=== PATIENT | male | born 1955 ===

== ENCOUNTER → 2020-03-25 08:16 | Outpatient (BNVA) | payer OTHER, MEDICAID, SELFPAY | PROVIDERS: PCP Nurse Practitioner Family; Referring Provider Nurse Practitioner Family; Visit Provider Nurse Practitioner Family | DX: Z86.73 Personal history of transient ischemic attack (TIA), and cerebral infarction without residual deficits (principal); Z51.81 Encounter for therapeutic drug level monitoring; Z79.01 Long term (current) use of anticoagulants | CPT/HCPCS: 85610; 99211 ==

== ENCOUNTER 2020-03-28 10:53 | Outpatient (REF) | payer OTHER, MEDICAID, SELFPAY | END 2020-03-28 10:54 | disposition home or self-care (01) | LOC: HO.HMGCLDS 10:53 | PROVIDERS: PCP Nurse Practitioner Family; Visit Provider Internal Medicine | DX: Z20.828 Contact with and (suspected) exposure to other viral communicable diseases (principal) | CPT/HCPCS: 87635 ==

== ENCOUNTER → 2020-04-22 08:08 | Outpatient (BNVA) | payer OTHER, MEDICAID, SELFPAY | PROVIDERS: PCP Nurse Practitioner Family; Visit Provider Internal Medicine | DX: Z86.73 Personal history of transient ischemic attack (TIA), and cerebral infarction without residual deficits (principal); Z51.81 Encounter for therapeutic drug level monitoring; Z79.01 Long term (current) use of anticoagulants | CPT/HCPCS: 85610; 99211 ==

== ENCOUNTER → 2020-05-18 08:26 | Outpatient (BNVA) | payer OTHER, MEDICAID, SELFPAY | PROVIDERS: PCP Nurse Practitioner Family; Visit Provider Internal Medicine | DX: Z86.73 Personal history of transient ischemic attack (TIA), and cerebral infarction without residual deficits (principal); Z51.81 Encounter for therapeutic drug level monitoring; Z79.01 Long term (current) use of anticoagulants | CPT/HCPCS: 85610; 99211 ==

== ENCOUNTER → 2020-06-15 08:08 | Outpatient (BNVA) | payer OTHER, MEDICAID, SELFPAY | PROVIDERS: PCP Nurse Practitioner Family; Visit Provider Internal Medicine | DX: Z86.73 Personal history of transient ischemic attack (TIA), and cerebral infarction without residual deficits (principal); Z79.01 Long term (current) use of anticoagulants; Z51.81 Encounter for therapeutic drug level monitoring | CPT/HCPCS: 85610; 99211 ==

== ENCOUNTER → 2020-07-15 08:02 | Outpatient (BNVA) | payer OTHER, MEDICAID, SELFPAY | PROVIDERS: PCP Nurse Practitioner Family; Visit Provider Internal Medicine | DX: Z86.73 Personal history of transient ischemic attack (TIA), and cerebral infarction without residual deficits (principal); Z51.81 Encounter for therapeutic drug level monitoring; Z79.01 Long term (current) use of anticoagulants | CPT/HCPCS: 85610; 99211 ==

== ENCOUNTER 2020-08-08 12:34 | Emergency (ER) | payer OTHER, MEDICAID, SELFPAY ==
[2020-08-08 12:51] VITALS: BP 99/52; PULSE 75; RESP 18; TEMP 36.8; O2SAT 94; BMI 40.1
[2020-08-08 15:58] LABS: MANUAL DIFF FLAG NO
[2020-08-08 16:01] LABS: Basophils Percent Auto 0.4 % (0-2); Eosinophils Absolute Auto 0.2 X10*3/uL (0.0-0.4); Eosinophils Percent Auto 2.5 % (0-4); Hematocrit 43.9 % (42-52); Hemoglobin 13.9 g/dl (14.0-18.0); Imm Gran Abs Auto 0.02 X10*3/uL (0.00-0.03); Imm Gran Pct Auto 0.3 % (0.0-0.4); Lymphocytes Absolute Auto 1.9 X10*3/uL (1.2-4.9); Lymphocytes Percent Auto 26.9 % (20-40); Mean Corpuscular HGB Conc 31.7 g/dl (31.0-36.0); Mean Corpuscular Hemoglobin 28.2 pg (27.0-33.0); Mean Platelet Volume 10.6 fL (9.4-12.4); Monocytes Absolute Auto 0.6 X10*3/uL (0.1-1.2); Monocytes Percent Auto 7.7 % (2-11); Neutrophils Absolute Auto 4.4 X10*3/uL (2.0-8.3); Neutrophils Percent Auto 62.2 % (45-73); Platelet Count 174 X10*3/uL (160-400); Red Blood Count 4.93 X10*6/uL (4.60-5.80); Red Cell Distribution Width 13.3 % (11.0-16.0); White Blood Count 7.1 X10*3/uL (4.8-10.8)
[2020-08-08 16:05] LABS: INTERNATIONAL NORM RATIO 2.1 (0.9-1.1); Prothrombin Time 24.9 SEC (10.8-13.0)
[2020-08-08 16:23] LABS: Anion Gap 12 (12-20); Blood Urea Nitrogen 14 mg/dL (9-16); Calcium 8.5 mg/dL (8.4-10.2); Carbon Dioxide 29 mmol/L (22-29); Chloride 104 mmol/L (96-108); Creatinine Clr Calc Pharmacy 86.8; Estimated Glomerular Filt Rate > 60; Glucose Random 101 mg/dL (60-115); Potassium 4.6 mmol/L (3.3-5.1); Sodium 140 mmol/L (135-145)
== END 2020-08-08 17:42 | disposition left against medical advice (07) ==
PROVIDERS: Emergency Provider Emergency Medicine; PCP Nurse Practitioner Family
DX: K92.2 Gastrointestinal hemorrhage, unspecified (principal); I10 Essential (primary) hypertension; I48.92 Unspecified atrial flutter; Z79.01 Long term (current) use of anticoagulants; Z86.73 Personal history of transient ischemic attack (TIA), and cerebral infarction without residual deficits
CPT/HCPCS: 36415; 80048; 85025; 85610; 99282; 99283

== ENCOUNTER 2020-08-09 15:19 | Outpatient (REF) | payer OTHER, SELFPAY ==
--- NOTE | ~2020-08-09 | CT_ITS ---
EXAMINATION: CT ABDOMEN AND PELVIS WITH AND WITHOUT CONTRAST CLINICAL INFORMATION: Gastrointestinal hemorrhage, unspecified COMPARISON: None. TECHNIQUE: Multidetector volumetric imaging was performed from the lung bases through the pubic symphysis for and after the uneventful administration of: Oral contrast: No Intravenous contrast: 80 cc Omnipaque 350 Sagittal and coronal reformatted images were obtained on the technologist workstation. Portal venous and delayed phase images were obtained. This CT examination was performed using dose optimization techniques as appropriate, variously including the following: *Automated exposure control *Adjustment of mA and/or kV according to patient size (this includes techniques or standardized protocols for targeted exams where dose is matched to indication/reason for exam; i.e. extremities or head) *Use of iterative reconstruction technique Total exam dose-length product 1514 mGy-cm FINDINGS: LUNG BASES: Normal heart size. Coronary artery calcification. No pleural effusion or pneumothorax. LIVER, GALLBLADDER, AND BILIARY TREE: The liver is normal in size, shape, and attenuation. No focal hepatic lesion or biliary ductal dilatation is present. There is a gallstone in the gallbladder. PANCREAS: Normal; no mass or surrounding fluid. SPLEEN: Normal size. No focal lesion. ADRENAL GLANDS: Normal; no mass. KIDNEYS AND URETERS: 1.9 cm left lower pole cyst. Symmetric bilateral renal enhancement. No calculi or hydronephrosis. GASTROINTESTINAL TRACT: The stomach is thick-walled, likely due to underdistention as the proximal stomach is fully collapsed.. Small bowel is nondilated. No evidence of colitis or diverticulitis. A few scattered colonic diverticula are present. Although the appendix is not definitely seen, there are no right lower quadrant inflammatory changes to suggest acute appendicitis. There is no abnormal contrast accumulation within the small bowel or colon to suggest active bleeding at the time of the scan. ABDOMINAL WALL: There is fat within the inguinal canals bilaterally. LYMPHOVASCULAR STRUCTURES: No lymphadenopathy. Mild calcified atherosclerotic changes of the normal caliber aorta. BLADDER: No focal mass or wall thickening seen. No bladder calculi. PELVIC VISCERA: Unremarkable. OSSEOUS STRUCTURES: Multilevel level degenerative changes but no acute or suspicious osseous abnormality. CT/CT gi bleed abd pel wo/w con IMPRESSION: No abnormal contrast accumulation within the lumen of the GI tract to suggest active bleeding at the time of the scan. Note that if the patient has intermittent GI hemorrhage, the study would not be expected to be positive unless the patient is actively bleeding at the time of the scan.
[2020-08-09] MEDS: iohexoL 350 MG/ML 100 ML INFUS..BTL IV (16:00)
== END 2020-08-09 15:20 | disposition home or self-care (01) ==
LOC: HO.CT 15:19
PROVIDERS: PCP Nurse Practitioner Family; Visit Provider Nurse Practitioner Family
DX: K92.2 Gastrointestinal hemorrhage, unspecified (principal)
CPT/HCPCS: 74178; Q9967

== ENCOUNTER → 2020-08-10 15:35 | Outpatient (BNVA) | payer OTHER, SELFPAY | PROVIDERS: PCP Nurse Practitioner Family; Visit Provider Internal Medicine | DX: Z86.73 Personal history of transient ischemic attack (TIA), and cerebral infarction without residual deficits (principal); Z51.81 Encounter for therapeutic drug level monitoring; Z79.01 Long term (current) use of anticoagulants | CPT/HCPCS: Q3014 ==

== ENCOUNTER → 2020-08-30 12:16 | Outpatient (BNVA) | payer MEDICARE, OTHER, MEDICAID, SELFPAY | PROVIDERS: PCP Nurse Practitioner Family; Visit Provider Physician Assistant | DX: K62.5 Hemorrhage of anus and rectum (principal); Z79.01 Long term (current) use of anticoagulants | CPT/HCPCS: 99212 ==

== ENCOUNTER → 2020-09-07 08:13 | Outpatient (BNVA) | payer MEDICARE, OTHER, MEDICAID, SELFPAY | PROVIDERS: PCP Nurse Practitioner Family; Visit Provider Internal Medicine | DX: Z86.73 Personal history of transient ischemic attack (TIA), and cerebral infarction without residual deficits (principal); Z51.81 Encounter for therapeutic drug level monitoring; Z79.01 Long term (current) use of anticoagulants | CPT/HCPCS: 85610; 99211 ==

== ENCOUNTER → 2020-09-08 09:13 | Outpatient (REF) | payer MEDICARE, OTHER, SELFPAY ==
--- NOTE | 2020-09-08 09:30 | CA_ITS ---
Transthoracic Echocardiogram Patient (Last, First, Middle): Sourav Lizama, Gender: Male Date of : 1955 Age: 64 Procedure Date: 09/08/2020 Procedure Type: Transthoracic Echocardiogram Location: OP Height: 177.8 cm Weight: 129.73 kg BSA: 2.43 m2 Heart Rate: bpm BP: 133 / 82 mmHg Cobol Engineer: ELLEN Referring MD: Bandar Reid MD Pipe Foreman: Bandar Reid MD Symptoms: I48.0 PAF Study Quality: Technically Difficult ECG Rhythm: Sinus Conclusions: - 1. Normal LV systolic function with impaired relaxation filling pattern next 2. Mildly dilated left atrium 3. Calcific aortic valve changes noted with maybe mild aortic stenosis 4. No pericardial effusion Findings Left Ventricle Normal left ventricular size and systolic function. There is mildly increased left ventricular wall thickness. The visually estimated ejection fraction is between 60-65%. Spectral Doppler is indicative of an impaired relaxation filling pattern. E/E prime ratio is between 8 and 15 consistent with indeterminate filling pressures. Right Ventricle The right ventricle was not well visualized. Atria The left atrium is mildly dilated. Interatrial shunt cannot be excluded. The right atrium was not well visualized. Aortic Valve The aortic valve was not well visualized. There is mild calcification of the aortic valve. There is no aortic valve regurgitation. Increased gradient across aortic valve which could suggest aortic stenosis. Aortic valve area was not calculated on this study Mitral Valve The mitral valve was not well visualized. There is mild mitral annular calcification. There is trace mitral valve regurgitation. There is no mitral valve stenosis. Pulmonic Valve The pulmonic valve was not well visualized. Tricuspid Valve The tricuspid valve was not well visualized. Tricuspid regurgitation envelope is inadequate for calculation of right ventricular systolic pressure. Great Vessels All visible segments of the aorta are normal in size. The pulmonary artery was not well visualized. Venous The inferior vena cava is normal in size and collapses greater than 50% with inspiration. Pericardium/Pleural There is no evidence of pericardial effusion. Prior Study Comparison No significant change compared to prior study dated: 09/11/2018. Measurements M-Mode Liner Measurements Normals - Women/Men AOV Cusps: 1.80 1.5-2.6 cm/m2 2D Linear Measurements IVSd: 1.32 0.6-0.9/0.6-1.0 cm LVIDd: 5.25 3.9-5.3/4.2-5.9 cm LVIDd Index: 2.16 2.4-3.2/2.2-3.1 cm/m2 LVIDs: 3.43 2.0-3.6 cm LVPWd: 1.18 0.7-1.1 cm Ao Root: 3.50 2.1-3.5 cm LA Diam: 4.80 2.7-3.8/3.0-4.0 cm LAIDs Index: 1.98 1.5-2.3 cm/m2 LV Mass: 408.37 67-162/88-224 g LV Mass Index: 168.05 43-95/49-115 g/m2 LVOT Diam: 1.80 3.0+(-)1.3 cm 2D Systolic Function EF 4C: 57.40 >55% EF 2C: 77.60 >55% EF BiP: 67.10 >55% Mitral Valve MV Pk E: 1.16 MV PK A: 1.22 MV Decel Time: 243.00 E/A: 1.00 E'Lateral: 6.20 E'Medial: 4.79 E/E' Med: 24.20 E/E' Lat: 18.70 PHT: 71.00 MVA PHT: 3.10 Decel Morrison: 4.77 Aortic Valve AoV Pk Dinesh: 2.13 AoV Pk Grad: 18.00 LVOT LVOT Pk Dinesh: 1.23 LVOT Mn Dinesh: 0.85 LVOT VTI: 0.30 LVOT Pk Grad: 6.00 LVOT Mn Grad: 3.00 LVOT Diam: 1.80 LVOT Area: 2.54 Diastolic Function MV Pk E: 1.16 MV Pk A: 1.22 E/A: 1.00 E'Medial: 4.79 E/E' Med: 24.20 E' Laterial: 6.20 E/E' Lat: 18.70 Tricuspid Valve RA Press: 3.00 Great Vessels Aorta Ao Root-2D: 3.50 2.0-3.7 cm Ao Asc: 3.70 2.1-3.4 cm Ao Arch: 3.30 Pulmonary Valve PV Pk Dinesh: 1.07 Peak PV Grad: 5.00 Updated in Other Vendor System with Status of Final Bandar Reid MD electronically signed on 09/09/2020 2:35:52 PM with status of Final
== END ==
LOC: HO.CARD 09:13
PROVIDERS: Visit Provider Internal Medicine Cardiovascular Disease
DX: I48.0 Paroxysmal atrial fibrillation (principal)
CPT/HCPCS: 93306; 99212; Q9957

== ENCOUNTER → 2020-09-19 09:02 | Outpatient (BNVA) | payer MEDICARE, MEDICAID, SELFPAY | PROVIDERS: PCP Nurse Practitioner Family; Visit Provider Internal Medicine Cardiovascular Disease | DX: I48.0 Paroxysmal atrial fibrillation (principal); I25.10 Atherosclerotic heart disease of native coronary artery without angina pectoris | CPT/HCPCS: 93005; 99212 ==

== ENCOUNTER 2020-09-28 08:02 | Outpatient (REF) | payer MEDICARE, OTHER, MEDICAID, SELFPAY ==
[2020-09-28 11:19] LABS: MANUAL DIFF FLAG NO
[2020-09-28 11:33] LABS: Basophils Percent Auto 0.5 % (0-2); Eosinophils Absolute Auto 0.2 X10*3/uL (0.0-0.4); Eosinophils Percent Auto 3.5 % (0-4); Hematocrit 44.7 % (42-52); Hemoglobin 13.8 g/dl (14.0-18.0); Imm Gran Abs Auto 0.02 X10*3/uL (0.00-0.03); Imm Gran Pct Auto 0.3 % (0.0-0.4); Lymphocytes Absolute Auto 1.9 X10*3/uL (1.2-4.9); Lymphocytes Percent Auto 31.9 % (20-40); Mean Corpuscular HGB Conc 30.9 g/dl (31.0-36.0); Mean Corpuscular Volume 90.9 fL (80-98); Mean Platelet Volume 11.1 fL (9.4-12.4); Monocytes Absolute Auto 0.5 X10*3/uL (0.1-1.2); Monocytes Percent Auto 7.6 % (2-11); Neutrophils Absolute Auto 3.3 X10*3/uL (2.0-8.3); Neutrophils Percent Auto 56.2 % (45-73); Platelet Count 166 X10*3/uL (160-400); Red Blood Count 4.92 X10*6/uL (4.60-5.80); Red Cell Distribution Width 13.5 % (11.0-16.0)
[2020-09-28 11:39] LABS: D Dimer < 200 NG/ML
[2020-09-28 17:55] LABS: Alanine Aminotransferase 37 U/L (0-40); Albumin Level 4.1 g/dL (3.5-5.0); Alkaline Phosphatase 69 U/L (39-117); Anion Gap 12 (12-20); Aspartate Amino Transferase 20 U/L (5-37); Bilirubin Total 0.4 mg/dL (0.0-1.0); Blood Urea Nitrogen 14 mg/dL (9-16); Calcium 8.3 mg/dL (8.4-10.2); Carbon Dioxide 31 mmol/L (22-29); Chloride 103 mmol/L (96-108); Estimated Glomerular Filt Rate > 60; Glucose Random 129 mg/dL (60-115); Potassium 4.5 mmol/L (3.3-5.1); Sodium 141 mmol/L (135-145)
== END 2020-09-28 08:03 | disposition home or self-care (01) ==
LOC: HO.HMGCLDS 08:02
PROVIDERS: PCP Nurse Practitioner Family; Visit Provider Internal Medicine Medical Oncology
DX: I26.99 Other pulmonary embolism without acute cor pulmonale (principal)
CPT/HCPCS: 36415; 80053; 85025; 85379

== ENCOUNTER 2020-10-06 09:10 | Day surgery (SDC) | payer MEDICARE, MEDICAID, SELFPAY ==
[2020-10-03 09:07] VITALS: BMI 42.6
--- NOTE | 2020-10-04 15:11 | HO.ANESPROP2 ---
Documented by User: Dana Cota 10/04/20 15:15 HPI - Anesthesia Eval Consult details Narrative: 65yo M for Upper Endoscopy and Colonoscopy Coumadin for afib/flutter Stable at routine Cardiol OV 08/2020 - lovenox bridge per Dr Jeanette WOOTEN Active Problems Active Problems: All Active Problems (Updated 10/03/20 @ 09:06 by Tangela Stevenson) Current use of anticoagulant therapy (Acute) Blepharitis (Acute) GIB (gastrointestinal bleeding) (Acute) Hip osteoarthritis (Acute) Pre-op evaluation (Acute) Paroxysmal atrial fibrillation (Acute) CAD (coronary artery disease) (Acute) Paget's disease (Acute) Rectal bleeding (Acute) Past Medical History Medical History (Updated 10/06/20 @ 10:51 by Hayde Null) Angina pectoris Atrial flutter CAD (coronary artery disease) Cerebrovascular disease, acute CVA (cerebral vascular accident) Factor 5 Leiden mutation, heterozygous GERD (gastroesophageal reflux disease) HTN (hypertension) Lupus anticoagulant syndrome Osteoarthritis Paget's disease Paroxysmal atrial fibrillation Rectal bleeding Sleep apnea Vitamin deficiency Family History Family History Father HTN (hypertension) S/P triple vessel bypass Mother Brain tumor Cancer Brother Cancer Brain tumor Surgical History Surgical History Hx of appendectomy Hx of hand surgery Hx of hernia repair Social History Social History Household Members: Spouse Alcohol intake: current Alcohol intake frequency: does not drink Smoking Status: Former smoker Packs Per Day: 0.5 Cigarettes Per Day: 10.0 Years Smoked: 2 Smoked in Last 30 Days: No Smoking Quit Date: 1973 Use of substances other than those prescribed or required for medical reasons: No Advance Directives: No Advance Directives Information Provided: Yes Meds Allergies Allergy/AdvReac Type Severity Reaction Status Date / Time No Known Allergies Allergy Verified 09/21/20 16:23 [No Known Allergies*] Home Medications Medication Instructions Recorded Confirmed Last Taken Type erythromycin 5 mg/gram (0.5 %) eye OPHTHALMIC (EYE) 08/10/20 09/19/20 Unknown History ointment metoprolol succinate 25 mg 25 mg PO DAILY 08/10/20 10/03/20 Unknown History tablet,extended release 24 hr omeprazole 20 mg capsule,delayed 20 mg PO DAILY 08/10/20 10/03/20 Unknown History release olopatadine 0.2 % eye drops 1 drp OPHTHALMIC (EYE) BEDTIME ml 09/08/20 09/19/20 Unknown History Exam Exam Date and Time: October 04, 2020 1511 Height,Weight and Vital Signs: Height 5 ft 10 in Weight 134.717 kg Pertinent Lab Results Pertinent Lab Results: Laboratory Tests 09/28/20 09/28/20 08:08 08:08 WBC 6.0 Hgb 13.8 L Hct 44.7 Plt Count 166 Sodium 141 Potassium 4.5 Chloride 103 Carbon Dioxide 31 H BUN 14 Creatinine 0.90 Narrative Narrative: EKG 08/2020 normal sinus rhythm with normal EKG at 72 beats per minute with normal axis and normal intervals ECHO 08/2020 Conclusions: - 1. Normal LV systolic function with impaired relaxation filling pattern next 2. Mildly dilated left atrium 3. Calcific aortic valve changes noted with maybe mild aortic stenosis 4. No pericardial effusion Assessment and Plan Assessment Anesthesia Assessment: Chart Reviewed Documented by User: Hayde Null 10/06/20 11:14 [facility] Past Medical History Medical History (Updated 10/06/20 @ 10:51 by Hayde Null) Angina pectoris Atrial flutter CAD (coronary artery disease) Cerebrovascular disease, acute CVA (cerebral vascular accident) Factor 5 Leiden mutation, heterozygous GERD (gastroesophageal reflux disease) HTN (hypertension) Lupus anticoagulant syndrome Osteoarthritis Paget's disease Paroxysmal atrial fibrillation Rectal bleeding Sleep apnea Vitamin deficiency Family History Family History Father HTN (hypertension) S/P triple vessel bypass Mother Brain tumor Cancer Brother Cancer Brain tumor Family history of problems with anesthesia: No Surgical History Surgical History Hx of appendectomy Hx of hand surgery Hx of hernia repair History of Problems with Anesthesia: No Social History Social History Household Members: Spouse Alcohol intake: current Alcohol intake frequency: does not drink Smoking Status: Former smoker Packs Per Day: 0.5 Cigarettes Per Day: 10.0 Years Smoked: 2 Smoked in Last 30 Days: No Smoking Quit Date: 1973 Use of substances other than those prescribed or required for medical reasons: No Advance Directives: No Advance Directives Information Provided: Yes Meds Allergies Allergy/AdvReac Type Severity Reaction Status Date / Time No Known Allergies Allergy Verified 09/21/20 16:23 [No Known Allergies*] Home Medications Medication Instructions Recorded Confirmed Last Taken Type erythromycin 5 mg/gram (0.5 %) eye OPHTHALMIC (EYE) 08/10/20 09/19/20 Unknown History ointment metoprolol succinate 25 mg 25 mg PO DAILY 08/10/20 10/03/20 Unknown History tablet,extended release 24 hr omeprazole 20 mg capsule,delayed 20 mg PO DAILY 08/10/20 10/03/20 Unknown History release olopatadine 0.2 % eye drops 1 drp OPHTHALMIC (EYE) BEDTIME ml 09/08/20 09/19/20 Unknown History Exam Height,Weight and Vital Signs: Vital Signs Temp Pulse Resp BP Pulse Ox 10/06/20 10:00 98.5 F 66 16 135/76 96 Lab Results 10/06/20 Range/Units 09:42 PT 12.6 D (10.8-13.0) SEC INR 1.1 (0.9-1.1) Airway Mallampati Class: II TM Dist: >3cm Neck ROM: Full Partial: Upper Heart: RRR Lungs: CTAB Assessment and Plan Assessment Anesthesia Assessment: Anesthesia Plan Discussed and Chart Reviewed Final Anesthetic Review NPO: Yes ASA Class: III Final Preanesthetic Review: No Changes in Pt Med Stat, Meds/Allgs Chart Reviewed, Consent Obtained/Reviewed and Anes Risks/Benef Reviewed Patient Risk: Intermediate Procedure Risk: Low Assessment/Block/Sedation in SS: Assess/Block/Sedation-SS Anesthetic Plan Anesthetic Plan: MAC: Disposition: Standard PACU
--- NOTE | 2020-10-06 09:26 | MHC.SHP ---
Pre-Procedural Eval Section B Chief Complaint: Rectal Bleeding Relevant Family History (Specify if Yes): No Relevant Social History: Other (specify) (ex smoker) Present Medications: see Short Stay Collaborative assessment Medical History: Significant History (Angina pectoris Atrial flutter CAD (coronary artery disease) Cerebrovascular disease, acute CVA (cerebral vascular accident) Factor 5 Leiden mutation, heterozygous GERD (gastroesophageal reflux disease) HTN (hypertension) Lupus anticoagulant syndrome Osteoarthritis Paget's disease Paroxysmal atrial ) History of Previous Operations: Relevant previous surgery/procedure and date(s) (Hx of appendectomy Hx of hand surgery Hx of hernia repair) Allergies: Allergies Allergy/AdvReac Type Severity Reaction Status Date / Time No Known Allergies Allergy Verified 09/21/20 16:23 [No Known Allergies*] Review of Systems Sugical H&P ROS: Negative: Constitution, Cardiovascular, Respiratory, Neurological, Psychiatric, Hem-Onc, Allergic/Immunologic, Gastrointestinal, Genitourinary, Musculoskeletal, Integumentary, Endocrine and Eyes/Ears/Nose/Throat Exam Surgical H&P Exam: Normal: HEENT, Normal: Heart, Normal: Lungs, Normal: Extremities, Normal: Abdomen, Normal: Skin and Normal: Neurological Plan Diagnosis/Plan: Unchanged I have reviewed the history and physical and performed a pertinent physical examination on my patient. No changes have occurred unless specified.
[2020-10-06 09:56] LABS: INTERNATIONAL NORM RATIO 1.1 (0.9-1.1); Prothrombin Time 12.6 SEC (10.8-13.0)
[2020-10-06 10:00] VITALS: BP 135/76; PULSE 66; RESP 16; TEMP 36.9; O2SAT 96; BMI 40.1
[2020-10-06] MEDS: Lactated Ringers 1,000 ML 50 ML IV (10:20)
--- NOTE | 2020-10-06 10:21 | P.OP_ITS ---
Operative Note Operative Note Date of Service: 10/06/20 Narrative: Operative Information Procedure Description: EGD, Colonoscopy FLEXIBLE TRANSORAL UPPER GASTROINTESTINAL ENDOSCOPY AND COLONOSCOPY PROCEDURE NOTE UPPER ENDOSCOPY Consent: Indications for the procedure and potential complications of bleeding, perforation, reaction to medications and missed diagnosis were discussed with the patient and informed consent was obtained. Instrument: Olympus GIF H 190 J mid size upper endoscope Monitoring: Vital signs and clinical assessment, continuous EKG monitoring, Pulse oximetry, Carbon Dioxide monitoring and blood pressure monitoring were done throughout the procedure. Procedure: The patient was placed in the left lateral decubitis position and pre-procedure medications were administered and a bite block was placed. The endoscope was inserted into the mouth and advanced under direct vision to the third part of duodenum. A careful inspection was made as the upper endoscope was withdrawn including a retroflexed examination of the proximal stomach; Findings and interventions are described below. Findings: Larynx:normal Esophagus: GE junction at 45 cm, diaphragm hiatus at 45 cm, irregular z line, bx taken as well as random esophagus Stomach: nodularity and patchy erythema. Biopsies were obtained. Grade 2 flap valve on retroflexed examination of the cardia. Many fundic gland polyps seen. Duodenum: Normal bulb and descending duodenum, bx taken Intervention: Biopsies as noted above COLONOSCOPY Instrument: Olympus variable stiffness adult scope 190L Colonoscopy Monitoring: Vital signs and clinical assessment, continuous EKG monitoring, Pulse oximetry, Carbon Dioxide monitoring and blood pressure monitoring were done throughout the procedure. Colon withdrawal time was 16 minutes. Procedure: The patient was placed in the left lateral decubitis position and pre-procedure medications were administered. After a digital rectal examination of the ano-rectum, the video colonoscope was inserted into the rectum and advanced through the colon to the cecum/TI. The colonoscope was slowly withdrawn in a retrograde panoramic fashion and the colon mucosa was carefully examined including a retroflexed view of the rectum. Findings and interventions are described below. Procedure Difficulty:easy Findings: Terminal Ileum-normal Cecum:normal Ascending Colon: normal, one diverticulum seen-small Transverse Colon - 6-9 mm sessile polyp removed with forceps Descending Colon:6-9 mm sessile polyp removed with forceps Sigmoid Colon: normal Rectum: Retroflexion with moderate sized slighty red internal hemorrhoids, grade I, 6-7 mm sessile polyp removed with forceps from proximal rectum, on retroflexion 8-10 mm sessile polyp removed with cold snare and one clip placed for hemostasis. Anorectum - normal Colon preparation: [place] Bowel Preparation Scale Right colon; 2 Transverse colon: 2 Left colon; 2 (0 = Unprepared colon segment with mucosa not seen due to solid stool that cannot be cleared. 1 = Portion of mucosa of the colon segment seen, but other areas of the colon segment not well seen due to staining, residual stool and/or opaque liquid. 2 = Minor amount of residual staining, small fragments of stool and/or opaque liquid, but mucosa of colon segment seen well. 3 = Entire mucosa of colon segment seen well with no residual staining, small f ragments of stool or opaque liquid) Impression and Post Procedure Diagnosis: Endoscopy Findings: gastritis fundic gland polyps Colonoscopy Findings: polyps internal hemorrhoids diverticular disease Plan: Await Pathology results Repeat Colonoscopy in 5 years or earlier if clinically indicated High fiber diet leaflet avoid straining at stool, epsom salts and sitz bath, anusol supps or cream prn can resume lovenox tonight 6 pm and coumadin as well Above findings were reviewed with the patient and relevant handouts were provided if indicated.
--- NOTE | 2020-10-06 10:21 | PM.OP ---
Brief Operative Note Date of Service: 10/06/20 Pre-op diagnosis: rectal bleeding, GERD Post-op diagnosis: same Procedure: see op note Surgeon: Joana Helm MD Anesthesia: MAC Estimated blood loss (mL): 0 Condition: stable Disposition: PACU
[2020-10-06 11:23] VITALS: BP 113/59; PULSE 89; RESP 14; TEMP 36.1; O2SAT 92
[2020-10-06 11:38] VITALS: BP 116/77; PULSE 80; RESP 17; TEMP 36.1; O2SAT 94
== END 2020-10-06 12:27 | disposition home or self-care (01) ==
PROVIDERS: Nurse Practitioner; PCP Nurse Practitioner Family; Visit Provider Internal Medicine Gastroenterology
PROC: (CPT 45385; principal; 2020-10-06 10:20)
DX: K62.5 Hemorrhage of anus and rectum (principal); D12.4 Benign neoplasm of descending colon; K63.5 Polyp of colon; K62.1 Rectal polyp; K57.30 Diverticulosis of large intestine without perforation or abscess without bleeding; K64.8 Other hemorrhoids; K29.50 Unspecified chronic gastritis without bleeding; K31.7 Polyp of stomach and duodenum; K21.9 Gastro-esophageal reflux disease without esophagitis; K44.9 Diaphragmatic hernia without obstruction or gangrene; D68.62 Lupus anticoagulant syndrome; I69.998 Other sequelae following unspecified cerebrovascular disease; R44.8 Other symptoms and signs involving general sensations and perceptions; G47.33 Obstructive sleep apnea (adult) (pediatric); Z79.01 Long term (current) use of anticoagulants; Z79.899 Other long term (current) drug therapy
CPT/HCPCS: 45385; 45380; 43239; 36415; 85610; 88305; 88342

== ENCOUNTER → 2020-10-11 13:05 | Outpatient (BNVA) | payer MEDICARE, OTHER, MEDICAID, SELFPAY | PROVIDERS: PCP Nurse Practitioner Family; Visit Provider Internal Medicine | DX: Z86.73 Personal history of transient ischemic attack (TIA), and cerebral infarction without residual deficits (principal); Z79.01 Long term (current) use of anticoagulants; Z51.81 Encounter for therapeutic drug level monitoring | CPT/HCPCS: 85610; 99211 ==

== ENCOUNTER → 2020-10-13 08:04 | Outpatient (BNVA) | payer MEDICARE, OTHER, MEDICAID, SELFPAY | PROVIDERS: PCP Nurse Practitioner Family; Visit Provider Internal Medicine | DX: Z86.73 Personal history of transient ischemic attack (TIA), and cerebral infarction without residual deficits (principal); Z51.81 Encounter for therapeutic drug level monitoring; Z79.01 Long term (current) use of anticoagulants | CPT/HCPCS: 85610; 99211 ==

== ENCOUNTER → 2020-10-14 09:00 | Outpatient (BNVA) | payer MEDICARE, OTHER, MEDICAID, SELFPAY | PROVIDERS: PCP Nurse Practitioner Family; Visit Provider Internal Medicine | DX: Z86.73 Personal history of transient ischemic attack (TIA), and cerebral infarction without residual deficits (principal); Z79.01 Long term (current) use of anticoagulants; Z51.81 Encounter for therapeutic drug level monitoring | CPT/HCPCS: 85610; 99211 ==

== ENCOUNTER → 2020-10-17 09:29 | Outpatient (BNVA) | payer MEDICARE, OTHER, MEDICAID, SELFPAY | PROVIDERS: PCP Nurse Practitioner Family; Visit Provider Internal Medicine | DX: Z86.73 Personal history of transient ischemic attack (TIA), and cerebral infarction without residual deficits (principal); Z51.81 Encounter for therapeutic drug level monitoring; Z79.01 Long term (current) use of anticoagulants | CPT/HCPCS: 85610; 99211 ==

== ENCOUNTER → 2020-10-20 11:30 | Outpatient (BNVA) | payer MEDICARE, OTHER, MEDICAID, SELFPAY | PROVIDERS: PCP Nurse Practitioner Family; Visit Provider Physician Assistant | DX: D36.9 Benign neoplasm, unspecified site (principal); K57.30 Diverticulosis of large intestine without perforation or abscess without bleeding; K64.9 Unspecified hemorrhoids; K21.9 Gastro-esophageal reflux disease without esophagitis | CPT/HCPCS: 99212 ==

== ENCOUNTER → 2020-10-24 08:35 | Outpatient (BNVA) | payer MEDICARE, OTHER, MEDICAID, SELFPAY | PROVIDERS: PCP Nurse Practitioner Family; Visit Provider Internal Medicine | DX: Z86.73 Personal history of transient ischemic attack (TIA), and cerebral infarction without residual deficits (principal); Z51.81 Encounter for therapeutic drug level monitoring; Z79.01 Long term (current) use of anticoagulants | CPT/HCPCS: 85610; 99211 ==

== ENCOUNTER → 2020-10-31 08:17 | Outpatient (BNVA) | payer MEDICARE, OTHER, MEDICAID, SELFPAY | PROVIDERS: PCP Nurse Practitioner Family; Visit Provider Internal Medicine | DX: Z86.73 Personal history of transient ischemic attack (TIA), and cerebral infarction without residual deficits (principal); Z51.81 Encounter for therapeutic drug level monitoring; Z79.01 Long term (current) use of anticoagulants | CPT/HCPCS: 85610; 99211 ==

== ENCOUNTER → 2020-11-14 08:19 | Outpatient (BNVA) | payer MEDICARE, OTHER, MEDICAID, SELFPAY | PROVIDERS: PCP Nurse Practitioner Family; Visit Provider Internal Medicine | DX: Z86.73 Personal history of transient ischemic attack (TIA), and cerebral infarction without residual deficits (principal); Z51.81 Encounter for therapeutic drug level monitoring; Z79.01 Long term (current) use of anticoagulants | CPT/HCPCS: 85610; 99211 ==

== ENCOUNTER → 2020-11-28 08:30 | Outpatient (BNVA) | payer MEDICARE, OTHER, MEDICAID, SELFPAY | PROVIDERS: PCP Nurse Practitioner Family; Visit Provider Internal Medicine | DX: Z86.73 Personal history of transient ischemic attack (TIA), and cerebral infarction without residual deficits (principal); Z51.81 Encounter for therapeutic drug level monitoring; Z79.01 Long term (current) use of anticoagulants | CPT/HCPCS: 85610; 99211 ==

== ENCOUNTER → 2021-01-02 08:23 | Outpatient (BNVA) | payer MEDICARE, OTHER, MEDICAID, SELFPAY | PROVIDERS: PCP Nurse Practitioner Family; Visit Provider Internal Medicine | DX: Z86.73 Personal history of transient ischemic attack (TIA), and cerebral infarction without residual deficits (principal); Z51.81 Encounter for therapeutic drug level monitoring; Z79.01 Long term (current) use of anticoagulants | CPT/HCPCS: 85610; 99211 ==

== ENCOUNTER → 2021-02-06 08:03 | Outpatient (BNVA) | payer MEDICARE, OTHER, MEDICAID, SELFPAY | PROVIDERS: PCP Nurse Practitioner Family; Visit Provider Internal Medicine | DX: I48.0 Paroxysmal atrial fibrillation (principal); Z51.81 Encounter for therapeutic drug level monitoring; Z79.01 Long term (current) use of anticoagulants | CPT/HCPCS: 85610; 99211 ==

== ENCOUNTER 2021-02-19 12:11 | Emergency (ER) | payer OTHER, SELFPAY ==
[2021-02-19 12:16] VITALS: BP 110/62; PULSE 78; RESP 18; TEMP 37; O2SAT 93; BMI 41.4
--- NOTE | 2021-02-19 14:04 | ED_ITS ---
HPI - General Adult General Chief complaint: General Medical Stated complaint: swollen eyes Time Seen by Provider: 02/19/21 13:39 Source: patient Mode of arrival: ambulatory History of Present Illness HPI narrative: 65-year-old male with a past medical history of acid reflux, CVA, factor 5 Leiden, GERD, HTN, lupus, Paget's, AFib, sleep apnea, presenting to the ED complaining of bilateral swollen/puffy eyelids since yesterday s/p eating soy milk. Reports drink Soy milk which he has never had before, then took a nap and woke up with nearly swollen shut eyes. Reports symptoms have been improving since onset. Denies visual change/loss, pruritus, drainage from eyes, headache, lightheadedness/dizziness, CP/SOB, numbness, tingling, weakness. Denies known allergens Related Data Previous Rx's Medication Instructions Recorded warfarin 5 mg tablet 5 mg PO DAILY #90 tab 03/25/20 lisinopril 10 mg tablet 10 mg PO DAILY #90 tab 08/31/20 atorvastatin 80 mg tablet 80 mg PO BEDTIME 90 Days #90 tab 11/28/20 isosorbide mononitrate 60 mg 60 mg PO DAILY #30 tab 11/28/20 tablet,extended release 24 hr metoprolol succinate 25 mg 25 mg PO DAILY 90 Days #90 tab 11/28/20 tablet,extended release 24 hr ezetimibe 10 mg tablet (Zetia) 10 mg PO DAILY 90 Days #90 tab 11/29/20 omeprazole 20 mg capsule,delayed 20 mg PO DAILY 90 Days #90 cap 11/30/20 release cetirizine 10 mg tablet (Zyrtec) 10 mg PO DAILY #14 tab 02/19/21 diphenhydramine HCl 25 mg capsule 25 mg PO Q6H PRN #14 cap 02/19/21 (Benadryl) Allergies Allergy/AdvReac Type Severity Reaction Status Date / Time No Known Allergies Allergy Verified 02/19/21 12:16 [No Known Allergies*] Review of Systems Review of Systems: Constitutional: No Fever, No Chills, No Night Sweats, No Fatigue, No Malaise ENT/Mouth: No Ear Pain, No sore throat, No Rhinorrhea, No Swallowing Difficulty Eyes: No Eye Pain, +eyelid Swelling, No Redness, No Vision Changes Cardiovascular: No Chest Pain, No SOB, No Palpitations Respiratory: No Cough, No Dyspnea Gastrointestinal: No Nausea, No Vomiting, No Diarrhea, No Abdominal pain Genitourinary: No irregular bleeding, No Dysuria, No Urinary Frequency, No Hematuria Musculoskeletal: No joint pain, No Myalgias, No Joint Swelling Skin: No Skin Lesions, No rash Neuro: No Weakness, No Numbness, + chronic Paresthesias, No Loss of Consciousness, No Dizziness, No Headache Yes all other systems are reviewed and are negative Neurologic: Denies Abnormal speech present [facility] Past Medical History Attestation statement: The following information was validated with the patient. Medical History (Updated 02/19/21 @ 14:04 by JEANCARLOS Correa) Acid reflux Angina pectoris Atrial flutter CAD (coronary artery disease) Cerebrovascular disease, acute CVA (cerebral vascular accident) Factor 5 Leiden mutation, heterozygous GERD (gastroesophageal reflux disease) Hemorrhoids HTN (hypertension) Lupus anticoagulant syndrome Osteoarthritis Paget's disease Paroxysmal atrial fibrillation Rectal bleeding Sleep apnea Vitamin deficiency Surgical History Hx of appendectomy Hx of colonoscopy Hx of hand surgery Hx of hernia repair Family History Family History Father HTN (hypertension) S/P triple vessel bypass Mother Brain tumor Cancer Brother Cancer Brain tumor Social History Social History (Updated 10/20/20 @ 11:39 by Zandra Stokes CMA) Household Members: Spouse Alcohol intake: never Cigarette Packs Per Day: 0.5 Cigarettes Per Day: 10.0 Years Smoked: 2 Advance Directives: No Advance Directives Information Provided: No Current occupational status: retired Physical Exam Vital Signs: Vital Signs: Last Vital Signs Temp 98.6 F 02/19/21 12:16 Pulse 69 02/19/21 14:14 Resp 18 02/19/21 14:14 BP 125/84 02/19/21 14:14 Pulse Ox 93 02/19/21 14:14 Body Mass Index 41.4 Const: General: cooperative and healthy appearing Orientation/consciousness: patient oriented x3 Limitations: no limitations HENMT: Head: Yes normal to inspection Ears: hearing grossly normal bilaterally General nose exam: Normal external nose present Face and sinus: Yes normal facial exam Mouth: Normal oral and palatal mucosa present Throat: Yes posterior oropharynx normal Eyes: Other: Mild swelling noted to bilateral upper medial eyelids. No nigel dence for erythema, no fluctuance/induration. EOMs intact without pain General: appearance normal, both eyes and all related structures Conjunctiva e: conjunctivae normal Sclerae: sclerae normal Pupils: Equal, round and reactive pupils present EOM: EOMs intact bilaterally Direct Ophthalmoscopy: normal light reflex Neck: Neck: Yes normal visual inspection and Yes no meningeal signs Resp: Effort & Inspection: normal respiratory effort and no respiratory distress Cardio: Rate: regular rate GI: Inspection: Yes normal to inspection Palpation (GI): Soft to palpation, nontender, no guarding and not rigid Skin: Rashes: no rashes Wounds: no wounds Neuro: General: patient oriented x3, gait normal, tone normal, moves all extremities, no meningeal signs, no focal motor deficits and CN's II-XI intact bilaterally Cranial nerves: Yes CN's II-XII intact bilaterally, Yes Equal, round and reactive pupils present, Yes Bilaterally intact EOM present, Yes Nystagmus not present and Yes Midline tongue present Cognition (Neuro): normal cognition Speech: No Abnormal speech present Gait exam (Neuro): Normal gait present Motor exam (neuro): 5/5 motor strength present throughout, Pronator motor function not present and no tremor noted Coordination: blwtop-wo-mkig test normal Romberg Test: Negative Extrem: General: Yes normal to inspection Medical Decision Making MDM Narrative Medical decision making narrative: 65-year-old male with a past medical history of acid reflux, CVA, factor 5 Leiden, GERD, HTN, lupus, Paget's, AFib, sleep apnea, presenting to the ED complaining of bilateral swollen/puffy eyelids since yesterday s/p eating soy milk. Reports drink Soy milk which he has never had before, then took a nap and woke up with nearly swollen shut eyes. On exam VSS, NAD/well-appearing, mild swelling noted to bilateral upper medial eyelids, no focal neuro deficits. Likely localized allergic reaction. No evidence of orbital or periorbital cellulitis. Unlikely CVA/TIA. Discussed with patient at length worrisome signs and symptoms and strict return precautions, him and verbalized understanding and feels safe for discharge home Given dose of Benadryl and Claritin in the ED Discharge Plan Discharge Clinical Impression: Swelling of upper eyelid Patient Disposition: Home, Self-Care Instructions: Allergies (ED), Allergy Testing (ED) Additional Instructions: Take Zyrtec during the day as will help with allergic reaction symptoms and not make you drowsy You may take Benadryl up to every 6 hours, be aware this will make you drowsy Please follow-up with her primary care doctor Please a voice away, as were likely allergic If you develop any visual change/loss, worsening or persistent swelling, headaches, numbness, tingling, weakness your arms or legs, nausea/vomiting return to the ED immediately Prescriptions: New cetirizine [Zyrtec] 10 mg tablet 10 mg PO DAILY Qty: 14 RF: 0 diphenhydramine HCl [Benadryl] 25 mg capsule 25 mg PO Q6H PRN (Reason: allergic reaction) Qty: 14 RF: 0 No Action lisinopril 10 mg tablet 10 mg PO DAILY Qty: 90 RF: 1 metoprolol succinate 25 mg tablet extended release 24 hr 25 mg PO DAILY 90 Days Qty: 90 RF: 2 atorvastatin 80 mg tablet 80 mg PO BEDTIME 90 Days Qty: 90 RF: 2 isosorbide mononitrate 60 mg tablet extended release 24 hr 60 mg PO DAILY Qty: 30 RF: 5 ezetimibe [Zetia] 10 mg tablet 10 mg PO DAILY 90 Days Qty: 90 RF: 2 omeprazole 20 mg capsule,delayed release(DR/EC) 20 mg PO DAILY 90 Days Qty: 90 RF: 0 warfarin 5 mg tablet 5 mg PO DAILY Qty: 90 RF: 0 Referrals: Brian Ward, [facility] ATTEND[facility] [Primary Care Provider] - 2 days Interventions: ED Discharge Assessment Last Done: 02/19/21 14:20 Discharge Date/Time: 02/19/21 14:20
[2021-02-19 14:14] VITALS: BP 125/84; PULSE 69; RESP 18; O2SAT 93
[2021-02-19] MEDS: diphenhydrAMINE HCL 25 MG TABLET PO (14:15)
[2021-02-19] MEDS: Loratadine 10 MG TABLET PO (14:15)
== END 2021-02-19 14:20 | disposition home or self-care (01) ==
PROVIDERS: Emergency Provider Emergency Medicine; PCP Nurse Practitioner Family
DX: H01.001 Unspecified blepharitis right upper eyelid (principal); H01.004 Unspecified blepharitis left upper eyelid; F17.210 Nicotine dependence, cigarettes, uncomplicated; Z71.6 Tobacco abuse counseling; Z79.899 Other long term (current) drug therapy; Z79.01 Long term (current) use of anticoagulants
CPT/HCPCS: 99283; Q0163

== ENCOUNTER → 2021-02-22 08:24 | Outpatient (BNVA) | payer OTHER, MEDICARE, MEDICAID, SELFPAY | PROVIDERS: PCP Nurse Practitioner Family; Visit Provider Student in an Organized Health Care Education/Training Program ==

== ENCOUNTER → 2021-03-06 08:13 | Outpatient (BNVA) | payer OTHER, SELFPAY | PROVIDERS: Visit Provider Internal Medicine | DX: I48.0 Paroxysmal atrial fibrillation (principal); Z51.81 Encounter for therapeutic drug level monitoring; Z79.01 Long term (current) use of anticoagulants | CPT/HCPCS: 85610; 99211 ==

== ENCOUNTER → 2021-04-04 07:59 | Outpatient (BNVA) | payer OTHER, MEDICARE, MEDICAID, SELFPAY | PROVIDERS: PCP Nurse Practitioner Family; Visit Provider Internal Medicine | DX: I48.0 Paroxysmal atrial fibrillation (principal); Z51.81 Encounter for therapeutic drug level monitoring; Z79.01 Long term (current) use of anticoagulants | CPT/HCPCS: 85610; 99211 ==

== ENCOUNTER → 2021-04-17 08:07 | Outpatient (BNVA) | payer MEDICARE, MEDICAID, SELFPAY | PROVIDERS: PCP Nurse Practitioner Family; Visit Provider Internal Medicine | DX: I48.0 Paroxysmal atrial fibrillation (principal); Z51.81 Encounter for therapeutic drug level monitoring; Z79.01 Long term (current) use of anticoagulants | CPT/HCPCS: 85610; 99211 ==

== ENCOUNTER 2021-05-05 07:45 | Outpatient (REF) | payer MEDICARE, MEDICAID, SELFPAY ==
[2021-05-05 11:48] LABS: Appearance Urine CLEAR; Color Urine YELLOW; Glucose Urine UA NEG (NEG); Leukocyte Esterase Urine NEG (NEG); Nitrite Urine NEG (NEG); Urine Blood NEG (NEG); Urine Ketones NEG (NEG); Urine Protein NEG (NEG-TRACE)
[2021-05-05 12:03] LABS: Alanine Aminotransferase 30 U/L (0-40); Albumin Level 4.1 g/dL (3.5-5.0); Alkaline Phosphatase 66 U/L (39-117); Anion Gap 15 (12-20); Aspartate Amino Transferase 18 U/L (5-37); Bilirubin Total 0.6 mg/dL (0.0-1.0); Blood Urea Nitrogen 12 mg/dL (9-16); Calcium 8.6 mg/dL (8.4-10.2); Carbon Dioxide 28 mmol/L (22-29); Chloride 102 mmol/L (96-108); Cholesterol 141 mg/dL; Estimated Glomerular Filt Rate > 60; Glucose Fasting 111 mg/dL (60-99); HDL Cholesterol 35 mg/dL; LDL Cholesterol Calculated 66 mg/dl; Potassium 4.7 mmol/L (3.3-5.1); Sodium 140 mmol/L (135-145); Total Protein 7.1 g/dL (6.5-8.0); Triglycerides 200 mg/dL
[2021-05-05 12:12] LABS: Prostate Specific Antigen Scr 0.81 ng/mL (<0.05-4.0); TSH reflex Free T4 3.48 uIU/mL (0.32-4.0)
[2021-05-10 15:17] LABS: Vitamin D 25-OH, D2 <4 ng/mL; Vitamin D 25-OH, D3 23 ng/mL; Vitamin D 25-OH, Total 23 ng/mL (30-100)
== END 2021-05-05 07:46 | disposition home or self-care (01) ==
LOC: HO.HMGCLDS 07:45
PROVIDERS: PCP Nurse Practitioner Family; Visit Provider Student in an Organized Health Care Education/Training Program
DX: Z12.5 Encounter for screening for malignant neoplasm of prostate (principal); M16.9 Osteoarthritis of hip, unspecified; I10 Essential (primary) hypertension
CPT/HCPCS: 36415; 80053; 80061; 81003; 82306; 84153; 84443

== ENCOUNTER → 2021-05-15 08:09 | Outpatient (BNVA) | payer MEDICARE, OTHER, SELFPAY | PROVIDERS: PCP Nurse Practitioner Family; Visit Provider Internal Medicine | DX: I48.0 Paroxysmal atrial fibrillation (principal); Z51.81 Encounter for therapeutic drug level monitoring; Z79.01 Long term (current) use of anticoagulants | CPT/HCPCS: 85610; 99211 ==

== ENCOUNTER → 2021-05-24 08:12 | Outpatient (BNVA) | payer MEDICARE, MEDICAID, OTHER, SELFPAY | PROVIDERS: PCP Nurse Practitioner Family; Visit Provider Internal Medicine | DX: I48.0 Paroxysmal atrial fibrillation (principal); Z51.81 Encounter for therapeutic drug level monitoring; Z79.01 Long term (current) use of anticoagulants | CPT/HCPCS: 85610; 99211 ==

== ENCOUNTER → 2021-06-01 08:10 | Outpatient (BNVA) | payer MEDICARE, MEDICAID, OTHER, SELFPAY | PROVIDERS: PCP Nurse Practitioner Family; Visit Provider Internal Medicine | DX: I48.0 Paroxysmal atrial fibrillation (principal); Z51.81 Encounter for therapeutic drug level monitoring; Z79.01 Long term (current) use of anticoagulants | CPT/HCPCS: 85610; 99211 ==

== ENCOUNTER → 2021-06-29 08:03 | Outpatient (BNVA) | payer MEDICARE, OTHER, SELFPAY | PROVIDERS: PCP Nurse Practitioner Family; Visit Provider Internal Medicine | DX: I48.0 Paroxysmal atrial fibrillation (principal); Z51.81 Encounter for therapeutic drug level monitoring; Z79.01 Long term (current) use of anticoagulants | CPT/HCPCS: 85610; 99211 ==

== ENCOUNTER → 2021-08-03 08:37 | Outpatient (BNVA) | payer OTHER, MEDICARE, SELFPAY | PROVIDERS: PCP Nurse Practitioner Family; Visit Provider Internal Medicine | DX: I48.0 Paroxysmal atrial fibrillation (principal); Z51.81 Encounter for therapeutic drug level monitoring; Z79.01 Long term (current) use of anticoagulants | CPT/HCPCS: 85610; 99211 ==

== ENCOUNTER → 2021-08-31 08:05 | Outpatient (BNVA) | payer MEDICARE, OTHER, SELFPAY | PROVIDERS: PCP Nurse Practitioner Family; Visit Provider Internal Medicine | DX: I48.0 Paroxysmal atrial fibrillation (principal); Z51.81 Encounter for therapeutic drug level monitoring; Z79.01 Long term (current) use of anticoagulants | CPT/HCPCS: 85610; 99211 ==

== ENCOUNTER → 2021-09-12 12:31 | Outpatient (BNVA) | payer MEDICARE, OTHER, SELFPAY | PROVIDERS: PCP Nurse Practitioner Family; Referring Provider Nurse Practitioner Family; Visit Provider Internal Medicine Cardiovascular Disease | DX: I25.10 Atherosclerotic heart disease of native coronary artery without angina pectoris (principal); I48.0 Paroxysmal atrial fibrillation | CPT/HCPCS: 93005; 99212 ==

== ENCOUNTER 2021-09-20 07:18 | Outpatient (REF) | payer MEDICARE, OTHER, MEDICAID, SELFPAY ==
[2021-09-20 11:33] LABS: Appearance Urine CLEAR; Color Urine YELLOW; Glucose Urine UA NEG (NEG); Leukocyte Esterase Urine NEG (NEG); Nitrite Urine NEG (NEG); Specific Gravity - Urine 1.025 (1.005-1.025); Urine Blood NEG (NEG); Urine Ketones NEG (NEG); Urine Protein NEG (NEG-TRACE)
[2021-09-20 11:42] LABS: MANUAL DIFF FLAG NO
[2021-09-20 12:04] LABS: Basophils Percent Auto 0.5 % (0-2); Eosinophils Absolute Auto 0.2 X10*3/uL (0.0-0.4); Eosinophils Percent Auto 3.1 % (0-4); Hematocrit 43.8 % (42.0-52.0); Hemoglobin 13.6 g/dl (14.0-18.0); Imm Gran Abs Auto 0.01 X10*3/uL (0.00-0.03); Imm Gran Pct Auto 0.2 % (0.0-0.4); Lymphocytes Absolute Auto 1.9 X10*3/uL (1.2-4.9); Lymphocytes Percent Auto 32.3 % (20-40); Mean Corpuscular HGB Conc 31.1 g/dl (31.0-36.0); Mean Corpuscular Hemoglobin 28.6 pg (27.0-33.0); Mean Platelet Volume 11.5 fL (9.4-12.4); Monocytes Absolute Auto 0.6 X10*3/uL (0.1-1.2); Monocytes Percent Auto 9.5 % (2-11); Neutrophils Absolute Auto 3.2 x10*3/uL (2.0-8.3); Neutrophils Percent Auto 54.4 % (45-73); Platelet Count 166 X10*3/uL (160-400); Red Blood Count 4.76 X10*6/uL (4.60-5.80); Red Cell Distribution Width 13.6 % (11.0-16.0); White Blood Count 5.8 X10*3/uL (4.8-10.8)
[2021-09-20 12:18] LABS: Alanine Aminotransferase 32 U/L (0-40); Alkaline Phosphatase 71 U/L (39-117); Anion Gap 10 (12-20); Aspartate Amino Transferase 21 U/L (5-37); Bilirubin Total 0.4 mg/dL (0.0-1.0); Blood Urea Nitrogen 12 mg/dL (9-16); Calcium 9.1 mg/dL (8.4-10.2); Carbon Dioxide 31 mmol/L (22-29); Chloride 105 mmol/L (96-108); Cholesterol 129 mg/dL; Estimated Glomerular Filt Rate > 60; Glucose Fasting 112 mg/dL (60-99); HDL Cholesterol 36 mg/dL; LDL Cholesterol Calculated 63 mg/dl; Potassium 5.2 mmol/L (3.3-5.1); Sodium 141 mmol/L (135-145); Triglycerides 154 mg/dL
[2021-09-20 12:38] LABS: TSH reflex Free T4 3.26 uIU/mL (0.32-4.0)
[2021-09-21 05:38] LABS: SARS COV2 IgG Negative (Negative)
[2021-09-21 14:26] LABS: Antibody to SS-A Antigen <1.0 NEG AI (<1.0 NEG); Antibody to SS-B Antigen <1.0 NEG AI (<1.0 NEG)
== END 2021-09-20 07:19 | disposition home or self-care (01) ==
LOC: HO.HMGCLDS 07:18
PROVIDERS: PCP Nurse Practitioner Family; Visit Provider Nurse Practitioner Family
DX: Z20.822 Contact with and (suspected) exposure to COVID-19 (principal); I10 Essential (primary) hypertension; H04.129 Dry eye syndrome of unspecified lacrimal gland
CPT/HCPCS: 36415; 80053; 80061; 81003; 84443; 85025; 86235; 86769

== ENCOUNTER → 2021-10-06 08:18 | Outpatient (BNVA) | payer MEDICARE, OTHER, MEDICAID, SELFPAY | PROVIDERS: PCP Nurse Practitioner Family; Visit Provider Internal Medicine | DX: I48.0 Paroxysmal atrial fibrillation (principal); Z79.01 Long term (current) use of anticoagulants; Z51.81 Encounter for therapeutic drug level monitoring | CPT/HCPCS: 85610; 99211 ==

== ENCOUNTER → 2021-11-06 08:04 | Outpatient (BNVA) | payer MEDICARE, OTHER, MEDICAID, SELFPAY | PROVIDERS: PCP Nurse Practitioner Family; Visit Provider Internal Medicine | DX: I48.0 Paroxysmal atrial fibrillation (principal); Z79.01 Long term (current) use of anticoagulants; Z51.81 Encounter for therapeutic drug level monitoring | CPT/HCPCS: 85610; 99211 ==

== ENCOUNTER → 2021-12-04 08:02 | Outpatient (BNVA) | payer MEDICARE, OTHER, MEDICAID, SELFPAY | PROVIDERS: PCP Nurse Practitioner Family; Visit Provider Internal Medicine | DX: I48.0 Paroxysmal atrial fibrillation (principal); Z79.01 Long term (current) use of anticoagulants; Z51.81 Encounter for therapeutic drug level monitoring | CPT/HCPCS: 85610; 99211 ==

== ENCOUNTER → 2022-01-01 08:01 | Outpatient (BNVA) | payer MEDICARE, OTHER, MEDICAID, SELFPAY | PROVIDERS: PCP Nurse Practitioner Family; Visit Provider Internal Medicine | DX: I48.0 Paroxysmal atrial fibrillation (principal); Z79.01 Long term (current) use of anticoagulants; Z51.81 Encounter for therapeutic drug level monitoring | CPT/HCPCS: 85610; 99211 ==

== ENCOUNTER 2022-01-19 07:36 | Outpatient (REF) | payer MEDICARE, OTHER, SELFPAY ==
--- NOTE | ~2022-01-19 | MR_ITS ---
EXAMINATION: MRI BRAIN WITHOUT AND WITH CONTRAST MR ANGIOGRAM HEAD WITHOUT CONTRAST CLINICAL INFORMATION: Cerebral infarct. Vertebral artery stenosis. COMPARISON: CT scan of the head 05/08/2018. Brain MRI 02/13/2016. TECHNIQUE: Multiplanar MR imaging of the brain was performed without and with contrast. A 3-dimensional [id number] MR angiogram of the head was also performed without contrast. MIP reconstructions were generated in multiple orientations at the acquisition workstation. Multiple three-dimensional surface rendered images and maximum intensity projection images were generated on a dedicated 3-D lab workstation. Arterial stenoses are measured in accordance with NASCET criteria or similar method if applicable. A total of 10 mL Gadavist was utilized for this examination. FINDINGS: Brain: There are scattered nonspecific foci of T2 FLAIR signal hyperintensity involving the periventricular white matter. 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 No acute territorial infarct. No pathological magnetic susceptibility artifact. The left vertebral artery flow-void is absent indicating slow flow or occlusion of blood within the vessel. The remainder of the major vascular flow voids are maintained. Postcontrast images reveal no abnormal intracranial mass or enhancement. There is no intracranial mass effect or midline shift. No abnormal extra-axial collection. Lateral and third ventricles are normal. No hydrocephalus. Midline structures including the cervicomedullary junction are normal. No acute bone marrow signal changes. There is no mastoid middle ear effusion. Gdpy-iq-ofwgrwdd paranasal sinus disease primarily affecting the ethmoid air cells and the alveolar recesses of the maxillary sinuses. Globes and orbits are symmetric. MR angiogram head: Intracranial internal carotid arteries are patent. The dominant left vertebral artery is occluded. The right intradural vertebral artery is narrow but patent. Basilar artery is normal. There are persistent origins of both posterior cerebral arteries. Visualized portions of the anterior, middle, and posterior cerebral artery complexes are normal. 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 No evidence of acute territorial infarct or hemorrhage. No intracranial mass effect or hydrocephalus. 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 The right intradural vertebral artery is narrow but patent. The remainder of the visualized intracranial vascular anatomy is unremarkable.
--- NOTE | ~2022-01-19 | MR_ITS ---
EXAMINATION: MRI BRAIN WITHOUT AND WITH CONTRAST MR ANGIOGRAM HEAD WITHOUT CONTRAST CLINICAL INFORMATION: Cerebral infarct. Vertebral artery stenosis. COMPARISON: CT scan of the head 05/08/2018. Brain MRI 02/13/2016. TECHNIQUE: Multiplanar MR imaging of the brain was performed without and with contrast. A 3-dimensional eqxv-jz-[id number] MR angiogram of the head was also performed without contrast. MIP reconstructions were generated in multiple orientations at the acquisition workstation. Multiple three-dimensional surface rendered images and maximum intensity projection images were generated on a dedicated 3-D lab workstation. Arterial stenoses are measured in accordance with NASCET criteria or similar method if applicable. A total of 10 mL Gadavist was utilized for this examination. FINDINGS: Brain: There are scattered nonspecific foci of T2 FLAIR signal hyperintensity involving the periventricular white matter. 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 No acute territorial infarct. No pathological magnetic susceptibility artifact. The left vertebral artery flow-void is absent indicating slow flow or occlusion of blood within the vessel. The remainder of the major vascular flow voids are maintained. Postcontrast images reveal no abnormal intracranial mass or enhancement. There is no intracranial mass effect or midline shift. No abnormal extra-axial collection. Lateral and third ventricles are normal. No hydrocephalus. Midline structures including the cervicomedullary junction are normal. No acute bone marrow signal changes. There is no mastoid middle ear effusion. Cdyz-vs-rguojams paranasal sinus disease primarily affecting the ethmoid air cells and the alveolar recesses of the maxillary sinuses. Globes and orbits are symmetric. MR angiogram head: Intracranial internal carotid arteries are patent. The dominant left vertebral artery is occluded. The right intradural vertebral artery is narrow but patent. Basilar artery is normal. There are persistent origins of both posterior cerebral arteries. Visualized portions of the anterior, middle, and posterior cerebral artery complexes are normal. 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 No evidence of acute territorial infarct or hemorrhage. No intracranial mass effect or hydrocephalus. 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 The right intradural vertebral artery is narrow but patent. The remainder of the visualized intracranial vascular anatomy is unremarkable.
[2022-01-19 08:56] LABS: Alanine Aminotransferase 21 U/L (0-40); Alkaline Phosphatase 71 U/L (39-117); Anion Gap 13 (12-20); Aspartate Amino Transferase 15 U/L (5-37); Bilirubin Total 0.5 mg/dL (0.0-1.0); Blood Urea Nitrogen 17 mg/dL (9-16); Calcium 8.6 mg/dL (8.4-10.2); Carbon Dioxide 23 mmol/L (22-29); Chloride 107 mmol/L (96-108); Estimated Glomerular Filt Rate > 60; Glucose Random 128 mg/dL (60-115); Potassium 4.3 mmol/L (3.3-5.1); Sodium 139 mmol/L (135-145); Total Protein 6.7 g/dL (6.5-8.0)
[2022-01-25 05:57] LABS: DRVVT 1:1 Mix Interpretation Not Indicated; DRVVT Confirmation Negative (Negative); Hexagonal Phase Neutralization Negative (Negative); PTT (LAC) Screen 59 sec (<=40)
== END 2022-01-19 07:37 | disposition home or self-care (01) ==
LOC: HO.MRI 07:36
PROVIDERS: PCP Nurse Practitioner Family; Visit Provider Psychiatry & Neurology Neurology
DX: I65.09 Occlusion and stenosis of unspecified vertebral artery (principal); I63.9 Cerebral infarction, unspecified; E87.5 Hyperkalemia
CPT/HCPCS: 36415; 70544; 70553; 80053; 85597; 85613; 85730; A9585

== ENCOUNTER → 2022-01-29 08:00 | Outpatient (BNVA) | payer MEDICARE, OTHER, SELFPAY | PROVIDERS: PCP Nurse Practitioner Family; Visit Provider Internal Medicine | DX: I48.0 Paroxysmal atrial fibrillation (principal); Z79.01 Long term (current) use of anticoagulants; Z51.81 Encounter for therapeutic drug level monitoring | CPT/HCPCS: 85610; 99211 ==

== ENCOUNTER → 2022-03-01 07:59 | Outpatient (BNVA) | payer MEDICARE, OTHER, SELFPAY | PROVIDERS: PCP Nurse Practitioner Family; Visit Provider Internal Medicine | DX: I48.0 Paroxysmal atrial fibrillation (principal); Z79.01 Long term (current) use of anticoagulants; Z51.81 Encounter for therapeutic drug level monitoring | CPT/HCPCS: 85610; 99211 ==

== ENCOUNTER → 2022-03-29 07:59 | Outpatient (BNVA) | payer MEDICARE, OTHER, SELFPAY | PROVIDERS: PCP Nurse Practitioner Family; Visit Provider Internal Medicine | DX: I48.0 Paroxysmal atrial fibrillation (principal); Z79.01 Long term (current) use of anticoagulants; Z51.81 Encounter for therapeutic drug level monitoring | CPT/HCPCS: 85610; 99211 ==

== ENCOUNTER → 2022-04-12 08:06 | Outpatient (BNVA) | payer MEDICARE, OTHER, SELFPAY | PROVIDERS: PCP Nurse Practitioner Family; Visit Provider Internal Medicine | DX: I48.0 Paroxysmal atrial fibrillation (principal); Z79.01 Long term (current) use of anticoagulants; Z51.81 Encounter for therapeutic drug level monitoring | CPT/HCPCS: 85610; 99211 ==

== ENCOUNTER → 2022-05-10 08:05 | Outpatient (BNVA) | payer MEDICARE, OTHER, SELFPAY | PROVIDERS: PCP Nurse Practitioner Family; Visit Provider Internal Medicine | DX: I48.0 Paroxysmal atrial fibrillation (principal); Z79.01 Long term (current) use of anticoagulants; Z51.81 Encounter for therapeutic drug level monitoring | CPT/HCPCS: 85610; 99211 ==

== ENCOUNTER → 2022-06-14 08:05 | Outpatient (BNVA) | payer MEDICARE, OTHER, SELFPAY | PROVIDERS: PCP Nurse Practitioner Family; Visit Provider Internal Medicine | DX: I48.0 Paroxysmal atrial fibrillation (principal); Z79.01 Long term (current) use of anticoagulants; Z51.81 Encounter for therapeutic drug level monitoring | CPT/HCPCS: 85610; 99211 ==

== ENCOUNTER → 2022-07-19 08:03 | Outpatient (BNVA) | payer MEDICARE, OTHER, SELFPAY | PROVIDERS: PCP Nurse Practitioner Family; Visit Provider Internal Medicine | DX: I48.0 Paroxysmal atrial fibrillation (principal); Z79.01 Long term (current) use of anticoagulants; Z51.81 Encounter for therapeutic drug level monitoring | CPT/HCPCS: 85610; 99211 ==

== ENCOUNTER 2022-07-22 08:27 | Inpatient (IN) | payer OTHER, SELFPAY ==
[2022-07-22] VITALS (9 sets, daily range): BP systolic 94–132; BP diastolic 54–75; PULSE 63–81; RESP 12–20; TEMP 36.2–37.3; O2SAT 90–97; BMI 39.0
--- NOTE | ~2022-07-22 | XR_ITS ---
EXAMINATION: XR CHEST CLINICAL INFORMATION: Shortness of breath. COMPARISON: Chest radiograph dated 05/08/2018. TECHNIQUE: Frontal view of the chest was obtained. FINDINGS: The lungs are clear. The cardiomediastinal silhouette is normal in size. There is no pleural effusion or pneumothorax. No acute osseous abnormality. XR/XR chest 1V IMPRESSION: No acute cardiopulmonary findings.
--- NOTE | 2022-07-22 09:19 | MHC.EDTECH ---
Pt O2 level at 90-92%, RN aware, placed on 2 L NC. Labs/covid swab collected and sent
[2022-07-22 09:20] LABS: Basophils Percent Auto 0.2 % (0-2); Lymphocytes Absolute Auto 1.3 X10*3/uL (1.2-4.9); Mean Corpuscular Hemoglobin 27.7 pg (27.0-33.0); Mean Platelet Volume 10.5 fL (9.4-12.4); PLT CLUMP 1; SCAN SMEAR FLAG 1
[2022-07-22 09:22] LABS: Hematocrit 41.4 % (42.0-52.0); Hemoglobin 13.2 g/dl (14.0-18.0); Imm Gran Abs Auto 0.01 X10*3/uL (0.00-0.03); Imm Gran Pct Auto 0.2 % (0.0-0.4); Lymphocytes Percent Auto 27.5 % (20-40); Mean Corpuscular HGB Conc 31.9 g/dl (31.0-36.0); Mean Corpuscular Volume 86.8 fL (80.0-98.0); Monocytes Absolute Auto 0.8 X10*3/uL (0.1-1.2); Monocytes Percent Auto 15.5 % (2-11); Neutrophils Absolute Auto 2.7 x10*3/uL (2.0-8.3); Neutrophils Percent Auto 56.6 % (45-73); Red Blood Count 4.77 X10*6/uL (4.60-5.80); Red Cell Distribution Width 13.6 % (11.0-16.0)
[2022-07-22 09:25] LABS: INTERNATIONAL NORM RATIO 1.4 (0.9-1.1); Prothrombin Time 16.5 SEC (10.0-13.1)
[2022-07-22 09:31] LABS: MANUAL DIFF FLAG NO; Platelet Count 127 X10*3/uL (160-400); White Blood Count 4.8 X10*3/uL (4.8-10.8)
[2022-07-22 09:37] LABS: Alanine Aminotransferase 37 U/L (0-40); Albumin Level 3.7 g/dL (3.5-5.0); Alkaline Phosphatase 74 U/L (39-117); Anion Gap 13 (12-20); Aspartate Amino Transferase 26 U/L (5-37); Bilirubin Total 0.5 mg/dL (0.0-1.0); Blood Urea Nitrogen 16 mg/dL (9-16); Calcium 7.9 mg/dL (8.4-10.2); Carbon Dioxide 23 mmol/L (22-29); Chloride 103 mmol/L (96-108); Creatinine Clr Calc Pharmacy 94.8; Estimated Glomerular Filt Rate > 60; Glucose Random 116 mg/dL (60-115); Potassium 4.2 mmol/L (3.3-5.1); Sodium 135 mmol/L (135-145); Total Protein 6.3 g/dL (6.5-8.0)
[2022-07-22 09:43] LABS: B Type Natriuretic Peptide 52 pg/mL (<100)
[2022-07-22 09:44] LABS: Troponin-I High Sensitivity 16.5 ng/L (<3.5-35.0)
--- NOTE | 2022-07-22 09:50 | ED.SOB ---
HPI - SOB/Dyspnea General Chief Complaint: Upper Respiratory Symptoms Stated Complaint: COVID+/SOB Time Seen by Provider: 07/22/22 08:52 Source: patient and family () Mode of arrival: ambulatory History of Present Illness HPI Narrative: 66-year-old male with history of stroke in currently on Coumadin for factor 5/anti phospholipid antibody presents with having a a COVID positive test yesterday at home and today comes in with increasing cough, headache, shortness of breath, chills and sore throat. Related Data Previous Rx's Medication Instructions Recorded atorvastatin 80 mg tablet 80 mg PO BEDTIME 90 days #90 tabs 05/31/21 lisinopril 10 mg tablet 10 mg PO DAILY 90 days #90 tabs 08/17/21 ezetimibe 10 mg tablet (Zetia) 10 mg PO DAILY 90 days #90 tabs 09/22/21 omeprazole 20 mg capsule,delayed 20 mg PO DAILY 90 days #90 caps 04/01/22 release warfarin 5 mg tablet 5 mg PO DAILY #90 tabs 04/26/22 isosorbide mononitrate 60 mg 60 mg PO DAILY #90 tabs 06/08/22 tablet,extended release 24 hr metoprolol succinate 25 mg 25 mg PO DAILY #90 tabs 06/26/22 tablet,extended release 24 hr Allergies Allergy/AdvReac Type Severity Reaction Status Date / Time No Known Allergies Allergy Verified 07/19/22 08:12 [No Known Allergies*] Review of Systems Review of Systems: Pertinent positives and negatives as stated in HPI PMFSH Past Medical History Source: nursing notes reviewed Medical History Acid reflux Angina pectoris Atrial flutter CAD (coronary artery disease) Cerebrovascular disease, acute CVA (cerebral vascular accident) DDD (degenerative disc disease), lumbar Factor 5 Leiden mutation, heterozygous GERD (gastroesophageal reflux disease) Hemorrhoids HTN (hypertension) Lupus anticoagulant syndrome Osteoarthritis Paget's disease Paroxysmal atrial fibrillation Rectal bleeding Sleep apnea Vitamin deficiency Surgical History Hx of appendectomy Hx of colonoscopy Hx of hand surgery Hx of hernia repair Family History Family History Father HTN (hypertension) S/P triple vessel bypass Mother Brain tumor Cancer Brother Cancer Brain tumor Social History Social History Household Members: Spouse Housing: House Alcohol intake: never Patient Tobacco Use Status: Former Tobacco user Cigarette Packs Per Day: 0.5 Cigarettes Per Day: 10.0 Years Smoked: 2 Smoked in Last 30 Days: No Use of substances other than those prescribed or required for medical reasons: No Advance Directives: No Advance Directives Information Provided: No Current occupational status: retired Physical Exam Vital Signs: Vital Signs: Last Vital Signs Temp 97.2 F 07/22/22 08:42 Pulse 69 07/22/22 09:52 Resp 19 07/22/22 09:52 BP 132/75 07/22/22 08:42 Pulse Ox 96 07/22/22 09:52 O2 Del Method 07/22/22 09:52 O2 Flow Rate 2 07/22/22 09:52 BMI result Body Mass Index 39.0 VITAL SIGNS: Reviewed. GENERAL: Elevated BMI, Well developed, well nourished, in no acute distress. HEAD: Normocephalic/atraumatic EYES: PERRLA, EOMI EARS: Ext canals without abnormality OROPHARYNX: no oral lesions noted, posterior pharynx clear LUNGS: Tachypnea present, no wheeze/rales, good inspiratory effort. SpO2<90> placed on 1 L nasal cannula with good response and is now oxygenating at 95% CARDIOVASCULAR: Regular rate and rhythm without noted murmurs, no JVD or lower extremity edema. ABDOMEN: Soft, non-tender, non-distended with bowel sounds. MUSCULOSKELETAL: No tenderness, deformities, or effusions noted on gross inspection. EXTREMITIES: No cyanosis, clubbing or edema. SKIN: Inspection of the skin reveals no rashes NEUROLOGIC: Alert and oriented x 4. Strength and sensation to light touch were grossly intact x 4. Medications Administered Discontinued Medications Generic Name Dose Route Start Last Admin Trade Name Freq PRN Reason Stop Dose Admin Acetaminophen 975 mg 07/22/22 09:53 07/22/22 10:13 Acetaminophen 325 Mg Tablet PO 07/22/22 09:54 975 mg ONCE ONE Administration Medical Decision Making Medical Decision Making MDM Narrative: 66-year-old male without documented pulmonary or significant cardiac history other than hypertension presents with increasing shortness of breath since home diagnosis of COVID-19. Will confirm the latter diagnosis at present, he is noted to be hypoxic down to 89-90% and was placed on supplemental oxygen with good response. Lung exam is otherwise benign in nature I do not suspect any CHF/bacteria pneumonia. Additional information provided by the spouse, , who states that she contacted the state regarding any intervention treatment for her and she was told that because he is on anticoagulation they are unable to make any recommendations at this time. My interpretation of the entire workup is the patient has hypoxia secondary to COVID-19 infection, I did discuss the case with the inpatient hospitalist who accepts admission and will explore other treatment options for the patient and his COVID-19. Differential Diagnosis Differential Diagnoses: The differential diagnosis associated with the presentation includes Please see the discussion above Consult Healthcare Provider Management of the patient was discussed with: Hospitalist [id number]: I discussed case with the inpatient hospitalist who accepts admission. Lab Data MDM Lab Attestation statement: I reviewed the patient's lab results. Please see the discussion above 07/22/22 09:11 07/22/22 09:11 Labs: Lab Results 07/22/22 07/22/22 07/22/22 Range/Units 09:11 09:11 09:11 WBC 4.8 (4.8-10.8) X10*3/uL RBC 4.77 (4.60-5.80) X10*6/uL Hgb 13.2 L (14.0-18.0) g/dl Hct 41.4 L (42.0-52.0) % MCV 86.8 (80.0-98.0) fL MCH 27.7 (27.0-33.0) pg MCHC 31.9 (31.0-36.0) g/dl RDW 13.6 (11.0-16.0) % Plt Count 127 L (160-400) X10*3/uL MPV 10.5 (9.4-12.4) fL Immature Gran % (Auto) 0.2 (0.0-0.4) % Neut % (Auto) 56.6 (45-73) % Lymph % (Auto) 27.5 (20-40) % Fajardo % (Auto) 15.5 H (2-11) % Eos % (Auto) 0.0 (0-4) % Baso % (Auto) 0.2 (0-2) % Lymph # (Auto) 1.3 (1.2-4.9) X10*3/uL Fajardo # (Auto) 0.8 (0.1-1.2) X10*3/uL Eos # (Auto) 0.0 (0.0-0.4) X10*3/uL Baso # (Auto) 0.0 (0.0-0.2) X10*3/uL Abs Immat Gran (auto) 0.01 (0.00-0.03) X10*3/uL Absolute Neuts (auto) 2.7 (2.0-8.3) x10*3/uL Absolute Nucleated RBC 0.000 (0.0-0.012) X10*3/uL Nucleated RBC % (auto) 0.0 (0.0-0.2) /100WBC PT (10.0-13.1) SEC INR (0.9-1.1) Sodium 135 (135-145) mmol/L Potassium 4.2 (3.3-5.1) mmol/L Chloride 103 (96-108) mmol/L Carbon Dioxide 23 (22-29) mmol/L Anion Gap 13 (12-20) BUN 16 (9-16) mg/dL Creatinine 1.04 (0.5-1.4) mg/dL Estim Creat Clear Calc 94.8 Estimated GFR > 60 Random Glucose 116 H (60-115) mg/dL Calcium 7.9 L D (8.4-10.2) mg/dL Total Bilirubin 0.5 (0.0-1.0) mg/dL AST 26 (5-37) U/L ALT 37 (0-40) U/L Alkaline Phosphatase 74 (39-117) U/L Troponin I High Sens (<3.5-35.0) ng/L B-Natriuretic Peptide (<100) pg/mL Total Protein 6.3 L (6.5-8.0) g/dL Albumin 3.7 (3.5-5.0) g/dL Influenza Type A (PCR) NEGATIVE (Negative) Influenza Type B (PCR) NEGATIVE (Negative) RSV RNA Qual (PCR) NEGATIVE (Negative) SARS-CoV-2 RNA (RT-PCR) POSITIVE A (Negative) 0107/22/22 07/22/22 Range/Units 09:11 09:11 09:11 WBC (4.8-10.8) X10*3/uL RBC (4.60-5.80) X10*6/uL Hgb (14.0-18.0) g/dl Hct (42.0-52.0) % MCV (80.0-98.0) fL MCH (27.0-33.0) pg MCHC (31.0-36.0) g/dl RDW (11.0-16.0) % Plt Count (160-400) X10*3/uL MPV (9.4-12.4) fL Immature Gran % (Auto) (0.0-0.4) % Neut % (Auto) (45-73) % Lymph % (Auto) (20-40) % Fajardo % (Auto) (2-11) % Eos % (Auto) (0-4) % Baso % (Auto) (0-2) % Lymph # (Auto) (1.2-4.9) X10*3/uL Fajardo # (Auto) (0.1-1.2) X10*3/uL Eos # (Auto) (0.0-0.4) X10*3/uL Baso # (Auto) (0.0-0.2) X10*3/uL Abs Immat Gran (auto) (0.00-0.03) X10*3/uL Absolute Neuts (auto) (2.0-8.3) x10*3/uL Absolute Nucleated RBC (0.0-0.012) X10*3/uL Nucleated RBC % (auto) (0.0-0.2) /100WBC PT 16.5 H (10.0-13.1) SEC INR 1.4 H (0.9-1.1) Sodium (135-145) mmol/L Potassium (3.3-5.1) mmol/L Chloride (96-108) mmol/L Carbon Dioxide (22-29) mmol/L Anion Gap (12-20) BUN (9-16) mg/dL Creatinine (0.5-1.4) mg/dL Estim Creat Clear Calc Estimated GFR Random Glucose (60-115) mg/dL Calcium (8.4-10.2) mg/dL Total Bilirubin (0.0-1.0) mg/dL AST (5-37) U/L ALT (0-40) U/L Alkaline Phosphatase (39-117) U/L Troponin I High Sens 16.5 (<3.5-35.0) ng/L B-Natriuretic Peptide 52 (<100) pg/mL Total Protein (6.5-8.0) g/dL Albumin (3.5-5.0) g/dL Influenza Type A (PCR) (Negative) Influenza Type B (PCR) (Negative) RSV RNA Qual (PCR) (Negative) SARS-CoV-2 RNA (RT-PCR) (Negative) Independent Interpretation I performed an independent interpretation of an: EKG Interpretation: Normal sinus rhythm, HR-73, no STEMI, ID/QRS/QTC is within normal limits. Radiology Impression Discussion of test interpretation with radiology: I discussed test interpretation with the radiologist Radiologist Impression: My interpretation is in agreement with radiology's impression of the imaging study. External Record Review External record reviewed: Outpatient record and Prior outpatient labs Chronic Conditions Patient?s care impacted by: Hypertension Critical Care Time Critical Care Time Critical Care Time: Yes Total Critical Care Time: 30 Attestation: I personally attest to this time spent taking care of the patient. Discharge Plan Discharge Clinical Impression: Viral syndrome, Subtherapeutic international normalized ratio (INR), Hypoxic, Lab test positive for detection of COVID-19 virus Patient Disposition: Admitted As Inpatient
--- NOTE | 2022-07-22 09:56 | ECG_ITS ---
Test Reason : sob Blood Pressure : / mmHG Vent. Rate : 073 BPM Atrial Rate : 073 BPM P-R Int : 156 ms QRS Dur : 092 ms QT Int : 414 ms P-R-T Axes : 032 019 042 degrees QTc Int : 456 ms Normal sinus rhythm Normal ECG When compared with ECG of 08-MAY-2018 08:27, No significant change was found Referred By: Vicky Eubanks Electronically Signed By:Faraz Muhammad
[2022-07-22 09:57] LABS: Influenza A PCR NEGATIVE (Negative); Influenza B PCR NEGATIVE (Negative); Resp Syncy Virus RNA Qual PCR NEGATIVE (Negative); SARS COV2 PCR INHOUSE POSITIVE (Negative)
--- NOTE | 2022-07-22 10:09 | MHC.EDTECH ---
EKG completed and signed by
[2022-07-22] MEDS: Acetaminophen 325 MG TABLET 975 MG PO (10:13)
--- NOTE | 2022-07-22 11:18 | P.HPHOSP_ITS ---
History of Present Illness Date of Service: 07/22/22 <JEANCARLOS Arnold - Last Filed: 07/22/22 12:30> Attending physician on admission: Adriana Poole <JEANCARLOS Arnold - Last Filed: 07/22/22 12:30> Chief Complaint: SOB, positive COVID test at home <JEANCARLOS Arnold - Last Filed: 07/22/22 12:30> Pt is a 66-year-old male with a PMH significant for?CAD, HTN, HLD, hx of stroke in 2004 on Coumadin for factor 5/anti phospholipid antibody, Paget's disease of the bone, and GERD who presents to the ED after positive COVID test at home. Pt began feeling ill two days ago when he developed a headache, fever, chills, shortness of breath with increased cough, sore throat. Patient apparently called the state for recommendations on treating his COVID infection, and was told that outpatient Paxlovid treatment while on Coumadin would require additional monitoring, or he could instead come into the hospital for treatment with IV remdesivir. He is were worried about monitoring his Coumadin while treating COVID selected come into the ED. In the ED was found to be hypoxic at 89% on room air. Patient denies chest pain/pressure, palpitations. None abdominal pain. In the ED patient was hypoxic at 89-90% on room air, placed on supplemental oxygen good response, other vital signs stable. Labs were significant for platelets of 127 (near baseline), calcium 7.9, patient tested positive pelvic CXR showed no acute cardiopulmonary findings. EKG demonstrated normal sinus rhythm with no evidence of ST elevations or depressions. Pt will be admitted to the hospital for acute hypoxic respiratory failure in setting of COVID infection. <JEANCARLOS Arnold - Last Filed: 07/22/22 12:30> Review of Systems Review of Systems: Headache Shortness of breath with coughing Fever, chills Sore throat Denies chest pain/pressure, palpitations No abdominal pain <JEANCARLOS Arnold - Last Filed: 07/22/22 12:30> Yes all other systems are reviewed and are negative <JEANCARLOS Arnold Last Filed: 07/22/22 12:30> [facility] Medical History: Medical History Acid reflux Angina pectoris Atrial flutter CAD (coronary artery disease) Cerebrovascular disease, acute CVA (cerebral vascular accident) DDD (degenerative disc disease), lumbar Factor 5 Leiden mutation, heterozygous GERD (gastroesophageal reflux disease) Hemorrhoids HTN (hypertension) Lupus anticoagulant syndrome Osteoarthritis Paget's disease Paroxysmal atrial fibrillation Rectal bleeding Sleep apnea Vitamin deficiency <JEANCARLOS Arnold - Last Filed: 07/22/22 12:30> Family History: Family History Father HTN (hypertension) S/P triple vessel bypass Mother Brain tumor Cancer Brother Cancer Brain tumor <JEANCARLOS Arnold - Last Filed: 07/22/22 12:30> Surgical History: Surgical History Hx of appendectomy Hx of colonoscopy Hx of hand surgery Hx of hernia repair <JEANCARLOS Arnold - Last Filed: 07/22/22 12:30> Social History: Social History Household Members: Spouse Housing: House Alcohol intake: never Patient Tobacco Use Status: Former Tobacco user Cigarette Packs Per Day: 0.5 Cigarettes Per Day: 10.0 Years Smoked: 2 Smoked in Last 30 Days: No Use of substances other than those prescribed or required for medical reasons: No Advance Directives: No Advance Directives Information Provided: No Nutrition Risks: No Nutritional Risk Current occupational status: retired <JEANCARLOS Arnold - Last Filed: 07/22/22 12:30> Meds Allergies/Adverse reactions: Allergies Allergy/AdvReac Type Severity Reaction Status Date / Time No Known Allergies Allergy Verified 07/19/22 08:12 [No Known Allergies*] <JEANCARLOS Arnold - Last Filed: 07/22/22 12:30> Active Medications: Current Medications Pharmacy Consult (Consult Rx Perform Med Rec) 1 each MISCELLANE ONCE PRN PRN Reason: Consult order <JEANCARLOS Arnold - Last Filed: 07/22/22 12:30> Home medications: Home Medications Medication Instructions Recorded Confirmed Last Taken Type atorvastatin 80 mg tablet 80 mg PO DAILY 07/22/22 07/22/22 07/22/22 History omeprazole 20 mg capsule,delayed 20 mg PO DAILY@0630 07/22/22 07/22/22 07/22/22 History release warfarin 2.5 mg tablet 2.5 mg PO TUFR@1800 07/22/22 07/22/22 07/22/22 History warfarin 5 mg tablet 5 mg PO SUMOWETHSA@1800 07/22/22 07/22/22 07/22/22 History <JEANCARLOS Arnold - Last Filed: 07/22/22 12:30> Physical Exam Vital Signs and Narrative: Vital Signs: Last Vital Signs Temp 97.2 F 07/22/22 08:42 Pulse 69 07/22/22 09:52 Resp 19 07/22/22 09:52 BP 132/75 07/22/22 08:42 Pulse Ox 96 07/22/22 09:52 O2 Del Method 07/22/22 09:52 O2 Flow Rate 2 07/22/22 09:52 BMI result Body Mass Index 39.0 <JEANCARLOS Arnold - Last Filed: 07/22/22 12:30> Constitutional: Alert, in no acute distress. Mental Status: Oriented to person, place and time. Eyes: Pupils are equal, round, and reactive to light. Ear, Nose, and Throat: Oropharynx clear, mucous membranes moist. Ears and nose without deformities. Trachea midline. Respiratory: Diffuse expiratory rhonchi bilaterally. Cardiovascular: S1, S2 regular. No murmurs, rubs, or gallops. Gastrointestinal: Abdomen soft, non-tender, non-distended. Normal bowel sounds. Neurologic: Cranial nerves II-XII are grossly intact. No focal neurological deficits. Moves all extremities spontaneously. Skin: No rashes or lesions noted. Musculoskeletal: No cyanosis or clubbing. Extremities: No edema. Psychiatric: Normal mood and affect. <JEANCARLOS Arnold - Last Filed: 07/22/22 12:30> Results Labs CBC and Chem 7: 07/22/22 09:11 07/22/22 09:11 <JEANCARLOS Arnold - Last Filed: 07/22/22 12:30> Labs: Laboratory Results - last 24 hr 07/22/22 07/22/22 07/22/22 09:11 09:11 09:11 MCV 86.8 MCH 27.7 MCHC 31.9 RDW 13.6 Plt Count 127 L MPV 10.5 Immature Gran % (Auto) 0.2 Neut % (Auto) 56.6 Lymph % (Auto) 27.5 [place] % (Auto) 15.5 H Eos % (Auto) 0.0 Baso % (Auto) 0.2 Lymph # (Auto) 1.3 [place] # (Auto) 0.8 Eos # (Auto) 0.0 Baso # (Auto) 0.0 Abs Immat Gran (auto) 0.01 Absolute Neuts (auto) 2.7 Absolute Nucleated RBC 0.000 Nucleated RBC % (auto) 0.0 PT INR Anion Gap 13 Estim Creat Clear Calc 94.8 Estimated GFR > 60 Random Glucose 116 H Calcium 7.9 L D Total Bilirubin 0.5 AST 26 ALT 37 Alkaline Phosphatase 74 Troponin I High Sens B-Natriuretic Peptide Total Protein 6.3 L Albumin 3.7 Influenza Type A (PCR) NEGATIVE Influenza Type B (PCR) NEGATIVE RSV RNA Qual (PCR) NEGATIVE SARS-CoV-2 RNA (RT-PCR) POSITIVE A 07/22/22 07/22/22 07/22/22 09:11 09:11 09:11 MCV MCH MCHC RDW Plt Count MPV Immature Gran % (Auto) Neut % (Auto) Lymph % (Auto) [place] % (Auto) Eos % (Auto) Baso % (Auto) Lymph # (Auto) [place] # (Auto) Eos # (Auto) Baso # (Auto) Abs Immat Gran (auto) Absolute Neuts (auto) Absolute Nucleated RBC Nucleated RBC % (auto) PT 16.5 H INR 1.4 H Anion Gap Estim Creat Clear Calc Estimated GFR Random Glucose Calcium Total Bilirubin AST ALT Alkaline Phosphatase Troponin I High Sens 16.5 B-Natriuretic Peptide 52 Total Protein Albumin Influenza Type A (PCR) Influenza Type B (PCR) RSV RNA Qual (PCR) SARS-CoV-2 RNA (RT-PCR) <JEANCARLOS Arnold - Last Filed: 07/22/22 12:30> Imaging Radiologist's Impressions: Impressions Chest X-Ray 07/22/22 09:35 IMPRESSION: No acute cardiopulmonary findings. <JEANCARLOS Arnold - Last Filed: 07/22/22 12:30> Assessment and Plan (1) Subtherapeutic international normalized ratio (INR): Status: Acute <JEANCARLOS Arnold - Last Filed: 07/22/22 12:30> (2) Hypoxic: Status: Acute <JEANCARLOS Arnold - Last Filed: 07/22/22 12:30> (3) COVID: Status: Acute <JEANCARLOS Arnold - Last Filed: 07/22/22 12:30> Pt is a 66-year-old male with a PMH significant for?CAD, HTN, HLD, hx of stroke in 2004 on Coumadin for factor 5/anti phospholipid antibody, Paget's disease of the bone, and GERD who presents to the ED after positive COVID test at home. Patient was found to be hypoxic in the ED at 89% O2 on room air. Patient will be admitted to the hospital for acute hypoxic respiratory failure in the setting of COVID infection. Acute hypoxic respiratory failure in the setting COVID infection Patient hypoxic at 89-90% on room air upon arrival to the ED, improved with s upplemental oxygen Solu-Medrol 40 mg q8 Remdesivir 200 mg x 1 day, 100 mg x 2 days Titrate O2>90%, wean as tolerated Admit with contact and airborne precautions Monitor respiratory status Patient does not meet sepsis criteria Hypocalcemia Patient's calcium 7.9, slightly below baseline Supplemental calcium Subtherapeutic INR Patient on warfarin, INR 1.4 Will bridge with Lovenox Recheck INR tomorrow Hypocalcemia Patient was corrected albumin score of 8.1 Recheck labs Thrombocytopenia Platelets 127, near baseline Monitor labs CAD Continue home meds HLD Continue home meds GERD Continue home meds Full Code Attending:? DVT Prophylaxis: Lovenox Pt will require a hospitalization of at least two nights for treatment of?acute hypoxic respiratory failure in the setting of COVID infection with IV steroids and remdesivir. <JEANCARLOS Arnold - Last Filed: 07/22/22 12:30> Pt is a 66-year-old male with a PMH significant for?CAD, HTN, HLD, hx of stroke in 2004 on Coumadin for factor 5/anti phospholipid antibody, Paget's disease of the bone, and GERD who presents to the ED after positive COVID test at home. Patient was found to be hypoxic in the ED at 89% O2 on room air. Patient will be admitted to the hospital for acute hypoxic respiratory failure in the setting of COVID infection. Acute hypoxic respiratory failure in the setting COVID infection Patient hypoxic at 89-90% on room air upon arrival to the ED, improved with supplemental oxygen Solu-Medrol 40 mg q8 Remdesivir 200 mg x 1 day, 100 mg x 2 days Titrate O2>90%, wean as tolerated Admit with contact and airborne precautions Monitor respiratory status Patient does not meet sepsis criteria Hypocalcemia Patient's calcium 7.9, slightly below baseline Supplemental calcium Subtherapeutic INR Patient on warfarin, INR 1.4 Will bridge with Lovenox Recheck INR tomorrow Hypocalcemia Patient was corrected albumin score of 8.1 Recheck labs Thrombocytopenia Platelets 127, near baseline Monitor labs CAD Continue home meds HLD Continue home meds GERD Continue home meds Full Code Attending:?Dr. Poole DVT Prophylaxis: Lovenox Pt will require a hospitalization of at least two nights for treatment of?acute hypoxic respiratory failure in the setting of COVID infection with IV steroids and remdesivir. <Adriana Poole MD - Last Filed: 07/22/22 15:12> Time Spent With Patient Time: Total time managing care of this patient today ____ minutes. <JEANCARLOS Arnold - Last Filed: 07/22/22 12:30> Quality Stroke Does the patient have a stroke diagnosis?: No <JEANCARLOS Arnold - Last Filed: 07/22/22 12:30> VTE Prior VTE?: No <JEANCARLOS Arnold - Last Filed: 07/22/22 12:30> VTE Risk Level:: Medical - moderate - high <JEANCARLOS Arnold - Last Filed: 07/22/22 12:30> VTE Device Contraindication: Treatment Not Indicated <JEANCARLOS Arnold - Last Filed: 07/22/22 12:30> VTE Drug Contraindication: N/A - Med Ordered <JEANCARLOS Arnold - Last Filed: 07/22/22 12:30>
--- NOTE | 2022-07-22 12:07 | PC.NURSE ---
pt a&ox4, vss, pt resting quietly with lights dimmed, reports increased comfort in hospital bed. pt pending admission orders/bed assignment. no new orders at this time.
--- NOTE | 2022-07-22 12:15 | PHA.MEDREC ---
Pharmacy Consult ? Medication Reconciliation Pharmacy has completed the medication reconciliation. Patient great historian of medications.
--- NOTE | 2022-07-22 12:24 | PC.NURSE ---
pharmacy contacted for remdesivir.
[2022-07-22] MEDS: Enoxaparin Sodium 40 MG/0.4 ML SYRINGE SUBCUT (13:29)
[2022-07-22] MEDS: methylPREDNISolone Sod Succ 40 MG/ML VIAL IVPUSH (13:29)
[2022-07-22] MEDS: Remdesivir 200 MG in 0.9 % Sodium Chloride 210 ML 105 MG IV (13:29)
--- NOTE | 2022-07-22 13:40 | PC.NURSE ---
medication received from pharmacy, medicated pt per provider order, pt resting quietly w lights dimmed, RR even and unlaboured, denies any pain/sob at this time. pt pending bed assignment.
--- NOTE | 2022-07-22 17:06 | PC.NURSE ---
RN-RN report given to [facility].
[2022-07-22] MEDS: 0.9 % Sodium Chloride Flush 3 ML SYRINGE IVFLUSH (20:35)
[2022-07-23 04:00] VITALS: BP 134/72; PULSE 65; RESP 20; TEMP 36.8; O2SAT 94
[2022-07-23] MEDS: Omeprazole 20 MG CAPSULE.DR PO (05:12)
[2022-07-23 07:44] LABS: INTERNATIONAL NORM RATIO 1.4 (0.9-1.1); Prothrombin Time 16.8 SEC (10.0-13.1)
[2022-07-23 07:46] LABS: Hematocrit 42.7 % (42.0-52.0); Hemoglobin 13.7 g/dl (14.0-18.0); Mean Corpuscular HGB Conc 32.1 g/dl (31.0-36.0); Mean Corpuscular Volume 87.1 fL (80.0-98.0); Mean Platelet Volume 11.1 fL (9.4-12.4); Platelet Count 128 X10*3/uL (160-400); Red Cell Distribution Width 13.4 % (11.0-16.0); White Blood Count 5.6 X10*3/uL (4.8-10.8)
[2022-07-23 08:00] VITALS: BP 107/58; PULSE 68; RESP 20; TEMP 36.3; O2SAT 93
[2022-07-23 08:16] LABS: Anion Gap 13 (12-20); Blood Urea Nitrogen 17 mg/dL (9-16); Calcium 8.3 mg/dL (8.4-10.2); Carbon Dioxide 27 mmol/L (22-29); Chloride 104 mmol/L (96-108); Estimated Glomerular Filt Rate > 60; Glucose Random 109 mg/dL (60-115); Potassium 4.6 mmol/L (3.3-5.1); Sodium 139 mmol/L (135-145)
[2022-07-23] MEDS: dexAMETHasone sod phosphate 4 MG/ML VIAL 6 MG IVPUSH (08:44)
[2022-07-23] MEDS: Atorvastatin Calcium 80 MG TABLET PO (08:45)
[2022-07-23] MEDS: Metoprolol Succinate ER 25 MG TAB.ER.24H PO (08:45)
[2022-07-23] MEDS: 0.9 % Sodium Chloride Flush 3 ML SYRINGE IVFLUSH (08:55)
[2022-07-23] MEDS: Ezetimibe 10 MG TABLET PO (09:02)
[2022-07-23 11:50] VITALS: BP 126/74; PULSE 65; RESP 20; TEMP 36.8; O2SAT 93
[2022-07-23] MEDS: Enoxaparin Sodium 40 MG/0.4 ML SYRINGE SUBCUT (13:40)
[2022-07-23] MEDS: Remdesivir 100 MG in 0.9 % Sodium Chloride 230 ML 115 MG IV (13:40)
--- NOTE | 2022-07-23 14:29 | P.PNIM_ITS ---
Subjective Subjective Date of Service: 07/23/22 Interval History: the patient was seen and evaluated this morning Laying in bed, feels significant improvement since admission Still requiring oxygen supplement INR 1.4 No reported other overnight events. Systemic review: No fever, chills or weakness No chest pain, palpitation Dyspnea dyspnea on exertion, coughing No abdominal pain, nausea or vomiting No urinary symptoms No reported rash Physical Exam Vital Signs: Vital Signs: Last Vital Signs Temp 98.3 F 07/23/22 11:50 Pulse 65 07/23/22 11:50 Resp 20 07/23/22 11:50 BP 126/74 07/23/22 11:50 Pulse Ox 93 07/23/22 11:50 O2 Del Method 07/23/22 11:50 O2 Flow Rate 2 07/23/22 11:50 Oxygen Flow Rate 2 07/22/22 12:12 BMI result Body Mass Index 39.0 Const: Other: Constitutional : Awake, interactive, not in distress Neck : Normal inspection, Supple Cardiovascular : RRR, no JVP, no lower extremity edema Respiratory : good bilateral air entry, no crackles, expiratory rhonchi, on oxygen supplement Gastrointestinal: soft, lax, Normal bowel sounds, Non tender Skin : Warm, Dry Neurological : Alert & oriented x3, No focal deficit Objective Data Active Medications Acetaminophen (Acetaminophen 325 Mg Tablet) 650 mg PO Q6H PRN PRN Reason: Pain, Mild (Pain Scale 1-3) Atorvastatin Calcium (Atorvastatin Calcium 80 Mg Tablet) 80 mg PO DAILY [facility] Last Admin: 07/23/22 08:45 Dose: 80 mg Documented By: BRIAN Dexamethasone Sodium Phosphate (Dexamethasone Sod Phosphate 4 Mg/Ml Vial) 6 mg IVPUSH DAILY [facility] Last Admin: 07/23/22 08:44 Dose: 6 mg Documented By: BRIAN Docusate Sodium (Docusate Sodium 100 Mg Capsule) 100 mg PO DAILY PRN PRN Reason: Constipation Ezetimibe (Ezetimibe 10 Mg Tablet) 10 mg PO DAILY [facility] Last Admin: 07/23/22 09:02 Dose: 10 mg Documented By: BRIAN Enoxaparin Sodium (Enoxaparin Sodium 40 Mg/0.4 Ml Syringe) 40 mg SUBCUT Q24H [facility] Last Admin: 07/23/22 13:40 Dose: 40 mg Documented By: BRIAN Remdesivir 100 mg/ Sodium (Chloride) 230 mls @ 115 mls/hr IV Q24H [facility] Stop: 07/24/22 14:59 Last Admin: 07/23/22 13:40 Dose: 115 mls/hr Documented By: BRIAN Isosorbide Mononitrate (Isosorbide Mononitrate 60 Mg Tab.Er.24h) 60 mg PO DAILY [facility]; Protocol Last Admin: 07/23/22 08:54 Dose: Not Given Documented By: BRIAN Non-Admin Reason: Decreased Heart Rate Lisinopril (Lisinopril 10 Mg Tablet) 10 mg PO DAILY [facility]; Protocol Last Admin: 07/23/22 08:54 Dose: Not Given Documented By: BRIAN Non-Rosa Reason: Decreased Blood Pressure Metoprolol Succinate (Metoprolol Succinate Er 25 Mg Tab.Er.24h) 25 mg PO DAILY [facility]; Protocol Last Admin: 07/23/22 08:45 Dose: 25 mg Documented By: BRIAN Omeprazole (Omeprazole 20 Mg Capsule.Dr) 20 mg PO DAILY@0630 [facility] Last Admin: 07/23/22 05:12 Dose: 20 mg Documented By: GEORGINA Ondansetron HCl (Ondansetron Hcl 4 Mg/2 Ml Vial) 4 mg IVPUSH Q8H PRN PRN Reason: Nausea and Vomiting Pharmacy Consult (Consult Rx Perform Med Rec) 1 each MISCELLANE ONCE PRN PRN Reason: Consult order Sodium Chloride (0.9 % Sodium Chloride Flush 3 Ml Syringe) 3 ml IVFLUSH QSHIFT [facility] Last Admin: 07/23/22 08:55 Dose: 3 ml Documented By: BRIAN Warfarin Sodium (Warfarin Sodium 5 Mg Tablet) 5 mg PO SUMOWETHSA@1800 [facility] Last Admin: 07/22/22 17:55 Dose: Not Given Documented By: RENAN Non-Admin Reason: PT ALREAEDY TOOK MED THIS MORNING, PHARMACY N Warfarin Sodium (Warfarin Sodium 5 Mg Tablet) 5 mg PO TUFR@1800 [facility] Labs 07/23/22 07:11 07/23/22 07:11 Labs: Laboratory Results - last 24 hr 07/23/22 07/23/22 07/23/22 07:11 07:11 07:11 MCV 87.1 MCH 28.0 MCHC 32.1 RDW 13.4 Plt Count 128 L MPV 11.1 Absolute Nucleated RBC 0.000 Nucleated RBC % (auto) 0.0 PT 16.8 H INR 1.4 H Anion Gap 13 Estim Creat Clear Calc 106.0 Estimated GFR > 60 Random Glucose 109 Calcium 8.3 L Assessment and Plan (1) COVID: Status: Acute (2) Viral syndrome: Status: Acute (3) Subtherapeutic international normalized ratio (INR): Status: Acute (4) Hypoxic: Status: Acute Plan Pt is a 66-year-old male with a PMH significant for?CAD, HTN, HLD, hx of stroke in 2004 on Coumadin for factor 5/anti phospholipid antibody, Paget's disease of the bone, and GERD who presents to the ED after positive COVID test at home. Patient was found to be hypoxic in the ED at 89% O2 on room air. Patient will be admitted to the hospital for acute hypoxic respiratory failure in the setting of COVID infection. Acute hypoxic respiratory failure in the setting COVID infection decrease O2 supplement Dexamethasone 6mg day 10 Remdesivir 100 mg day / Titrate O2>90%, wean as tolerated Admit with contact and airborne precautions Monitor respiratory status wean O2 down as tolerated Pseudohypocalcemia corrected calcium 8.4, Subtherapeutic INR Patient on warfarin, INR 1.4 bridge with Lovenox Recheck INR tomorrow Thrombocytopenia Platelets 127, near baseline Monitor labs CAD Continue home meds HLD Continue home meds GERD Continue home meds Full Code Attending:?Dr. Poole DVT Prophylaxis: Lovenox Pt will require overnight hospital stay for treatment of?acute hypoxic respiratory failure in the setting of COVID infection with IV steroids and remdesivir. Time Spent With Patient Time: Total time managing care of this patient today ____ minutes. Quality Stroke Does the patient have a stroke diagnosis?: No VTE Prior VTE?: No VTE Risk Level:: Medical - moderate - high VTE Device Contraindication: Treatment Not Indicated VTE Drug Contraindication: N/A - Med Ordered
[2022-07-23 14:41] VITALS: BP 122/63; PULSE 60; RESP 18; TEMP 36.4; O2SAT 95
--- NOTE | 2022-07-23 14:53 | MHC.CM.PN ---
IMportant Message from Jenae 07/23/22 Male 66 DX Covid+ He is independent and lives with his . She is at home and she is also covid+. DP home self care. Family will provide transport home.
[2022-07-23] MEDS: Warfarin Sodium 5 MG TABLET PO (18:23)
[2022-07-23 20:00] VITALS: BP 130/62; PULSE 59; RESP 18; TEMP 36.6; O2SAT 95
[2022-07-23 23:17] VITALS: BP 142/63; PULSE 53; RESP 18; TEMP 37; O2SAT 94
[2022-07-24 03:34] VITALS: BP 149/85; PULSE 58; RESP 18; TEMP 36.4; O2SAT 93
[2022-07-24] MEDS: Omeprazole 20 MG CAPSULE.DR PO (06:03)
[2022-07-24 07:55] VITALS: BP 149/85; PULSE 58; O2SAT 93
[2022-07-24 07:58] VITALS: BP 131/75; PULSE 58; RESP 14; TEMP 36.4; O2SAT 98
[2022-07-24] MEDS: dexAMETHasone sod phosphate 4 MG/ML VIAL 6 MG IVPUSH (08:54)
[2022-07-24] MEDS: 0.9 % Sodium Chloride Flush 3 ML SYRINGE IVFLUSH (08:54)
[2022-07-24] MEDS: Atorvastatin Calcium 80 MG TABLET PO (08:55)
[2022-07-24] MEDS: Ezetimibe 10 MG TABLET PO (08:55)
[2022-07-24] MEDS: Isosorbide Mononitrate 60 MG TAB.ER.24H PO (08:55)
[2022-07-24] MEDS: lisinopriL 10 MG TABLET PO (08:56)
[2022-07-24 09:00] LABS: INTERNATIONAL NORM RATIO 1.8 (0.9-1.1); Prothrombin Time 21.2 SEC (10.0-13.1)
[2022-07-24 11:27] VITALS: BP 130/63; PULSE 51; RESP 14; TEMP 37.1; O2SAT 93
[2022-07-24] MEDS: Enoxaparin Sodium 40 MG/0.4 ML SYRINGE SUBCUT (12:28)
[2022-07-24] MEDS: Remdesivir 100 MG in 0.9 % Sodium Chloride 230 ML 115 MG IV (12:29)
--- NOTE | 2022-07-24 13:26 | PM.DS ---
DS: Providers Provider Date of Service: 07/24/22 Date of admission: 07/22/22 12:00 Primary care physician: Brian Ward [facility] DS: Diagnosis Discharge Diagnosis (1) COVID: Status: Acute (2) Viral syndrome: Status: Acute (3) Subtherapeutic international normalized ratio (INR): Status: Acute (4) Hypoxic: Status: Acute DS: Summary Hospital Course Hospital Course: Admission note HPI? ? ?a 66-year-old male with a PMH significant for?CAD, HTN, HLD, hx of stroke in 2004?on Coumadin for factor 5/anti phospholipid antibody, Paget's disease of the bone, and GERD?who presents to the ED after positive COVID test at home. Pt began feeling ill two days ago when he developed a headache, fever, chills, shortness of breath with increased cough, sore throat.? Patient apparently called the state for recommendations on treating his COVID infection, and was told that outpatient Paxlovid treatment while on Coumadin would require additional monitoring, or he could instead come into the hospital for treatment with IV remdesivir.? He is were worried about monitoring his Coumadin while treating COVID selected come into the ED. In the ED was found to be hypoxic at 89% on room air.? Patient denies chest pain/pressure, palpitations.? None abdominal pain. In the ED patient was hypoxic at 89-90% on room air, placed on supplemental oxygen good response, other vital signs stable. Labs were significant for platelets of 127 (near baseline), calcium 7.9,? patient tested positive pelvic CXR showed no acute cardiopulmonary findings. EKG demonstrated normal sinus rhythm with no evidence of ST elevations or depressions. Pt will be admitted to the hospital for acute hypoxic respiratory failure in setting of COVID infection. Hospital course The patient was admitted to the hospital for acute hypoxic respiratory failure in setting of COVID-19 infection. Started on treatment with IV dexamethasone, IV remdesivir and oxygen supplement with good response over the course of hospital stay as he was weaned off oxygen and became able to ambulate on room air with no reported dyspnea or desaturation. Was able sit more diet. His INR noted to be at 1.4. Started on full-dose Lovenox with improvement of INR to 1.8 at the day of discharge. Wean care you to increased oral intake Continue dexamethasone as prescribed To follow-up with PCP next week Time Spent with Patient Time attestation: Total time managing care of this patient today ____ minutes. Discharge coordination time: Greater than 30 minutes Quality: Safe Use of Opioids Does Pt have an Active Cancer Diagnosis on the Problem List?: No Quality: Stroke Does the patient have a stroke diagnosis?: No Physical Exam Vital Signs: Vital Signs: Last Vital Signs Temp 98.8 F 07/24/22 11:27 Pulse 51 07/24/22 11:27 Resp 14 07/24/22 11:27 BP 130/63 07/24/22 11:27 Pulse Ox 93 07/24/22 11:27 O2 Del Method 07/24/22 11:27 O2 Flow Rate 2 07/24/22 07:58 Oxygen Flow Rate 2 07/22/22 12:12 BMI result Body Mass Index 39.0 Const: Other: Constitutional : Awake, interactive, not in distress Neck : Normal inspection, Supple Cardiovascular : RRR, no JVP, no lower extremity edema Respiratory : good bilateral air entry, no crackles, no rhonchi or wheezes Gastrointestinal: soft, lax, Normal bowel sounds, Non tender Skin : Warm, Dry Neurological : Alert & oriented x3, No focal deficit DS: Data Data Completed and Pending Labs on day of discharge: Laboratory Results - last 24 hr 07/24/22 08:43 PT 21.2 H INR 1.8 H Imaging Chest x-ray: Radiologist's impression: ITS Impressions Chest X-Ray 07/22/22 09:35 IMPRESSION: No acute cardiopulmonary findings. Discharge Plan Discharge Anticipated Discharge Date/Time: 07/24/22 13:21 Patient Disposition: Home, Self-Care Discharge Diagnosis: Covid 19 with hypoxia Referrals: Brian Ward, [employer] [Primary Care Provider] - 1 Week Discharge Medications: New dexamethasone 6 mg tablet 6 mg PO DAILY Qty: 7 0RF Continued lisinopril 10 mg tablet 10 mg PO DAILY 90 Days Qty: 90 3RF ezetimibe [Zetia] 10 mg tablet 10 mg PO DAILY 90 Days Qty: 90 3RF isosorbide mononitrate 60 mg tablet extended release 24 hr 60 mg PO DAILY Qty: 90 3RF metoprolol succinate 25 mg tablet extended release 24 hr 25 mg PO DAILY Qty: 90 3RF warfarin 5 mg tablet 5 mg PO SUMOWETHSA@1800 Qty: 90 1RF Protocol: Dose Management Condition: Saturday (Week One) Dose/Route: 5 mg Instruction: 1 x 5 mg tablet Condition: Saturday Dose/Route: 5 mg Instruction: 1 x 5 mg tablet Condition: Saturday Dose/Route: 2.5 mg Instruction: 0.5 x 5 mg tablets Condition: Saturday Dose/Route: 5 mg Instruction: 1 x 5 mg tablet Condition: Dose/Route: 5 mg Instruction: 1 x 5 mg tablet Condition: Saturday Dose/Route: 2.5 mg Instruction: 0.5 x 5 mg tablets Condition: Saturday Dose/Route: 5 mg Instruction: 1 x 5 mg tablet Condition: Saturday (Week Two) Dose/Route: 5 mg Instruction: 1 x 5 mg tablet Condition: Saturday Dose/Route: 5 mg Instruction: 1 x 5 mg tablet Condition: Saturday Dose/Route: 2.5 mg Instruction: 0.5 x 5 mg tablets Condition: Saturday Dose/Route: 5 mg Instruction: 1 x 5 mg tablet Condition: Dose/Route: 5 mg Instruction: 1 x 5 mg tablet Condition: Saturday Dose/Route: 2.5 mg Instruction: 0.5 x 5 mg tablets Condition: Saturday Dose/Route: 5 mg Instruction: 1 x 5 mg tablet Protocol Text: Adjustment Start Date: 07/19/22 INR Value: Pending INR Date: 07/19/22 Recheck Date: 08/23/22 warfarin 2.5 mg Tablet 2.5 mg PO TUFR@1800 atorvastatin 80 mg tablet 80 mg PO DAILY omeprazole 20 mg capsule,delayed release(DR/EC) 20 mg PO DAILY@0630 Discharge Orders: Discharge Order (Routine); Ordered 07/24/22 Ordered By: Adriana Poole Diet: Advance to usual diet Activity on Discharge: As tolerated Stand Alone Forms: Patient Portal Discharge page Care Plan Goals: Read below Health Concerns: Read below Plan of Treatment: Read below Assessment: You were admitted to the hospital for evaluation of difficulty breathing secondary to COVID-19 infection. Treated with IV steroids, antibiotic medication with good response as you were weaned off the oxygen and was able to ambulate on room air. Wean care you to increased oral intake Continue dexamethasone as prescribed To follow-up with PCP next week
--- NOTE | 2022-07-24 13:38 | MHC.CM.PN ---
[employer]/07/23/22 Patient is discharged to home self care. Patient will arrange for transportation home.
== END 2022-07-24 16:33 | disposition home or self-care (01) | DRG 177 ==
LOC: HO.ED 10:15 → HO.EDOVER 12:09 → HO.IMC 16:47
PROVIDERS: Admitting Provider Student in an Organized Health Care Education/Training Program; Emergency Provider Student in an Organized Health Care Education/Training Program; PCP Nurse Practitioner Family; Visit Provider Student in an Organized Health Care Education/Training Program
DX: U07.1 COVID-19 (principal); J96.01 Acute respiratory failure with hypoxia; D68.51 Activated protein C resistance; I25.119 Atherosclerotic heart disease of native coronary artery with unspecified angina pectoris; Z86.73 Personal history of transient ischemic attack (TIA), and cerebral infarction without residual deficits; I10 Essential (primary) hypertension; E83.51 Hypocalcemia; K21.9 Gastro-esophageal reflux disease without esophagitis; E78.5 Hyperlipidemia, unspecified; D69.6 Thrombocytopenia, unspecified; Z87.891 Personal history of nicotine dependence; Z79.01 Long term (current) use of anticoagulants; Z79.899 Other long term (current) drug therapy
CPT/HCPCS: 0241U; 36415; 71045; 80048; 80053; 83880; 84484; 85025; 85027; 85610; 93005; 97162; 99285; J0248; J1100; J1650; J2920

== ENCOUNTER → 2022-07-26 09:13 | Outpatient (BNVA) | payer MEDICARE, OTHER, SELFPAY | PROVIDERS: PCP Nurse Practitioner Family; Visit Provider Internal Medicine | DX: I48.0 Paroxysmal atrial fibrillation (principal); Z79.01 Long term (current) use of anticoagulants; Z51.81 Encounter for therapeutic drug level monitoring | CPT/HCPCS: 85610; 99211 ==

== ENCOUNTER → 2022-07-31 08:51 | Outpatient (BNVA) | payer MEDICARE, OTHER, SELFPAY | PROVIDERS: PCP Nurse Practitioner Family; Visit Provider Internal Medicine | DX: I48.0 Paroxysmal atrial fibrillation (principal); Z79.01 Long term (current) use of anticoagulants; Z51.81 Encounter for therapeutic drug level monitoring | CPT/HCPCS: 85610; 99211 ==

== ENCOUNTER 2022-08-02 17:28 | Observation (INO) | payer OTHER, MEDICARE, SELFPAY ==
--- NOTE | ~2022-08-02 | CT_ITS ---
EXAMINATION: CT ANGIOGRAM HEAD CT ANGIOGRAM NECK CLINICAL INFORMATION: Visual changes, severe headache COMPARISON: MRA head and neck 01/19/2022 and MRI brain 01/19/2022 TECHNIQUE: Initial noncontrast bander and cellophaner machine helper imaging of the head and neck was performed. Comparison is made with noncontrast head CT from earlier today. Test bolus sequences followed by intravenous administration 70 mL of Omnipaque 350. Helical imaging was performed in the axial plane from the aortic arch to the skull vertex. Delayed postcontrast imaging of the head was also performed. The data was processed at the radiographic technologist's workstation for generation of MIP sequences. Angled MIPs and volume rendered reformatted images were also generated at an offline 3D workstation. Stenoses are assessed in accordance with NASCET criteria unless otherwise indicated. This CT examination was performed using dose optimization techniques as appropriate, variously including the following: *Automated exposure control *Adjustment of mA and/or kV according to patient size (this includes techniques or standardized protocols for targeted exams where dose is matched to indication/reason for exam; i.e. extremities or head) *Use of iterative reconstruction technique DLP: 856 mGy-cm FINDINGS: CT HEAD: Noncontrast head CT findings are discussed separately. No pathologic intra-axial enhancement within limitations of CT or regional oligemia. CTA HEAD: Multifocal calcific plaque along the bilateral carotid siphons but without significant luminal stenosis. The bilateral ophthalmic arteries opacify normally. The MCA vascular complexes are normal bilaterally. Aplastic right A1 segment with a dominant left A1 and supplying the anterior circulation. 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 Redemonstrated moderate stenosis of the mid right intradural vertebral artery. The basilar artery is normal. The posterior cerebral arteries are widely patent. No aneurysms and no high flow vascular malformations. No evidence of dural arteriovenous fistula. Timing of the contrast bolus allows assessment of the major dural venous sinuses, which all opacify normally CTA NECK: Technically limited examination due to suboptimal arterial contrast opacification, which particularly limits assessment of the proximal vessels. Within this limitation, the cervical arterial vasculature appears grossly patent, with the exception of the right vertebral artery origin and right V1 segment do not opacify, which may be at least partially technical in etiology however stenosis or occlusion are not excluded. CT NECK: Bilateral palatine tonsilloliths. Lobulated soft tissue partially effaces the vallecula probably the basis of lingual tonsillar hypertrophy. There is medialization of the left aryepiglottic fold with prominence of the left piriform sinus, which can be correlated for signs of left vocal cord paresis. The salivary glands are unremarkable. The thyroid gland is unremarkable. No pathologically enlarged cervical chain lymph nodes. Severe C5-C6 discogenic disease with fusion across the disc space and multilevel cervical spondylosis. Left upper lobe consolidation, probably infectious/inflammatory. CT/CT angio head neck stroke IMPRESSION: 1. 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 Redemonstrated moderate stenosis of the mid right intradural vertebral artery 2. Technically limited CTA of the neck with the cervical arterial vasculature appears grossly patent, with the exception of the right vertebral artery origin and right V1 segment do not opacify, which may be at least partially technical in etiology however stenosis or occlusion are not excluded. 3. Left upper lobe consolidation, probably infectious/inflammatory. Findings were communicated to Dr. Snyder on 08/02/2022 at 6:22 PM.
--- NOTE | ~2022-08-02 | MR_ITS ---
MRI OF THE BRAIN WITHOUT IV CONTRAST INDICATION: TIA. COMPARISON: Brain MRI 01/19/2022. TECHNIQUE: Multiplanar multisequence MR imaging of the brain was obtained without IV contrast. FINDINGS: There is no hydrocephalus, extra-axial surface collection, or herniation. There is mild chronic microangiopathy. Chronic lacunar infarcts within the left cerebellum and the brainstem. Absent intracranial left vertebral artery flow void in keeping with the intradural left vertebral artery occlusion seen on the prior CTA of the head and neck. There is no acute infarct on diffusion-weighted imaging. There is no intracranial hemorrhage on the gradient recalled echo acquisition. The midline structures are normal. The cerebellar tonsils are normally positioned. The craniocervical junction is normal. Osseous marrow signal intensity is homogenous. The visualized soft tissues are unremarkable. MR/MR head/brain wo con IMPRESSION: - No acute intracranial findings. No acute infarcts. - There is mild chronic microangiopathy. Chronic lacunar infarcts within the left cerebellum and the brainstem. - Absent intracranial left vertebral artery flow void in keeping with the intradural left vertebral artery occlusion seen on the prior CTA of the head and neck.
--- NOTE | ~2022-08-02 | XR_ITS ---
EXAMINATION: XR CHEST CLINICAL INFORMATION: Consolidation seen on CT head COMPARISON: CTA neck dated 08/02/2022. Chest x-ray dated 07/22/2022 TECHNIQUE: Frontal view of the chest was obtained. FINDINGS: Groundglass opacity at the medial left lung apex seen on the prior CT is not evident radiographically. There are, however, patchy opacities in the left mid and lower lung suspicious for multifocal infiltrate. Right lung and pleural space are clear. Normal heart size and pulmonary vascularity. No acute osseous abnormalities. XR/XR chest 1V IMPRESSION: * Patchy opacities in the left mid and lower lung suspicious for multifocal infiltrate. * Groundglass opacity at the medial left lung apex seen on the prior CT is not evident radiographically.
--- NOTE | ~2022-08-02 | CT_ITS ---
EXAMINATION: CT HEAD WITHOUT CONTRAST (STROKE PROTOCOL) CLINICAL INFORMATION: Stroke protocol. Visualized changes, severe headache COMPARISON: MRI brain 01/19/2022 TECHNIQUE: Contiguous axial imaging was performed from the skull base to vertex without intravenous contrast. Sagittal and coronal reformatted images were obtained. This CT examination was performed using dose optimization techniques as appropriate, variously including the following: * Automated exposure control * Adjustment of mA and/or kV according to patient size (this includes techniques or standardized protocols for targeted exams where dose is matched to indication/reason for exam; i.e. extremities or head) Use of iterative reconstruction technique DLP: 856 mGy-cm FINDINGS: No acute osseous or soft tissue abnormality. Patchy paranasal sinus mucosal thickening. Mastoid air cells are well aerated. There is no evidence of acute intracranial hemorrhage or territorial infarction. No abnormal mass effect or midline shift is seen. [place] to white matter differentiation is well preserved. No extra-axial fluid collections are identified. No hydrocephalus. CT/CT head for stroke IMPRESSION: 1. No acute intracranial abnormality. The findings and recommendations were discussed with Dr. Snyder by telephone at 08/02/2022 6:03 PM and it was ascertained that the content and urgency of the report was understood at the time of direct communication.
[2022-08-02 17:31] VITALS: BP 92/62; PULSE 76; RESP 18; TEMP 36; O2SAT 95; BMI 40.1
--- NOTE | 2022-08-02 17:32 | ECG_ITS ---
Test Reason : ?STROKE Blood Pressure : / mmHG Vent. Rate : 068 BPM Atrial Rate : 068 BPM P-R Int : 128 ms QRS Dur : 090 ms QT Int : 428 ms P-R-T Axes : 000 031 035 degrees QTc Int : 455 ms Normal sinus rhythm with sinus arrhythmia Normal ECG When compared with ECG of 22-JUL-2022 10:04, No significant change was found Referred By: Jose Oh Electronically Signed By:ANDRE MENDOSA MD
--- NOTE | 2022-08-02 17:37 | ED_ITS ---
HPI - General Adult General Chief complaint: Neuro Symptoms/Deficit <JEANCARLOS Simpson - Last Filed: 08/02/22 17:40> Stated complaint: visual changes <JEANCARLOS Simpson - Last Filed: 08/02/22 17:40> Time Seen by Provider: 08/02/22 17:54 <JEANCARLOS Simpson - Last Filed: 08/02/22 17:40> Source: patient <Ale Snyder MD - Last Filed: 08/02/22 21:07> Mode of arrival: ambulatory <Ale Snyder MD - Last Filed: 08/02/22 21:07> Limitations: no limitations <Ale Snyder MD - Last Filed: 08/02/22 21:07> History of Present Illness HPI narrative: Patient comes in the emergency room complaining of intermittent double vision. Patient states that earlier today he had double vision that lasted 10 minutes. Patient states that he is very concerned about this double vision because in 2004 he had a massive CVA . Patient states that prior to the CVA in 2004, patient was having TIAs consisting of intermittent double vision. Patient states that he was evaluated by television installer helper, nothing wrong could be found with his eyes. Patient states that now he is having double vision intermittently again. Patient is compliant with his medications. <Ale Snyder MD - Last Filed: 08/02/22 21:07> Related Data Home medications: Home Medications Medication Instructions Recorded Confirmed warfarin 2.5 mg tablet 2.5 mg PO TUFR@1800 07/22/22 08/02/22 Previous Rx's Medication Instructions Recorded lisinopril 10 mg tablet 10 mg PO DAILY 90 days #90 tabs 08/17/21 ezetimibe 10 mg tablet (Zetia) 10 mg PO DAILY 90 days #90 tabs 09/22/21 isosorbide mononitrate 60 mg 60 mg PO DAILY #90 tabs 06/08/22 tablet,extended release 24 hr metoprolol succinate 25 mg 25 mg PO DAILY #90 tabs 06/26/22 tablet,extended release 24 hr warfarin 5 mg tablet 5 mg PO SUMOWETHSA@1800 #90 tabs 07/24/22 atorvastatin 80 mg tablet 80 mg PO BEDTIME #90 tabs 07/25/22 omeprazole 20 mg capsule,delayed 20 mg PO DAILY@0630 #90 caps 07/25/22 release <JEANCARLOS Simpson - Last Filed: 08/02/22 17:40> Allergies/adverse reactions: Allergies Allergy/AdvReac Type Severity Reaction Status Date / Time No Known Allergies Allergy Verified 07/31/22 08:52 [No Known Allergies*] <JEANCARLOS Simpson - Last Filed: 08/02/22 17:40> Review of Systems Review of Systems: Constitutional : No Weight loss, No Fever, No Chills, No Night Sweats, No Fatigue, No Malaise ENT/Mouth : No Hearing loss, No Ear Pain, No Nasal Congestion, No Sinus Pain, No Hoarseness, No sore throat, No Rhinorrhea, No Swallowing Difficulty Eyes: Complaining of double vision intermittently, No Eye Pain, No Swelling, No Redness, No Foreign Body, No Discharge, No Vision Changes Cardiovascular : No Chest Pain, No SOB, No Dyspnea on Exertion, No Orthopnea, No Edema, No Palpitations Respiratory : No Cough, No Sputum, No Wheezing, No Smoke Exposure, No Dyspnea Gastrointestinal : No Nausea, No Vomiting, No Diarrhea, No Constipation, No abdominal Pain, No Hematochezia, No Melena Genitourinary : no irregular bleeding, No Dysuria, No Urinary Frequency, No Hematuria, No Urinary Incontinence, No Urgency, No Flank Pain, No Urinary Flow Changes, No Hesitancy Musculoskeletal : No joint pain, No Myalgias, No Joint Swelling Skin : No Skin Lesions, No rash Neuro : No Weakness, No Numbness, No Paresthesias, No Loss of Consciousness, No Dizziness, No Headache Psych : No Anxiety/Panic, No Depression, No SI/HI/AH/VH, No Social Issues, Heme/Lymph: No Bruising, No Bleeding,No Lymphadenopathy Endocrine : No Polyuria, No Polydipsia, No Temperature Intolerance <Ale Snyder MD - Last Filed: 08/02/22 21:07> [facility] Past Medical History Medical History: Medical History Acid reflux Angina pectoris Atrial flutter CAD (coronary artery disease) Cerebrovascular disease, acute CVA (cerebral vascular accident) DDD (degenerative disc disease), lumbar Factor 5 Leiden mutation, heterozygous GERD (gastroesophageal reflux disease) Hemorrhoids HTN (hypertension) Lupus anticoagulant syndrome Osteoarthritis Paget's disease Paroxysmal atrial fibrillation Rectal bleeding Sleep apnea Vitamin deficiency <JEANCARLOS Simpson - Last Filed: 08/02/22 17:40> Surgical History: Surgical History Hx of appendectomy Hx of colonoscopy Hx of hand surgery Hx of hernia repair <JEANCARLOS Simpson - Last Filed: 08/02/22 17:40> Family History Family History: Family History Father HTN (hypertension) S/P triple vessel bypass Mother Brain tumor Cancer Brother Cancer Brain tumor <JEANCARLOS Simpson - Last Filed: 08/02/22 17:40> Social History Social History: Social History Household Members: Spouse and Family Housing: House Do you presently have visiting nurse or other home services: No Alcohol intake: never Patient Tobacco Use Status: Former Tobacco user Cigarette Packs Per Day: 0.5 Cigarettes Per Day: 10.0 Years Smoked: 2 Smoked in Last 30 Days: No e-Cigarette/Vaping Use: Never Used Second Hand Smoke Exposure: No Use of substances other than those prescribed or required for medical reasons: No Advance Directives: No Advance Directives Information Provided: Yes service: Yes Current occupational status: retired <JEANCARLOS Simpson - Last Filed: 08/02/22 17:40> Physical Exam ED Vital Signs: Vital Signs - 24 hr 08/02/22 17:31 08/02/22 18:11 08/02/22 19:03 Temperature 96.8 F Pulse Rate 76 73 70 Respiratory Rate 18 14 17 Blood Pressure 92/62 129/61 100/49 L Pulse Oximetry 95 94 96 Oxygen Delivery Method Room Air Room Air Room Air BMI result Body Mass Index 40.8 <JEANCARLOS Simpson - Last Filed: 08/02/22 17:40> Vital Signs - 24 hr 08/02/22 17:31 08/02/22 18:11 08/02/22 19:03 Temperature 96.8 F Pulse Rate 76 73 70 Respiratory Rate 18 14 17 Blood Pressure 92/62 129/61 100/49 L Pulse Oximetry 95 94 96 Oxygen Delivery Method Room Air Room Air Room Air BMI result Body Mass Index 40.8 <Ale Snyder MD - Last Filed: 08/02/22 21:07> Const Other: Appearance: Alert. Oriented X3. No acute distress. Eyes: Pupils equal, round and reactive to light. ENT: Pharynx normal. Neck: Normal inspection. Neck supple. No lymph nodes noted. No crepitus CVS: Normal heart rate and rhythm. Pulses normal. Normal S1 and S2 Respiratory: No respiratory distress. Breath sounds normal. No Wheezing. No rales Abdomen: Soft and nontender. No rigidity. No distention. Skin: Skin warm and dry. Normal skin color. Normal skin turgor. Extremities: No lower extremity edema. No Lacerations. No Rash Neuro: Oriented X 3. No motor deficit. No sensory deficit. Moving all extremities. No slurred speech. CN 2 through 12 grossly intact Psych: calm, cooperative, normal affect <Ale Snyder MD - Last Filed: 08/02/22 21:07> Course Course Course Narrative: This is an RME: Additional HPI, ROS, PE not included below will be deferred to primary provider. 66-year-old male history of coronary artery disease, pain had gets disease, AFib on warfarin, acid reflux, hypertension, CVA presenting to the emergency department with complaints of double vision, visual changes, weakness, dizziness and inability to ambulate due to disequilibrium that started just prior to patient's arrival about 30-40 minutes ago. Upon physical examination patient does have a negative NIH stroke scale. Pupils equal round and reactive to light bilaterally however right pupil slightly larger than left pupil. Normal strength upper and lower extremities. No pronator drift. Patient with fluid speech. However, given patient's history will order CT for stroke, CTA. Spoke to charge patient will go straight to a room. Patient is noted to be hypotensive, 92% on room air. Patient does not use oxygen. Patient in wheelchair feeling unsteady on his feet to ambulate Plan at this time stroke protocol <JEANCARLOS Simpson - Last Filed: 08/02/22 17:40> Medications Administered Discontinued Medications Generic Name Dose Route Start Last Admin Trade Name Freq PRN Reason Stop Dose Admin Iohexol 100 ml 08/02/22 18:00 08/02/22 18:00 Iohexol 350 Mg/Ml 100 Ml Infus..Btl IV 08/02/22 18:01 70 ml ONCE ONE Administration <JEANCARLOS Simpson - Last Filed: 08/02/22 17:40> Medications Administered Discontinued Medications Generic Name Dose Route Start Last Admin Trade Name [place] PRN Reason Stop Dose Admin Iohexol 100 ml 08/02/22 18:00 08/02/22 18:00 Iohexol 350 Mg/Ml 100 Ml Infus..Btl IV 08/02/22 18:01 70 ml ONCE ONE Administration <Ale Snyder MD - Last Filed: 08/02/22 21:07> Medical Decision Making Medical Decision Making MDM Narrative: -CT scan and CTA of head and neck do not show any acute abnormality. -patient's symptoms resolved prior to arrival to the emergency room -patient has a concerning past medical history. -it will be best to admit the patient, patient has not had any neurology follow- up or MRIs in several years <Ale Snyder MD - Last Filed: 08/02/22 21:07> Differential Diagnosis Differential Diagnoses: The differential diagnosis associated with the presentation includes (CVA, TIA, MS) <Ale Snyder MD - Last Filed: 08/02/22 21:07> Admission/Observation Consideration of admission/observation: Escalation of care including admission/observation considered <Ale Snyder MD - Last Filed: 08/02/22 21:07> Consult Healthcare Provider Management of the patient was discussed with: Hospitalist (I discussed the patient with Dr. Leija) <Ale Snyder MD - Last Filed: 08/02/22 21:07> Lab Data Result Diagrams: 08/02/22 18:28 08/02/22 18:28 <JEANCARLOS Simpson - Last Filed: 08/02/22 17:40> Labs: Lab Results 08/02/22 08/02/22 08/02/22 Range/Units 18:13 18:28 18:28 WBC 6.2 (4.8-10.8) X10*3/uL RBC 4.71 (4.60-5.80) X10*6/uL Hgb 13.2 L (14.0-18.0) g/dl Hct 40.4 L (42.0-52.0) % MCV 85.8 (80.0-98.0) fL MCH 28.0 (27.0-33.0) pg MCHC 32.7 (31.0-36.0) g/dl RDW 13.7 (11.0-16.0) % Plt Count 124 L (160-400) X10*3/uL MPV 11.2 (9.4-12.4) fL Immature Gran % (Auto) 0.5 H (0.0-0.4) % Neut % (Auto) 65.9 (45-73) % Lymph % (Auto) 22.5 (20-40) % [place] % (Auto) 8.8 (2-11) % Eos % (Auto) 2.1 (0-4) % Baso % (Auto) 0.2 (0-2) % Lymph # (Auto) 1.4 (1.2-4.9) X10*3/uL [place] # (Auto) 0.6 (0.1-1.2) X10*3/uL Eos # (Auto) 0.1 (0.0-0.4) X10*3/uL Baso # (Auto) 0.0 (0.0-0.2) X10*3/uL Abs Immat Gran (auto) 0.03 (0.00-0.03) X10*3/uL Absolute Neuts (auto) 4.1 (2.0-8.3) x10*3/uL Absolute Nucleated RBC 0.000 (0.0-0.012) X10*3/uL Nucleated RBC % (auto) 0.0 (0.0-0.2) /100WBC PT 28.2 H (10.0-13.1) SEC INR 2.4 H (0.9-1.1) Sodium (135-145) mmol/L Potassium (3.3-5.1) mmol/L Chloride (96-108) mmol/L Carbon Dioxide (22-29) mmol/L Anion Gap (12-20) BUN (9-16) mg/dL Creatinine (0.5-1.4) mg/dL Estim Creat Clear Calc Estimated GFR POC Glucose 151 H (60-115) mg/dL Random Glucose (60-115) mg/dL Calcium (8.4-10.2) mg/dL Magnesium (1.6-2.6) mg/dL Total Bilirubin (0.0-1.0) mg/dL AST (5-37) U/L ALT (0-40) U/L Alkaline Phosphatase (39-117) U/L Total Protein (6.5-8.0) g/dL Albumin (3.5-5.0) g/dL COVID-19 (PERFECTO) (Negative) COVID-19 Clin Com 08/02/22 08/02/22 Range/Units 18:28 18:28 WBC (4.8-10.8) X10*3/uL RBC (4.60-5.80) X10*6/uL Hgb (14.0-18.0) g/dl Hct (42.0-52.0) % MCV (80.0-98.0) fL MCH (27.0-33.0) pg MCHC (31.0-36.0) g/dl RDW (11.0-16.0) % Plt Count (160-400) X10*3/uL MPV (9.4-12.4) fL Immature Gran % (Auto) (0.0-0.4) % Neut % (Auto) (45-73) % Lymph % (Auto) (20-40) % [place] % (Auto) (2-11) % Eos % (Auto) (0-4) % Baso % (Auto) (0-2) % Lymph # (Auto) (1.2-4.9) X10*3/uL [place] # (Auto) (0.1-1.2) X10*3/uL Eos # (Auto) (0.0-0.4) X10*3/uL Baso # (Auto) (0.0-0.2) X10*3/uL Abs Immat Gran (auto) (0.00-0.03) X10*3/uL Absolute Neuts (auto) (2.0-8.3) x10*3/uL Absolute Nucleated RBC (0.0-0.012) X10*3/uL Nucleated RBC % (auto) (0.0-0.2) /100WBC PT (10.0-13.1) SEC INR (0.9-1.1) Sodium 136 (135-145) mmol/L Potassium 4.6 (3.3-5.1) mmol/L Chloride 106 (96-108) mmol/L Carbon Dioxide 23 (22-29) mmol/L Anion Gap 12 (12-20) BUN 19 H (9-16) mg/dL Creatinine 1.04 (0.5-1.4) mg/dL Estim Creat Clear Calc 94.2 Estimated GFR > 60 POC Glucose (60-115) mg/dL Random Glucose 143 H (60-115) mg/dL Calcium 7.6 L D (8.4-10.2) mg/dL Magnesium 2.4 (1.6-2.6) mg/dL Total Bilirubin 0.8 (0.0-1.0) mg/dL AST 35 (5-37) U/L ALT 53 H (0-40) U/L Alkaline Phosphatase 60 (39-117) U/L Total Protein 5.6 L (6.5-8.0) g/dL Albumin 3.1 L (3.5-5.0) g/dL COVID-19 (PERFECTO) Negative (Negative) COVID-19 Clin Com See Note <JEANCARLOS Simpson - Last Filed: 08/02/22 17:40> Lab Results 08/02/22 08/02/22 08/02/22 Range/Units 18:13 18:28 18:28 WBC 6.2 (4.8-10.8) X10*3/uL RBC 4.71 (4.60-5.80) X10*6/uL Hgb 13.2 L (14.0-18.0) g/dl Hct 40.4 L (42.0-52.0) % MCV 85.8 (80.0-98.0) fL MCH 28.0 (27.0-33.0) pg MCHC 32.7 (31.0-36.0) g/dl RDW 13.7 (11.0-16.0) % Plt Count 124 L (160-400) X10*3/uL MPV 11.2 (9.4-12.4) fL Immature Gran % (Auto) 0.5 H (0.0-0.4) % Neut % (Auto) 65.9 (45-73) % Lymph % (Auto) 22.5 (20-40) % [place] % (Auto) 8.8 (2-11) % Eos % (Auto) 2.1 (0-4) % Baso % (Auto) 0.2 (0-2) % Lymph # (Auto) 1.4 (1.2-4.9) X10*3/uL [place] # (Auto) 0.6 (0.1-1.2) X10*3/uL Eos # (Auto) 0.1 (0.0-0.4) X10*3/uL Baso # (Auto) 0.0 (0.0-0.2) X10*3/uL Abs Immat Gran (auto) 0.03 (0.00-0.03) X10*3/uL Absolute Neuts (auto) 4.1 (2.0-8.3) x10*3/uL Absolute Nucleated RBC 0.000 (0.0-0.012) X10*3/uL Nucleated RBC % (auto) 0.0 (0.0-0.2) /100WBC PT 28.2 H (10.0-13.1) SEC INR 2.4 H (0.9-1.1) Sodium (135-145) mmol/L Potassium (3.3-5.1) mmol/L Chloride (96-108) mmol/L Carbon Dioxide (22-29) mmol/L Anion Gap (12-20) BUN (9-16) mg/dL Creatinine (0.5-1.4) mg/dL Estim Creat Clear Calc Estimated GFR POC Glucose 151 H (60-115) mg/dL Random Glucose (60-115) mg/dL Calcium (8.4-10.2) mg/dL Magnesium (1.6-2.6) mg/dL Total Bilirubin (0.0-1.0) mg/dL AST (5-37) U/L ALT (0-40) U/L Alkaline Phosphatase (39-117) U/L Total Protein (6.5-8.0) g/dL Albumin (3.5-5.0) g/dL COVID-19 (PERFECTO) (Negative) COVID-19 Clin Com 08/02/22 08/02/22 Range/Units 18:28 18:28 WBC (4.8-10.8) X10*3/uL RBC (4.60-5.80) X10*6/uL Hgb (14.0-18.0) g/dl Hct (42.0-52.0) % MCV (80.0-98.0) fL MCH (27.0-33.0) pg MCHC (31.0-36.0) g/dl RDW (11.0-16.0) % Plt Count (160-400) X10*3/uL MPV (9.4-12.4) fL Immature Gran % (Auto) (0.0-0.4) % Neut % (Auto) (45-73) % Lymph % (Auto) (20-40) % [place] % (Auto) (2-11) % Eos % (Auto) (0-4) % Baso % (Auto) (0-2) % Lymph # (Auto) (1.2-4.9) X10*3/uL [place] # (Auto) (0.1-1.2) X10*3/uL Eos # (Auto) (0.0-0.4) X10*3/uL Baso # (Auto) (0.0-0.2) X10*3/uL Abs Immat Gran (auto) (0.00-0.03) X10*3/uL Absolute Neuts (auto) (2.0-8.3) x10*3/uL Absolute Nucleated RBC (0.0-0.012) X10*3/uL Nucleated RBC % (auto) (0.0-0.2) /100WBC PT (10.0-13.1) SEC INR (0.9-1.1) Sodium 136 (135-145) mmol/L Potassium 4.6 (3.3-5.1) mmol/L Chloride 106 (96-108) mmol/L Carbon Dioxide 23 (22-29) mmol/L Anion Gap 12 (12-20) BUN 19 H (9-16) mg/dL Creatinine 1.04 (0.5-1.4) mg/dL Estim Creat Clear Calc 94.2 Estimated GFR > 60 POC Glucose (60-115) mg/dL Random Glucose 143 H (60-115) mg/dL Calcium 7.6 L D (8.4-10.2) mg/dL Magnesium 2.4 (1.6-2.6) mg/dL Total Bilirubin 0.8 (0.0-1.0) mg/dL AST 35 (5-37) U/L ALT 53 H (0-40) U/L Alkaline Phosphatase 60 (39-117) U/L Total Protein 5.6 L (6.5-8.0) g/dL Albumin 3.1 L (3.5-5.0) g/dL COVID-19 (PERFECTO) Negative (Negative) COVID-19 Clin Com See Note <Ale Snyder MD - Last Filed: 08/02/22 21:07> Critical Care Time Critical Care Time Critical Care Time: Yes <Ale Snyder MD - Last Filed: 08/02/22 21:07> Total Critical Care Time: 45 <Ale Snyder MD - Last Filed: 08/02/22 21:07> Attestation: I have personally provided critical care time. Time includes review of lab data, radiology results, discussion with consultants, and monitoring for potential decompensation. Intervention performed as documented. <Ale Snyder MD - Last Filed: 08/02/22 21:07> Discharge Plan Discharge Clinical Impression: Brain TIA <JEANCARLOS Simpson - Last Filed: 08/02/22 17:40> Patient Disposition: Admitted As Inpatient <JEANCARLOS Simpson - Last Filed: 08/02/22 17:40> Prescriptions: No Action lisinopril 10 mg tablet 10 mg PO DAILY 90 Days Qty: 90 3RF ezetimibe [Zetia] 10 mg tablet 10 mg PO DAILY 90 Days Qty: 90 3RF isosorbide mononitrate 60 mg tablet extended release 24 hr 60 mg PO DAILY Qty: 90 3RF metoprolol succinate 25 mg tablet extended release 24 hr 25 mg PO DAILY Qty: 90 3RF warfarin 5 mg tablet 5 mg PO SUMOWETHSA@1800 Qty: 90 1RF Protocol: Dose Management Condition: Saturday (Week One) Dose/Route: 5 mg Instruction: 1 x 5 mg tablet Condition: Saturday Dose/Route: 5 mg Instruction: 1 x 5 mg tablet Condition: Saturday Dose/Route: 2.5 mg Instruction: 1 x 2.5 mg tablet Condition: Saturday Dose/Route: 5 mg Instruction: 1 x 5 mg tablet Condition: Dose/Route: 5 mg Instruction: 1 x 5 mg tablet Condition: Saturday Dose/Route: 2.5 mg Instruction: 1 x 2.5 mg tablet Condition: Saturday Dose/Route: 5 mg Instruction: 1 x 5 mg tablet Condition: Saturday (Week Two) Dose/Route: 5 mg Instruction: 1 x 5 mg tablet Condition: Saturday Dose/Route: 5 mg Instruction: 1 x 5 mg tablet Condition: Saturday Dose/Route: 2.5 mg Instruction: 1 x 2.5 mg tablet Condition: Saturday Dose/Route: 5 mg Instruction: 1 x 5 mg tablet Condition: Dose/Route: 5 mg Instruction: 1 x 5 mg tablet Condition: Saturday Dose/Route: 2.5 mg Instruction: 1 x 2.5 mg tablet Condition: Saturday Dose/Route: 5 mg Instruction: 1 x 5 mg tablet Protocol Text: Adjustment Start Date: Saturday07/31/22 INR Value: 2.6 INR Date: 07/31/22 Recheck Date: 08/14/22 Additional Instructions: cont reg dosing balance reds and greens call with any medication changes omeprazole 20 mg capsule,delayed release(DR/EC) 20 mg PO DAILY@0630 Qty: 90 1RF atorvastatin 80 mg tablet 80 mg PO BEDTIME Qty: 90 0RF Rx Instructions: Please keep your appt om September 13, 2022. For future refills. Thank you warfarin 2.5 mg Tablet 2.5 mg PO TUFR@1800 Protocol: Dose Management Condition: Saturday (Week One) Dose/Route: 5 mg Instruction: 1 x 5 mg tablet Condition: Saturday Dose/Route: 5 mg Instruction: 1 x 5 mg tablet Condition: Saturday Dose/Route: 2.5 mg Instruction: 1 x 2.5 mg tablet Condition: Saturday Dose/Route: 5 mg Instruction: 1 x 5 mg tablet Condition: Dose/Route: 5 mg Instruction: 1 x 5 mg tablet Condition: Saturday Dose/Route: 2.5 mg Instruction: 1 x 2.5 mg tablet Condition: Saturday Dose/Route: 5 mg Instruction: 1 x 5 mg tablet Condition: Saturday (Week Two) Dose/Route: 5 mg Instruction: 1 x 5 mg tablet Condition: Saturday Dose/Route: 5 mg Instruction: 1 x 5 mg tablet Condition: Saturday Dose/Route: 2.5 mg Instruction: 1 x 2.5 mg tablet Condition: Saturday Dose/Route: 5 mg Instruction: 1 x 5 mg tablet Condition: Dose/Route: 5 mg Instruction: 1 x 5 mg tablet Condition: Saturday Dose/Route: 2.5 mg Instruction: 1 x 2.5 mg tablet Condition: Saturday Dose/Route: 5 mg Instruction: 1 x 5 mg tablet Protocol Text: Adjustment Start Date: Saturday07/31/22 INR Value: 2.6 INR Date: 07/31/22 Recheck Date: 08/14/22 Additional Instructions: cont reg dosing balance reds and greens call with any medication changes <JEANCARLOS Simpson - Last Filed: 08/02/22 17:40>
--- OUTSIDE RECORDS SUMMARY | 2022-08-02 17:54 | XMS_ITS | Continuity of Care Document ---
:1955 Author Organization [facility] Care Team Providers Name Role Phone [facility] Unavailable Unavailable Problems Combined list of problems from Department of Defense and Veterans Affairs facilities. It does not include entries that were removed or entered in error. Problem Status Onset Problem Date of Comments Source Date Type Resolution Angina pectoris Active Condition [facility] [place] [facility] Antiphospholipid Active Condition [facility] [place] [facility] Coagulation factor Active Condition V A [facility] deficiency syndrome [facility] [place] [facility] CVA - cerebrovascular Active Condition [facility] accident due to [facility] cerebral artery [place] [facility] Essential hypertension Active Condition [facility] [place] [facility] Gastroesophageal reflux Active Condition [facility] [place] [facility] H/O: osteoarthritis Active Condition [facility] [place] [facility] Hypercholesterolemia Active Condition [facility] [place] [facility] 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 [facility] [place] [facility] Sleep apnea Active Condition [facility] [place] Diagnosis: ICD-10-CM Active Diagnosis [facility] Z46.0 Encounter for [facility] fit/adjst of spectacles [place] and contact lenseswith [facility] Provider Comments: Encounter for Fitting and Adjustment of Spectacles and Contact Lenses Diagnosis: ICD-10-CM Active Diagnosis [facility] 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 Medications provided include 1) outpatient medications from the last 15 months, and 2) patient-reported medications. Medication Details Route Status Patient Prescription Prescription Last Ordering Order Source Instructions Expires Number Dispense Provider Date Date ATORVASTATI Active [id number] DEONDRE, 10/27/ Pharmac N CALCIUM 2 2021 y Data (ATORVASTAT Transac IN tion CALCIUM), Service 80 MG, Facilit TABLET, y ORAL, APOTEX FERNANDO, 1000 ea. BOTTLE ATORVASTATI Active [id number] DEONDRE, 01/28/ Pharmac N CALCIUM 2 2021 y Data (ATORVASTAT Transac IN tion CALCIUM), Service 80 MG, Facilit TABLET, y ORAL, APOTEX FERNANDO, 1000 ea. BOTTLE ATORVASTATI Active [id number] DEONDRE, 01/30/ Pharmac N CALCIUM 2 2021 y Data (ATORVASTAT Transac IN tion CALCIUM), Service 80 MG, Facilit TABLET, y ORAL, APOTEX FERNANDO, 1000 ea. BOTTLE EZETIMIBE Active [id number] DEONDRE, 09/26/ P harmac (ezetimibe) 2 2021 y Data , 10 MG, Transac TABLET, tion ORAL, Service SANDOZ, 30 Facilit ea. BOTTLE y EZETIMIBE Active [id number] DEONDRE, 12/18/ P harmac (ezetimibe) 2 2021 y Data , 10 MG, Transac TABLET, tion ORAL, Service SANDOZ, 30 Facilit ea. BOTTLE y EZETIMIBE Active [id number] DEONDRE, 01/28/ P harmac (ezetimibe) 2 2021 y Data , 10 MG, Transac TABLET, tion ORAL, Service SANDOZ, 30 Facilit ea. BOTTLE y ISOSORBIDE Active [id number] DEONDRE, 03/05/ Pharmac MONONITRATE 2 2021 y Data ER Transac (isosorbide tion mononitrate Service ), 60 MG, Facilit TAB ER 24H, y ORAL, INGENUS PHARMAC, 100 ea. BOTTLE LISINOPRIL Active [id number] DEONDRE, 08/20/ Pharmac (lisinopril 2 2021 y Data ), 10 MG, Transac TABLET, tion ORAL, LUPIN Service PHARMACEU, Facilit 1000 ea. y BOTTLE LISINOPRIL Active [id number] DEONDRE, 12/16/ Pharmac (lisinopril 2 2021 Data ), 10 MG, Transac TABLET, tion ORAL, LUPIN Service PHARMACEU, Facilit 1000 ea. y BOTTLE LISINOPRIL Active [id number] DEONDRE, Pharmac (lisinopril 2 2021 Data ), 10 MG, Transac TABLET, tion ORAL, LUPIN Service PHARMACEU, Facilit 1000 ea. y BOTTLE METOPROLOL Active [id number] DEONDRE, 01/28/ Pharmac SUCCINATE 2 2021 Data (metoprolol Transac succinate), tion 25 MG, TAB Service ER 24H, Facilit ORAL, y ACTAVIS/TEV A, 100 ea. BOTTLE METOPROLOL Active [id number] DEONDRE, 09/25/ Pharmac SUCCINATE 2 2021 Data (metoprolol Transac succinate), tion 25 MG, TAB Service ER 24H, Facilit ORAL, y ACTAVIS/TEV A, 100 ea. BOTTLE OMEPRAZOLE Active [id number] GLOGOWSKI 2 5/ Pharmac (omeprazole 2 , 2021 Data ), 20 MG, Transac CAPSULE DR tion ORAL, Service [employer], [facility]ilit [facility], 1000 y ea. BOTTLE OMEPRAZOLE Active [id number] GLOGOWSKI 2 0/ Pharmac (omeprazole 2 , 2021 Data ), 20 MG, Transac CAPSULE DR tion ORAL, Service [employer], [facility], 1000 y ea. BOTTLE OMEPRAZOLE Active [id number] GLOGOWSKI 08/0 9/ Pharmac (omeprazole 2 , 2021 Data ), 20 MG, Transac CAPSULE DR tion ORAL, Service [employer], 1000 y ea. BOTTLE WARFARIN Active [id number] GLOGOWSKI 01/28/ Pharmac SODIUM , 2021 y Data (WARFARIN Transac SODIUM), tion 5MG, Service TABLET, Facilit ORAL, TARO y [facility], 100 ea. BOTTLE WARFARIN Active [id number] GLOGOWSKI 10/28/ Pharmac SODIUM 2 , 2021 y Data (WARFARIN Transac SODIUM), tion 5MG, Service TABLET, Facilit ORAL, TARO y [facility], 100 ea. BOTTLE WARFARIN Active [id number] GLOGOWSKI 07/30/ Pharmac SODIUM 2 , 2022 y Data (WARFARIN Transac SODIUM), tion 5MG, Service TABLET, Facilit ORAL, TARO y [facility], 100 ea. BOTTLE Immunizations Combined list of available immunizations from the Department of Defense and Veterans Affairs facilities. Immunization Series Date Administered Site Reaction Lot CVX Drug St atus Comments Source Given By Number Code Fixing Carpenter FLU,3 YRS complet [facility] ed [facility] [place] [facility] [facility] FLU,3 YRS complet V A (HISTORICAL) 2014 ed [facility] [place] [facility] Encounters Combined list of: 1) Encounters from Department of Veterans Affairs facilities going back up to the last 18 months. 2) Encounters from the Department of Defense facilities going back up to 280 months. Location Location Encounter Encounter Reason Attending ADM DC Stat us Disposition Source Details Type Number For Provider Date Date Visit Outpatient [id number] [facility] Encounter [id number] [facility] [place] [facility] Outpatient [id number] Diagnos DON CALERO 11/03 [place] Encounter [id number] is: UREN L CNTR L ICD-10- [place] CM [place] Z02.89 [facility] for other adminis trative examina tions<b r/>with Provide r Comment s: Encount er for other Adminis trative Examina tions Outpatient [id number] Diagnos [facility] 11/07 [place] Encounter [id number] is: CECE SANTIAGO CNTR[facility] ICD-10- A [place] CM [place] Z02.89 [facility] for other adminis trative examina tions<b r/>with Provide r Comment s: Encount er for other Adminis trative Examina tions Outpatient [id number] Diagnos [facility] 11/08 [place] Encounter [id number] is: CECE SANTIAGO CNTR[facility] ICD-10- A [place] CM [place] Z02.89 [facility] for other adminis trative examina tions<b r/>with Provide r Comment s: Encount er for other Adminis trative Examina tions EYE EXAM [id number] Diagnos MERHAR,BAIRON 12/13 [facility] NEW [id number] is: H B CNTRL PATIENT ICD-10- [place] CM [place] H16.232 SETS Neurotr [facility] ophic keratoc onjunct ivitis, left eye<br/ >with Provide r Comment s: Neurotr ophic Keratoc onjunct ivitis, left Eye Outpatient [id number] 12/13 [facility] Encounter [id number] [facility] [place] [facility] FIT [id number] Diagnos BRANDON,CY 12/13 [facility] SPECTACLES [id number] is: NTHIA CNTR L MULTIFOCAL ICD-10- TYRA WST RN CM [place] Z46.0 SET[place] Encount [facility] er for fit/adj st of spectac les and contact lenses< br/>wit h Provide r Comment s: Encount er for Fitting and Adjustm ent of Spectac les and Contact Lenses Outpatient [id number] 07/24 [id number] Social History Combined list of available smoking, tobacco, and other social history from Department of Defense andVeterans Affairs facilities. Social History Response Date Comment Source Type Tobacco smoking QUIT TOBACCO USE > 08/18/2015 stopped in 1978 [place] [facility] TRN status NHIS 7 YEARS AGO [facility] This section is DoD an empty social history section. Plan of Care List of future care activities from Department of Veterans Affairs facilities. Additional future care activities may be listed in the Assessment and Plan section. Date/Time Care Activity Care Activity Detail Facility 08/15/2022 AMBULATORY - MEDICINE AMBULATORY - MEDICINE [place] C [facility]
--- OUTSIDE RECORDS SUMMARY | 2022-08-02 17:54 | XMS_ITS | Encounter Summary ---
:[address] [facility] Address [address] [place] [address] Support Name Relationship Address Phone DIOGO MCGRATH Unavailable [address] [facility] [phone] [place] [address] DIOGO MCGRATH Unavailable [address] [facility] [phone] [place] [address] Insurance Providers: All historical and current Section Date Range: From patient's date of to the date document was created.This section includes the names of all active insurance providers for the patient. Insurance Type of Plan Start of End of Group Member Insurance Policy P atient's Provider Coverage Name Policy Policy Number ID Provider's Georges's Relationship Coverage Coverage Telephone Name to Policy Number Georges MEDICAID MEDICAID [facility] Jun 24, [facility] [id number] [phone] EDNA MCGRATH [facility] D [id number] [place] MEDICARE MEDICARE PART Aug 22, PART A [id number] EDNA MCGRATH PATIENT (WNR) (M) A 2020 [id number] MAS MEDICARE MEDICARE PART Aug 22, PART B [id number] EDNA MCGRATH PATIENT (WNR) (M) B 2020 [id number] MAS TFL Aug 22, [id number] [phone] MCGRATHVenancio DAVID PATIENT FOR LIFE 2020 66 4 MAS [place] FAMILY [place] Dec 22, (WNR) [id number] EDNA MCGRATH PATIENT HEALTHCARE RE(WN 2016 [id number] 9 MAS (WNR) R) Selected Encounter This section includes the information on record at MD for the Encounter. Date/Time Encounter Type Encounter Description Reason Provider Source Dec 13, 2021 09:28 Outpatient Encounter OPTOMETRY AM IHE Encounter Template Text not used by MD Social History: Smoking Status (Most current) and Tobacco Use (All prior to encounter date) This section includes the most current, and the historical, smoking and tobacco-related health factors from the MD facility where the Encounter took place.Current Smoking Status This section includes the most current smoking, or tobacco-related health factor, from the MD facility where the Encounter took place. Date/Time Current Smoking Status Comment Facility Aug 18, 2015 03:06 PM QUIT TOBACCO USE > 7 MD CN TRL WSTRN YEARS AGO stopped in 1978 [facility] Encounter Notes: All associated encounter notes This section contains the clinical notes associated to the Encounter. Date/Time Encounter Note(s) Provider Source Dec 13, 2021 09:28 AM OPTOMETRY NOTE: SAL TOUSSAINT CNTRL W STRN LOCAL TITLE: OPTOMETRY NOTE [facility] STANDARD TITLE: OPTOMETRY NOTE DATE OF NOTE: DEC 13, 2021@09:28 ENTRY DATE: DEC 13, 2021@09:28:34 AUTHOR: SLA TOUSSAINT EXP COSIGNER: URGENCY: STATUS: COMPLETED prog photo moreno ANABELLA MCGRATH [id number] RX INFORMATION OD -1.50 -0.50 X175 Add:+2.50 Pzm:0.00 Dir: Prz2 :0.00 Dir2: OS -1.75 -0.50 X110 Add:+2.50 Pzm:0.00 Dir: Prz2 :0.00 Dir2: FITTING INFORMATION FPD: NPD: Carbon:R:31.5 L:33.5 SEG HT:R:23 L:21 Tint:None Shade:None VA Billable Items FRAME: LILLI ENRIQUEZ [phone] Right Lens: POLY [facility] PROGRESSIVE PHOTOCHROMIC GRE Y 1.586 POLY Left Lens: POLY VA PROGRESSIVE PHOTOCHROMIC MORENO 1.586 POLY OTILIAAR ANTI-REFLECTIVE COATING /es/ SAL TOUSSAINT BUSINESS SUPPORT COORDINATOR Signed: 12/13/2021 09:28 Receipt Acknowledged By: * AWAITING SIGNATURE * EDWIN SEPULVEDA * AWAITING SIGNATURE * ROMERO TAYLOR
--- OUTSIDE RECORDS SUMMARY | 2022-08-02 17:54 | XMS_ITS | Encounter Summary ---
:1955 Author Organization [facility] Address [address] [place] [address] Support Name Relationship Address Phone DIOGO MCGRATH Unavailable [address] [place] [place] [address] DIOGO MCGRATH Unavailable [address] [facility] [phone] [place] [address] Insurance Providers: All historical and current Section [...] Name to Policy Number Georges MEDICAID MEDICAID [facility] Jun 24, [facility] [id number] [phone] EDNA MCGRATH [facility] D [id number] [place] MEDICARE MEDICARE PART Aug 22, PART A [id number] EDNA MCGRATH PATIENT (WNR) (M) A 2020 [id number] 2 MAS MEDICARE MEDICARE PART Aug 22, PART B [id number] EDNA MCGRATH PATIENT (WNR) (M) B 2020 [id number] 2 MAS TFL Aug 22, [id number] [phone] MCGRATHVenancio DAVID PATIENT FOR LIFE 2020 66 4 MAS [place] FAMILY [place] Dec 22, (WNR) [id number] [phone] EDNA MCGRATH PATIENT HEALTHCARE RE(WN 2016 [id number] 9 MAS (WNR) R) Selected Encounter This section includes the information on record at [place] for the Encounter. Date/Time Encounter Type Encounter Reason Provider Source Description Dec 13, 2021 EYE EXAM NEW OPTOMETRY ICD-10-CM H16.232 ANAMIKA PINZON 08:00 AM PATIENT Neurotrophic keratoconjunctivit is, left eye with Provider Comments: Neurotrophic Keratoconjunctivit is, left Eye IHE Encounter Template Text not used by VA Assessments - Encounter Diagnoses This section includes the primary and secondary diagnoses documented for the Encounter. Date/Time Primary/Secondary Diagnosis Name Provider Source Diagnosis Dec 13, 2021 PRIMARY Neurotrophic ANAMIKA PINZON [facility] 12:12 PM keratoconjunctivit [place] [facility] is, left eye Dec 13, 2021 SECONDARY Age-related ANAMIKA PINZON [facility] 12:12 PM nuclear cataract, [place] [facility] bilateral Dec 13, 2021 SECONDARY Dry eye syndrome ANAMIKA PINZON [facility] 12:12 PM of bilateral [place] [facility] lacrimal glands Dec 13, 2021 SECONDARY Myopia, bilateral ANAMIKA PINZON [facility] 12:12 PM [place] [facility] Dec 13, 2021 SECONDARY Open angle with ANAMIKA PINZON [facility] 12:12 PM borderline [place] [facility] findings, low risk, bilateral Social History: Smoking Status (Most current) and Tobacco Use (All prior to encounter date) This section includes the most current, and the historical, smoking and tobacco-related health factors from the VA facility where the Encounter took place.Current Smoking Status This section includes the most current smoking, or tobacco-related health factor, from the VA facility where the Encounter took place. Date/Time Current Smoking Status Comment Facility Aug 18, 2015 03:06 PM QUIT TOBACCO USE > 7 [facility] A[facility] stopped in 1978 [place] [facility] Encounter Notes: All associated encounter notes This section contains the clinical notes associated to the Encounter. Date/Time Encounter Note(s) Provider Source Dec 13, 2021 08:02 OPTOMETRY NOTE: ANAMIKA PINZON [facility] AM LOCAL TITLE: [facility]RY [facility] T[facility]: OPTOMETRY NOTE DATE OF NOTE: DEC 13, 2021@08:02 ENTRY DATE: DEC 13, 2021@08:02:12 AUTHOR: ANAMIKA PINZON EXP COSIGNER: URGENCY: STATUS: COMPLETED 66 WHITE MALE NOT OR Last eye exam: 09/27/2017 Reason for Visit/CC: patient here for a comprehe nsive eye exam. Saw a doctor 2 years ago in [place] - told he had a lazy eyelid - took a flap out of his eyelid eye is still a little bit dry - hasn't had a lot of issues since then. uses drops/ointment when he feels he is having a problem. 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 Paget's disease of pelvis ([facility] [id number]) D68.61 Antiphospholipid syndrome ([facility] [id number]) D68.2 Coagulation factor deficiency syndrome ([facility] [id number]) I10. Essential hypertension ([facility] [id number]) R69. 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 H/O: osteoarthritis ([facility] [id number]) I20.9 Angina pectoris ([facility] [id number]) Other: SYSTEMIC MEDICATIONS/OCULAR MEDICATIONS: Active Outpatient Medications (including Supplie s): No Medications Found warfarin lisinopril isosorbide omeprazole atorvastatin ALLERGIES: Patient has answered NKA LAST BP: 117/70 (05/07/2016 09:53) PERTINENT LABS: No data for HEMOGLOBIN A1C Current Rx: OD: -2.00 -0.75 175 OS: -1.00 -0.50 110 ADD: +2.50 DVA ( )sc ( x )cc OD 20/20-1 OS 20/25 Pupils: PERRL (-)APD EOM: Full all meridia OU, (-) pain/diplopia Confrontation Visual Talavera: Full all meridia OU Subjective: OD -1.00 -0.50 x 175 20/20 OS -1.75 -0.50 x 110 20/20-1 Add: +2.50 20/20 OU Final Rx: OD -1.50 -0.50 x 175 20/20 OS -1.75 -0.50 x 110 20/20-1 Add: +2.50 20/20 OU SLE: Lids/Lashes: dermatochalasis OU Conjunctiva: white and quiet OU Corneas: clear OD, 1+ diffuse SPK with hazy stro mal scarring OS Iris: flat and clear OU (-)TID OU Anterior Chamber: deep and quiet OU Angles: open OU Lens: 1-2+ NS OU (-)PXF OU TAP @ 8:19am Paredes OD 16 mm Hg OS 12 mm Hg Prior Pachymetry: OD 552 OS 544 Dilating Drops: 1 gtt 1% Tropicamide OU, 2.5% ph enylephrine OU (Pt. ed. on side effects) Vitreous: Syneresis OU C/D (Size and Rim Description) OD 0.65h/0.60v pink & healthy OS 0.65h/0.60v pink & healthy (-)notching/hemorrhage OU Macula OD flat and clear OS flat and clear A/V: normal caliber OU Posterior Pole: clear OD, 1DD choroidal nevus gonzalez perior arcade OS Periphery: Flat and intact (-)holes, tears, deta chments 360 OU Assessment/Plan: 1. 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 Acuity is excellent despite mild stromal scarring, mild SPK today. Pt reports h/o eyelid procedure 2 years ago with improvement of sympto ms. Advised regular use of artificial tears and lubrica ting miki at night to prevent recurrence. Pt declines refills at this time. 2. low risk open angle glauc nury suspect OU secondary to moderate cupping OU. IOP is normotensive and stable with average pachymetry OU. Cupping appears healthy and stable. No pseudoexfolia tion or pigment dispersion. No known family history of glaucoma. Unable to do ba seline imaging today as tech unavailable, pt agrees to return in 6 months for VF/RNFL OCT. 3. Nuclear sclerosis cataracts OU, not visually significant. Monitor 4. myopia/astigmatism/presbyopia OU - order new PALs RTC 6 months or earlier PRN Patient Education: Glaucoma: Patient was educated regarding glaucoma/glaucoma suspect as well as the natural history of this diagnosis including prognosis. Stress importance of compliance and persistency with glaucoma medication when prescribed, timely follow up as well as the role of ancillary testing. Exclusion criteria for anc illary testing include significantly reduced acuity, mental sta tus changes affecting the patient's ability to attend to the test or other physical limitations that would prohibit t he patient's ability to participate in testing. Medication Reconciliation: Outpatient: Medication Reconciliation was attempted at this encounter, but unable to complete: Patient/Caregiver unable to confirm all the med ications the patient is taking. /jagdish/ ANAMIKA PINZON OD Spring Encaser Signed: 12/13/2021 12:12
--- OUTSIDE RECORDS SUMMARY | 2022-08-02 17:55 | XMS_ITS | Encounter Summary ---
:[address] [facility] Address [address] [place] [address] Support Name Relationship Address Phone DIOGO MCGRATH Unavailable 115 [facility] [phone] [place] [phone] DIOGO MCGRATH Unavailable [address] [place] [address] [phone] [place] [address] Insurance Providers: All historical and current Section [...] Name to Policy Number Georges MEDICAID MEDICAID [facility] Jun 24, [facility] [id number] [phone] EDNA MCGRATH PATIENT [facility] 2014 D [id number] [place] [place] MEDICARE MEDICARE PART Aug 22, PART A [id number] EDNA MCGRATH PATIENT (WNR) (M) A 2020 [id number] [place] MEDICARE MEDICARE PART Aug 22, PART B [id number] EDNA MCGRATH PATIENT (WNR) (M) B 2020 [id number] MAS TFL Aug 22, [id number] [phone] RAMILAVenancio DAVID PATIENT FOR LIFE 2020 66 4 MAS [place] FAMILY [place]ICA Dec 22, (WNR) [id number] EDNA MCGRATH PATIENT HEALTHCARE RE(WN 2016 [id number] MAS (WNR) R) Selected Encounter This section includes the information on record at [place] for the Encounter. Date/Time Encounter Type Encounter Reason Provider Source Description November 03, 2021 Outpatient AUDIOLOGY ICD-10-CM Z02.89 BRITTANY CALERO 08:00 AM Encounter Encounter for other N L administrative examinations with Provider Comments: Encounter for other Administrative Examinations IHE Encounter Template Text not used by [place] Assessments - Encounter Diagnoses This section includes the primary and secondary diagnoses documented for the Encounter. Date/Time Primary/Secondary Diagnosis Name Provider Source Diagnosis November 03, 2021 PRIMARY Encounter for other BRITTANY CALERO [place] CNTR [place] WSTRN 09:16 AM administrative [facility] [place] [facility] examinations November 03, 2021 SECONDARY Sensorineural BRITTANY CALERO [place] [facility] WSTR N 09:16 AM hearing loss, N [facility] [place] [facility] bilateral November 03, 2021 SECONDARY Tinn[facility], [facility] AM [facility] Plan of Treatment: Future Appointments (+ 6 months) and Future Tests (+/- 45 days) The Plan of Treatment section includes future care activities for the patient from all [place] treatmentfacilities. This section includes future appointments and future orders which are active, pending orscheduled.Future Appointments This section includes appointments that were scheduled to occur 6 months from the date of the Encounter, up to a maximum of 20 appointments. The data comes from all [place] treatment facilities. Appointment Date/Time Appointment Type Appointment Facili ty Name November 07, 2021 08:00 AM [facility] November 08, 2021 08:30 AM [facility] Dec 13, 2021 08:00 AM [facility] Dec 13, 2021 03:15 PM AMBULATORY - MEDICINE [facility] Social History: Smoking Status (Most current) and Tobacco Use (All prior to encounter date) This section includes the most current, and the historical, smoking and tobacco-related health factors from the [place] facility where the Encounter took place.Current Smoking Status This section includes the most current smoking, or tobacco-related health factor, from the [place] facility where the Encounter took place. Date/Time Current Smoking Status Comment Facility Aug 18, 2015 03:06 PM [facility] Encounter Notes: All associated encounter notes This section contains the clinical notes associated to the Encounter. Date/Time Encounter Note(s) Provider Source November 03, 2021 08:00 C & P EXAMINATION NOTE: RHONDA CALERO [place] C NTRL WSTRN AM LOCAL TITLE: COMPENSATION AND PENSION EXAM [facility] STANDARD TITLE: C & P EXAMINATION NOTE DATE OF NOTE: NOVEMBER 03, 2021@08:00 ENTRY DATE: NOVEMBER 03, 2021@12:42:25 AUTHOR: RHONDA CALERO EXP COSIGNER: URGENCY: STATUS: COMPLETED COMPENSATION AND PENSION EXAM Has ADDENDA * Hearing Loss and Tinnitus Disability Benefits Questionnaire Name of patient/: ANABELLA MCGRATH Is this DBQ being completed in conjunct ion with a [place] [id number], C&P Examination Request? [X] Yes [ ] No How was the examination completed? (check all t hat apply) [X] In-person examination [ ] Records reviewed [ ] Examination via approved video telehealth [ ] Other, please specify in comments box Comments: OLVIN and Evidence Review Indicate method used to obtain medical information to complete this document: [ ] Review of available records (without in-per son or video telehealth examination) using the Acceptable Clinical Evid ence (OLVIN) process because the existing medical evidence provided sufficie nt information on which to prepare the questionnaire and such an examinati on will likely provide no additional relevant evidence. [ ] Review of available records in conjunction with an interview with the [place] (without in-person or telehealth examin ation) using the OLVIN process because the existing medical evidence s upplemented with an interview provided sufficient information on wh ich to prepare the questionnaire and such an examination would lik merline provide no additional relevant evidence. 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 Objective Findings a. Puretone thresholds in decibels (air conduct ion): RIGHT EAR + + A B C D E F G ========+========+========+========+========+= =======+========+========+ 500 1000 2000 3000 4000 6000 8000 Avg Hz Hz* Hz Hz Hz Hz Hz Hz (B-E) ========+========+========+========+========+= =======+========+======== 20 15 15 30 50 50 20 [id number] + + LEFT EAR + + A B C D E F G ========+========+========+========+========+= =======+========+========+ 500 1000 2000 3000 4000 6000 8000 Avg Hz Hz* Hz Hz Hz Hz Hz Hz (B-E) ========+========+========+========+========+= =======+========+======== 20 20 35 55 60 45 50 [id number] + + * The puretone threshold at 500 Hz is not used in determining the evaluation but is used in determining whether o r not a ratable hearing loss exists. The average of B, C, D, and E. CNT - Could Not Test b. Were there one or more frequency(ies) that c ould not be tested: No c. Validity of puretone test results: Test resu lts are valid for rating purposes. d. Speech Discrimination Score ([facility] wo rd list): + + RIGHT EAR 94% +========= LEFT EAR 90% + + e. Appropriateness of Use of Word Recog nition Score ([facility] word list): Right Ear: Is Word Discrimination Score available? Yes Word Discrimination Score appropriateness: Use of word recognition score is appropriate fo r this [place]. Left Ear: Is Word Discrimination Score available? Yes Word Discrimination Score appropriateness: Use of word recognition score is appropriate fo r this [place]. f. Audiologic Findings Summary of Immittance (Tympanometry) Findings: + + RIGHT EAR LEFT EAR + + Acoustic immittance [ ] Normal [ ] Abnormal [X] Normal [ ] Abnormal + + Ipsilateral Acoustic Reflexes [ ] Normal [ ] Abnormal [ ] Normal [X] Abnormal + + Contralateral Acoustic Reflexes [ ] Normal [ ] Abnormal [ ] Normal [X] Abnormal + + Unable to interpret reflexes due to [X] [ ] artifact + + Unable to obtain/ maintain seal [ ] [ ] + + 2. Diagnosis RIGHT EAR --------- [ ] Normal hearing [ ] Conductive hearing loss ICD code: [ ] Mixed hearing loss ICD code: [X] Sensorineural hearing loss (in the frequenc y range of 500-4000 Hz)* ICD code: H90.3 [ ] Sensorineural hearing loss (in the frequenc y range of 6000 Hz or higher frequencies) ICD code: [ ] Significant changes in hearing thresholds i n service LEFT EAR -------- [ ] Normal hearing [ ] Conductive hearing loss ICD code: [ ] Mixed hearing loss ICD code: [X] Sensorineural hearing loss (in the frequenc y range of 500-4000 Hz)* ICD code: H90.3 [ ] Sensorineural hearing loss (in the frequenc y range of 6000 Hz or higher frequencies) ICD code: [ ] Significant changes in hearing thresholds i n service NOTES: * The [place] may have hearing loss at a level that is not considered to be a disability for VA purposes. This can occur wh en the auditory thresholds are greater than 25 dB at one or mor e frequencies in the 500-4000 Hz range. The [place] may have impaired hearing, but i t does not meet the criteria to be considered a disability for VA purposes. For VA purposes, the diagnosis of hearing impairment is based upon t esting at frequency ranges of 500, 1000, 2000, 3000, and 4000 Hz. If there is no HL in the 500-4000 Hz range, but there is HL above 4000 Hz, check this box. The may have a significant change i n hearing threshold in service, but it does not meet the criteria to b e considered a disability for VA purposes. (A significant change in heari ng threshold may indicate noise exposure or acoustic trauma.) 3. Etiology Right Ear Was there a permanent positive threshold shift (worse than reference threshold) greater than normal measurement vari ability at any frequency between 500 and 6000 Hz for the right ear? No Opinion provided for the right ear: Yes If present, is the [place]'s right ear hearing loss at least as likely as not (50% probability or greater) caused by or a result of an event in service? Yes Rationale (Provide rationale for either a yes, no answer or speculation reason): [place] is service connected for tinni tus. Tinnitus can be a symptom of hearing loss, but not a cause of hea ring loss. It is not within the scope of this clinician's practice t o determine if 's left ear hearing loss is a symptom of [place]'s diagnosed fibromyalgia, or a symptom of a MUCMI. 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 Veter an reports total dates of service (including reserve time) fr 1969-June 1999. VIS Report shows latest residential date from [facility] SEAT 4a reserves on 10/02/1999. The latest service audiogram found d [facility] review is dated 07/30/98 which is labeled Annual There are no s ignificant threshold shifts seen in either ear on this audiogram com pared to enlistment audiogram dated 06/27/69. There was no separation audiogram found during review, therefore hearing levels at time of sep aration in 1999 are unknown. As such, significant threshold shifts and hearing loss cannot be ruled out at time of separation. Given that 's MOS were highly probable for exposure to hazardous noise , and hearing levels are unknown at time of separation, 's hearin g loss is at least as likely as not a result of service. Did hearing loss exist prior to service? Yes If yes, was the pre-existing hearing loss aggra vated beyond normal progression in services? No Provide rationale for both yes or no: Enlistmen t exam dated 06/27/69 shows a mild hearing loss in the right ear at 500 Hz. Separation exam was not found during review, however subsequent audiogr ams (from 2014, 2015, and 2021) do not show a significant threshold shift at 500 Hz in the right ear. Given that there was no significant perman ent threshold shift at 500 Hz in the right ear on later audiograms com pared to enlistment audiogram, 's pre-existing hearing loss was not aggravated beyond normal progression in service. Left Ear Was there a permanent positive threshold shift (worse than reference threshold) greater than normal measurement vari ability at any frequency between 500 and 6000 Hz for the left ear? No Opinion provided for the left ear: Yes If present, is the [place]'s left ear hearing l oss at least as likely as not (50% probability or greater) caused by or a result of an event in service? Yes Rationale (Provide rationale for either a yes, no answer or speculation reason): is service connected for tinni tus. Tinnitus can be a symptom of hearing loss, but not a cause of hea ring loss. It is not within the scope of this clinician's practice t o determine if 's left ear hearing loss is a symptom of 's diagnosed fibromyalgia, or a symptom of a MUCMI. 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 VIS Report shows latest residential date from [facility] SEAT 4a reserves on 10/02/1999. The latest service audiogram found d [facility] review is dated 07/30/98 which is labeled Annual There are no s ignificant threshold shifts seen in either ear on this audiogram com pared to enlistment audiogram dated 06/27/69. There was no separation audiogram found during review, therefore hearing levels at time of sep aration in 1999 are unknown. As such, significant threshold shifts and hearing loss cannot be ruled out at time of separation. Given that 's MOS were highly probable for exposure to hazardous noise , and hearing levels are unknown at time of separation, 's hearin g loss is at least as likely as not a result of service. Did hearing loss exist prior to service? Yes If yes, was the pre-existing hearing loss aggra vated beyond normal progression in services? No Provide rationale for both yes or no: Enlistmen t exam dated 06/27/69 shows a mild hearing loss in the left ear at 2000 Hz. Separation exam was not found during review, however subsequent audiogr ams (from 2014, 2015, and 2022) do not show a significant threshold shift at 2000 Hz in the left ear. Given that there was no significant perman ent threshold shift at 2000 Hz in the left ear on later audiograms com pared to enlistment audiogram, 's pre-existing hearing loss was not aggravated beyond normal progression in service. 4. Functional impact of hearing loss Does the [place]'s hearing loss impact ordinary conditions of daily life, including ability to work: No 5. Remarks, if any, pertaining to hearing loss: No response provided SECTION 2: TINNITUS 1. Medical history Does the report recurrent tinnitus: Yes Date and circumstances of onset of tinnitus: Mary Lou greene reports intermittent tinnitus, which he describes as sounding like Katydids. 2. Etiology of tinnitus [X] Etiology opinion not indicated as: [X] Service connected condition 3. Functional impact of tinnitus Does the [place]'s tinnitus impact ordinary con ditions of daily life, including ability to work: No 4. Remarks, if any, pertaining to tinnitus:: No response provided NOTE: [place] may request additional medical informa tion, including additional examinations if necessary to complete VA's revi ew of the [place]'s application. /jagdish/ Pooja Qureshi, [facility]-A Soundscriber Mechanic Signed: 11/03/2021 12:42 11/03/2021 ADDENDUM STATUS: COMPLETED is currently wearing a left only Abram Z Series micro HUSSEIN he was issued on 12/23/15. 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 /jagdish/ Pooja Qureshi, CCC-A Soundscriber Mechanic Signed: 11/03/2021 12:57
--- OUTSIDE RECORDS SUMMARY | 2022-08-02 17:55 | XMS_ITS | Encounter Summary ---
:1955 Author Organization Department of [facility] rs Address [address] [place] [address] Support Name Relationship Address Phone DIOGO MCGRATH Unavailable 115 [facility] [place] [address] DIOGO MCGRATH Unavailable 115 [facility] [phone] [place] [phone] Insurance Providers: All historical and current Section [...] Name to Policy Number Georges MEDICAID MEDICAID [facility] Jun 24, [facility] [id number] [phone] EDNA MCGRATH [facility] D [id number] [place] MEDICARE MEDICARE PART Aug 22, PART A [id number] EDNA MCGRATH PATIENT (WNR) (M) A 2020 [id number] MAS MEDICARE MEDICARE PART Aug 22, PART B [id number] EDNA MCGRATH PATIENT (WNR) (M) B 2020 [id number] MAS TFL Aug 22, [id number] MCGRATHVenancio DAVID PATIENT FOR LIFE 2020 66 4 MAS [place] FAMILY TRICA Dec 22, (WNR) [id number] EDNA MCGRATH PATIENT HEALTHCARE RE(WN 2015 [id number] 9 MAS (WNR) R) Selected Encounter This section includes the information on record at [place] for the Encounter. Date/Time Encounter Type Encounter Reason Provider Source Description Dec 13, 2021 FIT SPECTACLES OPTOMETRY ICD-10-CM Z46.0 JANICE TAYLOR 03:15 PM MULTIFOCAL Encounter for A TYRA fit/adjst of spectacles and contact lenses with Provider Comments: Encounter for Fitting and Adjustment of Spectacles and Contact Lenses IHE Encounter Template Text not used by [facility] Assessments - Encounter Diagnoses This section includes the primary and secondary diagnoses documented for the Encounter. Date/Time Primary/Secondary Diagnosis Name Provider Source Diagnosis Dec 13, 2021 PRIMARY Encounter for MARTINE TAYLOR [place] CNTRL WS TRN 10:33 AM fit/adjst of TYRA STOLL [facility] spectacles and contact lenses Social History: Smoking Status (Most current) and Tobacco Use (All prior to encounter date) This section includes the most current, and the historical, smoking and tobacco-related health factors from the [place] facility where the Encounter took place.Current Smoking Status This section includes the most current smoking, or tobacco-related health factor, from the [place] facility where the Encounter took place. Date/Time Current Smoking Status Comment Facility Aug 18, 2015 03:06 PM QUIT TOBACCO USE > 7 [place] CN TRL WSTRN YEARS AGO stopped in 1978 [facility] Encounter Notes: All associated encounter notes This section contains the clinical notes associated to the Encounter. Date/Time Encounter Note(s) Provider Source Dec 13, 2021 10:32 AM OPTOMETRY NOTE: MARTINE TAYLOR [place] CNTR[place] W STRN LOCAL TITLE: OPTOMETRY NOTE [facility] STANDARD TITLE: OPTOMETRY NOTE DATE OF NOTE: DEC 13, 2021@10:32 ENTRY DATE: DEC 13, 2021@10:32:36 AUTHOR: MARTINE TAYLOR CHR EXP COSIGNER: URGENCY: STATUS[facility] with 1 pair of PAL eye glasses. Ordered as requested. /jagdish/ Martine Taylor Optometry Health Cotton Presser Signed: 12/13/2021 10:33
--- OUTSIDE RECORDS SUMMARY | 2022-08-02 17:55 | XMS_ITS | Encounter Summary ---
:[address] [facility] Address [address] [place] [address] Support Name Relationship Address Phone DIOGO MCGRATH Unavailable 115 [facility] [phone] [place] [address] DIOGO MCGRATH Unavailable [address] [place] [address] [phone] [place] [phone] Insurance Providers: All historical and current Section [...] Name to Policy Number Georges MEDICAID MEDICAID [facility] Jun 24, [facility] [id number] [phone] EDNA MCGRATH PATIENT [facility] 2014 D [id number] [address] [place] MEDICARE MEDICARE PART Aug 22, PART A [id number] EDNA MCGRATH PATIENT (WNR) (M) A 2020 [id number] [place] MEDICARE MEDICARE PART Aug 22, PART B [id number] EDNA MCGRATH PATIENT (WNR) (M) B 2020 [id number] [place] TFL Aug 22, [id number] RAMILAVenancio HERNANDEZ PATIENT FOR LIFE 2020 66 4 MAS US FAMILY TRICA Dec 22, (WNR) [id number] DARIUS MCRGATHWest PATIENT HEALTHCARE RE(WN 2016 [id number] 9 MAS (WNR) R) Selected Encounter This section includes the information on record at [place] for the Encounter. Date/Time Encounter Type Encounter Reason Provider Source Description November 07, 2021 Outpatient GENERAL INTERNAL ICD-10-CM Z02.89 ROGELIO CRABTREE 08:00 AM Encounter MEDICINE Encounter for other ,CYNDY administrative examinations with Provider Comments: Encounter for other Administrative Examinations IHE Encounter Template Text not used by [place] Assessments - Encounter Diagnoses This section includes the primary and secondary diagnoses documented for the Encounter. Date/Time Primary/Secondary Diagnosis Name Provider Source Diagnosis November 07, 2021 PRIMARY Encounter for other [facility] L WSTRN 05:10 PM administrative ,CYNDY [place] [facility] examinations Plan of Treatment: Future Appointments (+ 6 months) and Future Tests (+/- 45 days) The Plan of Treatment section includes future care activities for the patient from all [place] treatmentfacilities. This section includes future appointments and future orders which are active, pending orscheduled.Future Appointments This section includes appointments that were scheduled to occur 6 months from the date of the Encounter, up to a maximum of 20 appointments. The data comes from all [place] treatment facilities. Appointment Date/Time Appointment Type Appointment Facili ty Name November 08, 2021 08:30 AM AMBULATORY - MEDICINE [place] [facility] Dec 13, 2021 08:00 AM AMBULATORY MEDICINE [place] [facility] Dec 13, 2021 03:15 PM [facility] Social History: Smoking Status (Most current) and Tobacco Use (All prior to encounter date) This section includes the most current, and the historical, smoking and tobacco-related health factors from the [place] facility where the Encounter took place.Current Smoking Status This section includes the most current smoking, or tobacco-related health factor, from the [place] facility where the Encounter took place. Date/Time Current Smoking Status Comment Facility Aug 18, 2015 03:06 PM QUIT TOBACCO USE > 7 [facility] TRL WSTRN YEARS AGO stopped in 1978 [facility] Encounter Notes: All associated encounter notes This section contains the clinical notes associated to the Encounter. Date/Time Encounter Note(s) Provider Source November 07, 2021 05:06 PM C & P EXAMINATION NOTE: ANJU KENNEDY [place] CNTRL WSTRN LOCAL TITLE: COMPENSATION AND PENSION EXAM [facility] STANDARD TITLE: C & P EXAMINATION NOTE DATE OF NOTE: NOVEMBER 07, 2021@17:06 ENTRY DATE: NOVEMBER 07, 2021@17:07:04 AUTHOR: NINOSKA KENNEDY EXP COSIGNER: URGENCY: STATUS: COMPLETED THIS WAS A VIDEO TELEHEALTH VISIT. CONSENT WAS OBTAINED. CONTACT INFORMATION Phone Number: Physical Location and Address: [address] [place] [address] THE WAS IN A PRIVATE AND SAFE PLACE. THE WAS FULLY INFORMED OF THE RISKS AND BENEFITS OF TELEHEALTH SERVICES AND PROCEDURES. THIS FORGE TENDER DISCUSSED THE SECURITY OF THE SYSTEM AND THE PRIVACY BETWEEN THE TWO P ARTIES. DISCUSSED WHAT WOULD HAPPEN IN THE CASE OF TECHNICAL FAILURE OR EMERGENCY EVENT AT THE [facility]. THE GAVE VERBAL PERMISSION CONSENT TO TELEHEALTH SERVI CE PRIOR TO THE INITIATION OF THE TELEHEALTH CLINIC SESSION. THE WAS A DVISED OF HIS RIGHT TO REFUSE TELEHEAL TH SERVICES AND PROVIDED [facility] ALTERATIVE OPTIONS. THE AGREED AND APPROVED THIS VIDEO CONFERENC E TODAY. NOTE: 's Keke was present for th e entire 2 hour video visit today. PLAN: Interview via video connect performed today in readiness for in-person C&P exam scheduled for Monday November 08, 2021. /jagdish/ CYNDY KENNEDY NURSE PRACTITIONER Signed: 11/07/2021 17:09
--- OUTSIDE RECORDS SUMMARY | 2022-08-02 17:55 | XMS_ITS | Encounter Summary ---
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 Coronary artery disease with no symptoms of ang yolande on current medical therapy. Paroxysmal atrial fibrillation highly symptomat ic with no clinical recurrence. No need for additional antiarrythmi c drug therapy at this time. * 09/19/2020 PRIVATE RECORDS: From cardiac perspective he has been doing well . He has had no episodes of recurrent atrial fibrillation. He also denie s any anginal symptoms, says he has not been exercising much. He has ga ined some weight. BMI 43.3, weight 302 lbs. ASSESSMENT: Coronary artery disease. No current symptoms. Paroxysmal atrial fibrillation. currently stabl e with no recurrent episodes. * 09/08/2019 PRIVATE RECORDS: He has had no cardiac symptoms. No recurrent ep isodes of atrial fibrillation. He denies any episodes of exertio nal chest pain. He denies any heart failure symptoms. * 10/09/2018 PRIVATE RECORDS: He has had no recurrent episodes of atrial fibr illation. He also denies any significant anginal symptoms with activity. He does not exercise on a regular basis. Echocardiogram performed recen tly shows normal LV systolic function. * 09/26/2017 PRIVATE RECORDS: No cardiac symptoms to report. Denies any angin al symptoms. No episodes of atrial fibrillation. Has not been able to lo se much weight. weight 285 lbs. BMI 41.48 * 09/27/2016 PRIVATE RECORDS: Does not have any anginal symptoms with day to day activities. Denies any palpitations. ASSESSMENT: 1. PAF, currently suppressed with no recurrent symptoms. Continue with rhythm control approach. 2. Coronary artery disease with branch vessel d isease with no recurrent symptom on dual anti anginal therapy. * 03/29/2016 PRIVATE RECORDS: Recently after reducing Toprol-XL he underwent a Holter monitor. Did not show any significant bradycardia or pauses and no major episodes of atrial flutter/fibrillation. He also has had no recurrent chest discomfort. ASSESSMENT: 1. Stable coronary artery disease mostly branch vessel disease being treated medically. Currently on dual antiangina l therapy with no recurrent symptoms. Continue high intensity sta tin therapy. Continue aggressive lifestyle modification with weight r eduction advised. 2. Paroxysmal atrial flutter without clinical r ecurrence of symptoms. * 02/22/2016 PRIVATE RECORDS: He was admitted on 02/13/2016 with recent report of seeing spots and with chest discomfort. He has slight troponin elevat ion and EKG changes that were concerning for ischemia. Echo showed marcel l EF. Underwent cardiac cath showing NO change from 03/2015 cath. Today he reports that since being out of the hospital he has been feeling w ell. No chest discomfort, shortness of breath, palpitation, dizziness, pr esyncope, syncompe, orthopnea or edema. ASSESSMENT: Continue on medical managment. * 02/14/2016 PRIVATE RECORDS - CARDIOLOGY: presents with symptoms of precordial chest pres sure on and off with minimally elevated troponin. PLAN: needs to undergo cardiac catherization. * 11/25/2015 PRIVATE RECORDS - CARDIOLOGY Has been taking toprol and low dose lisinopril. No recurrent anginal sounding chest discomfort. Continued weight loss is recommended. * 08/18/2015 PRIMARY CARE PROVIDER: History or coronary artery disease/angina pecto ris. Patient has been on beta reyna and also isosorbide mononitrate, h e is also taking coumadin, asprin and a statin. Patient said there is no set pattern he can be exerting or he can be sitting in both cases he gets chest pain....he doesn't use any sublingual nitroglycerin. * 04/26/2015 PRIVATE RECORDS: Acute coronary syndrome ruled out. Nuclear stre ss test on 04/12/2015 showed large area of ischemia in LAD territory and moderate ischemia in RCA territory. EF stress 64%. He underwent cath on 04/20/2015 showing LAD moderate diffuse disease, 1st diagonal 80% stenosis, LCX and OM mid 90% stenosis, non dominant RCA 80% stenosis. ASSESSMENT: Status post cardiac catherization: - significant branch vessel disease. Will need to optimize medical therapy. * 03/29/2015 CONSULTATION: PRIVATE RECORDS: Cardiac risk factors of hypertension, hyperlipi demia and obesity. Admitted today with anterior chest tightness an d increased shortness of breath. EKG showed sinus rhythm with no acute S T or T-wave abnormalities. Nonsmoker, denies alcohol intake or recreationa l drug use. ASSESSMENT: Chest Discomfort. * 01/18/2006 Private Records: hyperlipidemia * 07/30/1998 RESERVE MEDICAL EXAM: Medical: Normal Normal heart. Self Assessment: NO rheumatic fever. NO pain or pressure in chest. NO palpation or poun ding heart. NO heart trouble. * 08/31/1995 FLYING MEDICAL EXAM: Medical: Normal heart. Self Assessment: NO rheu matic fever. NO pain or pressure in chest. NO palpation or pounding hea rt. NO heart trouble. * 05/28/1992 FLYING MEDICAL EXAM: Medical: normal heart. * 1990 STR: Elevated cholesterol. 368. * 04/07/1988 FLYING CLASS MEDICAL EXAMINATION: RESERVE TIME: 10 years, 10months. Medical: Normal heart. Self Assessment: NO rheu matic fever. NO pain or pressure in chest. NO palpation or pounding hea rt. NO heart trouble. 09/26/1985 PERIODIC MEDICAL EXAM: Medical: Normal heart. Self Assessment: NO rheu matic fever. NO pain or pressure in chest. NO palpation or pounding hea rt. NO heart trouble. * 06/27/1969 ENLISTMENT: Medical: Normal heart. Self Assessment: NO rheu matic fever. NO pain or pressure in chest. NO palpation or pounding hea rt. NO heart trouble. 2B. Do any of the 's heart conditions qu alify within the generally accepted medical definition of Ischemic Heart D isease (IHD)? [X] Yes [ ] No If yes, list the conditions that qualify: coronary artery disease 2C. Provide the etiology, if known, of each of the 's heart conditions, including the relationship/causalit y to other heart conditions, particularly the relationship/causa lity to the 's IHD conditions, if any: Heart condition #1: Provide etiology coronary artery disease - hyperlipidemia a cont ributing factor. Heart condition #2: Provide etiology No response provided. 2D. Is continuous medication required for contr ol of the [place]'s heart condition? [X] Yes [ ] No If yes, list medications required for the Veter an's heart condition (include name of medication and heart condition it is used for, such as atenolol for myocardial infarction or atrial fi brillation): * atorvastatin * isosorbide mononitrate * metoprolol 3. Myocardial infarction (NV) 3A. Has the [place] had an NV? [ ] Yes [X] No 4. Arrhythmia 4A. Has the had a cardiac arrhythmia? [X] Yes [ ] No If yes, complete the following: Note: A treatment intervention occurs w henever a symptomatic patient requires intravenous pharmacologic adjustment, cardiover jihan, and/or ablation for symptom relief. [X] Other cardiac arrhythmia, specify: Paroxysm al Atrial Fibrillatoin (if checked, indicate type of treatment) [X] No treatment 5. Heart valve conditions 5A. Has the had a heart valve condition ? [ ] Yes [X] No 6. Infectious heart conditions 6A. Has the had any infectious cardiac conditions, including active valvular infection (which includes rheumatic he art disease), endocarditis, pericarditis, or syphilitic heart disease? [ ] Yes [X] No 6C. Has the [place] had a syphilitic aortic ane urysm? [ ] Yes [X] No 7. Pericardial adhesions 7A. Has the [place] had pericardial adhesions? [ ] Yes [X] No 8. Procedures 8A. Has the had any non-surgical or luis miguel gical procedures for the treatment of a heart condition? [ ] Yes [X] No 8B. If the has had additional n on-surgical or surgical procedures for the treatment of a heart condition, list using above format: No response provided. 9. Hospitalizations 9A. Has the [place] had any other hospitalizati ons for the treatment of a heart condition (other than for non-surgical an d/or surgical procedures described above)? [ ] Yes [X] No 10. Physical examination 10A. Physical examination findings: Heart rate: 71 Blood pressure: 136/85 Rhythm: No response provided. Point of maximal impact: [X] Not palpable [ ] 4 th intercostal space [ ] 5th intercostal space [ ] Other, specify: Heart sounds: [X] Normal [ ] Abnormal, specify: Jugular-venous distension: [ ] Yes [X] No Auscultation of the lungs: [X] Clear [ ] Bibasi lar rales [ ] Other, specify: Peripheral pulses: Dorsalis pedis: [X] Normal [ ] Diminished [ ] A bsent Posterior tibial: [X] Normal [ ] Diminished [ ] Absent Peripheral edema: Right lower extremity: [X] None [ ] Trace [ ] 1+ [ ] 2+ [ ] 3+ [ ] 4+ Left lower extremity: [X] None [ ] Trace [ ] 1+ [ ] 2+ [ ] 3+ [ ] 4+ 11. Other pertinent physical findings, complica tions, conditions, signs and/or symptoms 11A. Does the have any other pertinent physical findings, complications, conditions, signs or symptoms re lated to any conditions listed in the diagnosis section above? [X] Yes [ ] No If yes, describe (brief summary): BMI > 40 11B. Does the [place] have any scars or other d isfigurement (of the skin) related to any conditions or to the treatment o f any conditions listed in the diagnosis section? [ ] Yes [X] No 12. Diagnostic Testing Note: For [place] purposes, exams for all he art conditions require a determination of whether or not cardiac hypertrophy or dilata tion (documented by electrocardiogram, echocardiogram, or x-ray) is present. The suggested order of testing for cardiac hypertrophy/dilatation i s ECG, then chest x-ray (PA and lateral), and then echocardiogram. An echoc ardiogram to determine heart size is only necessary if the other two tests a re negative. 12A. Is there evidence of cardiac hypertrophy? [ ] Yes [X] No 12B. Is there evidence of cardiac dilatation? [X] Yes [ ] No If yes, indicate how this condition was documen ade: [X] Echocardiogram Date of test: 09/08/2020 12C. Select all testing completed and provide m ost recent results which reflect the [place]'s current functional status . Check all that apply: [X] Echocardiogram Date of echocardiogram: 09/08/2020 Wall motion: [X] Normal [ ] Abnormal, describe: Wall thickness: [X] Normal [ ] Abnormal, describe: [X] Other test Other test, specify Cardiac Cath Date of test: 04/20/2015 Results of test [ ] Normal [X] Abnormal, describe: significant branch vessel stenosis 13. Metabolic equivalents (METs) testing Note: For [place] purposes, all heart exams require METs testing (either exercise-based or interview-based) to determine the activity level at which symptoms such as breathlessness, fatigue, angin a, dizziness, or syncope develops (except exams for supraventricular arr hythmias). If a laboratory determination for METs by exercise testing danielle ot be done for medical reasons, then perform an interview-based METs t est based on the [place]'s responses to a cardiac activity questionnaire a nd provide the results below. 13A. Select all testing completed (of record an d/or completed during this examination) and provide the most recent result s that reflect the [place]'s current functional status. Check all that apply : [X] Interview-based METs test 13B. Exercise stress test No response provided. 13C. If an exercise stress test was not perform ed, select a reason. [X] Exercise stress testing is not required as part of 's current treatment plan and this test is not without sig nificant risk 13D. Interview-based METs test Date of interview-based METs test: 11/07/2021 Symptoms during activity: Symptoms during activity: The METs level checke d below reflects the lowest activity level at which the [place] repo rts any of the following symptoms (check all symptoms that the reports at the indicated METs level of activity): [X] Fatigue Results of interview-based METs test METs level on most recent interview-based METs test: No response provided. 13E. Has the had both an exercise stres s test and interview-based METs test? [ ] Yes [X] No 13F. Is the METs level provided due carlos merline to the heart condition(s) that the is claiming in the diagnosis section? [ ] Yes [X] No If no, complete question 13G. 13G. What is the estimated interview-based METs level due solely to the cardiac condition(s) listed above? If this is d ifferent than the METs level reported above because of comorbid condit ions, provide METs level for the claimed cardiac condition only and rati onale below. Results of interview-based METs test. METs leve l on most recent interview-based METs test: Rationale: It is not possible to provide a revised METS le jairo based solely on cardiac function without resorting to mere spec ulation due to the co-morbid conditions of (ex. morbid obesity) th at impacts the METS level. The EF tesing of 60-65% (echocardiogram 09/08/2020) provides a more accurate reading of cardiac function. 14. Functional impact Note: Provide the impact of only the diagnosed condition(s), without consideration of the impact of other medical co nditions or factors, such as age. 14A. Regardless of the 's [employer] employment status, do the conditions listed in the diagnosis section impact his/her ability to perform any type of occupational task (such as standing, walking , lifting, sitting, etc.)? [ ] Yes [X] No 15. Remarks 15A. Remarks (if any -- please identify the sec tion to which the remark pertains when appropriate). GULF WAR STATEMENT: The 's cardiac conditions of coronary ar katey disease and paroxysmal atrial fibrillation are diagnosable conditions with a medically explained etiology. Please see medica l opinion DBQ for details. It is my medical opinion that the conditions ar e less likely than not (less than 50 percent probability) related to a ny environmental exposures in [facility] or are a symptom of A MEDICALLY UNEXPLAINED CHRONIC MULTI-SYMPTOM ILLNESS (MUCMI). Hypertension Disability Benefits Questionnaire Name of claimant/: ANABELLA SINGH RAMILA ( [id number]) Is this questionnaire being completed in conjun ction with a [place] [id number], C&P Examination Request? [X] Yes [ ] No How was the examination completed? (check all t hat apply) [X] In-person examination [X] Records reviewed [X] Examination via approved video telehealth [ ] Other, please specify in comments box Comments: NO ADDITIONAL COMMENTS Acceptable Clinical Evidence (OLVIN) Indicate method used to obtain medical informat ion to complete this document: [ ] Review of available records (without in-per son or video telehealth examination) using the Acceptable Cl inical Evidence (OLVIN) process because the existing medical evid ence provided sufficient information on which to prepare the questionnaire and such an examination will likely provide no rich tional relevant evidence. [ ] Review of available records in conjunction with an interview with the [place] (without in-person or telehealth ex amination) using the OLVIN process because the existing medical ev idence supplemented with an interview provided suffici ent information on which to prepare the questionnaire and such an examination would likely provide no additional relevant evidence. Evidence Review Evidence reviewed (check all that apply): [X] [facility] e-folder [X] VA electronic health record [X] Other, please identify other evidence revie wed. VBMS, JLV, VISTAIMAGING, CPRS Evidence Comments: * 10/02/2021 BVA RATING DECISION: - Service connection for sleep apnea is remande d - Service connection for cardiovascular disease is remanded - Service connection for hypertension is remand ed - Service connection for gall stones is remande d - Service connection for facial skin rash is re manded - Service connection for stroke is remanded * 08/09/2015 'S CLAIM: - cardiovascular disease * 08/05/2014 's CLAIM: - Facial Skin Rash - Stroke * 07/20/2014 'S CLAIM: - Sleep Apnea - Gallstones - Hypertension * 05/20/2018 VBA RATING DECISION: - Service connection for cardiovascular disease is denied - Service connection for gall stones is denied - Service connection for hypertension is denied - Service connection for sleep apnea is denied - Service connection for facial skin rash is de nied - Service connection for stroke is denied * 02/24/2016 VBA RATING DECISION: - Service connection for cardiovascular disease is denied - Service connection for gall stones is denied - Service connection for hypertension is denied - Service connection for sleep apnea is denied * 01/03/2015 VBA RATING DECISION: - Service connection for facial rash is denied - Service connection for stroke is denied June 1998 Anthrax Vaccine ? 1998 Anthrax Vaccine ? 1998 Anthrax Vaccine 1. Diagnosis NOTE 1: For VA disability rating purposes, the term hypertension means that the diastolic blood pressure is predominan tly 90mm or greater, and isolated systolic hypertension means that the s ystolic blood pressure is predominantly 160mm or greater with a diastolic blood pressure of less than 90mm. NOTE 2: For [place] purposes, for the INITIAL diagno sis of hypertension or isolated systolic hypertension must be confirme d by readings taken 2 or more times on at least 3 different days. Blood pressure results may be obtained from existing medical records or [facility] scheduled visits for blood pressure measurements. 1A. Does the currently have a diagnosis of hypertension or isolated systolic hypertension based on the sierra oswalding criteria? [X] Yes [ ] No [X] Hypertension ICD code: No response provided. Date of diagnos is: About ~ 2000 NOTE 3: ALSO complete appropriate questionnaire s for hypertension-related complications, if any (such as Kidney, if renal insufficiency is attributable to hypertension). 2. Medical History 2A. Describe the history (including onset and c ourse) of the 's hypertension condition (brief summary): MEDICAL HISTORY STATUS OF AFFECTED/CLAIMED CONDITION: He feels that is was around 2000 when he was diagnosed with hypertension. 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 No issues with his blood press ure noted. He believes it was about 2001 when he started taking anti-h ypertensives and has been on medication since that time. The medicat ion keeps his blood pressure well controlled. CURRENT TREATMENT: lisonpril REVIEW OF AVAILABLE MEDICAL EVIDENCE: * 09/12/2021 PRIVATE CARDIOVASCULAR RECORD: B/P 130/80. Blood pressure is optimized. * 08/18/2015 PRIMARY CARE NOTE: Hypertension, his blood pressure has been under good control and today his blood pressure is 132/76. * 01/18/2006 Private Records: hypertension * 11/09/2005 PRIVATE RECORDS: Obesity. Hypertension at goal. Hyperlipidemia. * 2004 PRIVATE RECORDS: B/P overall well controlled. 110/72 on lisinopr il * 07/30/1998 REINHOLDS MEDICAL EXAM: Medical: b/p 120/74. Self Assessment: NO high o r low blood pressure. * 08/31/1995 FLYING MEDICAL EXAM: Medical: b/p 120/82. Self Assessment: NO high o r low blood pressure. * 05/01/1994 Follow-Up Letter from [facility] Cytosorbents Registry Exam: - Laboratory tests reveal an elevated cholester ol level. Borderline Hypertension noted. * 05/28/1992 FLYING MEDICAL EXAM: Medical: B/P 118/88 * 11/20/1988 STR: B/P 135/88 * 04/07/1988 FLYING CLASS MEDICAL EXAMINATION: RESERVE TIME: 10 years, 10months. Medical: B/P 138/88, weight 188 lbs. Self Asses sment: NO high or low blood pressure. 09/26/1985 PERIODIC MEDICAL EXAM: Medical: B/P 110/84. weight 191 lbs. Self Asses sment: NO high or low blood pressure. * 06/27/1969 ENLISTMENT: Medical: B/P 120/80 Self Assessment: NO high or low blood pressure. 2B. Does the 's treatment plan include t aking continuous medication for hypertension or isolated systoli c hypertension? [X] Yes [ ] No If yes, list only those medications used for th e diagnosed conditions: lisionopril 2C. Was the [place]'s initial diagnosis of hype rtension or isolated systolic hypertension confirmed by blood pressu re (BP) readings taken 2 or more times on at least 3 different days? [ ] Yes [ ] No [X] Unknown (If checked, proceed to 2D and 2E) 2D. Does the have a history of a diasto lic BP elevation to predominantly 100 or more? [ ] Yes [X] No 2E. Current (date of evaluation/s) blood pressu re readings (sufficient if [place] has a previously established diagnos is of hypertension): Reading #1: 136 / 85 Date: 11/08/2021 Reading #2: 130 / 80 Date: 09/12/2021 Reading #3: 132 / 76 Date: 08/18/2015 The should be seated comfortably with back and feet supported. There is no need to take lying or st anding blood pressures. There is no specified time interval between readings and they may be completed sequentially. 3. Other Pertinent Physical Findings, Complicat ions, Conditions, Signs, Symptoms and Scars 3A. Does the [place] have any other pertinent p hysical findings, complications, conditions, signs or symptoms re lated to the conditions listed in the Diagnosis Section above? [X] Yes [ ] No If yes, describe (brief summary): BMI > 40 3B. Does the have any scars (surgical o r otherwise) related to any conditions or to the treatment of any condi tions listed in the Diagnosis Section above? [ ] Yes [X] No 3C. Comments, if any: no history of any surgery related to hypertensi on 4. Functional Impact Does the [place]'s hypertension or isolated sys tolic hypertension impact his or her ability to work? [ ] Yes [X] No 5. Remarks, If Any GULF WAR STATEMENT: The 's hypertension is a diagnosable con dition with a medically explained etiology. Please see medical opinion DBQ for details. It is my medical opinion that the condition is less likely than not (less than 50 percent probability) related to any env ironmental exposures in [facility] or is a symptom of A MEDICALLY U NEXPLAINED CHRONIC MULTI-SYMPTOM ILLNESS (MUCMI). Sleep Apnea Disability Benefits Questionnaire Name of patient/[place]: ANABELLA SINGH RAMILA ([id number]) Is this DBQ being completed in conjunct ion with a VA [id number], C&P Examination Request? [X] Yes [ ] No How was the examination completed? (check all t hat apply) [X] In-person examination [X] Records reviewed [X] Examination via approved video telehealth [ ] Other, please specify in comments box Comments: 11/07/2021 VIDEO TELEHEALTH VISIT FOR INTERVIEW PORTION. 11/08/2021 IN-PERSON EXAM. 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 Evidence Review Evidence reviewed (check all that apply): [X] [place] [X] [place] [X] Other, please identify other evidence revie wed. VBMS, JLV, VISTAIMAGING, CPRS Evidence Comments: * 10/02/2021 BVA RATING DECISION: - Service connection for sleep apnea is remande d - Service connection for cardiovascular disease is remanded - Service connection for hypertension is remand ed - Service connection for gall stones is remande d - Service connection for facial skin rash is re manded - Service connection for stroke is remanded * 08/09/2015 'S CLAIM: - cardiovascular disease * 08/05/2014 's CLAIM: - Facial Skin Rash - Stroke * 07/20/2014 'S CLAIM: - Sleep Apnea - Gallstones - Hypertension * 05/20/2018 VBA RATING DECISION: - Service connection for cardiovascular disease is denied - Service connection for gall stones is denied - Service connection for hypertension is denied - Service connection for sleep apnea is denied - Service connection for facial skin rash is de nied - Service connection for stroke is denied * 02/24/2016 VBA RATING DECISION: - Service connection for cardiovascular disease is denied - Service connection for gall stones is denied - Service connection for hypertension is denied - Service connection for sleep apnea is denied * 01/03/2015 VBA RATING DECISION: - Service connection for facial rash is denied - Service connection for stroke is denied June 1998 Anthrax Vaccine ? 1998 Anthrax Vaccine ? 1998 Anthrax Vaccine 1. Diagnosis Does the [place] have or has he/she ever had sl eep apnea? [X] Yes [ ] No [X] Obstructive Date of diagnosis: 01/18/2006 & 04/11/2016 per polysomnogram [X] Central Date of diagnosis: 04/11/2016 per polysomnogram 2. Medical history a. Describe the history (including onset and co urse) of the [place]'s sleep disorder condition (brief summary): STATUS OF AFFECTED/CLAIMED CONDITION: He notes that about his had noti micheal sleep apnea episodes and decreased energy level. He has undergone po lysomnograms. He notes that he occasionally uses CPAP and is trying to lose weight. MEDICAL HISTORY REVIEW OF AVAILABLE MEDICAL EVIDENCE: * 09/12/2021 weight 308 lbs. * 09/19/2020 weight 302 lbs * 09/08/2019 weight 294 lbs. * 09/26/2017 weight 285 lbs. * 03/29/2016 PRIVATE RECORDS: Cardiology: Also cannot use his CPAP machine. * 11/25/2015 weight 276 lbs, BMI 40.17 * 08/18/2015 PRIMARY CARE NOTE: Patient said he was diagnosed with sleep apnea and prescribed a CPAP. He used it for 3 weeks but he woke up with panic a ttacks almost like claustrophobia. * 07/27/2015 weight 263, BMI 38.28 * 04/14/2015 height 69.5 inches. weight 259 lbs , BMI 38.24 * 06/22/2005 PRIVATE RECORDS: He feels he is not as energetic, a small task w ill tire him out. Patient admitted not being too careful with is diet and had significant weight increase. EXAM weight 236 lbs. PLAN: Obesity. * 07/30/1998 RESERVE MEDICAL EXAM: Medical: Normal ENT Weight 192 lbs Self Assessm ent: NO frequent trouble sleeping. * 08/31/1995 FLYING MEDICAL EXAM: Medical: normal ENT. Weight 190 lbs. Self Asses sment: NO frequent trouble sleeping. * 05/28/1992 FLYING MEDICAL EXAM: Medical: normal ENT Weight 190lbs. * 04/07/1988 [employer] CLASS MEDICAL EXAMINATION: RESERVE TIME: 10 years, 10months. Medical: NORMAL ENT weight 188 lbs. Self Assess ment: NO frequent trouble sleeping. 09/26/1985 PERIODIC MEDICAL EXAM: Medical: Normal ENT, weight 191 lbs. Self Asses sment: NO frequent trouble sleeping. * 06/27/1969 ENLISTMENT: Medical: Normal ENT, weight 162 lbs. Self Asses sment: NO frequent trouble sleeping. b. Is continuous medication required for contro l of a sleep disorder condition? [ ] Yes [X] No c. Does the [place] require the use of a breath ing assistance device? [ ] Yes [X] No d. Does the require the use of a contin uous positive airway pressure (CPAP) machine? [X] Yes [ ] No 3. Findings, signs and symptoms Does the [place] currently have any findings, s igns or symptoms attributable to sleep apnea? [X] Yes [ ] No If yes, check all that apply: [X] Persistent daytime hypersomnolence 4. Other pertinent physical findings, complicat ions, conditions, signs, symptoms and scars a. Does the [place] have any other pertinent ph ysical findings, complications, conditions, signs or symptoms re lated to any conditions listed in the Diagnosis Section above? [X] Yes [ ] No If yes, describe (brief summary): BMI > 40 b. Does the [place] have any scars (surgical or otherwise) related to any conditions or to the treatment of any condition s listed in the Diagnosis Section above? [ ] Yes [X] No c. Comments, if any: no surgery related to obstructive sleep apnea 5. Diagnostic testing a. Has a sleep study been performed? [X] Yes [ ] No If yes, does the have documented sleep disorder breathing? [X] Yes [ ] No Date of sleep study: Facility where sleep study performed, if known: [facility] Results: AHI of 40 events per hour. Severe degree of mixed obstructive and central sleep apnea. * 01/18/2006 POLYSOMNOGRAM: Moderate Obstructive Sleep Apnea. b. Are there any other significant diagnostic t est findings and/or results? [ ] Yes [X] No 6. Functional impact Does the [place]'s sleep apnea impact his or he r ability to work? [ ] Yes [X] No 7. Remarks, if any: GULF WAR STATEMENT: The [place]'s Sleep Apnea (obstructive and cent ral) is a diagnosable condition with a medically explained et iology. Please see medical opinion DBQ for details. It is my medical opinion that the condition is less likely than not (less than 50 percent probability) related to any env ironmental exposures in [facility] or is a symptom of A MEDICALLY U NEXPLAINED CHRONIC MULTI-SYMPTOM ILLNESS (MUCMI). Gallbladder and Pancreas Conditions Disability Benefits Questionnaire Name of patient/[place]: ANABELLA SINGH RAMILA ([id number]) Is this DBQ being completed in conjunct ion with a VA [id number], C&P Examination Request? [X] Yes [ ] No How was the examination completed? (check all t hat apply) [X] In-person examination [X] Records reviewed [X] Examination via approved video telehealth [ ] Other, please specify in comments box Comments: 11/07/2021 VIDEO TELEHEALTH VISIT FOR INTERVIEW PORTION. 11/08/2021 IN-PERSON EXAM. 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 Evidence Review Evidence reviewed (check all that apply): [X] VA e-folder [X] VA electronic health record [X] Other, please identify other evidence revie wed. VBMS, JLV, VISTAIMAGING, CPRS Evidence Comments: * 10/02/2021 BVA RATING DECISION: - Service connection for sleep apnea is remande d - Service connection for cardiovascular disease is remanded - Service connection for hypertension is remand ed - Service connection for gall stones is remande d - Service connection for facial skin rash is re manded - Service connection for stroke is remanded * 08/09/2015 'S CLAIM: - cardiovascular disease * 08/05/2014 's CLAIM: - Facial Skin Rash - Stroke * 07/20/2014 'S CLAIM: - Sleep Apnea - Gallstones - Hypertension * 05/20/2018 VBA RATING DECISION: - Service connection for cardiovascular disease is denied - Service connection for gall stones is denied - Service connection for hypertension is denied - Service connection for sleep apnea is denied - Service connection for facial skin rash is de nied - Service connection for stroke is denied * 02/24/2016 VBA RATING DECISION: - Service connection for cardiovascular disease is denied - Service connection for gall stones is denied - Service connection for hypertension is denied - Service connection for sleep apnea is denied * 01/03/2015 A RATING DECISION: - Service connection for facial rash is denied - Service connection for stroke is denied June 1998 Anthrax Vaccine ? 1998 Anthrax Vaccine ? 1998 Anthrax Vaccine 1. Diagnosis: Does the now have or has he/she ever be en diagnosed with a gallbladder or pancreas condition? [X] Yes [ ] No [X] Other gallbladder conditions: Other diagnosis #1: Small gallstone seen (Incid ental Finding) Date of diagnosis: 06/20/2009 2. Medical history a. Describe the history (including onset and co urse) of the 's gallbladder and/or pancreas conditions (brief s ummary): MEDICAL HISTORY STATUS OF AFFECTED/CLAIMED CONDITION:The Vetera n notes that the gallstone was seen on CT. He has had no treatme nt and no issues as a result. CURRENT TREATMENT:none REVIEW OF AVAILABLE MEDICAL EVIDENCE: * 06/20/2009 PRIVATE RECORDS: REASON FOR CT pain/injury s/p blunt trauma by board kicked back by table saw CT of abdomen: showed incidental finding of one small gallstone. * 08/19/2015 PRIVATE RECORDS: exposure to anthrax vaccine. * 08/18/2015 PRIMARY CARE: No GI complaints like nausea, vomiting, abdomin al pain, acid reflux, blood in stool or diarrhea. * 07/30/1998 RESERVE MEDICAL EXAM: Medical: Weight 192 lbs, normal abdomen and vis cera. weight 191 lbs. Self Assessment: NO gallbladder trouble or gall stones. * 12/28/1997 Private Records: EXAM: there are no abdominal masses, the abdome n is soft throughout. * 08/31/1995 FLYING MEDICAL EXAM: Medical: Weight 190 lbs, normal abdomen and vis cera. weight 191 lbs. Self Assessment: NO gallbladder trouble or gall stones. * 05/28/1992 FLYING MEDICAL EXAM: Medical: Weight 190lbs. normal abdomen and visc era. * 04/07/1988 FLYING CLASS MEDICAL EXAMINATION: RESERVE TIME: 10 years, 10months. Medical: weight 188 lbs. normal abdomen and vis cera. weight 191 lbs. Self Assessment: NO gallbladder trouble or gall stones. 09/26/1985 PERIODIC MEDICAL EXAM: Medical: normal abdomen and viscera. weight 191 lbs. Self Assessment: NO gallbladder trouble or gallstones. * 06/27/1969 ENLISTMENT: Medical: Normal abdomen and viscera. Self Asses sment: NO gallbladder trouble or gallstones. b. Is continuous medication required fo r control of the [place]'s gallbladder or pancreas conditions? [ ] Yes [X] No 3. Gallbladder conditions: signs and symptoms a. Does the [place] have any of the following s igns or symptoms attributable to any gallbladder conditions or residuals of t reatment for gallbladder conditions? [ ] Yes [X] No 4. Pancreas conditions: signs and symptoms a. Does the have any of the following s ymptoms attributable to any pancreas conditions or residuals of treatment f or pancreas conditions? [ ] Yes [X] No b. Does the [place] have any of the following s igns or findings attributable to any pancreas conditions or residuals of obed tment for pancreas conditions? [ ] Yes [X] No 5. Other pertinent physical findings, complicat ions, conditions, signs, symptoms and scars a. Does the [place] have any other pertinent ph ysical findings, complications, conditions, signs or symptoms re lated to any conditions listed in the Diagnosis Section above? [X] Yes [ ] No If yes, describe (brief summary): BMI > 40 b. Does the [place] have any scars (surgical or otherwise) related to any conditions or to the treatment of any condition s listed in the Diagnosis Section above? [ ] Yes [X] No c. Comments, if any: no gallbladder removed ro treatment 6. Diagnostic testing a. Have imaging studies been performed and are the results available? [X] Yes [ ] No If yes, check all that apply: [X] CT Date: 06/20/2009 Results: Small gallstone seen (5 mm calcified g allstone in the neck of the gallbladder is seen) b. Has laboratory testing been performed? [X] Yes [ ] No If yes, check all that apply: [X] Alkaline phosphatase Date: 05/05/2021 Results: 66 [X] Bilirubin Date: 05/05/2021 Results: 0.6 c. Are there any other significant diagnostic t est findings and/or results? [ ] Yes [X] No 7. Functional impact Does the 's gallbladder and/or pancreas condition(s) impact on his or her ability to work? [ ] Yes [X] No 8. Remarks, if any GULF WAR STATEMENT: The 's GALLSTONE is a diagnosable condit ion with a medically explained etiology. Please see medical opinion DBQ for details. It is my medical opinion that the condition is less likely than not (less than 50 percent probability) related to any env ironmental exposures in [facility] or is a symptom of A MEDICALLY U NEXPLAINED CHRONIC MULTI-SYMPTOM ILLNESS (MUCMI). Central Nervous System and Neuromuscular Diseas es (except Traumatic Brain Injury, Amyotrophic Lat eral Sclerosis, Parkinson's Disease, Multiple Sclerosis, Headac hes, TMJ Conditions, Epilepsy, Narcolepsy, Peripheral Ne uropathy, Sleep Apnea, Cranial Nerve Disorders, Fibromyalgia, a nd Chronic Fatigue Syndrome) Disability Benefits Questionnaire Name of patient/[place]: ANABELLA MCGRATH ([id number]) Is this DBQ being completed in conjunct ion with a VA [id number], C&P Examination Request? [X] Yes [ ] No How was the examination completed? (check all t hat apply) [X] In-person examination [X] Records reviewed [X] Examination via approved video telehealth [ ] Other, please specify in comments box Comments: 11/07/2021 VIDEO TELEHEALTH VISIT FOR INTERVIEW PORTION. 11/08/2021 IN-PERSON EXAM. His active duty dates per 2503: Jul 27, 1977 - November 25, 1977 Oct 28 1988 - Jul 27, 1989 Feb 14, 1990 - January 21, 1991 OLVIN and Evidence Review Indicate method used [...] in conjunction with an interview with the (without in-person or telehealth examin ation) using the OLVIN process because the existing medical evidence s upplemented with an interview provided sufficient information on wh ich to prepare the questionnaire and such an examination would lik merline provide no additional relevant evidence. Evidence Review Evidence reviewed (check all that apply): [X] VA e-folder [X] VA electronic health record [X] Other, please identify other evidence revie wed. VBMS, JLV, VISTAIMAGING, CPRS Evidence Comments: * 10/02/2021 BVA RATING DECISION: - Service connection for sleep apnea is remande d - Service connection for cardiovascular disease is remanded - Service connection for hypertension is remand ed - Service connection for gall stones is remande d - Service connection for facial skin rash is re manded - Service connection for stroke is remanded * 08/09/2015 'S CLAIM: - cardiovascular disease * 08/05/2014 's CLAIM: - Facial Skin Rash - Stroke * 07/20/2014 'S CLAIM: - Sleep Apnea - Gallstones - Hypertension * 05/20/2018 VBA RATING DECISION: - Service connection for cardiovascular disease is denied - Service connection for gall stones is denied - Service connection for hypertension is denied - Service connection for sleep apnea is denied - Service connection for facial skin rash is de nied - Service connection for stroke is denied * 02/24/2016 VBA RATING DECISION: - Service connection for cardiovascular disease is denied - Service connection for gall stones is denied - Service connection for hypertension is denied - Service connection for sleep apnea is denied * 01/03/2015 VBA RATING DECISION: - Service connection for facial rash is denied - Service connection for stroke is denied June 1998 Anthrax Vaccine ? 1998 Anthrax Vaccine ? 1998 Anthrax Vaccine 1. Diagnosis Does the [place] now have or has he/she ever be en diagnosed with a central nervous system (SET BUILDER) condition? [X] Yes [ ] No [X] Vascular diseases Date of diagnosis: 005 via MRI [X] Thrombosis, TIA or cerebral infarction 2. Medical history a. Describe the history (including onse t and course) of the [place]'s central nervous conditions (brief summary): MEDICAL HISTORY STATUS OF AFFECTED/CLAIMED CONDITION: The Veter an states he experienced a stroke in 2004. He states prior to this event, for a couple of weeks he experienced what he calls crossed eyes, seeing double. He developed symptoms of talking funny and swollen tongue . His drove him to [facility] and there he underwent TPA tg atment for stroke. He notes he did have a feeding tube for about 2 months d ue to difficulty swallowing. RESIDUALS: 1. To date he states, at times, still experienc es random choking. Seems more related to liquids and soft foods. Bread i s big culprit. 2. Sensitivy issues left side of face 3. States difficulty with RIGHT side of body t o include upper and lower extremity. At times states difficulty with temp erature awareness cold shower can feel like ice picks. States because of this, his gait is impacted. H is states, he does not drink, but walks like he is drunk. He note s he tends to lean to the right, especially when tired, tends to lean on for support. 4. Erectile Dysfunction; 99% of the time. He no salma that he did seek medication but due to cardiac condition; not el igible. The Veterant indicates he had no issues with ED prior to the CVA. CURRENT TREATMENT: coumadin for life d/t underl gilma hypercoaguable genetic condition of Factor V Leiden REVIEW OF AVAILABLE MEDICAL EVIDENCE: * 05/13/2017 PRIVATE RECORDS: His factor V Leiden mutation is an inherited di sorder so has nothing to do with environmental exposures. * 08/19/2015 PRIVATE RECORDS: Factor V Leiden mutation requiring coumadin for chronic anticoagulation. 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 * 08/18/2015 PRIMARY CARE NOTE: History of CVA in 2004, patient said sensitivit y left side of face and right side of body. His epiglottis also doesn't work correctly - pt is susceptible to choking. Hypercoagulable state - antiphospholipid antibo dy syndrome and factor V deficiency. Patient has been on coumadin since he had the stroke in 2004. * 04/10/2005 PRIVATE RECORDS: Moderately obese man seen previously for a medu llary infarct associated with Factor V Leiden mutation. He has been anti coagulated afterward. EXAM: There is mild left sided facial flatness, no pr onator drift. No dystaxia. Speech normal. * 04/09/2005 PRIVATE RECORDS: Reportedly sustained a stroke in late September of 2004. It was described as a right medullary / pontine ischemic stroke and w as thought to be migrated by the finding for Factor V Leiden mutation, an d its hypercoaguable state. The patient was subsequently discharged and rep ortedly had mild LEFT sided residual weakness. PHYSICAL EXAM: No significant weakness or loss of sensation is noted in the upper and lower extremities. * 10/24/2004 PRIVATE RECORDS: Recent development of thrombocytic CVA. He note d weakness on his LEFT side and felt wobbly. The patient does have an under lying hypercoaguable state which is the Factor V Leiden mutation. EXAM: Neurologically, he has left hemiparesis and res idual swallowing deficit. His extremities are without cyanosis, clubbing or edema. 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 With the TPA, a large part of his deficit was resolv ed. He still has moderate left arm and leg dystaxia, diplopia and sympath etic dysfunction of the left eye. He probably would recover from dystax ia within a few weeks and from diplopia within a few months. * 10/15/2004 PRIVATE RECORDS: History of right knee surgery 49 year old with history of hypertension, hyper cholesterolemia, in his usual state of health until 2 weeks ago when he started seeing funny things with his vision. He subsequently had a negative CT scan in spite of the the work up. However, on the day of admi ssion approximately 3:40 pm, the patient developed left sided numbness a nd left facial drop. His tongue was also numb and he had a headache.He w as seen in the ER and the stroke protocol was activated. ...his strength on the left side was 3/5 and numbness left side of the face and left upp er extremities. However, lower extremities was normal. ASSESSMENT: History of hypertension and hypercholesterolema il presenting with acute onset of left side numbness of his face and lef t facial droop. IMPRESSION: Left sided weakness secondary to is chemic stroke vs cardiac embolic phenomenon. * 07/30/1998 RESERVE MEDICAL EXAM: Medical: Normal neurologic. Weight 192 lbs, b/p 120/74. Self Assessment: NO dizziness or fainting spells. NO eye trouble . * 08/31/1995 FLYING MEDICAL EXAM: Medical: normal neurologic. Weight 190 lbs, b/p 120/82. Self Assessment: NO dizziness or fainting spells, NO eye trouble . * 05/28/1992 FLYING MEDICAL EXAM: Medical: normal neurologic. Weight 190lbs. B/P 118/88 * 04/07/1988 FLYING CLASS MEDICAL EXAMINATION: RESERVE TIME: 10 years, 10months. Medical: NORMAL neurologic. B/P 138/88, weight 188 lbs. Self Assessment: NO dizziness or fainting spells. NO eye trouble . 09/26/1985 PERIODIC MEDICAL EXAM: Medical: normal neurologic. B/P 110/84. weight 191 lbs. Self Assessment: NO dizziness or fainting spells. * 06/27/1969 ENLISTMENT: Medical: Normal neurologic, B/P 120/80. weight 162 lbs. Self Assessment: NO dizziness or fainting spells. b. Does the 's central nervous system co ndition require continuous medication for control? [X] Yes [ ] No If yes, list medications used for central nervo us system conditions: coumadin for life c. Does the have an infectious conditio n? [ ] Yes [X] No If yes, is it active? [ ] Yes [ ] No d. Dominant hand [X] Right [ ] Left [ ] Ambidextrous 3. Conditions, signs and symptoms b. Does the have any pharynx and/or lar ynx and/or swallowing conditions? [X] Yes [ ] No If yes, check all that apply: [X] Mild swallowing difficulties [X] Other, describe: The [place] notes that he occasionally chokes on saliva, soft foods and fluids. Breads are especially difficu lt. c. Does the have any respiratory condit ions (such as rigidity of the diaphragm, chest wall or laryngeal muscles)? [ ] Yes [X] No d. Does the have sleep disturbances? [X] Yes [ ] No If yes, check all that apply: [X] Persistent daytime hypersomnolence [X] Sleep apnea requiring the use of breathing assistance device such as continuous positive airway pressure (CPAP) mach ine e. Does the have any bowel functional i mpairment? [ ] Yes [X] No f. Does the [place] have voiding dysfunction ca using urine leakage? [ ] Yes [X] No g. Does the [place] have voiding dysfun ction causing signs and/or symptoms of urinary frequency? [ ] Yes [X] No h. Does the [place] have voiding dysfunction ca using findings, signs and/or symptoms of obstructed voiding? [ ] Yes [X] No i. Does the [place] have voiding dysfunction re quiring the use of an appliance? [ ] Yes [X] No j. Does the have a history of recurrent symptomatic urinary tract infections? [ ] Yes [X] No k. Does the (if male) have erectile dys function? [X] Yes [ ] No If yes, is the erectile dysfunction as likely a s not (at least a 50% probability) attributable to a SET BUILDER disease (inc luding treatment or residuals of treatment)? [ ] Yes [X] No If no, provide the etiology of the erectile dys function: The [place] states since the CVA he has experie nced erectile dysfunction; NO current treatment. It is my med ica opinion that the 's CVA is at least as likely as not (50 percent or greater probability) proximately due to or related to t he CVA. If no, is the able to achieve an erecti on (with medication) sufficient for penetration and ejaculation? [ ] Yes [X] No 4. Neurologic exam a. Speech [X] Normal [ ] Abnormal e. Does the [place] have muscle atrophy attribu table to a SET BUILDER condition? [ ] Yes [X] No 5. Tumors and neoplasms a. Does the have a benign or ma lignant neoplasm or metastases related to any of the diagnoses in the Diagnosis sectio n? [ ] Yes [X] No c. Has the [place] completed treatment or is the currently undergoing treatment for a benign or malignant neoplasm or metastases? [ ] Yes [X] No; watchful waiting d. Does the [place] currently have any residual conditions or complications due to the neoplasm (including metastases) or i ts treatment, other than those already documented in the report above? [ ] Yes [X] No e. If there are additional benign or malignant neoplasms or metastases related to any of the diagnoses in the Diagnosi s section, describe using the above format: N/A 6. Other pertinent physical findings, complicat ions, conditions, signs, symptoms and scars a. Does the [place] have any other pertinent ph ysical findings, complications, conditions, signs or symptoms re lated to any conditions listed in the Diagnosis Section above? [X] Yes [ ] No If yes, describe (brief summary): BMI > 40 b. Does the have any scars (surgical or otherwise) related to any conditions or to the treatment of any condition s listed in the Diagnosis Section above? [ ] Yes [X] No c. Comments, if any: NO SURGICAL INTERVENTION FOR CVA 7. Mental health manifestations due to SET BUILDER cond ition or its treatment a. Does the have depression, co gnitive impairment or dementia, or any other mental health conditions attributable to a SET BUILDER disease and/or its treatment? [ ] Yes [X] No 8. Differentiation of Symptoms or Neurologic Ef fects ----- Are you able to differentiate what portion of t he symptomatology or neurologic effects above are caused by each misty gnosis? [X] Yes [ ] No If yes, list which symptoms or neurologic effec ts are attributable to each diagnosis, where possible: Neurologic symptoms are more likely than not (5 0 percent or greater probability)proximately due to or related to th e the residuals of non SC CVA in 2004 9. Assistive devices a. Does the [place] use any assistive device(s) as a normal mode of locomotion, although occasional locomotion by o ther methods may be possible? [ ] Yes [X] No b. If the [place] uses any assistive devices, s pecify the condition and identify the assistive device used for each con dition: WHen walking he does utilize uses railing to wa lk up or down hjold the door frame before step in. yes holds wifes arm only walks big differnece of how long waits in car. 10. Remaining effective function of the extremi ties ---- Due to a SET BUILDER condition, is there functional imp airment of an extremity such that no effective function remains other than t hat which would be equally well served by an amputation with prosthesis? ( Functions of the upper extremity include grasping, manipulatio n, etc., while functions for the lower extremity include balance and propulsion, etc.) [ ] Yes, functioning is so diminished that ampu tation with prosthesis would equally serve the . [X] No 11. Diagnostic testing a. Have imaging studies been performed? [X] Yes [ ] No If yes, provide most recent results, if availab le: * 10/16/2004 MRI IMPRESSION: Acute stroke left medulla oblongata extending t o the left posterior mid lisa area. b. Have PFTs been performed? [ ] Yes [X] No c. If PFTs have been performed, is the flow-volume loop compatible with upper airway obstruction? [ ] Yes [ ] No d. Are there any other significant diagnostic t est findings and/or results? [X] Yes [ ] No If yes, provide type of test or procedure, date and results (brief summary): * 10/17/2004 Factor V Leiden: High, positive for one copy of the R506Q mutati on. DNA testing indicates that this individual it a t an elevated risk for venous thrombosis. Inherited thrombophilia. Ind ividuals who have one copy of the mutation are at a 4-8 fold increase d risk of thrombosis. 12. Functional impact Do the 's central nervous system disorde rs impact his or her ability to work? [X] Yes [ ] No If yes, describe impact of each of the ' s central nervous system disorder condition(s), providing one or more ex amples: The [place] states that he did pass the motor v ehicle driving test and currently only drives about 5 miles away from h is home. He does not go up or down ladders. When navigating stairs he alwa ys holds the railing. When typing on computer or texting he types with rig ht index finger. 13. Remarks, if any: GULF WAR STATEMENT: The [place]'s CVA (STROKE) is a diagnosable con dition with a medically explained etiology. Please see medical opinion DBQ for details. It is my medical opinion that the condition is less likely than not (less than 50 percent probability) related to any env ironmental exposures in [facility] or is a symptom of A MEDICALLY U NEXPLAINED CHRONIC MULTI-SYMPTOM ILLNESS (MUCMI). CLARIFICATION NOTE: The [place] describes RIGHT side issues with pa resthesia with sense of weakness affecting his gait stability. He state d he attributed these effects to the CVA (Stroke) However, the available medical evidence indicat es his LEFT side was affected and when discharged he had minimal res idual LEFT sided issues. Subsequent medical evidence indicated resolutio n of any residual musculoskeletal issues from the stroke. The decribes a diagnosis of a lumbosacr al condition to include bilateral lumbar radiculopathy; especially impa cting the RIGHT lower extremity. There is an xray dated 09/05/2004 edwin t documents the onset of degenerative disc disease which can lead to lum bar radiculopathy. It is my medical opinion that the [place]'s richie cription of right sided issues (especially the right lower extremity) i s less likely than not (50 percent or less probability) a residual of his non-service connected CVA (stroke). Bones and Other Skeletal Conditions Disability Benefits Questionnaire Name of Claimant/[place]: ANABELLA MCGRATH ( [id number]) Is this questionnaire being completed in conjun ction with a [place] [id number], C&P Examination Request? [X] Yes [ ] No How was the examination completed? (check all t hat apply) [X] In-person examination [X] Records reviewed [X] Examination via approved video telehealth [ ] Other, please specify in comments box: Comments: 11/07/2021 VIDEO TELEHEALTH VISIT FOR INTERVIEW PORTION. 11/08/2021 IN-PERSON EXAM. 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 [ ] Review of available records in conjunction with an interview with the (without in-person or telehealth examin ation) using the OLVIN process because the existing medical evidence s upplemented with an interview provided sufficient information on wh ich to prepare the questionnaire and such an examination would lik merline provide no additional relevant evidence. Evidence Review Evidence reviewed (check all that apply): [X] [facility] e-folder [X] VA electronic health record [X] Other (please identify other evidence revie wed): Evidence Comments: * 10/02/2021 BVA RATING DECISION: - Service connection for sleep apnea is remande d - Service connection for cardiovascular disease is remanded - Service connection for hypertension is remand ed - Service connection for gall stones is remande d - Service connection for facial skin rash is re manded - Service connection for stroke is remanded * 08/09/2015 'S CLAIM: - cardiovascular disease * 08/05/2014 's CLAIM: - Facial Skin Rash - Stroke * 07/20/2014 'S CLAIM: - Sleep Apnea - Gallstones - Hypertension * 05/20/2018 VBA RATING DECISION: - Service connection for cardiovascular disease is denied - Service connection for gall stones is denied - Service connection for hypertension is denied - Service connection for sleep apnea is denied - Service connection for facial skin rash is de nied - Service connection for stroke is denied * 02/24/2016 VBA RATING DECISION: - Service connection for cardiovascular disease is denied - Service connection for gall stones is denied - Service connection for hypertension is denied - Service connection for sleep apnea is denied * 01/03/2015 VBA RATING DECISION: - Service connection for facial rash is denied - Service connection for stroke is denied June 1998 Anthrax Vaccine ? 1998 Anthrax Vaccine ? 1998 Anthrax Vaccine Dominant Hand Dominant Hand: [X] Right [ ] Left [ ] Ambidextrous 1. Diagnosis Note: These are condition(s) for which an evalu ation has been requested on the exam request form (Internal [place]) or for whic h the [place] has requested medical evidence be provided for submission to [place]. 1A. List the claimed conditions that pertain to this questionnaire: PAGET'S DISEASE Note: These are the diagnoses determined during this current evaluation of the claimed condition(s) listed above. If there is no diagnosis, if the diagnosis is different from a previous diagnosi s for this condition, or if there is a diagnosis of a complication due to t he claimed condition, explain your findings and reasons in the remarks sectio n. Date of diagnosis can be the date of the evaluation if the clinician is making the initial diagnosis or an approximate date determined through recor d review or reported history. 1B. Select diagnoses associated with th e claimed condition(s) (check all that apply): [X] Other (specify) Other diagnosis #1: PAGET'S DISEASE (Left Hemip jolly) Side affected: Left ICD Code: Date of diagnosis: Right Date of diagnosis: Left If there are additional diagnoses that pertain to the bones or other skeletal conditions, list using above format: N/A 2. Medical History 2A. Describe the history (including onset and c ourse) of the 's bone and/or other skeletal condition (brief summary) : MEDICAL HISTORY STATUS OF AFFECTED/CLAIMED CONDITION: The Veter an notes he was asymptomatic for Paget's disease. It was discov ered by happenstance when he applied for life insurance. Blood work retur robin with an elevated alkaline phosphatase and subsequent diagnostics uncovered the condition. He notes that he did undergo treatment, but the n it was discontinued because there was no positive relief. He noted my doctor has told me my pain is not from Paget's but from my fibromyalgia. CURRENT TREATMENT: Vitamin D daily REVIEW OF AVAILABLE MEDICAL EVIDENCE: * 05/05/2021 Alk Phos = 66 (normal) * 02/22/2021 PRIVATE RECORDS: History of hand surgery. Discussed with patient that his pain symptoms john rodriguez is experiencing currently is likely not due to Paget's and more likely a combination of osteoarthritis and fibromyalgia. * 09/08/2020 PRIVATE RECORDS: Pt states he did not have any improvement in th e pain in his low back and pelvis after the last Reclast infusion. He is w ondering if he has fibromyalgia as 1 on his conditions. He does have pain on a daily basis that comes a nd goes. He has sleep apnea and has difficulty sleeping and does feel fatigue during the day. States his skin is not sensitive to touch. ASSESSMENT/PLAN: Advised patient that his current symptoms are l ikely not due to Paget's disease and are more likely being caused by ost eoarthritis of his spine and of his hips. Hip Osteoarthritis I recommend physical therapy, however patient declined at this time. I do not believe patient has symptoms consistent with fibromyalgia, I believe his symptoms are more likely due to ost eoarthritis of multiple joints. * 03/03/2020 PRIVATE RECORDS: Pt diagnosed with Paget's disease in 2015, bone scan with evidence of activity in pelvis. He was intially treated wit h alendronate for 6 months with improvement in his symptoms. He was then t reated with a Reclast infusion November 2017. Pt states after his Reclast infusion, his joint pain completely resolved for 2 years. It has now ret urned. He has pain in his low back as well as both hips. Start on calcium and Vitamin D supplementation. * 11/29/2017 PRIVATE RECORDS: Feels pain in his hip/pelvis when he walks. He has hard time walking. Bone scan: prominent stable abnormalities in th e left hemipelvis. PLAN: Star Reclast. * 03/29/2016 PRIVATE RECORDS: Cardiology: ...can not exercise much due to his arthritis a nd Paget's. * 01/11/2016 PRIVATE RECORDS: The last alkaline phosphatase was 126 (normal). There pain right side of hip, anterior malik and hands ache also. I think he should take a rest from the alendronate for 6 months. * 08/19/2015 PRIVATE RECORDS: His past medical history is significant for: Pagets Disease requiring antiresporptive treatm ent. * 06/28/2015 PRIVATE RECORDS: multiple medical problems referred for evaluati on of Paget's Disease. The patient does appear to have Paget's disease based on uptake on bone scan which affects the left pelvis. I do believ e that he possibly has osteoarthritis of the right hip. * 04/15/2015 PRIVATE RECORDS: 59 year old with joint pains. Has Paget's disea se by laboratory and radiologic data. * 10/18/2004 Alk Phos = 114 (Reference Range 39- 117) * 05/30/1998 PRIVATE RECORDS: He has had lab studies which have demonstrated fairly consistently a slightly elevated alkaline phosphatase. This wa s followed up with a bone scan showing uptaking the pelvis and one of his ribs. This was confirmed on follow-up xrays to be a small amount of Page t's disease in the pelvis. * 04/30/1998 PRIVATE RECORDS: Elevated bone alkaline phosphatase in 42 year o ld man, rule out any bony disease. * 05/06/1998 PELVIS AND SACROILIAC JOINTS: Impression: Minimal radiologic findings consist ent with Paget's disease. This correlates well with bone scan. * 04/27/1998 PRIVATE RECORDS: Received the results of the bone alkaline phosp hatase test, which is elevated at 70, normal being 41. He does have a vague pain in his right shoulder which comes and goes. * 01/09/1994 Alk Phos = 122 (Referance Range 45- 140) * 07/30/1998 RESERVE MEDICAL EXAM: Medical: Normal musculoskeletal Self Assessment : NO bone, joint or other deformity. * 08/31/1995 FLYING MEDICAL EXAM: Medical: Normal musculoskeletal Self Assessment : NO bone, joint or other deformity. * 05/28/1992 FLYING MEDICAL EXAM: Medical: Normal musculoskeletal * 04/07/1988 FLYING CLASS MEDICAL EXAMINATION: RESERVE TIME: 10 years, 10months. Medical: Normal musculoskeletal Self Assessment : NO bone, joint or other deformity. 09/26/1985 PERIODIC MEDICAL EXAM: Medical: Normal musculoskeletal Self Assessment : NO bone, joint or other deformity. * 06/27/1969 ENLISTMENT: Medical: Normal musculoskeletal Self Assessment : NO bone, joint or other deformity. 3. Skull, Loss of Part of, Both Inner and Outer Tables ------- No response provided. 4. Spine and Chest No response provided. 5. Tumors and Neoplasms No response provided. 6. Other Pertinent Physical Findings, Complicat ions, Conditions, Signs, Symptoms, and Scars 6A. Does the have any other pertinent p hysical findings, complications, conditions, signs or symptoms re lated to any conditions listed in the diagnosis section above? [X] Yes [ ] No If yes, describe (brief summary): BMI > 40 6B. Does the have any scars or other di sfigurement (of the skin) related to any conditions or to the treatment o f any conditions listed in the diagnosis section? [ ] Yes [X] No If yes, also complete the appropriate dermatolo gical questionnaire. 7. Assistive Devices 7A. Does the use any assistive devices as a normal mode of locomotion, although occasional locomotion by o ther methods may be possible? [ ] Yes [X] No If yes, identify the assistive devices used ([facility] all that apply and indicate frequency): No response provided. 7B. If the [place] uses any assistive devices, specify the condition, indicate the side, and identify the assistive d evice used for each condition. No response provided. 8. Remaining Effective Function of the Extremit ies --- Note: The intention of this section is to permit the examiner to quantify the level of remaining function; it is not intended to inquire whether the [place] should undergo an amputation with fitti ng of a prosthesis. For example, if the functions of grasping (hand) or propulsion (foot) are as limited as if the [place] had an amputation and prosthesis, the examiner should check yes and describe the diminished functioning. The question simply asks whether the functional loss is to t he same degree as if there were an amputation of the affected limb. 8A. Due to the 's bones or other skeleta l condition(s), is there functional impairment of an extremity such that no effective function remains other than that which would be equally well served by an amputation with prosthesis (functions of the up per extremity include grasping, manipulation, etc., while functions o f the lower extremity include balance, propulsion, etc.)? [ ] Yes, functioning is so diminished that ampu tation with prosthesis would equally serve the [place]. [X] No If yes, indicate extremities for which this issac lies: No response provided. 8B. For each checked extremity, identify the co ndition causing loss of function, describe loss of effective function a nd provide specific examples (brief summary): No response provided. 9. Diagnostic Testing 9A. Have imaging studies been performed in conjunction with this examination? [ ] Yes [X] No No response provided. 9B. Are there any other significant diagnostic test findings or results related to the claimed condition(s) and/or diag nosis(es), that were reviewed in conjunction with this examination? [X] Yes [ ] No If yes, provide type of test or procedure, date , and results (brief summary): * 10/31/2017 WHOLE BODY BONE SCAN: IMPRESSION: Ptominent stable abnormalities in the left prosper pelvis consistent with Paget's disease of bone. * 02/17/2015 PELVIS XRAY: Impression: Mild degenerative changes both hips. Paget's disease of left hemipelvis. * 01/19/2015 WHOLE BODY BONE SCAN: IMPRESSION: Intense uptake involving the left hemipelvis co nsistent with Paget's disease. The uptake encompasses an area that is greater than seen on the prior CT scan. Additional foci of abnormal uptake is most cons istent with degenerative changes. * 09/22/2004 BONE SCAN: Impression: Stable changes consistent with Paget's disease in the left hemipelvis. * 09/05/2004 LUMBOSACRAL SPINE XRAY: Impression: shows minor spondylosis. There are tiny osteoph ytes at multiple levels anteriolaterally. * 05/06/1998 CHEST XRAY: Impression: Nothing abnormal seen in the chest. * 05/06/1998 PELVIS AND SACROILIAC JOINTS: Impression: Minimal radiologic findings consist ent with Paget's disease. This correlates well with bone scan. * 04/30/1998 TOTAL BODY BONE SCAN: IMPRESSION: 1. Increased update throughout the left iliac b one and into the ischium and pubis, and also along the anterior aspect of the right 6th rib. 2. Increased uptake at the right patella is pro bably due to degenerative change. 3. Very minor foci of increased update noted at the left radial styloid and right first metacarpophalangeal alisia nt, and right third carpometacarpal joint probably due to degenerat harry change as well. 9C. If any test results are other than normal, indicate relationship of abnormal findings to diagnosed conditions: Paget's Disease found via diagnostics. 10. Functional Impact Note: Provide the impact of only the diagnosed condition(s), without consideration of the impact of other medical co nditions or factors, such as age. 10A. Regardless of the [place]'s [employer] employment status, do the conditions listed in the diagnosis section impact his/her ability to perform any type of occupational task (such as standing, wa lking, lifting, sitting, etc.)? [ ] Yes [X] No If yes, describe the functional impact of each condition, providing one or more examples: No response provided. 11. Remarks 11A. Remarks (if any - please identify the sect ion to which the remark pertains when appropriate). GULF WAR STATEMENT: The [place]'s Paget's Disease is a diagnosable condition with a medically explained etiology. Please see medica l opinion DBQ for details. It is my medical opinion that the condition is less likely than not (less than 50 percent probability) related to a ny environmental exposures in [facility] or is a symptom of A MEDICALLY UNEXPLAINED CHRONIC MULTI-SYMPTOM ILLNESS (MUCMI). Miscellaneous Disability Benefits Questionnaire Name of patient/: ANABELLA MCGRATH ([id number]) Please use this DBQ to address 1151 requests, o r other issues that are not specifically addressed by specific DBQs such as Individual Unemployability (UI). SUMMARY OF MATTERS REMANDED BY THE BOARD OF VET ERANS APPEAL DATED OCTOBER 02, 2021: MEDICAL OPINION FOR EACH CONDITION ADDRESSING: A. Is it secondary to service connected fibromy algia? B. Is it aggravated by service connected fibrom yalgia? C. Is it a symptom of MUCMI (Medically Unexplai robin Chronic Multi-Symptom Illness)? D. Is it related to service? * PLEASE SEE ATTACHED INDIVIDUAL DBQS AND THE [place] OPINION DBQ FOR ADDITOINAL DETAILS. ANSWERS TO THE ABOVE QUESTI ONS ARE SUMMARIZED BELOW: ~~~~~~ CVA (STROKE): A. NO B. NO it was diagnosed/occurred prior to the di agnosis of fibromyalgia C. NO REASON: GULF WAR STATEMENT The [place]'s CVA (STROKE) is a diagnosable con dition with a medically explained etiology. Please see medical opinion DBQ for details. It is my medical opinion that the condition is less likely than not (less than 50 percent probability) related to any env ironmental exposures in [facility] or is a symptom of A MEDICALLY U NEXPLAINED CHRONIC MULTI-SYMPTOM ILLNESS (MUCMI). D. 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 It is my medical opinion that the 's CVA (Stroke) is at least as likely as not (50 percent or greater probabilit y) proximately due to or related to his non-service connected genetic mu tation of Factor V Leiden. ~~~~~~~~~ CARDIOVASCULAR DISEASE: A. NO B. NO C. NO & REASON IS: GULF WAR STATEMENT The 's cardiac conditions of coronary ar katey disease and paroxysmal atrial fibrillation are diagnosable conditions with a medically explained etiology. Please see medical opinion DBQ for de tails. It is my medical opinion that the conditions ar e less likely than not (less than 50 percent probability) related to any env ironmental exposures in [facility] or are a symptom of A MEDICALLY UNEXPLAINED CHRONIC MULTI-SYMPTOM ILLNESS (MUCMI). D. NO It is my medical opinion that the Veter an's paroxysmal atrial fibrillation is more likely than not (50 percent or gre ater probability) due to or related to his non service connected hypertension, and obs tructive sleep apnea. It is my medical opinion that the 's cor onary artery disease is more likely than not (50 percent or greater probabil ity) due to or related to his non service connected hyperlipidemia, hypertens ion, and morbid obesity. ~~~~~~~~~~~ FACIAL SKIN RASH & ADDITIONAL DERM CONDITIONS: A. NO, all of them were diagnosed AFTER fibromy algia. B. NO, fibromyalgia is not listed as risk facto r for any of the noted derm conditions. C. NO & REASON IS: GULF WAR STATEMENT The [place]'s dermatological conditions (seborr heic dermatitis - face, actinic keratosis (bilateral arms) and psoriasi s (bilateral legs) are diagnosable condition with a medically explained etiology. Please see medical opinion DBQ for details. It is my medical opinion that the derm conditio ns are less likely than not (less than 50 percent probability) related to a ny environmental exposures in [facility] or is a symptom of A MEDICALLY U NEXPLAINED CHRONIC MULTI-SYMPTOM ILLNESS (MUCMI). D. NO. 1.It is my medical opinion that the Vet irvin's seborrheic dermatitis (face) is more likely than not (50 percent or greater pro bability) related to an underlying fungal infection such as Malassezia. There is documentation that the use of an anti-fungal treatment does decrea se the symptomatology. 2. 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 3. It is my medical opinion that the 's psoriasis (bilateral legs) is more likely than not (50 percent or greater pro bability) proximately due to or related to non-service connected co- morbities of obesity, hypertension and coronary artery disease. ~~~~~~~~~~~ GALLSTONE: A. NO, found prior to fibromyalga B. NO, asymptomatic C. NO & REASON IS: GULF WAR STATEMENT GULF WAR STATEMENT: The 's GALLSTONE is a diagnosabl e condition with a medically explained etiology. Please see medical opinion DBQ for de tails. It is my medical opinion that the condition is less likely than not (less than 50 percent probability) related to any env ironmental exposures in [facility] or is a symptom of A MEDICALLY U NEXPLAINED CHRONIC MULTI-SYMPTOM ILLNESS (MUCMI). D. NO. It is my medical opinion that the 's asy mptomatic gallstone (incidental finding on CT) is more likely than not (50 percent or greater probability) related to or the result of the no n service connected hyperlipidemia and obesity. ~~~~~~~~~~~~ HYPERTENSION: A. NO, was diagnosed PRIOR to fibromyalgia B. NO, available medical evidence shows well co ntrolled to present date. C. NO & REASON IS: GULF WAR STATEMENT The 's hypertension is a diagnosable con dition with a medically explained etiology. Please see medical opinion DBQ for details. It is my medical opinion that the condition is less likely than not (less than 50 percent probability) related to any env ironmental exposures in [facility] or is a symptom of A MEDICALLY U NEXPLAINED CHRONIC MULTI-SYMPTOM ILLNESS (MUCMI). D. NO;not related to service, HTN was diagnosed more than a decade post - active duty status. It is my medical opinion th at the [place]'s hypertension is more likely than not (50 percent or greater probability) due to or related to his non-service connected dyslipidemia and o besity. ~~~~~~~~~PAGET'S DISEASE: A. NO, diagnosed PRIOR to fibromyalgia B. NO, there is no link in the medical literature of fibromyalgia aggravating Paget's disease C. NO & REASON IS: GULF WAR STATEMENT The 's Paget's Disease is a diagnosable condition with a medically explained etiology. Please see medical opinion DBQ for details. It is my medical opinion that the condition is less likely than not (less than 50 percent probability) related to any env ironmental exposures in [facility] or is a symptom of A MEDICALLY U NEXPLAINED CHRONIC MULTI-SYMPTOM ILLNESS (MUCMI). D. 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 ~~~~~~~~~~~~SLEEP APNEA A. NO, see medical opinion DBQ B. NO, was diagnosed PRIOR to fibromyalgia C. NO & REASON IS: GULF WAR STATEMENT The 's Sleep Apnea (obstructive and cent ral) is a diagnosable condition with a medically explained et iology. Please see medical opinion DBQ for details. It is my medical opinion that the condition is less likely than not (less than 50 percent probability) related to any env ironmental exposures in [facility] or is a symptom of A MEDICALLY U NEXPLAINED CHRONIC MULTI-SYMPTOM ILLNESS (MUCMI). D. NO It is my medical opinion that the: Obstructive Sleep Apnea is more likely than not (50 percent or greater probability) due to or related to his n onservice connected obesity (more than 40 pound gain post active duty). Central Sleep Apnea is more likely than not (50 percent or greater probability) due to or related to his nonservic e connected CVA. NO MEDICAL DIAGNOSIS FOR RHEUMATOID ARTHRITIS: In reviewing available medical evidence located in electronic files in VBMS, JLV, [facility], and CPRS in conjunction wit h today's examination, there is no clear diagnosis of a current Rheumatoid A rthritis. No medical opinion will be provided as there is no current diagnos is to base it on and it would be mere speculation on this provider's part to provide one. If documentation evidence was inadvertently ove rlooked or additional supportive documentation evidence becomes avail able, I will review the material when it is made available to me, and I will update/addend my report as appropriate if necessary. Medical Opinion Disability Benefits Questionnaire Name of patient/: ANABELLA MCGRATH ([id number]) OLVIN and Evidence Review Indicate method used to obtain medical information to complete this document: [X] Examination via approved video telehealth [X] In-person examination Evidence Review Evidence reviewed (check all that apply): [X] VA e-folder [X] VA electronic health record [X] Other, please identify other evidence revie wed. VBMS, JLV, [facility], CPRS Evidence Comments: * 10/02/2021 BVA RATING DECISION: - Service connection for sleep apnea is remande d - Service connection for cardiovascular disease is remanded - Service connection for hypertension is remand ed - Service connection for gall stones is remande d - Service connection for facial skin rash is re manded - Service connection for stroke is remanded * 08/09/2015 'S CLAIM: - cardiovascular disease * 08/05/2014 's CLAIM: - Facial Skin Rash - Stroke * 07/20/2014 'S CLAIM: - Sleep Apnea - Gallstones - Hypertension * 05/20/2018 VBA RATING DECISION: - Service connection for cardiovascular disease is denied - Service connection for gall stones is denied - Service connection for hypertension is denied - Service connection for sleep apnea is denied - Service connection for facial skin rash is de nied - Service connection for stroke is denied * 02/24/2016 VBA RATING DECISION: - Service connection for cardiovascular disease is denied - Service connection for gall stones is denied - Service connection for hypertension is denied - Service connection for sleep apnea is denied * 01/03/2015 VBA RATING DECISION: - Service connection for facial rash is denied - Service connection for stroke is denied June 1998 Anthrax Vaccine ? 1998 Anthrax Vaccine ? 1998 Anthrax Vaccine MEDICAL OPINION SUMMARY RESTATEMENT OF REQUESTED OPINION: a. Opinion from general remarks: DOES THE VETER AN HAVE A DIAGNOSIS OF CVA (STROKE) THAT IS AT LEAST LIKELY NOT (50 PERCENT OR GREATER PROBABILTIY PROXIMATELY DUE TO, AGGRAVATED BY OR RELATED TO HIS SC FIBROMYALGIA, OR OTHERWISE RELATED TO, BEGAN IN OR INCURRED KANGI ACTIVE DUTY STATUS? b. Indicate type of exam for which opinion has been requested: CVA (STROKE) TYPE OF MEDICAL OPINION PROVIDED: [ MEDICAL OPI NION FOR DIRECT SERVICE CONNECTION ] b. The condition claimed was less likely than n ot (less than 50% probability) incurred in or caused by t he claimed in-service injury, event or illness. c. Rationale: REVIEW OF AVAILABLE MEDICAL EVIDENCE: * 05/13/2017 PRIVATE RECORDS: His factor V Leiden mutation is an inherited di sorder so has nothing to do with environmental exposures. * 08/19/2015 PRIVATE RECORDS: Factor V Leiden mutation requiring coumadin for chronic anticoagulation. 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 * 08/18/2015 PRIMARY CARE NOTE: History of CVA in 2004, patient said sensitivit y left side of face and right side of body. His epiglottis also doesn't work correctly - pt is susceptible to choking. Hypercoagulable state - antiphospholipid antibo dy syndrome and factor V deficiency. Patient has been on coumadin since he had the stroke in 2004. * 06/22/2005 PRIVATE RECORDS: From his CVA,no focal weakness. * 04/10/2005 PRIVATE RECORDS: Moderately obese man seen previously for a medu llary infarct associated with Factor V Leiden mutation. He has been anticoagu lated afterward. EXAM: There is mild left sided facial flatness, no pr onator drift. No dystaxia. Speech normal. * 10/24/2004 PRIVATE RECORDS: Recent development of thrombocytic CVA. The pat ient does have an underlying hypercoaguable state which is the Factor V Leid en mutation. EXAM: Neurologically, he has left hemiparesis and res idual swallowing deficit. 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 With the TPA, a large part of his deficit was re solved. 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 He probably would recover from dystaxia within a f ew weeks and from diplopia within a few months. * 10/15/2004 PRIVATE RECORDS: 49 year old with history of hypertension, hyper cholesterolemia, in his usual state of health until 2 weeks ago when he start ed seeing funny things with his vision. He subsequently had a negative CT s can in spite of the the work up. However, on the day of admission [facility] 3:40 pm, the patient developed left sided numbness and left facial d rop. His tongue was also numb and he had a headache.He was seen in the ER and the stroke protocol was activated. ...his strength on the left side was 3/5 and numbness left side of the face and left upper extremities. However, l ower extremities was normal. ASSESSMENT: History of hypertension and hypercholes terolemail presenting with acute onset of left side numbness of his face and left faci al droop. IMPRESSION: Left sided weakness secondary to is chemic strok vs cardiac embolic phenomenon. * 07/30/1998 RESERVE MEDICAL EXAM: Medical: Normal neurologic. Weight 192 lbs, b/p 120/74. Self Assessment: NO dizziness or fainting spells. NO eye trouble. * 08/31/1995 FLYING MEDICAL EXAM: Medical: normal neurologic. Weight 190 lbs, b/p 120/82. Self Assessment: NO dizziness or fainting spells, NO eye trouble. * 05/28/1992 FLYING MEDICAL EXAM: Medical: normal neurologic. Weight 190lbs. B/P 118/88 * 04/07/1988 FLYING CLASS MEDICAL EXAMINATION: RESERVE TIME: 10 years, 10months. Medical: NORMAL neurologic. B/P 138/88, weight 188 lbs. Self Assessment: NO dizziness or fainting spells. NO eye trouble. 09/26/1985 PERIODIC MEDICAL EXAM: Medical: normal neurologic. B/P 110/84. weight 191 lbs. Self Assessment: NO dizziness or fainting spells. * 06/27/1969 ENLISTMENT: Medical: Normal neurologic, B/P 120/80. weight 162 lbs. Self Assessment: NO dizziness or fainting spells. REVIEW OF MEDICAL LITERATURE: Human[employer] website accessed October 2021 * Factor V Leiden (FVL) is a point mutation edwin t eliminates a critical cleavage site in factor V and factor Va, render ing activated FVL relatively resistant to inactivation by aPC, while unactiv ated FVL is less effective as a cofactor for activated protein C (aPC) cleava ge of FVa and FVIIIa. These mechanisms contribute to the increased risk of thrombosis in individuals who are heterozygous carriers for FVL. This risk ma y be further increased by homozygosity or pseudo-homozygosity for FVL, or by other inherited or acquired thrombophilias. MEDICAL OPINION: There is no nexus linking factors that can lead to a CVA in the available STRs. There is documentation of a genetic condi tion (Factor V Leiden) identified while undergoing treatment for a str marlen. The medical literature notes that this genetic condition increases the risk of thrombois due to the interruption of the normal clotting cascade. It does not state fibromyalgia is a risk factor for a CVA. Additionally, the Keerthi velazco was diagnosed with fibromyalgia AFTER the CVA according to the david ilable medical evidence. 1. 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 2. It is my medical opinion that the [place]'s CVA (Stroke) is less likely than not (50 percent or less probability) proxi mately due to or related to the [place] fibromyalgia, diagnosed AFTER the CVA. 3. It is my medical opinion that the 's CVA (Stroke) is at least as likely as not (50 percent or greater probabilit y) proximately due to or related to his non-service connected genetic mu tation of Factor V Leiden. TYPE OF MEDICAL OPINION PROVIDED: [ MEDICAL OPI NION FOR SECONDARY SERVICE CONNECTION ] b. The condition claimed is less likely than no t (less than 50% probability) proximately due to or the result o f the 's service connected condition. c. Rationale: MEDICAL OPINION: There is no nexus linking factors that can lead to a CVA in the available STRs. There is documentation of a genetic condi tion (Factor V Leiden) identified while undergoing treatment for a str marlen. The medical literature notes that this genetic condition increases the risk of thrombois due to the interruption of the normal clotting cascade. It does not state fibromyalgia is a risk factor for a CVA. Additionally, the Keerthi velazco was diagnosed with fibromyalgia AFTER the CVA according to the david ilable medical evidence. 1. 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 2. It is my medical opinion that the [place]'s CVA (Stroke) is less likely than not (50 percent or less probability) proxi mately due to or related to the CT fibromyalgia, diagnosed AFTER the CVA. 3. It is my medical opinion that the [place]'s CVA (Stroke) is at least as likely as not (50 percent or greater probabilit y) proximately due to or related to his non-service connected genetic mu tation of Factor V Leiden. It is my medical opinion that the 's CVA is less likely than not (50 percent or less probability) proximately due to or related to his CT fibromyalgia. It was diagnosed more edwin n a decade PRIOR to fibromyalgia, plus according to medical literature, fibromyalgia i s not a risk factor for the development or aggravation of a CVA. RESTATEMENT OF REQUESTED OPINION: a. Opinion from general remarks: The 2507 asks for both a secondary service and direct service connection medical opinion HYPERTENSION: 1. IS THE 'S CURRENT HYPERTENSION AT [address] LIKELY NOT (50 PERCENT OR GREATER PROBABILITY) INCURRED IN, BE FARHANA IN OR RELATED TO HIS ACTIVE DUTY SERVICE? 2. IS THE 'S CURRENT HYPERTENSION AT [address] LIKELY NOT (50 PERCENT OR GREATER PROBABILITY) PROXIMA TELY DUE TO OR RELATED TO HIS CORONARY ARTERY DISEASE? b. Indicate type of exam for which opinion has been requested: HYPERTENSION TYPE OF MEDICAL OPINION PROVIDED: [ MEDICAL OPI NION FOR DIRECT SERVICE CONNECTION ] b. The condition claimed was less likely than n ot (less than 50% probability) incurred in or caused by t he claimed in-service injury, event or illness. c. Rationale: REVIEW OF AVAILABLE MEDICAL EVIDENCE: * 09/12/2021 PRIVATE CARDIOVASCULAR RECORD: B/P 130/80. Blood pressure is optimized. * 08/18/2015 PRIMARY CARE NOTE: Hypertension, his blood pressure has been under good control and today his blood pressure is 132/76. * 01/18/2006 Private Records: hypertension * 11/09/2005 PRIVATE RECORDS: Obesity. Hypertension at goal. Hyperlipidemia. * 2004 PRIVATE RECORDS: B/P overall well controlled. 110/72 on lisinopr il * 07/30/1998 RESERVE MEDICAL EXAM: Medical: b/p 120/74. Self Assessment: NO high o r low blood pressure. * 08/31/1995 FLYING MEDICAL EXAM: Medical: b/p 120/82. Self Assessment: NO high o r low blood pressure. * 05/01/1994 Follow-Up Letter from [facility] Exam: - Laboratory tests reveal an elevated cholester ol level. Borderline Hypertension noted. * 05/28/1992 FLYING MEDICAL EXAM: Medical: B/P 118/88 * 11/20/1988 STR: B/P 135/88 * 04/07/1988 FLYING CLASS MEDICAL EXAMINATION: RESERVE TIME: 10 years, 10months. Medical: B/P 138/88, weight 188 lbs. Self Asses sment: NO high or low blood pressure. 09/26/1985 PERIODIC MEDICAL EXAM: Medical: B/P 110/84. weight 191 lbs. Self Asses sment: NO high or low blood pressure. * 06/27/1969 ENLISTMENT: Medical: B/P 120/80 Self Assessment: NO high or low blood pressure. REVIEW OF MEDICAL LITERATURE: Up To Date website accessed October 2021 *Blood pressure reacts to changes in the enviro nment to maintain organ perfusion over a wide variety of conditions. Th e primary factors determining the blood pressure are: the sympathetic nervous system; the komxx-qjykurqfzig-tofennafnca system; a nd the plasma volume (largely mediated by the kidney). The pathogenesis of primary hypertension (forme rly called essential hypertension) is poorly understood but is most likely the result of numerous genetic and environmental factors that have mul tiple compounding effects on cardiovascular and renal structure and function . Although the exact etiology of primary hypertension remains unclear, a numb er of risk factors are strongly and independently associated with its development, including: * The effects of tobacco smoking on blo od pressure are complex, with evidence that tobacco smoking increases blood pressure a cutely and increases the risk of renovascular, malignant, and masked hyperten jihan * Obesity Obesity and weight gain are major ris k factors for hypertension and are also determinants of the rise in blood pressure that is commonly observed with aging . *Family history Hypertension is about twice as common in subjects who have one or two hypertensive parents, and multiple e pidemiologic studies suggest that genetic factors account for approx imately 30 percent of the variation in blood pressure in various populations. * Race Hypertension tends to be more common, be more severe, occur earlier in life, and be associated with greater target- organ damage in blacks. * Reduced nephron number Reduced adult nephron mass may predispose to hypertension, which may be related to genetic f actors, intrauterine developmental disturbance (eg, hypoxia, drugs, nutritional deficiency), and environment (eg, malnutrition, infect ions). * High-sodium diet Excess sodium intake (eg, >3 000 mg/day) increases the risk for hypertension, and sodium restriction l owers blood pressure. * Excessive alcohol consumption Excess alcohol intake is associated with the development of hypertension. * Physical inactivity Physical inactivity incre ases the risk for hypertension, and exercise is an effective mean s of lowering blood pressure * Diabetes and dyslipidemia The presence of oth er cardiovascular risk factors, including diabetes and dyslipi demia, appear to be associated with an increased risk of developing hypertension. * Personality traits and depression Hypertensio n may be more common among those with certain personality traits, such as hostile attitudes and time urgency/impatience, as well as among those with depression. * Hypovitaminosis D Vitamin D deficiency increa singly appears to be associated with an increased risk of hypertensi on, at least in some populations. MEDICAL OPINION: The available medical evidence indicates a diag nosis of hypertension, early and successful treatment since that time with antihypertensive medication. There is documentation of e levated cholesterol and obesity in the records. The medical literature notes this as c ausative factors. Additionally, the [place]'s diagnosis of mohr ry artery disease occurred more than two decades (2014) after his diagnosi s of hypertension. Furthermore his hypertension was diagnosed abou t a decade after his last active duty date. His active duty per 2507: Jul 27, 1977 - November 25, 1977 Oct 28 1988 - Jul 27, 1989 Feb 14, 1990 - January 21, 1991 1. 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 2. It is my medical opinion that the [place]'s current hypertension is less likely than not (50 percent or less probability ) proximately due to or related to his non service connected coronary a rtery disease as it was diagnosed about two decades earlier than the [place] D. 3. It is my medical opinion that the 's hypertension is more likely than not (50 percent or greater probability) du e to or related to his non-service connected dyslipidemia and obesity. TYPE OF MEDICAL OPINION PROVIDED: [ MEDICAL OPI NION FOR SECONDARY SERVICE CONNECTION ] b. The condition claimed is less likely than no t (less than 50% probability) proximately due to or the result o f the 's service connected condition. c. Rationale: It is my medical opinion that the 's cur rent hypertension is less likely than not (50 percent or less probability ) proximately due to or related to his non service connected coronary a rtery disease as it was diagnosed about two decades earlier than the [place] D. It is my medical opinion that the 's hyp ertension is less likely than not (50 percent or less probability) proximatel y due to or related to his [place] fibromyalgia. It was diagnosed almost 18 years prior to fibromyalgia, plus according to medical literature, fibromyalgia i s not a risk factor for the development or aggravation of hypertension. RESTATEMENT OF REQUESTED OPINION: a. Opinion from general remarks: IS THE 'S GALLSTONE AT LEAST LIKELY NOT(50 PERCENT OR GREATER PROBABILITY ) INCURRED IN, BEGAN IN OR RELATED TO HIS ACTIVE DUTY SERVICE? IS THE 'S GALLSTONE AT LEAST LIKELY A S NOT (50 PERCENT OR GREATER PROBABILITY) PROXIMATELY DUE TO OR RELATED TO H IS SC FIBROMYALGIA? b. Indicate type of exam for which opinion has been requested: GALL STONE TYPE OF MEDICAL OPINION PROVIDED: [ MEDICAL OPI NION FOR DIRECT SERVICE CONNECTION ] b. The condition claimed was less likely than n ot (less than 50% probability) incurred in or caused by t he claimed in-service injury, event or illness. c. Rationale: REVIEW OF AVAILABLE MEDICAL EVIDENCE: * 06/20/2009 PRIVATE RECORDS: REASON FOR CT pain/injury s/p blunt trauma by board kicked back by table saw CT of abdomen: showed incidental finding of one small gallstone. * 08/19/2015 PRIVATE RECORDS: exposure to anthrax vaccine. * 08/18/2015 PRIMARY CARE: No GI complaints like nausea, vomiting, abdominal pain, acid reflux, blood in stool or diarrhea. * 07/30/1998 RESERVE MEDICAL EXAM: Medical: Weight 192 lbs, normal abdomen and vis cera. weight 191 lbs. Self Assessment: NO gallbladder trouble or gallstone s. * 12/28/1997 Private Records: EXAM: there are no abdominal masses, the abdome n is soft throughout. * 08/31/1995 FLYING MEDICAL EXAM: Medical: Weight 190 lbs, normal abdomen and vis cera. weight 191 lbs. Self Assessment: NO gallbladder trouble or gallstone s. * 05/28/1992 FLYING MEDICAL EXAM: Medical: Weight 190lbs. normal abdomen and visc era. * 04/07/1988 FLYING CLASS MEDICAL EXAMINATION: RESERVE TIME: 10 years, 10months. Medical: weight 188 lbs. normal abdomen and vis cera. weight 191 lbs. Self Assessment: NO gallbladder trouble or gallstone s. 09/26/1985 PERIODIC MEDICAL EXAM: Medical: normal abdomen and viscera. weight 191 lbs. Self Assessment: NO gallbladder trouble or gallstones. * 06/27/1969 ENLISTMENT: Medical: Normal abdomen and viscera. Self Asses sment: NO gallbladder trouble or gallstones. REVIEW OF MEDICAL LITERATURE: HumanAPI websited accessed October 2021 - Gallstones are highly prevalent and the major ity are asymptomatic. Risk Factors Include: Dyslipidemia Elevated non-high density lipoprot ein (HDL) cholesterol may be a risk factor for gallstones. Obesity is an established risk factor for the d evelopment of cholesterol gallstones. MEDICAL OPINION: There is documentation of both obesity and elev ated cholesterol in the available medical evidence. The medical literat ure notes both of these factors are risk factors for the development of a gall stone. 1. It is my medical opinion that the 's gallstone is less likely than not (50 percent or less probability) incurred i n, began in or related to his active duty service. It was an inciden ching finding 18 years post active duty service. 2. It is my medical opinion that the 's gallstone is less likely than not (50 percent or less probability) proximatel y due to or related to his [place] fibromyalgia. It was diagnosed almost a decade prior to fibromyalgia, plus according to medical literature, fibromyalgia i s not a risk factor for the development or aggravation of a gall stone. 3. It is my medical opinion that the 's asymptomatic gallstone (incidental finding on CT) is more likely than not (50 percent or greater probability) related to or the result of the no n service connected hyperlipidemia and obesity. TYPE OF MEDICAL OPINION PROVIDED: [ MEDICAL OPI NION FOR SECONDARY SERVICE CONNECTION ] b. The condition claimed is less likely than no t (less than 50% probability) proximately due to or the result o f the 's service connected condition. It is my medical opinion that the 's gal lstone is less likely than not (50 percent or less probability) proximatel y due to or related to his [place] fibromyalgia. It was diagnosed almost a decade prior to fibromyalgia, plus according to medical literature, fibromyalgia i s not a risk factor for the development or aggravation of a gall stone. RESTATEMENT OF REQUESTED OPINION: a. Opinion from general remarks: IS THE 'S SKIN CONDITION (SEBORRHEIC DERMATITIS (FACE), ACTINIC KERATOSIS (B ILATERAL ARMS) OR PSORIASIS (BILATERAL LOWER EXTREMITIES) AT LEAST LIKELY NOT (5 0 PERCENT OR GREATER PROBABILITY) INCURRED IN, BEGAN IN OR RELATED T O HIS ACTIVE DUTY SERVICE? b. Indicate type of exam for which opinion has been requested: SKIN CONDITIONS TYPE OF MEDICAL OPINION PROVIDED: [ MEDICAL OPI NION FOR DIRECT SERVICE CONNECTION ] b. The condition claimed was less likely than n ot (less than 50% probability) incurred in or caused by t he claimed in-service injury, event or illness. c. Rationale: REVIEW OF AVAILABLE MEDICAL EVIDENCE: * 09/12/2021 PRIVATE RECORDS: EXAM: General skin exam: no rashes or lesions noted. * 08/18/2015 PRIMARY CARE PROVIDER: Patient has history of seborrheic dermatitis in volving his face. He has seen a gas line repairer and had been using a steroid an d also a topical medication. * 01/12/2015 PRIVATE RECORDS: Following up for sebhorrheic dermatitis on the face. He was seen December 22, 2014 at which time he was prescribed Ketoconazole 2% to use daily as a facewash and Desonide 0.05% topical ointment. Pt reports improvement while on Ketoconazole shampoo only. Exam: pink/orange scaly plaques located on face Statu s: Improved. EXPECTIONS: Seborrheic dermatitis is chronic in nature with periods of remissions and flares. Flares can be triggered by stress. * 06/12/2005 PRIVATE RECORDS: Exam: SKIN: no lesions, rash or itching. * 07/30/1998 [facility]DS MEDICAL EXAM: Medical: Normal skin. Self Assessment: NO skin diseases. * 05/30/1998 PRIVATE RECORDS: EXAM: He doesn't have any skin lesions of note. There are no oral or mucosal lesions. * 05/11/1997 PRIVATE RECORDS: States his was treated for hemophilus vagi nitis. Started on Flagl. He was told by his that he needs to be treate d. He also has blotching and erythemic areas on th e forehead for the past 2 years. He denies that they are itchy. He says t hey are slightly raised. They seem to be getting gradually redder or more enlarged and darker over the past 2 years. 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 DX: Dermatitis * 08/31/1995 FLYING MEDICAL EXAM: Medical: normal skin. Self Assessment: NO skin diseases. * 05/28/1992 FLYING MEDICAL EXAM: Medical: normal skin. * 06/28/1990 STR: seen for follicular cyst lateral aspect left nares. This small cyst started 3 weeks ago, subsided and then began to hurt him. PLAN I&D with removal of pus. DX. Nasal Folliculary Pustule Infection. * 04/07/1988 FLYING CLASS MEDICAL EXAMINATION: RESERVE TIME: 10 years, 10months. Medical: NORMAL skin. Self Assessment: NO skin diseases. 09/26/1985 PERIODIC MEDICAL EXAM: Medical: normal skin. Self Assessment: NO skin diseases. * 06/27/1969 ENLISTMENT: Medical: Normal skin. Self Assessment: NO skin diseases. * REVIEW OF MEDICAL LITERATURE: [employer] website accessed October 2021f - SEBORRHEIC DERMATITIS: Seborrheic dermatitis is a chronic, relapsing, and usually mild form of dermatitis. The cause of seborrheic dermatitis is not known . Factors that can lead to the condition: - excessive oil production from the skin - infection by a fungus known as Malassezia - stress - poor skin care or hygiene Facial lesions favor the forehead below the aydin rline, the eyebrows and glabella, and the nasolabial folds - ACTINIC KERATOSIS: Actinic keratosis (AK; also known as solar christo tosis) is a cutaneous lesion that results from the proliferation of atypical epidermal keratinocytes. Individuals with fair skin are most likely to d evelop AKs. Individuals with extensive sun exposure, such a s those with outdoor occupations, are at increased risk for AK. - PSORIASIS: Psoriasis is a common chronic inflammatory skin disease that may exhibit a variety of clinical manifestations. Chr onic plaque psoriasis, the most common subtype of psoriasis, is characterized by well- demarcated, erythematous plaques with overlying, coarse scale. Psoriasis has also been identified as a multisy stem chronic inflammatory disorder associated with multiple comorbidities to include obesity, hypertension and coronary artery disease. Genetic predisposition may also play a part. Low vitamin D may also be a factor. MEDICAL OPINION: For all three of these dermatologic conditions, there is no nexus linking them to active duty service. All three were diagnosed 5 or more years post service. The medical litera claritza decribes risk factors that apply to the . SEBORRHEIC DERMATITIS 1. It is my medical opinion that the 's seborrheic dermatitis (face) (dx 5 years post active duty) with intermittent flares is less likely than not (50 percent or less probability) incurred i n, began in or related to his active duty service. 2. It is my medical opinion that the [place]'s seborrheic dermatitis (face) with intermittent flares is less likely than no t (50 percent or less probability) proximately due to or related to o r aggravated by his [place] fibromyalgia. The seborrheic dermatitis precede d the fibromyalgia diagnosis by more than 15 years. 3. It is my medical opinion that the 's seborrheic dermatitis (face) is more likely than not (50 percent or greater probability) related to an underlying fungal infection such as Malassezia. There is documentation that the use of an anti-fungal treatment does decrea se the symptomatology. ACTINIC KERATOSIS: 1. It is my medical opinion that the [place] actinic keratosis (bilateral arms) (dx 20 + years post active duty) is less likely than not (50 percent or less probability) incurred in, began in or rela ade to his active duty service. 2. It is my medical opinion that the [place] actinic keratosis (bilateral arms) is less likely than not (50 percent or le ss probability) proximately due to or related to or aggravated by his [place] fi bromyalgia. The actinic keratosis (bilateral arms) preceded the fibromy algia diagnosis by more than 15 years. 3. 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 PSORIASIS: 1. It is my medical opinion that the [place]'s psoriasis(bilateral legs) (dx 20 + years post active duty) is less likely edwin n not (50 percent or less probability) incurred in, began in or related t o his active duty service. 2. It is my medical opinion that the [place]'s psoriasis (bilateral legs) is less likely than not (50 percent or less probab ility) proximately due to or related to or aggravated by his [place] fibromyalgia . The actinic keratosis (bilateral arms) preceded the fibromyalgia diag nosis by more than 15 years. 3. It is my medical opinion that the 's psoriasis (bilateral legs) is more likely than not (50 percent or greater pro bability) proximately due to or related to non-service connected co- morbities of obesity, hypertension and coronary artery disease. TYPE OF MEDICAL OPINION PROVIDED: [ MEDICAL OPI NION FOR SECONDARY SERVICE CONNECTION ] b. The condition claimed is less likely than no t (less than 50% probability) proximately due to or the result o f the 's service connected condition. SEBORRHEIC DERMATITIS It is my medical opinion that the Veter an's seborrheic dermatitis (face) with intermittent flares is less likely than not (50 percent or less probability) proximately due to or related to or aggravated by his [place] fibromyalgia. The seborrheic dermatitis preceded the fibromyalgia diagnosis by more than 15 years. ACTINIC KERATOSIS: It is my medical opinion that the [place] act inic keratosis (bilateral arms) is less likely than not (50 percent or le ss probability) proximately due to or related to or aggravated by his [place] fi bromyalgia. The actinic keratosis (bilateral arms) preceded the fibromy algia diagnosis by more than 15 years. RESTATEMENT OF REQUESTED OPINION: a. 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 b. Indicate type of exam for which opinion has been requested: PAGET'S DISEASE TYPE OF MEDICAL OPINION PROVIDED: [ MEDICAL OPI NION FOR DIRECT SERVICE CONNECTION ] b. The condition claimed was less likely than n ot (less than 50% probability) incurred in or caused by t he claimed in-service injury, event or illness. c. Rationale: REVIEW OF AVAILABLE MEDICAL EVIDENCE: * 05/05/2021 Alk Phos = 66 (normal) * 02/22/2021 PRIVATE RECORDS: History of hand surgery. Discussed with patient that his pain sy mptoms he is experiencing currently is likely not due to Paget's and more like ly a combination of osteoarthritis and fibromyalgia. * 09/08/2020 PRIVATE RECORDS: Pt states he did not have any improvement in th e pain in his low back and pelvis after the last Reclast infusion. He is w ondering if he has fibromyalgia as 1 on his conditions. He does have pain on a daily basis that comes a nd goes. He has sleep apnea and has difficulty sleeping and does feel fatig ue during the day. States his skin is not sensitive to touch. ASSESSMENT/PLAN: Advised patient that his current symptoms are l ikely not due to Paget's disease and are more likely being caused by ost eoarthritis of his spine and of his hips. Hip Osteoarthritis I recommend physical therapy, however patient declined at this time. I do not believe patient has symptoms consistent wit h fibromyalgia, I believe his symptoms are more likely due to osteoarthritis of multiple joints. * 03/03/2020 PRIVATE RECORDS: Pt diagnosed with Paget's disease in 2015, bone scan with evidence of activity in pelvis. He was intially treated wit h alendronate for 6 months with improvement in his symptoms. He wa s then treated with a Reclast infusion November 2017. Pt states after his Reclast infusion , his joint pain completely resolved for 2 years. It has now returned. He h as pain in his low back as well as both hips. Start on calcium and Vitamin D supplementation. * 11/29/2017 PRIVATE RECORDS: Feels pain in his hip/pelvis when he walks. He has hard time walking. Bone scan: prominent stable abnormalities in the lef t hemipelvis. PLAN: Star Reclast. * 03/29/2016 PRIVATE RECORDS: Cardiology: ...can not exercise much due to his arthritis a nd Paget's. * 01/11/2016 PRIVATE RECORDS: The last alkaline phosphatase was 126 ( normal). There pain right side of hip, anterior malik and hands ache also. I think he s hould take a rest from the alendronate for 6 months. * 08/19/2015 PRIVATE RECORDS: His past medical history is significant for: Pagets Disease requiring antiresporptive treatm ent. * 06/28/2015 PRIVATE RECORDS: multiple medical problems referred for evaluati on of Paget's Disease. The patient does appear to have Paget's disease bas ed on uptake on bone scan which affects the left pelvis. I do believe edwin t he possibly has osteoarthritis of the right hip. * 04/15/2015 PRIVATE RECORDS: 59 year old with joint pains. Has Paget's disea se by laboratory and radiologic data. * 10/18/2004 Alk Phos = 114 (Reference Range 39- 117) * 05/30/1998 PRIVATE RECORDS: He has had lab studies which have demon strated fairly consistently a slightly elevated alkaline phosphatase. This was followe d up with a bone scan showing uptaking the pelvis and one of his ribs. This w as confirmed on follow-up xrays to be a small amount of Paget's disease i n the pelvis. * 04/30/1998 PRIVATE RECORDS: Elevated bone alkaline phosphatase in 42 year o ld man, rule out any bony disease. * 05/06/1998 PELVIS AND SACROILIAC JOINTS: Impression: Minimal radiologic findings consistent with Paget's disease. This correlates well with bone scan. * 04/27/1998 PRIVATE RECORDS: Received the results of the bone alkali ne phosphatase test, which is elevated at 70, normal being 41. He does have a vague pain in his right shoulder which comes and goes. * 01/09/1994 Alk Phos = 122 (Referance Range 45- 140) * 07/30/1998 RESERVE MEDICAL EXAM: Medical: Normal musculoskeletal Self Assessment : NO bone, joint or other deformity. * 08/31/1995 FLYING MEDICAL EXAM: Medical: Normal musculoskeletal Self Assessment : NO bone, joint or other deformity. * 05/28/1992 FLYING MEDICAL EXAM: Medical: Normal musculoskeletal * 04/07/1988 FLYING CLASS MEDICAL EXAMINATION: RESERVE TIME: 10 years, 10months. Medical: Normal musculoskeletal Self Assessment : NO bone, joint or other deformity. 09/26/1985 PERIODIC MEDICAL EXAM: Medical: Normal musculoskeletal Self Assessment : NO bone, joint or other deformity. * 06/27/1969 ENLISTMENT: Medical: Normal musculoskeletal Self Assessment : NO bone, joint or other deformity. REVIEW OF MEDICAL LITERATURE: [employer] website accessed October 2021 * Paget disease of bone (PDB), also kno wn historically as osteitis deformans, is a focal disorder of bone metabolism that occ urs in the aging skeleton; it is characterized by an accelerated rate of bone remodeling, resulting in overgrowth of bone at single (monostotic PDB) o r multiple (polyostotic PDB) sites and impaired integrity of affected bone. Commonly affected areas include the skull, spine, pelvis, and long bone s of the lower extremity. * The majority of patients with PDB are asympto matic. The diagnosis in such patients is usually made incidentally following a routine chemistry screen showing an elevated serum concentration of bita line phosphatase of bone origin or an imaging study obtained for some ot her reason that shows pagetic changes in bone. * Significant evidence has accumulated that gen etic factors influence the development of PDB. * There are no known modifiable factors that co ntribute to PDB pathogenesis. MEDICAL OPINION: There is no nexux in the available medical evid ence linking the Paget's disease to the [place] active duty s ervice. The was diagnosed via incidental finding when applying for life insurance 7 years post active duty. The medical literature notes that majority of patients are asymptomatic in this common disease of an aging skeleton. There is genetic component as a risk factor also. 1. It is my medical opinion that the Mary Lou goldstein Paget's disease is less likely than not (50 percent or less probability) began in, or related to his active duty service. 2. It is my medical opinion that the Mary Lou goldstein Paget's disease is less likely than not (50 percent or less probabilit y) proximately due to or related to or aggravated by his [place] fibromyalgia. The diagnosi s for Paget's was more than 15 years prior to the fibromyalgia diagnosis. TYPE OF MEDICAL OPINION PROVIDED: [ MEDICAL OPI NION FOR SECONDARY SERVICE CONNECTION ] b. The condition claimed is less likely than no t (less than 50% probability) proximately due to or the result o f the [place] service connected condition. It is my medical opinion that the [place]'s Pag et's disease is less likely than not (50 percent or less probabilit y) proximately due to or related to or aggravated by his [place] fibromyalgia. The diagnosi s for Paget's was more than 15 years prior to the fibromyalgia diagnosis. RESTATEMENT OF REQUESTED OPINION: a. Opinion from general remarks: IS THE 'S CARDIAC CONDITION OF CORONARY ARTERY DISEASE AND PAROXYSMAL ATRIAL FIBRILLATION AT LEAST LIKELY NOT (50 PERCENT OR GREATER PROBABILITY) INCU RRED IN, BEGAN IN OR RELATED TO HIS ACTIVE DUTY SERVICE? b. Indicate type of exam for which opinion has been requested: CARDIAC CONDITIONS TYPE OF MEDICAL OPINION PROVIDED: [ MEDICAL OPI NION FOR DIRECT SERVICE CONNECTION ] b. The condition claimed was less likely than n ot (less than 50% probability) incurred in or caused by t he claimed in-service injury, event or illness. c. Rationale: REVIEW OF AVAILABLE MEDICAL EVIDE NCE: * 09/12/2021 [facility] SPECIAL[facility] NO SALMA: 1 year follow-up, feeling good. He has had no c ardiac symptoms. Denies any anginal symptoms on current medication. Denies any prolonged palpitation irregular heartbeat. Not exercising much. Smokes 10.00 cigarettes per day for 2 years. EXAM: weight 308 lbs. BMI 44.2 No JVD, normal PMI, regular rate and rhythm. He art Sounds: S1 normal heart sound present and S2 normal heart sound present . ASSESSMENT/PLAN: Coronary artery disease with no symptoms of ang yolande on current medical therapy. Paroxysmal atrial fibrillation highly symptomat ic with no clinical recurrence. No need for additional antiarrythmi c drug therapy at this time. * 09/19/2020 PRIVATE RECORDS: From cardiac perspective he has been doing well . He has had no episodes of recurrent atrial fibrillation. He also denies a ny anginal symptoms, says he has not been exercising much. He has gained francisco javier e weight. BMI 43.3, weight 302 lbs. ASSESSMENT: Coronary artery disease. No current symptoms. Paroxysmal atrial fibrillation. currently stabl e with no recurrent episodes. * 09/08/2019 PRIVATE RECORDS: He has had no cardiac symptoms. No recu rrent episodes of atrial fibrillation. He denies any episodes of exertional chest pain . He denies any heart failure symptoms. * 10/09/2018 PRIVATE RECORDS: He has had no recurrent episodes of atrial fibr illation. He also denies any significant anginal symptoms with activ ity. He does not exercise on a regular basis. Echocardiogram performed recently shows normal LV systolic function. * 09/26/2017 PRIVATE RECORDS: No cardiac symptoms to report. Denies any angin al symptoms. No episodes of atrial fibrillation. Has not been able to lose much weight. weight 285 lbs. BMI 41.48 * 09/27/2016 PRIVATE RECORDS: Does not have any anginal symptoms with day to day activities. Denies any palpitations. ASSESSMENT: 1. PAF, currently suppressed with no re current symptoms. Continue with rhythm control approach. 2. Coronary artery disease with branch vessel d isease with no recurrent symptom on dual anti anginal therapy. * 03/29/2016 PRIVATE RECORDS: Recently after reducing Toprol-XL he un derwent a Holter monitor. Did not show any significant bradycardia or pauses and no ma oralia episodes of atrial flutter/fibrillation. He also has had no recurr ent chest discomfort. ASSESSMENT: 1. Stable coronary artery disease mostly branch vessel disease being treated medically. Currently on dual antianginal therap y with no recurrent symptoms. Continue high intensity statin therapy. Continu e aggressive lifestyle modification with weight reduction advised. 2. Paroxysmal atrial flutter without clinical r ecurrence of symptoms. * 02/22/2016 PRIVATE RECORDS: He was admitted on 02/13/2016 with recent report of seeing spots and with chest discomfort. He has slight troponin elevat ion and EKG changes that were concerning for ischemia. Echo showed normal EF. Underwent cardiac cath showing NO change from 03/2015 cath. To day he reports that since being out of the hospital he has been feeling well. No chest discomfort, shortness of breath, palpitation, dizziness, presyncope, syn compe, orthopnea or edema. ASSESSMENT: Continue on medical managment. * 02/14/2016 PRIVATE RECORDS - CARDIOLOGY: presents with symptoms of precordial ch est pressure on and off with minimally elevated troponin. PLAN: needs to undergo cardiac catherization. * 11/25/2015 PRIVATE RECORDS - CARDIOLOGY Has been taking toprol and low dose lis inopril. No recurrent anginal sounding chest discomfort. Continued weight loss is recommended. * 08/18/2015 PRIMARY CARE PROVIDER: History or coronary artery disease/angina pecto ris. Patient has been on beta reyna and also isosorbide mononitrate, he is also taking coumadin, asprin and a statin. Patient said there is no set pattern he can be exerting or he can be sitting in both cases he gets chest pain....he doesn't use any sublingual nitroglycerin. * 04/26/2015 PRIVATE RECORDS: Acute coronary syndrome ruled out. Nuclear stre ss test on 04/12/2015 showed large area of ischemia in LAD territory and mod erate ischemia in RCA territory. EF stress 64%. He underwent cath on 04/20/2015 showing LAD moderate diffuse disease, 1st diagonal 80% sten osis, LCX and OM mid 90% stenosis, non dominant RCA 80% stenosis. ASSESSMENT: Status post cardiac catherization: - significant branch vessel disease. Will need to optimize medical therapy. * 03/29/2015 CONSULTATION: PRIVATE RECORDS: Cardiac risk factors of hypertension, hyperlipi demia and obesity. Admitted today with anterior chest tightness and increas ed shortness of breath. EKG showed sinus rhythm with no acute ST or T-wave abnormalities. Nonsmoker, denies alcohol intake or recreationa l drug use. ASSESSMENT: Chest Discomfort. * 01/18/2006 Private Records: hyperlipidemia * 07/30/1998 RESERVE MEDICAL EXAM: Medical: Normal Normal heart. Self Asse ssment: NO rheumatic fever. NO pain or pressure in chest. NO palpation or pounding hea rt. NO heart trouble. * 08/31/1995 FLYING MEDICAL EXAM: Medical: Normal heart. Self Assessment: NO rheu matic fever. NO pain or pressure in chest. NO palpation or pounding hea rt. NO heart trouble. * 05/28/1992 FLYING MEDICAL EXAM: Medical: normal heart. * 04/07/1988 FLYING CLASS MEDICAL EXAMINATION: RESERVE TIME: 10 years, 10months. Medical: Normal heart. Self Assessment: NO rheu matic fever. NO pain or pressure in chest. NO palpation or pounding hea rt. NO heart trouble. 09/26/1985 PERIODIC MEDICAL EXAM: Medical: Normal heart. Self Assessment: NO rheu matic fever. NO pain or pressure in chest. NO palpation or pounding hea rt. NO heart trouble. * 06/27/1969 ENLISTMENT: Medical: Normal heart. Self Assessment: NO rheu matic fever. NO pain or pressure in chest. NO palpation or pounding hea rt. NO heart trouble. ~~~~~~~~~~~~~CORONARY ARTERY DISEASE: REVIEW OF MEDICAL LITERATURE: [employer] website accessed October 2021 CORONARY RISK FACTORS The relative importance o f risk factors for the development of CHD according to age was evaluated in a report in which [id number] men aged 18 to 39 years were followed for 20 ye ars. The relative risks associated with the traditional risk factors we re of similar magnitude as in a group of [id number] men aged 40 to 59 years. These included: - Age Relative risk 1.63 per six-year increase - Serum cholesterol (lipid abnormalities) Relat harry risk 1.92 per 40 mg/dL [1.04 mmol/L] increase - Systolic blood pressure Relative risk 1.32 pe r 20 mmHg increase - Cigarette smoking Relative risk 1.36 per 10 c igarette/day increase - Diabetes - Obesity MEDICAL OPINION: The has hyperlipidemia, elevated blood pressure and morbid obesity - all documented in the available medical evidence. 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 The medical literature does not list [employer] as a risk factor for developing coronary artery disease. It does not list fibromyalgia as an aggravating factor for coronary artery disease. 1. It is my medical opinion that the 's diagnosed coronary artery disease is less likely than not (less than 50 p ercent probability)incurred in, began in or related to his active duty [employer] service. 2. It is my medical opinion that the 's coronary artery disease is less likely than not (50 percent or less probab ility) proximately due to or related to or aggravated by his [place] fibromyalgia . 3. It is my medical opinion that the [place]'s coronary artery disease is more likely than not (50 percent or gre ater probability) due to or related to his non service connected hyperlipidemia, hyper tension, and morbid obesity. ~~~~~PAROXYSMAL ATRIAL FIBRILLATION: REVIEW OF MEDICAL LITERATURE: [employer] website accessed October 2021 * Atrial fibrillation (AF) is the most common t reated arrhythmia. Its prevalence in the population increases with age , and it is estimated to affect over 4 percent of the population above t he age of 60. * Risk factors for developing PAF are similar t o those associated with sustained AF and include age, hypertension, str uctural heart disease including valve disease, and obstructive sleep apnea. MEDICAL OPINION: The has hypertension and obstructive sl eep apnea all documented in the available medical evidence. 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 The medical literature does not list [employer] as a risk factor for developing coronary artery disease. It does not list fibromyalgia as an aggravating factor for paroxysmal atrial fibril lation. 1. It is my medical opinion that the Mary Lou pas paroxysmal atrial fibrillation is less likely than not (less than 50 percent p robability)incurred in, began in or related to his active duty servi ce. 2. It is my medical opinion that the Mary [place] greene's paroxysmal atrial fibrillation is less likely than not (50 percent or less pro bability) proximately due to or related to or aggravated by his SC fibromyal pam. 3. It is my medical opinion that the Mary Lou greene's paroxysmal atrial fibrillation is more likely than not (50 percent or greater probability) due to or related to his non service connected hypertension, and obstructive sleep apnea. TYPE OF MEDICAL OPINION PROVIDED: [ MEDICAL OPI NION FOR SECONDARY SERVICE CONNECTION ] b. The condition claimed is less likely than no t (less than 50% probability) proximately due to or the result o f the 's service connected condition. c. Rationale: It is my medical opinion that the Veter an's paroxysmal atrial fibrillation is less likely than not (50 percent or less probab ility) proximately due to or related to or aggravated by his SC fibromyalgia . It is my medical opinion that the [place]'s cor onary artery disease is less likely than not (50 percent or less probability ) proximately due to or related to or aggravated by his SC fibromyalgia .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
--- OUTSIDE RECORDS SUMMARY | 2022-08-02 17:56 | XMS_ITS | Continuity of Care Document ---
:1955 Author Organization [facility] Address [address] [place] [id number] Care Team Providers Name Role Phone Bia Forbes DO Primary Care Physician [place] [facility] [place]): [place] 01/05/[address] [id number] Attending Physician: Benrard Arreola Admitting Physician: Bernard Arreola Referring Physician: AdmtrBernard Allergies, Adverse Reactions, Alerts Substance Reaction Severity Status NKA Active Immunizations Given and Recorded Vaccine Date Status Refusal Reason pneumococcal 23-valent vaccine1, 2 06/22/09 Given Diphth-Tetanus Toxoids Adsorbed(oldterm) 04/14/06 Given 1Result Comment: lot # [id number] exp: [id number]. vaccine info sheet given03/29/092Admin Note: vaccine info sheet given 03/29/09 Medications aspirin 81 mg oral delayed release tablet 81 mg, By Mouth, Daily, # 100 tablet, Refills 0, Tot. Refills 0, Maintenance, 02/20/16 11:19:57, Route to Pharmacy Electronically, [id number], [facility]/pharmacy #[id number] Start Date: 02/20/16 Stop Date: 03/21/16 Status: OrderedErgocalciferol Capsule 50,000 units, By Mouth, Every week, Maintenance, 04/20/15 13:39:32 Start Date: 04/20/15 Status: OrderedEzetimibe 10 mg tablet Start Date: 02/16/16 Status: Orderedisosorbide mononitrate 60 mg oral tablet, extended release 60 mg, By Mouth, Daily, # 30 tablet, Refills 2, Tot. Refills 2, Maintenance, 02/20/16 11:21:43, Route to Pharmacy Electronically, [id number], [facility]/pharmacy #[id number] Start Date: 02/20/16 Stop Date: 05/20/16 Status: OrderedKetoconazole 2% Topical 1 applicator, Topically, Daily, 0 Refills, Maintenance Start Date: 04/20/15 Status: OrderedLipitor 80 mg oral tablet = 80 mg, By Mouth, Daily at bedtime, # 30 tablet, 2 Refills, Maintenance, Tablet, Route to Pharmacy Electronically, [id number], [facility]/pharmacy #[id number] Start Date: 02/20/16 Stop Date: 05/20/16 Status: Orderedmetoclopramide 5 mg oral tablet 1 tablet = 5 mg, By Mouth, 3 times a day before meals and bedtime, # 90 tablet, 0 Refills, Maintenance, Tablet Start Date: 11/21/09 Status: Orderedmetoprolol 25 mg oral tablet, extended release 25 mg, 1, tablet, By Mouth, Daily, # 30 tablet, Refills 2, Tot. Refills 2, Maintenance, 02/20/16 11:22:28, Route to Pharmacy Electronically, [id number], [facility]/pharmacy #[id number] Start Date: 02/20/16 Stop Date: 05/20/16 Status: OrderedNitro-Bid 2% transdermal ointment 1 inches, Topically, Every 6 hours, 0 Refills, Maintenance, 02/16/16 0:03:30 Start Date: 02/16/16 Status: Orderedpantoprazole 40 mg oral delayed release tablet 40 mg, By Mouth, Daily, # 30 tablet, Refills 0, Tot. Refills 0, Maintenance, 02/20/16 11:23:22, Route to Pharmacy Electronically, [id number], [facility]/pharmacy #[id number] Start Date: 02/20/16 Status: OrderedWarfarin Tablet = 5 mg, Daily, 0 Refills Start Date: 06/21/09 Stop Date: 07/20/09 Status: Ordered
[2022-08-02] MEDS: iohexoL 350 MG/ML 100 ML INFUS..BTL IV (18:00)
[2022-08-02 18:11] VITALS: BP 129/61; PULSE 73; RESP 14; O2SAT 94; BMI 40.8
[2022-08-02 18:19] LABS: Glucose, Whole Blood 151 mg/dL (60-115)
[2022-08-02 18:34] LABS: MANUAL DIFF FLAG NO
[2022-08-02 18:40] LABS: Basophils Percent Auto 0.2 % (0-2); Eosinophils Absolute Auto 0.1 X10*3/uL (0.0-0.4); Eosinophils Percent Auto 2.1 % (0-4); Hematocrit 40.4 % (42.0-52.0); Hemoglobin 13.2 g/dl (14.0-18.0); Imm Gran Abs Auto 0.03 X10*3/uL (0.00-0.03); Imm Gran Pct Auto 0.5 % (0.0-0.4); Lymphocytes Absolute Auto 1.4 X10*3/uL (1.2-4.9); Lymphocytes Percent Auto 22.5 % (20-40); Mean Corpuscular HGB Conc 32.7 g/dl (31.0-36.0); Mean Corpuscular Volume 85.8 fL (80.0-98.0); Mean Platelet Volume 11.2 fL (9.4-12.4); Monocytes Absolute Auto 0.6 X10*3/uL (0.1-1.2); Monocytes Percent Auto 8.8 % (2-11); Neutrophils Absolute Auto 4.1 x10*3/uL (2.0-8.3); Neutrophils Percent Auto 65.9 % (45-73); Platelet Count 124 X10*3/uL (160-400); Red Blood Count 4.71 X10*6/uL (4.60-5.80); Red Cell Distribution Width 13.7 % (11.0-16.0); White Blood Count 6.2 X10*3/uL (4.8-10.8)
[2022-08-02 18:46] LABS: INTERNATIONAL NORM RATIO 2.4 (0.9-1.1); Prothrombin Time 28.2 SEC (10.0-13.1)
[2022-08-02 18:53] LABS: Alanine Aminotransferase 53 U/L (0-40); Albumin Level 3.1 g/dL (3.5-5.0); Alkaline Phosphatase 60 U/L (39-117); Anion Gap 12 (12-20); Aspartate Amino Transferase 35 U/L (5-37); Bilirubin Total 0.8 mg/dL (0.0-1.0); Blood Urea Nitrogen 19 mg/dL (9-16); Calcium 7.6 mg/dL (8.4-10.2); Carbon Dioxide 23 mmol/L (22-29); Chloride 106 mmol/L (96-108); Creatinine Clr Calc Pharmacy 94.2; Estimated Glomerular Filt Rate > 60; Glucose Random 143 mg/dL (60-115); Magnesium 2.4 mg/dL (1.6-2.6); Potassium 4.6 mmol/L (3.3-5.1); Sodium 136 mmol/L (135-145); Total Protein 5.6 g/dL (6.5-8.0)
[2022-08-02 18:54] LABS: COVID-19 Test Negative (Negative); IDNOW Serial# 6674DD1D
[2022-08-02 19:03] VITALS: BP 100/49; PULSE 70; RESP 17; O2SAT 96
[2022-08-02 21:27] VITALS: BP 104/43; PULSE 70; RESP 16; O2SAT 97
[2022-08-03 00:13] VITALS: BP 103/43; PULSE 67; RESP 20; O2SAT 97
--- NOTE | 2022-08-03 00:23 | P.HPHOSP_ITS ---
History of Present Illness Date of Service: 08/03/22 Chief Complaint: Double vision This is a pleasant 66-year-old male with past medical history of CAD, a flutter, CVA, HTN, Paget's disease, lupus anticoagulant syndrome, paroxysmal AFib on Coumadin, history of GI bleed, presents to the hospital with complaints of double vision. Patient reports that around 16:00 he was at rest when he experienced what he felt to be cross eyed, and started having double vision that lasted about 10 minutes and resolved spontaneously. He reports chronic left facial tingling from previous stroke but has not had any upper or lower extremity weakness numbness or tingling. No slurred speech, and no facial droop. Patient was concerned because he had the exact similar presentation prior to his stroke in 2004 and that really scared him therefore he came for further evaluation. He reports that the double vision has now resolved. He denies any palpitations, no chest pain, no abdominal pain nausea or vomiting, no diarrhea constipation, no urinary symptoms and no lower extremity edema. On arrival to the ED patient hemodynamically stable no significant abnormal vitals Labs reviewed, unremarkable, INR of 2.4, Head and neck CT angiogram shows chronically occluded intradural left vertebral artery with normal contrast opacification of the left posterior inferior cerebral artery. Redemonstration of moderate stenosis of the 3rd right intradural vertebral artery. Cannot rule right vertebral artery occlusion or stenosis due to poor study, CT of the head and neck also demonstrated left upper lobe consolidation, probably infection versus inflammatory. Patient denies having any shortness of breath, no cough, no sputum production. Review of Systems Review of Systems: Yes all other systems are reviewed and are negative [facility] Medical History Acid reflux Angina pectoris Atrial flutter CAD (coronary artery disease) Cerebrovascular disease, acute CVA (cerebral vascular accident) DDD (degenerative disc disease), lumbar Factor 5 Leiden mutation, heterozygous GERD (gastroesophageal reflux disease) Hemorrhoids HTN (hypertension) Lupus anticoagulant syndrome Osteoarthritis Paget's disease Paroxysmal atrial fibrillation Rectal bleeding Sleep apnea Vitamin deficiency Family History Father HTN (hypertension) S/P triple vessel bypass Mother Brain tumor Cancer Brother Cancer Brain tumor Surgical History Hx of appendectomy Hx of colonoscopy Hx of hand surgery Hx of hernia repair Social History Household Members: Spouse Housing: House Do you presently have visiting nurse or other home services: No Alcohol intake: never Patient Tobacco Use Status: Former Tobacco user Quit Date: 50 years ago Tobacco use type: Cigarette Cigarette Packs Per Day: 1 Cigarettes Per Day: 20.0 Years Smoked: 3 Smoked in Last 30 Days: No e-Cigarette/Vaping Use: Never Used Patient Interested in Nicotine Replacement: No Patient Given Instructions on How to Stop Smoking: No Second Hand Smoke Exposure: No Use of substances other than those prescribed or required for medical reasons: No Currently Displaying Signs/Symptoms of Drug Intoxication Withdrawal: No Any prior treatment program specific to substance use: No Have you been hit, kicked, punched, or otherwise hurt by someone within the past year? If so, by whom?: No Do you feel safe in your current relationship?: No Is there a partner from a previous relationship who is making you feel unsafe now?: No Are you made to feel afraid or neglected: No Advance Directives: No Advance Directives Information Provided: Yes Do you have thoughts of harming others: None Do you have a plan to hurt others: No Plan Recently lost weight without trying: No Eating poorly because of decreased appetite: No Nutrition Risks: No Nutritional Risk Poor oral hygiene: No service: Yes Current occupational status: retired [employer] Allergies Allergy/AdvReac Type Severity Reaction Status Date / Time No Known Allergies Allergy Verified 07/31/22 08:52 [No Known Allergies*] Active Medications: Current Medications Acetaminophen (Acetaminophen 325 Mg Tablet) 650 mg PO Q6H PRN PRN Reason: Pain, Mild (Pain Scale 1-3) Ondansetron HCl (Ondansetron Hcl 4 Mg/2 Ml Vial) 4 mg IVPUSH Q8H PRN PRN Reason: Nausea and Vomiting Pharmacy Consult (Consult Rx Perform Med Rec) 1 each MISCELLANE ONCE PRN PRN Reason: Consult order Home Medications Medication Instructions Recorded Confirmed Last Taken Type warfarin 2.5 mg tablet 2.5 mg PO TUFR@1800 07/22/22 08/02/22 07/31/22 History Physical Exam Vital Signs and Narrative: Vital Signs: Last Vital Signs Temp 96.8 F 08/02/22 17:31 Pulse 67 08/03/22 00:13 Resp 20 08/03/22 00:13 BP 103/43 L 08/03/22 00:13 Pulse Ox 97 08/03/22 00:13 O2 Del Method 08/03/22 00:13 BMI result Body Mass Index 40.8 Const: General: cooperative and no acute distress Orientation/consciousness: patient oriented x3 Eyes: General: appearance normal, both eyes and all related structures Resp: Effort & Inspection: normal respiratory effort Auscultation: clear to auscultation bilaterally Cardio: Rate: regular rate Rhythm: regular rhythm GI: Palpation (GI): Soft to palpation Auscultation: normal bowel sounds Skin: General skin exam: no rashes or lesions noted Neuro: Other: No neurological deficits, Cranial nerves 2-12 intact, Strength is 5/5 in all extremities General: patient oriented x3 Cognition (Neuro): normal cognition Extrem: General: Yes normal to inspection and Yes no pedal edema Results Labs 08/02/22 18:28 08/02/22 18:28 Labs: Laboratory Results - last 24 hr 08/02/22 08/02/22 08/02/22 18:13 18:28 18:28 MCV 85.8 MCH 28.0 MCHC 32.7 RDW 13.7 Plt Count 124 L MPV 11.2 Immature Gran % (Auto) 0.5 H Neut % (Auto) 65.9 Lymph % (Auto) 22.5 [place] % (Auto) 8.8 Eos % (Auto) 2.1 Baso % (Auto) 0.2 Lymph # (Auto) 1.4 [place] # (Auto) 0.6 Eos # (Auto) 0.1 Baso # (Auto) 0.0 Abs Immat Gran (auto) 0.03 Absolute Neuts (auto) 4.1 Absolute Nucleated RBC 0.000 Nucleated RBC % (auto) 0.0 PT 28.2 H INR 2.4 H Anion Gap Estim Creat Clear Calc Estimated GFR POC Glucose 151 H Random Glucose Calcium Magnesium Total Bilirubin AST ALT Alkaline Phosphatase Total Protein Albumin COVID-19 (PERFECTO) COVID-19 Clin Com 08/02/22 08/02/22 18:28 18:28 MCV MCH MCHC RDW Plt Count MPV Immature Gran % (Auto) Neut % (Auto) Lymph % (Auto) [place] % (Auto) Eos % (Auto) Baso % (Auto) Lymph # (Auto) [place] # (Auto) Eos # (Auto) Baso # (Auto) Abs Immat Gran (auto) Absolute Neuts (auto) Absolute Nucleated RBC Nucleated RBC % (auto) PT INR Anion Gap 12 Estim Creat Clear Calc 94.2 Estimated GFR > 60 POC Glucose Random Glucose 143 H Calcium 7.6 L D Magnesium 2.4 Total Bilirubin 0.8 AST 35 ALT 53 H Alkaline Phosphatase 60 Total Protein 5.6 L Albumin 3.1 L COVID-19 (PERFECTO) Negative COVID-19 Clin Com See Note Imaging Radiologist's Impressions: Impressions Head CT 08/02/22 17:53 IMPRESSION: 1. No acute intracranial abnormality. The findings and recommendations were discussed with Dr. Snyder by telephone at 08/02/2022 6:03 PM and it was ascertained that the content and urgency of the report was understood at the time of direct communication. Head/Neck CTA 08/02/22 18:00 IMPRESSION: 1. 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 Redemonstrated moderate stenosis of the mid right intradural vertebral artery 2. Technically limited CTA of the neck with the cervical arterial vasculature appears grossly patent, with the exception of the right vertebral artery origin and right V1 segment do not opacify, which may be at least partially technical in etiology however stenosis or occlusion are not excluded. 3. Left upper lobe consolidation, probably infectious/inflammatory. Findings were communicated to Dr. Snyder on 08/02/2022 at 6:22 PM. Assessment and Plan (1) Double vision: Status: Acute (2) Brain TIA: Status: Acute Plan 66-year-old male with extensive past medical history that includes CVA as well as AFib presents the hospital with complaints of double vision/TIA like symptoms # CVA/TIA/double vision - patient reports similar presentation when he 1st had his CVA in 2004 - currently has no neurological deficits - does have abnormalities seen on CTA with multiple vertebral artery occlusions as stated above - neurology consulted - will obtain MRI - will hold of vascular surgery consult per neurology recommendation # history of paroxysmal AFib - therapeutic INR - will continue Coumadin, and metoprolol # hypertension - stable - continue home antihypertensives DVT prophylaxis: Coumadin Time Spent With Patient Time: Total time managing care of this patient today ____ minutes. Quality Stroke Does the patient have a stroke diagnosis?: No VTE Prior VTE?: No VTE Risk Level:: Medical - moderate - high VTE Device Contraindication: Treatment Not Indicated VTE Drug Contraindication: N/A - Med Ordered
--- OUTSIDE RECORDS SUMMARY | 2022-08-03 00:28 | XMS_ITS | Continuity of Care Document ---
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 Medications provided include 1) outpatient medications from the last 15 months, and 2) patient-reported medications. Medication Details Route Status Patient Prescription Prescription Last Ordering Order Source Instructions Expires Number Dispense Provider Date Date ATORVASTATI Active [id number] DEONDRE, 10/27/ Pharmac N CALCIUM 2 2021 y Data (ATORVASTAT Transac IN tion CALCIUM), Service 80 MG, Facilit TABLET, y ORAL, APOTEX FERNANDO, 1000 ea. BOTTLE ATORVASTATI Active [id number] DEONDRE, 01/28/ Pharmac N CALCIUM 2 2021 y Data (ATORVASTAT Transac IN tion CALCIUM), Service 80 MG, Facilit TABLET, y ORAL, APOTEX FERNANDO, 1000 ea. BOTTLE ATORVASTATI Active [id number] DEONDRE, 01/30/ Pharmac N CALCIUM 2 2021 y Data (ATORVASTAT Transac IN tion CALCIUM), Service 80 MG, Facilit TABLET, y ORAL, APOTEX FERNANDO, 1000 ea. BOTTLE EZETIMIBE Active [id number] DEONDRE, 09/26/ P harmac (ezetimibe) 2 2021 y Data , 10 MG, Transac TABLET, tion ORAL, Service SANDOZ, 30 Facilit ea. BOTTLE y EZETIMIBE Active [id number] DEONDRE, 12/18/ P harmac (ezetimibe) 2 2021 y Data , 10 MG, Transac TABLET, tion ORAL, Service SANDOZ, 30 Facilit ea. BOTTLE y EZETIMIBE Active [id number] DEONDRE, 01/28/ P harmac (ezetimibe) 2 2021 y Data , 10 MG, Transac TABLET, tion ORAL, Service SANDOZ, 30 Facilit ea. BOTTLE y ISOSORBIDE Active [id number] DEONDRE, 03/05/ Pharmac MONONITRATE 2 2021 y Data ER Transac (isosorbide tion mononitrate Service ), 60 MG, Facilit TAB ER 24H, y ORAL, INGENUS PHARMAC, 100 ea. BOTTLE LISINOPRIL Active [id number] DEONDRE, 08/20/ Pharmac (lisinopril 2 2021 y Data ), 10 MG, Transac TABLET, tion ORAL, LUPIN Service PHARMACEU, Facilit 1000 ea. y BOTTLE LISINOPRIL Active [id number] DEONDRE, 12/16/ Pharmac (lisinopril 2 2021 Data ), 10 MG, Transac TABLET, tion ORAL, LUPIN Service PHARMACEU, Facilit 1000 ea. y BOTTLE LISINOPRIL Active [id number] DEONDRE, Pharmac (lisinopril 2 2021 Data ), 10 MG, Transac TABLET, tion ORAL, LUPIN Service PHARMACEU, Facilit 1000 ea. y BOTTLE METOPROLOL Active [id number] DEONDRE, 01/28/ Pharmac SUCCINATE 2 2021 Data (metoprolol Transac succinate), tion 25 MG, TAB Service ER 24H, Facilit ORAL, y ACTAVIS/TEV A, 100 ea. BOTTLE METOPROLOL Active [id number] DEONDRE, 09/25/ Pharmac SUCCINATE 2 2021 Data (metoprolol Transac succinate), tion 25 MG, TAB Service ER 24H, Facilit ORAL, y ACTAVIS/TEV A, 100 ea. BOTTLE OMEPRAZOLE Active [id number] GLOGOWSKI 2 5/ Pharmac (omeprazole 2 , 2021 Data ), 20 MG, Transac CAPSULE DR tion ORAL, Service [employer], [employer]ilit LLC, 1000 y ea. BOTTLE OMEPRAZOLE Active [id number] GLOGOWSKI 2 0/ Pharmac (omeprazole 2 , 2021 Data ), 20 MG, Transac CAPSULE DR tion ORAL, Service [employer], [employer], 1000 y ea. BOTTLE OMEPRAZOLE Active [id number] GLOGOWSKI 08/0 9/ Pharmac (omeprazole 2 , 2021 Data ), 20 MG, Transac CAPSULE DR tion ORAL, Service [employer] [facility], 1000 y ea. BOTTLE WARFARIN Active [id number] GLOGOWSKI 01/28/ Pharmac SODIUM , 2021 y Data (WARFARIN Transac SODIUM), tion 5MG, Service TABLET, Facilit ORAL, TARO y [facility] [employer], 100 ea. BOTTLE WARFARIN Active [id number] GLOGOWSKI 10/28/ Pharmac SODIUM 2 , 2021 y Data (WARFARIN Transac SODIUM), tion 5MG, Service TABLET, Facilit ORAL, TARO y [facility] [place], 100 ea. BOTTLE WARFARIN Active [id number] GLOGOWSKI 07/30/ Pharmac SODIUM 2 , 2022 y Data (WARFARIN Transac SODIUM), tion 5MG, Service TABLET, Facilit ORAL, TARO y [facility] [place], 100 ea. BOTTLE Immunizations Combined list of available immunizations from the Department of Defense and Veterans Affairs facilities. Immunization Series Date Administered Site Reaction Lot CVX Drug St atus Comments Source Given By Number Code Certified Drug Counselor FLU,3 YRS complet [facility] [place] [facility] FLU,3 YRS complet V A (HISTORICAL) 2014 ed C [facility] [place] [facility] Encounters Combined list of: 1) Encounters from Department of Veterans Affairs facilities going back up to the last 18 months. 2) Encounters from the Department of Defense facilities going back up to 280 months. Location Location Encounter Encounter Reason Attending ADM DC Stat us Disposition Source Details Type Number For Provider Date Date Visit Outpatient [id number] [facility] [id number] [facility] [place] [facility] Outpatient [id number] Diagnos DON CALERO 11/03 [place] Encounter [id number] is: UREN L [facility] ICD-10- [facility] [place] Z02.89 [facility] for other adminis trative examina tions<b r/>with Provide r Comment s: Encount er for other Adminis trative Examina tions Outpatient [id number] Diagnos [facility] 11/07 [place] Encounter [id number] is: CECE SANTI[place]O [facility] ICD-10- A [facility] CM [place] Z02.89 [facility] admin[facility]ative examina tions<b r/>with Provide r Comment s: Encount er for other Adminis trative Examina tions Outpatient [id number] Diagnos [facility] 11/08 [place] Encounter [id number] is: CECE SANTI[place]O [facility] ICD-10- A [facility] CM [place] Z02.89 [facility] admin[facility] trative examina tions<b r/>with Provide r Comment s: Encount er for other Adminis trative Examina tions EYE EXAM [id number] Diagnos MERHAR,BAIRON 12/13 [facility] NEW [id number] is: H B [facility] PATIENT ICD-10- [facility] CM [place] H16.232 [place] Neurotr [facility] ophic keratoc onjunct ivitis, left eye<br/ >with Provide r Comment s: Neurotr ophic Keratoc onjunct ivitis, left Eye Outpatient [id number] 12/13 [facility] Encounter [id number] [facility] [place] [facility] [place] [id number] Diagnos BRANDON,CY 12/13 [facility] [id number] is: NTHIA [facility] MULTIFOCAL ICD-10- TYRA WST RN CM [place] Z46.0 [place] Encount [facility] er for fit/adj st of spectac les and contact lenses< br/>wit h Provide r Comment s: Encount er for Fitting and Adjustm ent of Spectac les and Contact Lenses Outpatient [id number] 07/24 [id number] [facility] Social History Combined list of available smoking, tobacco, and other social history from Department of Defense andVeterans Affairs facilities. Social History Response Date Comment Source Type Tobacco smoking QUIT TOBACCO USE > 08/18/2015 stopped in 1978 [place] [facility] TRN status NHIS 7 YEARS AGO [facility] This section is DoD an empty social history section. Plan of Care List of future care activities from Department of Veterans Affairs facilities. Additional future care activities may be listed in the Assessment and Plan section. Date/Time Care Activity Care Activity Detail Facility 08/15/2022 AMBULATORY - MEDICINE AMBULATORY - MEDICINE DE C [facility]
[2022-08-03] MEDS: Aspirin Enteric Coated 81 MG TABLET.DR PO (00:38)
[2022-08-03 02:30] VITALS: BP 101/74; PULSE 74; RESP 18; TEMP 37.1; O2SAT 98
[2022-08-03 03:36] VITALS: BP 145/67; PULSE 67; RESP 16; TEMP 37.1; O2SAT 92
[2022-08-03] MEDS: Omeprazole 20 MG CAPSULE.DR PO (05:59)
[2022-08-03 07:15] LABS: Basophils Percent Auto 0.3 % (0-2); Eosinophils Absolute Auto 0.2 X10*3/uL (0.0-0.4); Eosinophils Percent Auto 1.9 % (0-4); Hematocrit 42.9 % (42.0-52.0); Hemoglobin 13.4 g/dl (14.0-18.0); Imm Gran Abs Auto 0.04 X10*3/uL (0.00-0.03); Imm Gran Pct Auto 0.5 % (0.0-0.4); Lymphocytes Percent Auto 25.6 % (20-40); MANUAL DIFF FLAG SCAN; Mean Corpuscular HGB Conc 31.2 g/dl (31.0-36.0); Mean Corpuscular Hemoglobin 27.1 pg (27.0-33.0); Mean Corpuscular Volume 86.8 fL (80.0-98.0); Mean Platelet Volume 11.7 fL (9.4-12.4); Monocytes Absolute Auto 0.6 X10*3/uL (0.1-1.2); Monocytes Percent Auto 7.8 % (2-11); Neutrophils Absolute Auto 5.1 x10*3/uL (2.0-8.3); Neutrophils Percent Auto 63.9 % (45-73); Platelet Count 144 X10*3/uL (160-400); Red Blood Count 4.94 X10*6/uL (4.60-5.80); Red Cell Distribution Width 13.8 % (11.0-16.0); SCAN SMEAR FLAG 1
[2022-08-03 07:21] LABS: INTERNATIONAL NORM RATIO 2.1 (0.9-1.1)
[2022-08-03 07:32] LABS: Appearance Urine Clear; Color Urine Yellow; Glucose Urine UA Negative (Negative); Leukocyte Esterase Urine Negative (Negative); Nitrite Urine Negative (Negative); Specific Gravity - Urine 1.025 (1.005-1.025); Urine Blood Negative (Negative); Urine Ketones Negative (Negative); Urine Protein Negative (Neg-Trace)
--- NOTE | 2022-08-03 07:34 | PC.NURSE ---
Per pt, zaid Pichardo is acceptable to talk to and share information.
[2022-08-03 07:39] VITALS: BP 151/65; PULSE 68; RESP 17; TEMP 36.5; O2SAT 94
[2022-08-03 07:48] LABS: Anion Gap 14 (12-20); Blood Urea Nitrogen 19 mg/dL (9-16); Carbon Dioxide 25 mmol/L (22-29); Chloride 105 mmol/L (96-108); Creatinine Clr Calc Pharmacy 96.1; Estimated Glomerular Filt Rate > 60; Glucose Random 101 mg/dL (60-115); Potassium 4.6 mmol/L (3.3-5.1); Sodium 139 mmol/L (135-145)
[2022-08-03 08:04] LABS: SLIDE REVIEW VERIFIED
--- NOTE | 2022-08-03 09:43 | MHC.CM.PN ---
YOLANDA DELIVERED PT LIVES IN A [facility] WITH SPOUSE. INDEPENDENT AT BASELINE. NO SERVICES OR DME. +HCP AT HOME, NO COVID VAX. PCP DELISA ARSHAD. WILL TRANSPORT ON DC. CM WILL CONTINUE TO FOLLOW
[2022-08-03 10:02] VITALS: BP 145/62; PULSE 76; RESP 17; TEMP 36.6; O2SAT 94
[2022-08-03] MEDS: Ezetimibe 10 MG TABLET PO (10:15)
[2022-08-03] MEDS: Isosorbide Mononitrate 60 MG TAB.ER.24H PO (10:15)
[2022-08-03] MEDS: lisinopriL 10 MG TABLET PO (10:15)
[2022-08-03] MEDS: Metoprolol Succinate ER 25 MG TAB.ER.24H PO (10:16)
--- NOTE | 2022-08-03 10:57 | P.DS_ITS ---
DS: Providers Provider Date of Service: 08/03/22 Date of admission: 08/03/22 00:21 Primary care physician: JAMEEL Almodovar Consults: 08/03/22 00:20 Consult to Neurology Routine Consulting Provider: [facility] Reason for consultation: TIA like symptoms Has provider been notified: No DS: Diagnosis Discharge Diagnosis (1) Double vision: Status: Acute (2) Brain TIA: Status: Acute DS: Summary Hospital Course Hospital Course: Chief Complaint: Double vision This is a pleasant 66-year-old male with past medical history of CAD, a flutter, CVA, HTN, Paget's disease, lupus anticoagulant syndrome, paroxysmal AFib on Coumadin, history of GI bleed, presents to the hospital with complaints of double vision.? Patient reports that around 16:00 he was at rest when he experienced what he felt to be cross eyed, and started having double vision that lasted about 10 minutes and resolved spontaneously.? He reports chronic left facial tingling from previous stroke but has not had any upper or lower extremity weakness numbness or tingling.? No slurred speech, and no facial droop.? Patient was concerned because he had the exact similar presentation prior to his stroke in 2004 and that really scared him therefore he came for further evaluation.? He reports that the double vision has now resolved.? He denies any palpitations, no chest pain, no abdominal pain nausea or vomiting, no diarrhea constipation, no urinary symptoms and no lower extremity edema.? On arrival to the ED patient hemodynamically stable no significant abnormal vitals Labs reviewed, unremarkable, INR of 2.4, Head and neck CT angiogram shows chronically occluded intradural left vertebral artery with normal contrast opacification of the left posterior inferior cerebral artery.? Redemonstration of moderate stenosis of the 3rd right intradural vertebral artery.? Cannot rule right vertebral artery occlusion or stenosis due to poor study, CT of the head and neck also demonstrated left upper lobe consolidation, probably infection versus inflammatory.? Patient denies having any shortness of breath, no cough, no sputum production. Hospital course: He presented with transient double vision, head CT and MRI of head show no acute stroke. He is on coumadin, Statin will add baby aspirin to further reduce his risk Time Spent with Patient Time attestation: Total time managing care of this patient today ____ minutes. Discharge coordination time: Greater than 30 minutes Quality: Safe Use of Opioids Does Pt have an Active Cancer Diagnosis on the Problem List?: No Quality: Stroke Does the patient have a stroke diagnosis?: No Physical Exam Vital Signs: Vital Signs: Last Vital Signs Temp 97.9 F 08/03/22 10:02 Pulse 76 08/03/22 10:02 Resp 17 08/03/22 10:02 BP 145/62 H 08/03/22 10:02 Pulse Ox 94 08/03/22 10:02 O2 Del Method 08/03/22 10:02 BMI result Body Mass Index 40.8 DS: Data Data Completed and Pending Completed studies during hospitalization [Text1]: Procedures Introduction of Remdesivir Anti-infective into Peripheral Vein, Percutaneous Approach, [employer] (07/22/22) Labs on day of discharge: Laboratory Results - last 24 hr 08/02/22 08/02/22 08/02/22 18:13 18:28 18:28 WBC 6.2 RBC 4.71 Hgb 13.2 L Hct 40.4 L MCV 85.8 MCH 28.0 MCHC 32.7 RDW 13.7 Plt Count 124 L MPV 11.2 Immature Gran % (Auto) 0.5 H Neut % (Auto) 65.9 Lymph % (Auto) 22.5 [place] % (Auto) 8.8 Eos % (Auto) 2.1 Baso % (Auto) 0.2 Lymph # (Auto) 1.4 [place] # (Auto) 0.6 Eos # (Auto) 0.1 Baso # (Auto) 0.0 Abs Immat Gran (auto) 0.03 Absolute Neuts (auto) 4.1 Absolute Nucleated RBC 0.000 Nucleated RBC % (auto) 0.0 Smear Tech's Comments PT 28.2 H INR 2.4 H Sodium Potassium Chloride Carbon Dioxide Anion Gap BUN Creatinine Estim Creat Clear Calc Estimated GFR POC Glucose 151 H Random Glucose Calcium Magnesium Total Bilirubin AST ALT Alkaline Phosphatase Total Protein Albumin Urine Color Urine Appearance Urine pH Ur Specific [place] Urine Protein Urine Glucose (UA) Urine Ketones Urine Blood Urine Nitrite Ur Leukocyte Esterase COVID-19 (PERFECOT) COVID-19 Clin Com 08/02/22 08/02/22 08/03/22 18:28 18:28 05:36 WBC RBC Hgb Hct MCV MCH MCHC RDW Plt Count MPV Immature Gran % (Auto) Neut % (Auto) Lymph % (Auto) [place] % (Auto) Eos % (Auto) Baso % (Auto) Lymph # (Auto) [place] # (Auto) Eos # (Auto) Baso # (Auto) Abs Immat Gran (auto) Absolute Neuts (auto) Absolute Nucleated RBC Nucleated RBC % (auto) Smear Tech's Comments PT INR Sodium 136 Potassium 4.6 Chloride 106 Carbon Dioxide 23 Anion Gap 12 BUN 19 H Creatinine 1.04 Estim Creat Clear Calc 94.2 Estimated GFR > 60 POC Glucose Random Glucose 143 H Calcium 7.6 L D Magnesium 2.4 Total Bilirubin 0.8 AST 35 ALT 53 H Alkaline Phosphatase 60 Total Protein 5.6 L Albumin 3.1 L Urine Color Yellow Urine Appearance Clear Urine pH 6.0 Ur Specific [place] 1.025 Urine Protein Negative Urine Glucose (UA) Negative Urine Ketones Negative Urine Blood Negative Urine Nitrite Negative Ur Leukocyte Esterase Negative COVID-19 (PERFECTO) Negative COVID-19 Clin Com See Note 08/03/22 08/03/22 08/03/22 05:45 05:45 05:45 WBC 8.0 RBC 4.94 Hgb 13.4 L Hct 42.9 MCV 86.8 MCH 27.1 MCHC 31.2 RDW 13.8 Plt Count 144 L MPV 11.7 Immature Gran % (Auto) 0.5 H Neut % (Auto) 63.9 Lymph % (Auto) 25.6 [place] % (Auto) 7.8 Eos % (Auto) 1.9 Baso % (Auto) 0.3 Lymph # (Auto) 2.0 [place] # (Auto) 0.6 Eos # (Auto) 0.2 Baso # (Auto) 0.0 Abs Immat Gran (auto) 0.04 H Absolute Neuts (auto) 5.1 Absolute Nucleated RBC 0.000 Nucleated RBC % (auto) 0.0 Smear Tech's Comments VERIFIED PT 25.0 H INR 2.1 H Sodium 139 Potassium 4.6 Chloride 105 Carbon Dioxide 25 Anion Gap 14 BUN 19 H Creatinine 1.02 Estim Creat Clear Calc 96.1 Estimated GFR > 60 POC Glucose Random Glucose 101 Calcium 8.0 L Magnesium Total Bilirubin AST ALT Alkaline Phosphatase Total Protein Albumin Urine Color Urine Appearance Urine pH Ur Specific [place] Urine Protein Urine Glucose (UA) Urine Ketones Urine Blood Urine Nitrite Ur Leukocyte Esterase COVID-19 (PERFECTO) COVID-19 Clin Com Discharge Plan Discharge Anticipated Discharge Date/Time: 08/03/22 10:54 Patient Disposition: Home, Self-Care Discharge Diagnosis: TIA Referrals: Brian Ward DESIGN DIRECTOR-BC [Primary Care Provider] - 1 Week Discharge Medications: Continued lisinopril 10 mg tablet 10 mg PO DAILY 90 Days Qty: 90 3RF ezetimibe [Zetia] 10 mg tablet 10 mg PO DAILY 90 Days Qty: 90 3RF isosorbide mononitrate 60 mg tablet extended release 24 hr 60 mg PO DAILY Qty: 90 3RF metoprolol succinate 25 mg tablet extended release 24 hr 25 mg PO DAILY Qty: 90 3RF warfarin 5 mg tablet 5 mg PO SUMOWETHSA@1800 Qty: 90 1RF Protocol: Dose Management Condition: Saturday (Week One) Dose/Route: 5 mg Instruction: 1 x 5 mg tablet Condition: Saturday Dose/Route: 5 mg Instruction: 1 x 5 mg tablet Condition: Saturday Dose/Route: 2.5 mg Instruction: 1 x 2.5 mg tablet Condition: Saturday Dose/Route: 5 mg Instruction: 1 x 5 mg tablet Condition: Dose/Route: 5 mg Instruction: 1 x 5 mg tablet Condition: Saturday Dose/Route: 2.5 mg Instruction: 1 x 2.5 mg tablet Condition: Saturday Dose/Route: 5 mg Instruction: 1 x 5 mg tablet Condition: Saturday (Week Two) Dose/Route: 5 mg Instruction: 1 x 5 mg tablet Condition: Saturday Dose/Route: 5 mg Instruction: 1 x 5 mg tablet Condition: Saturday Dose/Route: 2.5 mg Instruction: 1 x 2.5 mg tablet Condition: Saturday Dose/Route: 5 mg Instruction: 1 x 5 mg tablet Condition: Dose/Route: 5 mg Instruction: 1 x 5 mg tablet Condition: Saturday Dose/Route: 2.5 mg Instruction: 1 x 2.5 mg tablet Condition: Saturday Dose/Route: 5 mg Instruction: 1 x 5 mg tablet Protocol Text: Adjustment Start Date: Saturday07/31/22 INR Value: 2.6 INR Date: 07/31/22 Recheck Date: 08/14/22 Additional Instructions: cont reg dosing balance reds and greens call with any medication changes omeprazole 20 mg capsule,delayed release(DR/EC) 20 mg PO DAILY@0630 Qty: 90 1RF atorvastatin 80 mg tablet 80 mg PO BEDTIME Qty: 90 0RF Rx Instructions: Please keep your appt om September 13, 2022. For future refills. Thank you warfarin 2.5 mg Tablet 2.5 mg PO TUFR@1800 Protocol: Dose Management Condition: Saturday (Week One) Dose/Route: 5 mg Instruction: 1 x 5 mg tablet Condition: Saturday Dose/Route: 5 mg Instruction: 1 x 5 mg tablet Condition: Saturday Dose/Route: 2.5 mg Instruction: 1 x 2.5 mg tablet Condition: Saturday Dose/Route: 5 mg Instruction: 1 x 5 mg tablet Condition: Dose/Route: 5 mg Instruction: 1 x 5 mg tablet Condition: Saturday Dose/Route: 2.5 mg Instruction: 1 x 2.5 mg tablet Condition: Saturday Dose/Route: 5 mg Instruction: 1 x 5 mg tablet Condition: Saturday (Week Two) Dose/Route: 5 mg Instruction: 1 x 5 mg tablet Condition: Saturday Dose/Route: 5 mg Instruction: 1 x 5 mg tablet Condition: Saturday Dose/Route: 2.5 mg Instruction: 1 x 2.5 mg tablet Condition: Saturday Dose/Route: 5 mg Instruction: 1 x 5 mg tablet Condition: Dose/Route: 5 mg Instruction: 1 x 5 mg tablet Condition: Saturday Dose/Route: 2.5 mg Instruction: 1 x 2.5 mg tablet Condition: Saturday Dose/Route: 5 mg Instruction: 1 x 5 mg tablet Protocol Text: Adjustment Start Date: Saturday07/31/22 INR Value: 2.6 INR Date: 07/31/22 Recheck Date: 08/14/22 Additional Instructions: cont reg dosing balance reds and greens call with any medication changes Diet: Advance to usual diet Activity on Discharge: As tolerated Stand Alone Forms: Patient Portal Discharge page Care Plan Goals: Stroke prevention in the future Health Concerns: TIA Plan of Treatment: continue present meds in addition to baby aspirin daily Assessment: as above
--- NOTE | 2022-08-03 11:00 | MHC.STROKE ---
08/02/22 1728 WALK-IN TO ED. C/O VISUAL CHANGES AND GALLAGHER WHICH STARTED AROUND 1645. ON WARFARIN FOR PAF. INR TODAY 2.4, EXAMINED BY PROVIDER AND STROKE PROTOCOL ACTIVATED, CT AND CTA H/N DONE. NO BLEED, NO LVO, KNOWN LEFT VERTEBRAL ARTERY OCCLUSION NOTED. SEE REPORT FOR FULL DETAILS. HE WAS HYPOTENSIVE IN THE ED 92/62. NIHSS = 0. EXCLUDED FROM TPA BASED ON INR OF 2.4 AND NIHSS = 0, PASSED SWALLOW SCREEN. PATIENT IS KNOWN TO THE STROKE SERVICE. IN 09/2004 HE HAD RECEIVED TPA FOR AN ACUTE STROKE IN THE LEFT LATERAL MEDULA. HE HAS MULTIPLE STROKE RISK FACTORS WHICH WE REVIEWED TOGETHER USING THE STROKE EDUCATION BOOKLET AND POWER POINT HANDOUTS. I REVIEWED HIS MRI FROM TODAY COMPARED TO PAST MRI'S ON MY COMPUTER I WAS ABLE TO PULL UP THE ACTUAL SCANS. THEY HAD SEVERAL QUESTIONS AND I WAS ABLE TO ANSWER MOST AND REFERRED OTHERS TO THE NEUROLOGIST. I WILL CONTINUE TO FOLLOW.
[2022-08-03 15:45] LABS: Cholesterol 122 mg/dL; HDL Cholesterol 30 mg/dL; LDL Cholesterol Calculated 69 mg/dl; Triglycerides 116 mg/dL
[2022-08-03 15:51] VITALS: BP 111/59; PULSE 67; RESP 17; TEMP 36.5; O2SAT 92
--- NOTE | 2022-08-03 15:52 | P.CNNE_ITS ---
History of Present Illness Data of Consult Service Date: 08/03/22 Primary Care Provider: Brian Ward, [facility]- HPI Reason for consult: Double vision 66 years old man who had a lateral middle re infarct number of years ago treated with intravenous tPA. He was also known to have occluded left vertebral artery and stenosis of right. He also had atrial fibrillation and was treated with warfarin. He came to hospital with an episode that happened many years ago when he had a stroke. He had blurred and double vision for few minutes not associated with any other symptom. Later in the day he had mild headache. Review of Systems Review of Systems: No recent cold or flu-like illness PMFSH Past Medical History Medical History Acid reflux Angina pectoris Atrial flutter CAD (coronary artery disease) Cerebrovascular disease, acute CVA (cerebral vascular accident) DDD (degenerative disc disease), lumbar Factor 5 Leiden mutation, heterozygous GERD (gastroesophageal reflux disease) Hemorrhoids HTN (hypertension) Lupus anticoagulant syndrome Osteoarthritis Paget's disease Paroxysmal atrial fibrillation Rectal bleeding Sleep apnea Vitamin deficiency Family History Family History Father HTN (hypertension) S/P triple vessel bypass Mother Brain tumor Cancer Brother Cancer Brain tumor Surgical History Surgical History Hx of appendectomy Hx of colonoscopy Hx of hand surgery Hx of hernia repair Social History Social History Household Members: Spouse Housing: House Do you presently have visiting nurse or other home services: No Alcohol intake: never Patient Tobacco Use Status: Former Tobacco user Quit Date: 50 years ago Tobacco use type: Cigarette Cigarette Packs Per Day: 1 Cigarettes Per Day: 20.0 Years Smoked: 3 Smoked in Last 30 Days: No e-Cigarette/Vaping Use: Never Used Patient Interested in Nicotine Replacement: No Patient Given Instructions on How to Stop Smoking: No Second Hand Smoke Exposure: No Use of substances other than those prescribed or required for medical reasons: No Currently Displaying Signs/Symptoms of Drug Intoxication Withdrawal: No Any prior treatment program specific to substance use: No Have you been hit, kicked, punched, or otherwise hurt by someone within the past year? If so, by whom?: No Do you feel safe in your current relationship?: No Is there a partner from a previous relationship who is making you feel unsafe now?: No Are you made to feel afraid or neglected: No Advance Directives: No Advance Directives Information Provided: Yes Do you have thoughts of harming others: None Do you have a plan to hurt others: No Plan Recently lost weight without trying: No Eating poorly because of decreased appetite: No Nutrition Risks: No Nutritional Risk Poor oral hygiene: No service: Yes Current occupational status: retired [employer] Allergies Allergy/AdvReac Type Severity Reaction Status Date / Time No Known Allergies Allergy Verified 07/31/22 08:52 [No Known Allergies*] Active Medications: Current Medications Acetaminophen (Acetaminophen 325 Mg Tablet) 650 mg PO Q6H PRN PRN Reason: Pain, Mild (Pain Scale 1-3) Atorvastatin Calcium (Atorvastatin Calcium 80 Mg Tablet) 80 mg PO BEDTIME [facility] Ezetimibe (Ezetimibe 10 Mg Tablet) 10 mg PO DAILY [facility] Last Admin: 08/03/22 10:15 Dose: 10 mg Isosorbide Mononitrate (Isosorbide Mononitrate 60 Mg Tab.Er.24h) 60 mg PO DAILY [facility]; Protocol Last Admin: 08/03/22 10:15 Dose: 60 mg Lisinopril (Lisinopril 10 Mg Tablet) 10 mg PO DAILY [facility]; Protocol Last Admin: 08/03/22 10:15 Dose: 10 mg Metoprolol Succinate (Metoprolol Succinate Er 25 Mg Tab.Er.24h) 25 mg PO DAILY [facility]; Protocol Last Admin: 08/03/22 10:16 Dose: 25 mg Omeprazole (Omeprazole 20 Mg Capsule.Dr) 20 mg PO DAILY@0630 [facility] Last Admin: 08/03/22 05:59 Dose: 20 mg Ondansetron HCl (Ondansetron Hcl 4 Mg/2 Ml Vial) 4 mg IVPUSH Q8H PRN PRN Reason: Nausea and Vomiting Pharmacy Consult (Consult Rx Perform Med Rec) 1 each MISCELLANE ONCE PRN PRN Reason: Consult order Warfarin Sodium (Warfarin Sodium 2.5 Mg Tablet) 2.5 mg PO TUFR@1800 [facility] Warfarin Sodium (Warfarin Sodium 5 Mg Tablet) 5 mg PO SUMOWETHSA@1800 [facility] Home Medications Medication Instructions Recorded Confirmed Last Taken Type warfarin 2.5 mg tablet 2.5 mg PO TUFR@1800 07/22/22 08/02/22 07/31/22 History Physical Exam Vital Signs: Vital Signs: Last Vital Signs Temp 97.9 F 08/03/22 10:02 Pulse 76 08/03/22 10:02 Resp 17 08/03/22 10:02 BP 145/62 H 08/03/22 10:02 Pulse Ox 94 08/03/22 10:02 O2 Del Method 08/03/22 10:02 BMI result Body Mass Index 40.8 Neuro: Other: He is alert and awake with normal spontaneity of speech fluency comprehension and affect. Right pupil is about 3-4 mm round reactive and left little bit smaller round and reactive more pronounced in dim light. Extraocular muscles are intact. There is no ptosis. Face is symmetrical. Tongue is midline. There is no pronator drift. Deep tendon reflexes are absent. Speech is normal. Affect is normal. Results Labs 08/03/22 05:45 08/03/22 05:45 Labs: Short CBC 08/02/22 08/03/22 Range/Units 18:28 05:45 WBC 6.2 8.0 (4.8-10.8) X10*3/uL Hgb 13.2 L 13.4 L (14.0-18.0) g/dl Hct 40.4 L 42.9 (42.0-52.0) % Plt Count 124 L 144 L (160-400) X10*3/uL BMP 08/02/22 08/03/22 18:28 05:45 Sodium 136 139 Potassium 4.6 4.6 Chloride 106 105 Carbon Dioxide 23 25 BUN 19 H 19 H Creatinine 1.04 1.02 Calcium 7.6 L D 8.0 L Liver Function 08/02/22 Range/Units 18:28 Total Bilirubin 0.8 (0.0-1.0) mg/dL AST 35 (5-37) U/L ALT 53 H (0-40) U/L Alkaline Phosphatase 60 (39-117) U/L Albumin 3.1 L (3.5-5.0) g/dL Urine 08/03/22 Range/Units 05:36 Urine Color Yellow Urine Appearance Clear Urine pH 6.0 (5.0-9.0) Ur Specific [place] 1.025 (1.005-1.025) Urine Protein Negative (Neg-Trace) mg/dL Urine Glucose (UA) Negative (Negative) mg/dL MRI of brain did not reveal any acute lesion. Mild chronic microvascular ischemic lesions are noted. CTA revealed previously seen vertebral lesions. Chest x-ray was suspicious of infiltrates. Assessment and Plan (1) Double vision: Status: Acute 66 years old man who probably had a transient ischemic attack related to posterior circulation. He is known to have occluded left vertebral and tight right. He also had atrial fibrillation but this episode probably was related to vasculature. For stroke prevention I would suggest adding baby aspirin daily and maximizing blood pressure control and statin therapy. I would also recommend addressing his lungs chest x-ray finding to make sure there was no suggestion of any malignancy. Subclinical infection or malignancy can both put him at risk for hypercoagulable state and stroke. Time Spent With Patient Time: Total time managing care of this patient today ____ minutes. Procedures Date of Service Date of Service: 08/03/22
== END 2022-08-03 17:30 | disposition home or self-care (01) ==
LOC: HO.ED 21:07 → HO.EDOVER 08-03 00:26 → HO.S3 08-03 01:01
PROVIDERS: Physician Assistant; Admitting Provider Internal Medicine; Emergency Provider Emergency Medicine; PCP Nurse Practitioner Family; Visit Provider Internal Medicine
DX: H53.2 Diplopia (principal); G45.9 Transient cerebral ischemic attack, unspecified; D68.62 Lupus anticoagulant syndrome; I48.0 Paroxysmal atrial fibrillation; I10 Essential (primary) hypertension; Z79.01 Long term (current) use of anticoagulants
CPT/HCPCS: 36415; 70450; 70496; 70498; 70551; 71045; 80048; 80053; 80061; 81003; 82947; 83735; 85025; 85610; 87635; 93005; 99221; 99285; Q9967

== ENCOUNTER → 2022-08-14 09:06 | Outpatient (BNVA) | payer MEDICARE, OTHER, SELFPAY | PROVIDERS: PCP Nurse Practitioner Family; Visit Provider Internal Medicine | DX: I48.0 Paroxysmal atrial fibrillation (principal); Z79.01 Long term (current) use of anticoagulants; Z51.81 Encounter for therapeutic drug level monitoring | CPT/HCPCS: 85610; 99211 ==

== ENCOUNTER 2022-08-23 07:56 | Outpatient (REF) | payer MEDICARE, OTHER, SELFPAY ==
--- NOTE | ~2022-08-23 | CT_ITS ---
EXAMINATION: CT CHEST WITH CONTRAST CLINICAL INFORMATION: Abnormal chest radiograph. COMPARISON: Chest radiograph 08/03/2022: Patchy opacities in the left mid and lower lung suspicious for multifocal infiltrate. CT abdomen and pelvis 08/09/2020. TECHNIQUE: Multidetector volumetric CT imaging of the chest was obtained after the administration of 65 mL of Omnipaque 350 intravenous contrast without immediate adverse reactions. Axial MIP volume rendering provided. Sagittal and coronal reformatted images were obtained. This CT examination was performed using dose optimization techniques as appropriate, variously including the following: *Automated exposure control *Adjustment of mA and/or kV according to patient size (this includes techniques or standardized protocols for targeted exams where dose is matched to indication/reason for exam; i.e. extremities or head) *Use of iterative reconstruction technique DLP: 343 mGy-cm FINDINGS: LUNGS: Scattered ill-defined peripheral ground-glass densities are seen most prominently in the left lung in both the lower lobe as well as the left upper lobe. No suspicious solid mass is seen. MEDIASTINUM: Small mediastinal lymph nodes are seen the largest a right paratracheal node measuring 0.9 cm. No mediastinal or hilar lymphadenopathy seen. Coronary calcification is present. Heart size normal. No pericardial effusion. PLEURA: There is no pleural effusion. No pleural mass or thickening. AXILLA: No lymphadenopathy. UPPER ABDOMEN: Unremarkable. OSSEOUS STRUCTURES: Unremarkable. CT/CT chest w IV con IMPRESSION: Ill-defined peripheral ground-glass densities. Findings are nonspecific. Differential diagnosis would include viral pneumonia as well as other inflammatory processes. No suspicious lung masses are seen which would be worrisome for malignancy. Fleischner guidelines were followed.
[2022-08-23] MEDS: iohexoL 350 MG/ML 100 ML INFUS..BTL IV (09:28)
== END 2022-08-23 07:57 | disposition home or self-care (01) ==
LOC: HO.CT 07:56
PROVIDERS: PCP Nurse Practitioner Family; Visit Provider Internal Medicine
DX: R91.8 Other nonspecific abnormal finding of lung field (principal)
CPT/HCPCS: 71260; Q9967

== ENCOUNTER → 2022-08-28 08:06 | Outpatient (BNVA) | payer MEDICARE, OTHER, SELFPAY | PROVIDERS: PCP Nurse Practitioner Family; Visit Provider Internal Medicine | DX: I48.0 Paroxysmal atrial fibrillation (principal); Z79.01 Long term (current) use of anticoagulants; Z51.81 Encounter for therapeutic drug level monitoring | CPT/HCPCS: 85610; 99211 ==

== ENCOUNTER → 2022-09-13 12:31 | Outpatient (BNVA) | payer MEDICARE, OTHER, SELFPAY | PROVIDERS: PCP Nurse Practitioner Family; Referring Provider Nurse Practitioner Family; Visit Provider Internal Medicine Cardiovascular Disease | DX: I48.0 Paroxysmal atrial fibrillation (principal); I25.10 Atherosclerotic heart disease of native coronary artery without angina pectoris | CPT/HCPCS: 93005; 99212 ==

== ENCOUNTER → 2022-09-18 08:03 | Outpatient (BNVA) | payer MEDICARE, OTHER, SELFPAY | PROVIDERS: PCP Nurse Practitioner Family; Visit Provider Internal Medicine | DX: I48.0 Paroxysmal atrial fibrillation (principal); Z79.01 Long term (current) use of anticoagulants; Z51.81 Encounter for therapeutic drug level monitoring | CPT/HCPCS: 85610; 99211 ==

== ENCOUNTER 2022-10-03 10:22 | Outpatient (AMB) | payer MEDICARE, OTHER, SELFPAY ==
--- OUTSIDE RECORDS SUMMARY | 2022-10-03 10:30 | XMS_ITS | Continuity of Care Document ---
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 vaccine info sheet given03/29/09 2Admin Note: vaccine info sheet given 03/29/09 Medications aspirin 81 mg oral delayed release tablet 81 mg, By Mouth, Daily, # 100 tablet, Refills 0, Tot. Refills 0, Maintenance, 02/20/16 11:19:57, Route to Pharmacy Electronically, [id number], [facility]/pharmacy #[id number] Start Date: 02/20/16 Stop Date: 03/21/16 Status: Ordered Ergocalciferol Capsule 50,000 units, By Mouth, Every week, Maintenance, 04/20/15 13:39:32 Start Date: 04/20/15 Status: Ordered Ezetimibe 10 mg tablet Start Date: 02/16/16 Status: Ordered isosorbide mononitrate 60 mg oral tablet, extended release 60 mg, By Mouth, Daily, # 30 tablet, Refills 2, Tot. Refills 2, Maintenance, 02/20/16 11:21:43, Route to Pharmacy Electronically, [id number], [facility]/pharmacy #[id number] Start Date: 02/20/16 Stop Date: 05/20/16 Status: Ordered Ketoconazole 2% Topical 1 applicator, Topically, Daily, 0 Refills, Maintenance Start Date: 04/20/15 Status: Ordered Lipitor 80 mg oral tablet = 80 mg, By Mouth, Daily at bedtime, # 30 tablet, 2 Refills, Maintenance, Tablet, Route to PharmacyElectronically, [id number], [facility]/pharmacy #[id number] Start Date: 02/20/16 Stop Date: 05/20/16 Status: Ordered metoclopramide 5 mg oral tablet 1 tablet = 5 mg, By Mouth, 3 times a day before meals and bedtime, # 90 tablet, 0 Refills, Maintenance, Tablet Start Date: 11/21/09 Status: Ordered metoprolol 25 mg oral tablet, extended release 25 mg, 1, tablet, By Mouth, Daily, # 30 tablet, Refills 2, Tot. Refills 2, Maintenance, 02/20/16 11:22:28, Route to Pharmacy Electronically, [id number], [facility]/pharmacy #[id number] Start Date: 02/20/16 Stop Date: 05/20/16 Status: Ordered Nitro-Bid 2% transdermal ointment 1 inches, Topically, Every 6 hours, 0 Refills, Maintenance, 02/16/16 0:03:30 Start Date: 02/16/16 Status: Ordered pantoprazole 40 mg oral delayed release tablet 40 mg, By Mouth, Daily, # 30 tablet, Refills 0, Tot. Refills 0, Maintenance, 02/20/16 11:23:22, Route to Pharmacy Electronically, [id number], [facility]/pharmacy #[id number] Start Date: 02/20/16 Status: Ordered Warfarin Tablet = 5 mg, Daily, 0 Refills Start Date: 06/21/09 Stop Date: 07/20/09 Status: Ordered Patient Care team information Care Team Personnel Name: Gerri Jha RN Position: [facility] RN Member Role: Primary Care Nurse Name: Daphne Rai RN Position: S RN Member Role: Primary Care Nurse Name: Anyi Mazariegos RN Position: S RN Member Role: Primary Care Nurse Name: Bia Forbes DO Position: Reference Physician Member Role: PCP Address: Address: [address] [place] [address] Name: Juanita Garcia RN Position: S RN Member Role: Primary Care Nurse Care Team Related Persons Name: DIPIKA MCGRATHRAINE Address: [address] [id number]
--- NOTE | 2022-10-03 12:12 | MHC.OFFWIV ---
Intake Vital Signs 10/03/22 12:13 Height 5 ft 10 in BP 140/70 H Blood Pressure Location Rt brachial Position Sitting Pulse 86 Pulse Source Pulse Oximeter Temp 97.7 F Temp Source Oral Pulse Oximetry (%) 94 Oxygen Delivery Method Room Air Intake Visit Reasons: EP Cough, Congestion [phone] Intake Note: Pt is here c/o chest congestion and a bad cough since 09/27/22. Patient Tobacco Use Status: Former Tobacco user Quit Date: 50 years ago Allergies No Known Allergies [No Known Allergies*] Allergy (Verified 02/22/23 07:59) Do you need a note to return to daycare/school/sports/work: No PFSH Medical History Acid reflux Angina pectoris Atrial flutter CAD (coronary artery disease) Cerebrovascular disease, acute CVA (cerebral vascular accident) DDD (degenerative disc disease), lumbar Factor 5 Leiden mutation, heterozygous GERD (gastroesophageal reflux disease) Hemorrhoids HTN (hypertension) Lupus anticoagulant syndrome Osteoarthritis Paget's disease Paroxysmal atrial fibrillation Rectal bleeding Sleep apnea Vitamin deficiency Surgical History Hx of appendectomy Hx of colonoscopy Hx of hand surgery Hx of hernia repair Family History Father HTN (hypertension) S/P triple vessel bypass Mother Brain tumor Cancer Brother Cancer Brain tumor Social History Household Members: Spouse Housing: House Do you presently have visiting nurse or other home services: No Alcohol intake: never Patient Tobacco Use Status: Former Tobacco user Quit Date: 50 years ago Tobacco use type: Cigarette Cigarette Packs Per Day: 1 Cigarettes Per Day: 20.0 Years Smoked: 3 e-Cigarette/Vaping Use: Never Used Second Hand Smoke Exposure: No service: Yes Current occupational status: retired Cognitive needs: No Hearing needs: No Vision needs: No Physical Exam Vital Signs: Last Vital Signs Temp 97.7 F 10/03/22 12:13 Pulse 86 10/03/22 12:13 BP 140/70 H 04/12/23 12:13 Pulse Ox 94 10/03/22 12:13 Oxygen Delivery Method Room Air 10/03/22 12:13 Assessment & Plan Assessment & Plan (1) Cough: Code(s): R05.9 - Cough, unspecified Coding Level of Care Code Est Pt Level 3 (70939) Diagnoses Cough R05.9
[2022-10-03 12:13] VITALS: BP 140/70; PULSE 86; TEMP 36.5; O2SAT 94
== END 2022-10-03 12:54 | disposition other institution (70) ==
PROVIDERS: PCP Nurse Practitioner Family; Visit Provider Emergency Medicine
DX: R05.9 Cough, unspecified (principal)
CPT/HCPCS: 99213

== ENCOUNTER 2022-10-03 15:16 | Outpatient (REF) | payer MEDICARE, OTHER, SELFPAY ==
[2022-10-03 16:39] LABS: Influenza A PCR NEGATIVE (Negative); Influenza B PCR NEGATIVE (Negative); Resp Syncy Virus RNA Qual PCR NEGATIVE (Negative); SARS COV2 PCR INHOUSE NEGATIVE (Negative)
== END 2022-10-03 15:17 | disposition home or self-care (01) ==
LOC: HO.LNP 15:16
PROVIDERS: Visit Provider Nurse Practitioner Family
DX: R05.9 Cough, unspecified (principal); Z20.822 Contact with and (suspected) exposure to COVID-19
CPT/HCPCS: 0241U

== ENCOUNTER → 2022-10-23 08:10 | Outpatient (BNVA) | payer MEDICARE, OTHER, SELFPAY | PROVIDERS: PCP Nurse Practitioner Family; Visit Provider Internal Medicine | DX: I48.0 Paroxysmal atrial fibrillation (principal); Z79.01 Long term (current) use of anticoagulants; Z51.81 Encounter for therapeutic drug level monitoring | CPT/HCPCS: 85610; 99211 ==

== ENCOUNTER 2022-11-09 07:33 | Outpatient (REF) | payer MEDICARE, OTHER, SELFPAY ==
[2022-11-09 11:23] LABS: MANUAL DIFF FLAG NO
[2022-11-09 11:37] LABS: Appearance Urine Clear; Color Urine Yellow; Glucose Urine UA Negative (Negative); Leukocyte Esterase Urine Negative (Negative); Nitrite Urine Negative (Negative); PH 6.5 (5.0-9.0); Specific Gravity - Urine 1.015 (1.005-1.025); Urine Blood Negative (Negative); Urine Ketones Negative (Negative); Urine Protein Negative (Neg-Trace)
[2022-11-09 11:54] LABS: Basophils Percent Auto 0.6 % (0-2); Eosinophils Absolute Auto 0.2 X10*3/uL (0.0-0.4); Eosinophils Percent Auto 3.7 % (0-4); Hematocrit 42.2 % (42.0-52.0); Hemoglobin 13.2 g/dl (14.0-18.0); Imm Gran Abs Auto 0.01 X10*3/uL (0.00-0.03); Imm Gran Pct Auto 0.2 % (0.0-0.4); Lymphocytes Absolute Auto 1.5 X10*3/uL (1.2-4.9); Lymphocytes Percent Auto 29.5 % (20-40); Mean Corpuscular HGB Conc 31.3 g/dl (31.0-36.0); Mean Corpuscular Hemoglobin 28.3 pg (27.0-33.0); Mean Corpuscular Volume 90.6 fL (80.0-98.0); Mean Platelet Volume 11.4 fL (9.4-12.4); Monocytes Absolute Auto 0.4 X10*3/uL (0.1-1.2); Monocytes Percent Auto 7.5 % (2-11); Neutrophils Percent Auto 58.5 % (45-73); Platelet Count 180 X10*3/uL (160-400); Red Blood Count 4.66 X10*6/uL (4.60-5.80); Red Cell Distribution Width 13.8 % (11.0-16.0); White Blood Count 5.1 X10*3/uL (4.8-10.8)
[2022-11-09 12:15] LABS: Alanine Aminotransferase 25 U/L (0-40); Albumin Level 4.1 g/dL (3.5-5.0); Alkaline Phosphatase 77 U/L (39-117); Anion Gap 11 (12-20); Aspartate Amino Transferase 20 U/L (5-37); Bilirubin Total 0.6 mg/dL (0.0-1.0); Blood Urea Nitrogen 9 mg/dL (9-16); Calcium 8.5 mg/dL (8.4-10.2); Carbon Dioxide 29 mmol/L (22-29); Chloride 107 mmol/L (96-108); Cholesterol 125 mg/dL; Estimated Glomerular Filt Rate > 60; Glucose Fasting 105 mg/dL (60-99); HDL Cholesterol 36 mg/dL; LDL Cholesterol Calculated 66 mg/dl; Potassium 4.6 mmol/L (3.3-5.1); Sodium 142 mmol/L (135-145); Total Protein 6.8 g/dL (6.5-8.0); Triglycerides 115 mg/dL
[2022-11-09 12:36] LABS: Prostate Specific Antigen Scr 0.95 ng/mL (<0.05-4.0); TSH reflex Free T4 2.68 uIU/mL (0.32-4.0)
== END 2022-11-09 07:34 | disposition home or self-care (01) ==
LOC: HO.HMGCLDS 07:33
PROVIDERS: PCP Nurse Practitioner Family; Visit Provider Nurse Practitioner Family
DX: Z12.5 Encounter for screening for malignant neoplasm of prostate (principal); G45.9 Transient cerebral ischemic attack, unspecified; I10 Essential (primary) hypertension; M79.7 Fibromyalgia
CPT/HCPCS: 36415; 80053; 80061; 81003; 84153; 84443; 85025

== ENCOUNTER → 2022-11-27 08:04 | Outpatient (BNVA) | payer MEDICARE, OTHER, SELFPAY | PROVIDERS: PCP Nurse Practitioner Family; Visit Provider Internal Medicine | DX: I48.0 Paroxysmal atrial fibrillation (principal); Z79.01 Long term (current) use of anticoagulants; Z51.81 Encounter for therapeutic drug level monitoring | CPT/HCPCS: 85610; 99211 ==

== ENCOUNTER 2023-01-01 08:51 | Outpatient (AMB) | payer MEDICARE, OTHER, SELFPAY ==
--- NOTE | 2023-01-01 09:09 | MHC.OFFVISCO ---
Intake Intake Visit Reasons: Anticoagulation Allergies No Known Allergies [No Known Allergies*] Allergy (Verified 01/01/23 09:05) Medication List - Last Reconciled 01/01/23 by Va Tobar RN aspirin 81 mg PO DAILY atorvastatin 80 mg PO BEDTIME ezetimibe (Zetia) 10 mg PO DAILY 90 days isosorbide mononitrate ER 60 mg PO DAILY lisinopril 10 mg PO DAILY 90 days metoprolol succinate ER 25 mg PO DAILY omeprazole 20 mg PO DAILY@0630 warfarin 5 mg See Protocol PO SUMOWETHSA@1800 Nursing Note INR: 2.7- in therapeutic range Medications and supplements reviewed- no changes No changes in health, diet, medications, or supplements, Denies any signs and symptoms of bleeding or bruising or clotting. Bleeding, bruising, clotting discussed Nutritional guidance given Dose: 2.5mg x 2, 5mg x 5 F/U INR: 4 weeks Patient verbalizes understanding of instructions given Anti-Coag Initial Assessment Social Hx Patient Tobacco Use Status: Former Tobacco user Quit Date: 50 years ago Tobacco use type: Cigarette Smoking packs per day: 1 alcohol intake: never Coding Level of Care Code Est Patient Level 1 Diagnoses Current use of anticoagulant therapy Z79.01 Results AMB INR Fingerstick AMB INR Fingerstick 2.7 Last Edit by Va Tobar RN on 01/01/23 09:11 Assessment & Plan Assessment & Plan (1) Current use of anticoagulant therapy: Comment: Sent a note to PCP regarding Coumadin-will await advisement patient fully aware 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
[2023-01-01 15:40] LABS: Prothrombin Time Whole Bld POC 32.9 sec (11.1-13.5); ~PT, ~INR - Anti Coag Clinic 2.7 (0.9-1.1)
== END 2023-01-01 09:15 | disposition home or self-care (01) ==
LOC: HO.ACS 08:51
PROVIDERS: PCP Nurse Practitioner Family; Visit Provider Internal Medicine
DX: Z79.01 Long term (current) use of anticoagulants (principal)

== ENCOUNTER → 2023-01-01 08:51 | Outpatient (BNVA) | payer MEDICARE, OTHER, SELFPAY | PROVIDERS: PCP Nurse Practitioner Family; Visit Provider Internal Medicine | DX: I48.0 Paroxysmal atrial fibrillation (principal); Z79.01 Long term (current) use of anticoagulants; Z51.81 Encounter for therapeutic drug level monitoring | CPT/HCPCS: 85610; 99211 ==

== ENCOUNTER 2023-01-29 08:09 | Outpatient (AMB) | payer MEDICARE, OTHER, SELFPAY ==
--- NOTE | 2023-01-29 08:18 | MHC.OFFVISCO ---
Intake Intake Visit Reasons: Anticoagulation Allergies No Known Allergies [No Known Allergies*] Allergy (Verified 01/29/23 08:10) Medication List - Last Reconciled 01/29/23 by Va Tobar RN aspirin 81 mg PO DAILY atorvastatin 80 mg PO BEDTIME ezetimibe (Zetia) 10 mg PO DAILY 90 days isosorbide mononitrate ER 60 mg PO DAILY lisinopril 10 mg PO DAILY 90 days metoprolol succinate ER 25 mg PO DAILY omeprazole 20 mg PO DAILY@0630 warfarin 5 mg See Protocol PO SUMOWETHSA@1800 Nursing Note INR: 2.1- in therapeutic range Medications and supplements reviewed- no changes No changes in health, diet, medications, or supplements, Denies any signs and symptoms of bleeding or bruising or clotting. Bleeding, bruising, clotting discussed Nutritional guidance given Dose: 5mg x 5, 2.5mg x 2 F/U INR: 4 weeks ]Patient verbalizes understanding of instructions given Anti-Coag Initial Assessment Social Hx Patient Tobacco Use Status: Former Tobacco user Quit Date: 50 years ago Tobacco use type: Cigarette Smoking packs per day: 1 alcohol intake: never Coding Level of Care Code Est Patient Level 1 Diagnoses Current use of anticoagulant therapy Z79.01 Assessment & Plan Assessment & Plan (1) Current use of anticoagulant therapy: Comment: Sent a note to PCP regarding Coumadin-will await advisement patient fully aware 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
[2023-01-29 08:19] LABS: Prothrombin Time Whole Bld POC 25.1 sec (11.1-13.5); ~PT, ~INR - Anti Coag Clinic 2.1 (0.9-1.1)
== END 2023-01-29 08:27 | disposition home or self-care (01) ==
LOC: HO.ACS 08:09
PROVIDERS: PCP Nurse Practitioner Family; Visit Provider Internal Medicine
DX: Z79.01 Long term (current) use of anticoagulants (principal)

== ENCOUNTER → 2023-01-29 08:09 | Outpatient (BNVA) | payer MEDICARE, OTHER, SELFPAY | PROVIDERS: PCP Nurse Practitioner Family; Visit Provider Internal Medicine | DX: I48.0 Paroxysmal atrial fibrillation (principal); Z79.01 Long term (current) use of anticoagulants; Z51.81 Encounter for therapeutic drug level monitoring | CPT/HCPCS: 85610; 99211 ==

== ENCOUNTER 2023-02-22 07:58 | Outpatient (AMB) | payer MEDICARE, OTHER, SELFPAY ==
[2023-02-22 08:04] LABS: Prothrombin Time Whole Bld POC 30.1 sec (11.1-13.5); ~PT, ~INR - Anti Coag Clinic 2.5 (0.9-1.1)
--- NOTE | 2023-02-22 08:07 | MHC.OFFVISCO ---
Intake Intake Visit Reasons: Anticoagulation Allergies No Known Allergies [No Known Allergies*] Allergy (Verified 02/22/23 07:59) Medication List - Last Reconciled 02/22/23 by Brianne Flores RN aspirin 81 mg PO DAILY atorvastatin 80 mg PO BEDTIME ezetimibe (Zetia) 10 mg PO DAILY 90 days isosorbide mononitrate ER 60 mg PO DAILY lisinopril 10 mg PO DAILY 90 days metoprolol succinate ER 25 mg PO DAILY omeprazole 20 mg PO DAILY@0630 warfarin 5 mg See Protocol PO SUMOWETHSA@1800 Nursing Note INR: 2.5 in therapeutic range Medications and supplements reviewed possible eye infection - going to see md today and will call with any changes , Denies any signs and symptoms of bleeding or bruising or clotting. Bleeding, bruising, clotting discussed Nutritional guidance given Dose: 2.5mg x 2 days/ 5mg x 5 days F/U INR: 1 month Patient verbalizes understanding of instructions given Anti-Coag Initial Assessment Social Hx Patient Tobacco Use Status: Former Tobacco user Quit Date: 50 years ago Tobacco use type: Cigarette Smoking packs per day: 1 alcohol intake: never Coding Level of Care Code Est Patient Level 1 Diagnoses Current use of anticoagulant therapy Z79.01 Results AMB INR Fingerstick AMB INR Fingerstick 2.5 Last Edit by Brianne Flores RN on 02/22/23 08:04 Assessment & Plan Assessment & Plan (1) Current use of anticoagulant therapy: Comment: Sent a note to PCP regarding Coumadin-will await advisement patient fully aware Code(s): Z79.01 - halfway (current) use of anticoagulants Category: Medical
== END 2023-02-22 08:09 | disposition home or self-care (01) ==
LOC: HO.ACS 07:58
PROVIDERS: PCP Nurse Practitioner Family; Visit Provider Internal Medicine
DX: Z79.01 Long term (current) use of anticoagulants (principal)

== ENCOUNTER → 2023-02-22 07:58 | Outpatient (BNVA) | payer MEDICARE, OTHER, SELFPAY | PROVIDERS: PCP Nurse Practitioner Family; Visit Provider Internal Medicine | DX: I48.0 Paroxysmal atrial fibrillation (principal); Z79.01 Long term (current) use of anticoagulants; Z51.81 Encounter for therapeutic drug level monitoring | CPT/HCPCS: 85610; 99211 ==

== ENCOUNTER 2023-03-29 07:56 | Outpatient (AMB) | payer MEDICARE, OTHER, SELFPAY ==
--- NOTE | 2023-03-29 08:06 | MHC.OFFVISCO ---
Intake Intake Visit Reasons: Anticoagulation Allergies No Known Allergies [No Known Allergies*] Allergy (Verified 03/29/23 08:00) Medication List - Last Reconciled 03/29/23 by Anabel Montiel RN aspirin 81 mg PO DAILY atorvastatin 80 mg PO BEDTIME ezetimibe (Zetia) 10 mg PO DAILY 90 days isosorbide mononitrate ER 60 mg PO DAILY lisinopril 10 mg PO DAILY 90 days metoprolol succinate ER 25 mg PO DAILY omeprazole 20 mg PO DAILY@0630 warfarin 5 mg See Protocol PO SUMOWETHSA@1800 Nursing Note Amb to ACS feeling well Medications and supplements reviewed No changes in health, diet, medications, or supplements Denies any unusual signs and symptoms of bruising, bleeding Denies any new Chest pain, SOB, or clotting INR:1.8 below therapeutic range Nutritional guidance given:no greens today then balance greens and reds in diet Dose: increase dose tonight to 5mg then resume usual dosing; 2.5mg x 2 days and 5mg x 5 days F/U INR: 2 weeks Patient verbalizes understanding of instructions given with accurate read back/ teach back of dosing Anti-Coag Initial Assessment Social Hx Patient Tobacco Use Status: Former Tobacco user Quit Date: 50 years ago Tobacco use type: Cigarette Smoking packs per day: 1 alcohol intake: never Coding Level of Care Code Est Patient Level 1 Diagnoses Current use of anticoagulant therapy Z79.01 Time Spent (min) 15 Assessment & Plan Assessment & Plan (1) Current use of anticoagulant therapy: Comment: Sent a note to PCP regarding Coumadin-will await advisement patient fully aware Code(s): Z79.01 - [facility] (current) use of anticoagulants Category: Medical
== END 2023-03-29 08:12 | disposition home or self-care (01) ==
LOC: HO.ACS 07:56
PROVIDERS: PCP Nurse Practitioner Family; Visit Provider Internal Medicine
DX: Z79.01 Long term (current) use of anticoagulants (principal)

== ENCOUNTER → 2023-03-29 07:56 | Outpatient (BNVA) | payer MEDICARE, OTHER, SELFPAY | PROVIDERS: PCP Nurse Practitioner Family; Visit Provider Internal Medicine | DX: I48.0 Paroxysmal atrial fibrillation (principal); Z79.01 Long term (current) use of anticoagulants; Z51.81 Encounter for therapeutic drug level monitoring | CPT/HCPCS: 85610; 99211 ==

== ENCOUNTER 2023-04-12 07:56 | Outpatient (AMB) | payer MEDICARE, OTHER, SELFPAY ==
[2023-04-12 08:10] LABS: ~PT, ~INR - Anti Coag Clinic 2.1 (0.9-1.1)
--- NOTE | 2023-04-12 08:16 | MHC.OFFVISCO ---
Intake Intake Visit Reasons: Anticoagulation Allergies No Known Allergies [No Known Allergies*] Allergy (Verified 04/12/23 08:10) Medication List - Last Reconciled 04/12/23 by Vicky Quiñones RN aspirin 81 mg PO DAILY atorvastatin 80 mg PO BEDTIME ezetimibe (Zetia) 10 mg PO DAILY 90 days isosorbide mononitrate ER 60 mg PO DAILY lisinopril 10 mg PO DAILY 90 days metoprolol succinate ER 25 mg PO DAILY omeprazole 20 mg PO DAILY@0630 warfarin 5 mg See Protocol PO SUMOWETHSA@1800 Nursing Note NO CP,SOB,DIET/MED CHANGES,FALLS OR SX OF BLEEDING. CONTINUE PRESDENT DOSE AND FOLLOW-UP IN 4 WEEKS GOOD UNDERSTANDING OF DFOSING INSTR. 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
== END 2023-04-12 08:18 | disposition home or self-care (01) ==
LOC: HO.ACS 07:56
PROVIDERS: PCP Nurse Practitioner Family; Visit Provider Internal Medicine
DX: Z79.01 Long term (current) use of anticoagulants (principal)

== ENCOUNTER → 2023-04-12 07:56 | Outpatient (BNVA) | payer MEDICARE, OTHER, SELFPAY | PROVIDERS: PCP Nurse Practitioner Family; Visit Provider Internal Medicine | DX: I48.0 Paroxysmal atrial fibrillation (principal); Z79.01 Long term (current) use of anticoagulants; Z51.81 Encounter for therapeutic drug level monitoring | CPT/HCPCS: 85610; 99211 ==

== ENCOUNTER 2023-04-24 14:04 | Outpatient (AMB) | payer MEDICARE, OTHER, SELFPAY ==
--- NOTE | 2023-04-24 14:06 | MHC.PC.OV ---
Vital Signs 04/24/23 14:08 Height 5 ft 10 in Weight 300 lb BMI 43.0 BP 126/74 Blood Pressure Location Rt brachial Position Sitting Pulse 96 Pulse Source Pulse Oximeter Pulse Oximetry (%) 94 Oxygen Delivery Method Room Air Intake Visit Reasons: 3m follow up Allergies No Known Allergies [No Known Allergies*] Allergy (Verified 04/24/23 14:09) Tobacco use date assessed: 11/15/22 HPI 3m follow up HPI Details HTN: stable. denies any SOB, CP, GALLAGHER, or dizziness. Report doing well overal, though does report minor aches and pains. Has been working around the house doing small projects. Will cont to monitor. He is currently on metoprolol, isosorbide, and lisinopril. [facility] Medical History DDD (degenerative disc disease), lumbar Acid reflux Hemorrhoids Lupus anticoagulant syndrome Factor 5 Leiden mutation, heterozygous Paroxysmal atrial fibrillation CAD (coronary artery disease) Paget's disease Rectal bleeding Vitamin deficiency Atrial flutter Osteoarthritis Angina pectoris Sleep apnea GERD (gastroesophageal reflux disease) CVA (cerebral vascular accident) HTN (hypertension) Cerebrovascular disease, acute Surgical History Hx of colonoscopy Hx of hand surgery Hx of appendectomy Hx of hernia repair Family History Father HTN (hypertension) S/P triple vessel bypass Mother Brain tumor Cancer Brother Cancer Brain tumor Social History Household Members: Spouse Housing: House Do you presently have visiting nurse or other home services: No Alcohol intake: never Patient Tobacco Use Status: Former Tobacco user Quit Date: 50 years ago Tobacco use type: Cigarette Cigarette Packs Per Day: 1 Cigarettes Per Day: 20.0 Years Smoked: 3 e-Cigarette/Vaping Use: Never Used Second Hand Smoke Exposure: No service: Yes Current occupational status: retired Cognitive needs: No Hearing needs: No Vision needs: No Questionnaire Thrive Questionnaire Date Thrive assessed: 09/14/21 LILLIAN-7 AMB Questionnaire LILLIAN-7 Date LILLIAN - 7 assessed: 09/14/21 Source: Developed by Drs. Brandt Salvador, Katie Gaines, Parish Mae and colleagues, with an educational timmy from [employer]. Physical exam (Primary Care) Vital Signs: Last Vital Signs Pulse 96 04/24/23 14:08 BP 126/74 04/24/23 14:08 Pulse Ox 94 04/24/23 14:08 Oxygen Delivery Method Room Air 04/24/23 14:08 BMI result Body Mass Index 43.0 Tobacco/Smoking Status: Tobacco use Status Tobacco use date assessed 11/15/22 04/24/23 14:07 Patient Tobacco Use Status Former Tobacco user 04/24/23 14:07 Tobacco use type Cigarette 04/24/23 14:07 e-Cigarette/Vaping Use Never Used 04/24/23 14:07 Thrive Assessment: Date of Thrive Assessment Date Thrive assessed 09/14/21 04/24/23 14:07 Const General: cooperative and healthy appearing Nutritional Appearance: obese Resp Effort & Inspection: normal respiratory effort Auscultation: clear to auscultation bilaterally Cardio Rate: regular rate Rhythm: regular rhythm Heart sounds: S1 normal heart sound present, S2 normal heart sound present and Murmur heart sound present systolic Extrem Right lower extremity: edema Left lower extremity: edema Psych Appearance: grossly normal Mental Status: mental status grossly normal Speech and movement: Normal speech and movement present Affect: normal affect Attitude: cooperative Thought process: Normal thought process present Thought content: Normal thought content present Insight: Good insight present (Psych) Judgement: Good judgement present (Psych) Assessment and Plan Assessment & Plan (1) Dyslipidemia: Code(s): E78.5 - Hyperlipidemia, unspecified Plan: lipid panel ordered (2) HTN (hypertension): Code(s): I10 - Essential (primary) hypertension Plan: stable, labs ordered Orders: Orders TSH reflex Free T4 Today E78.5 - Hyperlipidemia, unspecified, I10 - Essential (primary) hypertension Lipid Panel Today E78.5 - Hyperlipidemia, unspecified, I10 - Essential (primary) hypertension Complete Blood Count Auto Diff Today E78.5 - Hyperlipidemia, unspecified, I10 - Essential (primary) hypertension Comprehensive [place]. Panel Fast Today E78.5 - Hyperlipidemia, unspecified, I10 - Essential (primary) hypertension UA CC w/rflx Micro + Cult Today E78.5 - Hyperlipidemia, unspecified, I10 - Essential (primary) hypertension Coding Level of Care Code Est Pt Level 3 (35312) Diagnoses Dyslipidemia E78.5 HTN (hypertension) I10
[2023-04-24 14:08] VITALS: BP 126/74; PULSE 96; O2SAT 94; BMI 43.0
== END 2023-04-24 14:59 | disposition home or self-care (01) ==
PROVIDERS: PCP Nurse Practitioner Family; Visit Provider Nurse Practitioner Family
DX: E78.5 Hyperlipidemia, unspecified (principal); I10 Essential (primary) hypertension; D68.62 Lupus anticoagulant syndrome
CPT/HCPCS: 99213

== ENCOUNTER 2023-05-10 07:58 | Outpatient (AMB) | payer MEDICARE, OTHER, SELFPAY ==
[2023-05-10 08:09] LABS: Prothrombin Time Whole Bld POC 30.4 sec (11.1-13.5); ~PT, ~INR - Anti Coag Clinic 2.5 (0.9-1.1)
--- NOTE | 2023-05-10 08:11 | MHC.OFFVISCO ---
Intake Intake Visit Reasons: Anticoagulation Allergies No Known Allergies [No Known Allergies*] Allergy (Verified 05/10/23 08:01) Medication List - Last Reconciled 05/10/23 by Anabel Montiel RN aspirin 81 mg PO DAILY atorvastatin 80 mg PO BEDTIME ezetimibe (Zetia) 10 mg PO DAILY 90 days isosorbide mononitrate ER 60 mg PO DAILY lisinopril 10 mg PO DAILY 90 days metoprolol succinate ER 25 mg PO DAILY omeprazole 20 mg PO DAILY@0630 warfarin 5 mg See Protocol PO SUMOWETHSA@1800 Nursing Note Amb to ACS feeling well Medications and supplements reviewed No changes in health, diet, medications, or supplements Denies any unusual signs and symptoms of bruising, bleeding Denies any new Chest pain, SOB, or clotting INR: 2.5 in therapeutic range Nutritional guidance given: balance greens and reds in diet Dose: continue usual dosing;2.5mg x 2 days and 5mg x 5 days F/U INR:5 weeks Patient verbalizes understanding of instructions given with accurate read back/ teach back of dosing Anti-Coag Initial Assessment Social Hx Patient Tobacco Use Status: Former Tobacco user Quit Date: 50 years ago Tobacco use type: Cigarette Smoking packs per day: 1 alcohol intake: never Questionnaires HAS-BLED Does the patient had uncontrolled Hypertension?: No Does the patient have renal disease?: No Does the patient have liver disease?: No Does the patient have a history of stroke?: Yes Has the patient had major bleeding or predisposition to bleeding?: Yes Does the patient have labile INRs?: No Is the patient over 65 years of age?: Yes Is the patient on medications that gives them a predisposition to bleeding?: Yes Does the patient use alcohol?: No HAS-BLED Score: 4 CHADSVASC Age: 66-74 Gender: Male Does the patient have a history of CHF?: No Does the patient have a history of Hypertension?: Yes Does the patient have a history of Stroke/TIA/Thromboembolism?: Yes Does the patient have a history of Vascular Disease (prior [place], PAD or aortic plaque)?: Yes Does the patient have a history of Diabetes?: No CHADS VACS Score: 5 Justen Prediction Score Rsk VTE Active Cancer: No Previous VTE, excluding superficial vein thrombosis: No Reduced mobility: No Already known Thrombophilic Condition: Yes With-in last month Trauma and/or Surgery: No Elderly 70 year or older: No Heart and/or Respiratory Failure: No Acute Myocardial infarction and/or Ischemic Stroke: Yes Acute Infection and/or Rheumatologic Disorder: No Obesity (BMI 30 or greater): Yes Ongoing Hormonal Treatment: No Score: 5 Justen Score less than 4; Low Risk of VTE Justen Score 4 or greater; High Risk of VTE Coding Level of Care Code Est Patient Level 1 Diagnoses Current use of anticoagulant therapy Z79.01 Time Spent (min) 15 Assessment & Plan Assessment & Plan (1) Current use of anticoagulant therapy: Comment: Sent a note to PCP regarding Coumadin-will await advisement patient fully aware 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
== END 2023-05-10 08:16 | disposition home or self-care (01) ==
LOC: HO.ACS 07:58
PROVIDERS: PCP Nurse Practitioner Family; Visit Provider Internal Medicine
DX: Z79.01 Long term (current) use of anticoagulants (principal)

== ENCOUNTER → 2023-05-10 07:58 | Outpatient (BNVA) | payer MEDICARE, OTHER, SELFPAY | PROVIDERS: PCP Nurse Practitioner Family; Visit Provider Internal Medicine | DX: I48.0 Paroxysmal atrial fibrillation (principal); Z79.01 Long term (current) use of anticoagulants; Z51.81 Encounter for therapeutic drug level monitoring | CPT/HCPCS: 85610; 99211 ==

== ENCOUNTER 2023-06-14 08:02 | Outpatient (AMB) | payer MEDICARE, OTHER, SELFPAY ==
--- NOTE | 2023-06-14 08:09 | MHC.OFFVISCO ---
Intake Intake Visit Reasons: Anticoagulation Allergies No Known Allergies [No Known Allergies*] Allergy (Verified 06/14/23 08:04) Medication List - Last Reconciled 06/14/23 by Va Tobar RN aspirin 81 mg PO DAILY atorvastatin 80 mg PO BEDTIME ezetimibe (Zetia) 10 mg PO DAILY 90 days isosorbide mononitrate ER 60 mg PO DAILY lisinopril 10 mg PO DAILY 90 days metoprolol succinate ER 25 mg PO DAILY omeprazole 20 mg PO DAILY@0630 warfarin 5 mg See Protocol PO SUMOWETHSA@1800 Nursing Note INR: 2.7- in therapeutic range of 2-3 Medications and supplements reviewed- no changes No changes in health, diet, medications, or supplements, Denies any signs and symptoms of bleeding or bruising or clotting. Bleeding, bruising, clotting discussed Nutritional guidance given Dose: 2.5mg x 2, 5mg x 5 F/U INR: pt req 5 weeks Patient verbalizes understanding of instructions given Anti-Coag Initial Assessment Social Hx Patient Tobacco Use Status: Former Tobacco user Quit Date: 50 years ago Tobacco use type: Cigarette Smoking packs per day: 1 alcohol intake: never Questionnaires HAS-BLED Does the patient had uncontrolled Hypertension?: No Does the patient have renal disease?: No Does the patient have liver disease?: No Does the patient have a history of stroke?: Yes Has the patient had major bleeding or predisposition to bleeding?: Yes Does the patient have labile INRs?: No Is the patient over 65 years of age?: Yes Is the patient on medications that gives them a predisposition to bleeding?: Yes Does the patient use alcohol?: No HAS-BLED Score: 4 CHADSVASC Age: 66-74 Gender: Male Does the patient have a history of CHF?: No Does the patient have a history of Hypertension?: Yes Does the patient have a history of Stroke/TIA/Thromboembolism?: Yes Does the patient have a history of Vascular Disease (prior [place], PAD or aortic plaque)?: Yes Does the patient have a history of Diabetes?: No CHADS VACS Score: 5 Justen Prediction Score Rsk VTE Active Cancer: No Previous VTE, excluding superficial vein thrombosis: No Reduced mobility: No Already known Thrombophilic Condition: Yes With-in last month Trauma and/or Surgery: No Elderly 70 year or older: No Heart and/or Respiratory Failure: No Acute Myocardial infarction and/or Ischemic Stroke: Yes Acute Infection and/or Rheumatologic Disorder: No Obesity (BMI 30 or greater): Yes Ongoing Hormonal Treatment: No Score: 5 Justen Score less than 4; Low Risk of VTE Justen Score 4 or greater; High Risk of VTE Coding Level of Care Code Est Patient Level 1 Diagnoses Current use of anticoagulant therapy Z79.01 Results AMB INR Fingerstick AMB INR Fingerstick 2.7 Last Edit by Va Tobar RN on 06/14/23 08:10 Assessment & Plan Assessment & Plan (1) Current use of anticoagulant therapy: Comment: Sent a note to PCP regarding Coumadin-will await advisement patient fully aware 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
[2023-06-14 08:10] LABS: Prothrombin Time Whole Bld POC 32.7 sec (11.1-13.5); ~PT, ~INR - Anti Coag Clinic 2.7 (0.9-1.1)
== END 2023-06-14 08:59 | disposition home or self-care (01) ==
LOC: HO.ACS 08:02
PROVIDERS: PCP Nurse Practitioner Family; Visit Provider Internal Medicine
DX: Z79.01 Long term (current) use of anticoagulants (principal)

== ENCOUNTER → 2023-06-14 08:02 | Outpatient (BNVA) | payer MEDICARE, OTHER, SELFPAY | PROVIDERS: PCP Nurse Practitioner Family; Visit Provider Internal Medicine | DX: I48.0 Paroxysmal atrial fibrillation (principal); Z51.81 Encounter for therapeutic drug level monitoring; Z79.01 Long term (current) use of anticoagulants | CPT/HCPCS: 85610; 99211 ==

== ENCOUNTER 2023-07-19 08:03 | Outpatient (AMB) | payer MEDICARE, OTHER, SELFPAY ==
--- NOTE | 2023-07-19 08:15 | MHC.OFFVISCO ---
Intake Intake Visit Reasons: Anticoagulation Allergies No Known Allergies [No Known Allergies*] Allergy (Verified 07/19/23 08:08) Medication List - Last Reconciled 07/19/23 by Brianne Flores RN aspirin 81 mg PO DAILY atorvastatin 80 mg PO BEDTIME ezetimibe (Zetia) 10 mg PO DAILY 90 days isosorbide mononitrate ER 60 mg PO DAILY lisinopril 10 mg PO DAILY 90 days metoprolol succinate ER 25 mg PO DAILY omeprazole 20 mg PO DAILY@0630 warfarin 5 mg See Protocol PO SUMOWETHSA@1800 Nursing Note INR: 2.6 in therapeutic range Medications and supplements reviewed No changes in health, diet, medications, or supplements, Denies any signs and symptoms of bleeding or bruising or clotting. Bleeding, bruising, clotting discussed Nutritional guidance given Dose: 2.5mg x 2 days/ 5mg x 5 days F/U INR: 1 month Patient verbalizes understanding of instructions given Anti-Coag Initial Assessment Social Hx Patient Tobacco Use Status: Former Tobacco user Quit Date: 50 years ago Tobacco use type: Cigarette Smoking packs per day: 1 alcohol intake: never Coding Level of Care Code Est Patient Level 1 Diagnoses Current use of anticoagulant therapy Z79.01 Results AMB INR Fingerstick AMB INR Fingerstick 2.6 Last Edit by Brianne Flores RN on 07/19/23 08:14 manual entry Assessment & Plan Assessment & Plan (1) Current use of anticoagulant therapy: Comment: Sent a note to PCP regarding Coumadin-will await advisement patient fully aware Code(s): Z79.01 - residential (current) use of anticoagulants Category: Medical
[2023-07-22 17:35] LABS: Prothrombin Time Whole Bld POC 31.8 sec (11.1-13.5); ~PT, ~INR - Anti Coag Clinic 2.6 (0.9-1.1)
== END 2023-07-19 08:18 | disposition home or self-care (01) ==
LOC: HO.ACS 08:03
PROVIDERS: PCP Nurse Practitioner Family; Visit Provider Internal Medicine
DX: Z79.01 Long term (current) use of anticoagulants (principal)

== ENCOUNTER → 2023-07-19 08:03 | Outpatient (BNVA) | payer MEDICARE, OTHER, SELFPAY | PROVIDERS: PCP Nurse Practitioner Family; Visit Provider Internal Medicine | DX: I48.0 Paroxysmal atrial fibrillation (principal); Z79.01 Long term (current) use of anticoagulants; Z51.81 Encounter for therapeutic drug level monitoring | CPT/HCPCS: 85610; 99211 ==

== ENCOUNTER 2023-08-20 06:26 | Outpatient (REF) | payer MEDICARE, OTHER, SELFPAY ==
[2023-08-20 10:22] LABS: Appearance Urine Clear; Color Urine Yellow; Glucose Urine UA Negative (Negative); Leukocyte Esterase Urine Negative (Negative); Nitrite Urine Negative (Negative); Specific Gravity - Urine 1.015 (1.005-1.025); Urine Blood Negative (Negative); Urine Ketones Negative (Negative); Urine Protein Negative (Neg-Trace)
[2023-08-20 10:23] LABS: MANUAL DIFF FLAG NO
[2023-08-20 10:32] LABS: Basophils Percent Auto 0.4 % (0-2); Eosinophils Absolute Auto 0.2 X10*3/uL (0.0-0.4); Eosinophils Percent Auto 3.1 % (0-4); Hematocrit 44.2 % (42.0-52.0); Hemoglobin 13.9 g/dl (14.0-18.0); Imm Gran Abs Auto 0.01 X10*3/uL (0.00-0.03); Imm Gran Pct Auto 0.1 % (0.0-0.4); Lymphocytes Percent Auto 29.9 % (20-40); Mean Corpuscular HGB Conc 31.4 g/dl (31.0-36.0); Mean Corpuscular Hemoglobin 27.9 pg (27.0-33.0); Mean Corpuscular Volume 88.8 fL (80.0-98.0); Mean Platelet Volume 11.5 fL (9.4-12.4); Monocytes Absolute Auto 0.6 X10*3/uL (0.1-1.2); Monocytes Percent Auto 8.1 % (2-11); Neutrophils Absolute Auto 3.9 x10*3/uL (2.0-8.3); Neutrophils Percent Auto 58.4 % (45-73); Platelet Count 158 X10*3/uL (160-400); Red Blood Count 4.98 X10*6/uL (4.60-5.80); Red Cell Distribution Width 13.6 % (11.0-16.0); White Blood Count 6.8 X10*3/uL (4.8-10.8)
[2023-08-20 11:24] LABS: Alanine Aminotransferase 34 U/L (0-40); Alkaline Phosphatase 82 U/L (39-117); Anion Gap 11 (12-20); Aspartate Amino Transferase 20 U/L (5-37); Bilirubin Total 0.4 mg/dL (0.0-1.0); Blood Urea Nitrogen 15 mg/dL (9-16); Calcium 8.9 mg/dL (8.4-10.2); Carbon Dioxide 29 mmol/L (22-29); Chloride 105 mmol/L (96-108); Cholesterol 139 mg/dL (<200); Estimated Glomerular Filt Rate > 60; Glucose Fasting 117 mg/dL (60-99); HDL Cholesterol 37 mg/dL (>40); LDL Cholesterol Calculated 74 mg/dL (<100); Potassium 4.5 mmol/L (3.3-5.1); Sodium 140 mmol/L (135-145); TSH reflex Free T4 3.41 uIU/mL (0.32-4.0); Total Protein 7.2 g/dL (6.5-8.0); Triglycerides 142 mg/dL (<150)
== END 2023-08-20 06:27 | disposition home or self-care (01) ==
LOC: HO.HMGCLDS 06:26
PROVIDERS: PCP Nurse Practitioner Family; Visit Provider Nurse Practitioner Family
DX: E78.5 Hyperlipidemia, unspecified (principal); I10 Essential (primary) hypertension
CPT/HCPCS: 36415; 80053; 80061; 81003; 84443; 85025

== ENCOUNTER 2023-08-22 13:57 | Outpatient (AMB) | payer MEDICARE, OTHER, SELFPAY ==
--- NOTE | 2023-08-22 14:04 | MHC.PC.OV ---
Vital Signs 08/22/23 14:05 Height 51 ft Weight 305 lb 6 oz BMI 0.6 BP 138/76 Blood Pressure Location Lt brachial Position Sitting Pulse 60 Pulse Source Pulse Oximeter Pulse Oximetry (%) 95 Oxygen Delivery Method Room Air Intake Visit Reasons: 4 Month follow up Intake Note: Pt is here to follow up for HTN and lipids Allergies No Known Allergies [No Known Allergies*] Allergy (Verified 08/22/23 14:07) Tobacco use date assessed: 08/22/23 Fall risk assessment: No Falls in past year Last assessed Fall Risk: 08/22/23 Dental Screening Dental Screen Date: 08/22/23 Did you have a dental visit in the last 12 months?: No Did you have a dental problem in the last 6 months where you did not have access to dental care?: No Was dental information given to patient?: No HPI 4 Month follow up HPI Details HTN: Blood pressure is stable, managed with isosorbide mononitrate 60mg, lisinopril 10mg, and metoprolol 25mg. Denies chest pain, shortness of breath, headache, dizziness, and blurred vision. Pt is seeing cardiology. 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 dyslipidemia: on zetia, high dose statin, and asa. [facility] Medical History (Updated 08/22/23 @ 17:23 by JAMEEL Serrato) DDD (degenerative disc disease), lumbar Acid reflux Hemorrhoids Lupus anticoagulant syndrome Factor 5 Leiden mutation, heterozygous Paroxysmal atrial fibrillation CAD (coronary artery disease) Paget's disease Rectal bleeding Vitamin deficiency Atrial flutter Osteoarthritis Angina pectoris Sleep apnea GERD (gastroesophageal reflux disease) CVA (cerebral vascular accident) HTN (hypertension) Cerebrovascular disease, acute Surgical History Hx of colonoscopy Hx of hand surgery Hx of appendectomy Hx of hernia repair Family History Father HTN (hypertension) S/P triple vessel bypass Mother Brain tumor Cancer Brother Cancer Brain tumor Social History Household Members: Spouse Housing: House Do you presently have visiting nurse or other home services: No Alcohol intake: never Patient Tobacco Use Status: Former Tobacco user Quit Date: 50 years ago Tobacco use type: Cigarette Cigarette Packs Per Day: 1 Cigarettes Per Day: 20.0 Years Smoked: 3 e-Cigarette/Vaping Use: Never Used Second Hand Smoke Exposure: No service: Yes Current occupational status: retired Cognitive needs: No Hearing needs: No Vision needs: No Questionnaire Thrive Questionnaire Date Thrive assessed: 09/14/21 LILLIAN-7 AMB Questionnaire LILLIAN-7 Date LILLIAN - 7 assessed: 09/14/21 Source: Developed by Drs. Brandt Salvador, Katie Gaines, Parish Mae and colleagues, with an educational timmy from [employer]. Review of Systems Const Reports as per HPI Physical exam (Primary Care) Vital Signs: Last Vital Signs Pulse 60 08/22/23 14:05 BP 138/76 08/22/23 14:05 Pulse Ox 95 08/22/23 14:05 Oxygen Delivery Method Room Air 08/22/23 14:05 BMI result Body Mass Index 0.6 Tobacco/Smoking Status: Tobacco use Status Tobacco use date assessed 08/22/23 08/22/23 14:12 Patient Tobacco Use Status Former Tobacco user 08/22/23 14:12 Tobacco use type Cigarette 08/22/23 14:12 e-Cigarette/Vaping Use Never Used 08/22/23 14:12 Thrive Assessment: Date of Thrive Assessment Date Thrive assessed 09/14/21 08/22/23 14:12 Const General: cooperative Nutritional Appearance: obese Orientation/consciousness: patient oriented x3 Resp Other: lungs fairly clear Effort & Inspection: normal respiratory effort Cardio Rate: regular rate Rhythm: regular rhythm Heart sounds: S1 normal heart sound present, S2 normal heart sound present and Murmur heart sound present systolic (faint) Neuro General: patient oriented x3 Extrem Right lower extremity: no edema Left lower extremity: no edema Psych Appearance: grossly normal Mental Status: mental status grossly normal Speech and movement: Normal speech and movement present Affect: normal affect Attitude: cooperative Thought process: Normal thought process present Thought content: Normal thought content present Insight: Good insight present (Psych) Judgement: Good judgement present (Psych) Assessment and Plan Assessment & Plan (1) Lupus anticoagulant syndrome: Code(s): D68.62 - Lupus anticoagulant syndrome (2) HTN (hypertension): Code(s): I10 - Essential (primary) hypertension Plan: stable (3) Factor 5 Leiden mutation, heterozygous: Code(s): D68.51 - Activated protein C resistance Plan: follow up with hematology, on coumadin Plan The patient agreed to the use of a medical research tech for this encounter. Scribed for JAMEEL Curtis by Sonya Bowers medical research tech, on 08/22/2023 at 14:25 EST. Coding Level of Care Code Est Pt Level 3 (61265) Diagnoses Lupus anticoagulant syndrome D68.62 HTN (hypertension) I10 Factor 5 Leiden mutation, heterozygous D68.51
[2023-08-22 14:05] VITALS: BP 138/76; PULSE 60; O2SAT 95
== END 2023-08-22 14:58 | disposition home or self-care (01) ==
PROVIDERS: PCP Nurse Practitioner Family; Visit Provider Nurse Practitioner Family
DX: D68.62 Lupus anticoagulant syndrome (principal); I10 Essential (primary) hypertension
CPT/HCPCS: 99213

== ENCOUNTER 2023-08-23 08:02 | Outpatient (AMB) | payer MEDICARE, OTHER, SELFPAY ==
--- NOTE | 2023-08-23 08:11 | MHC.OFFVISCO ---
Intake Intake Visit Reasons: Anticoagulation Allergies No Known Allergies [No Known Allergies*] Allergy (Verified 08/23/23 08:07) Medication List - Last Reconciled 08/23/23 by Va Tobar RN aspirin 81 mg PO DAILY atorvastatin 80 mg PO BEDTIME ezetimibe (Zetia) 10 mg PO DAILY 90 days isosorbide mononitrate ER 60 mg PO DAILY lisinopril 10 mg PO DAILY 90 days metoprolol succinate ER 25 mg PO DAILY omeprazole 20 mg PO DAILY@0630 warfarin 5 mg See Protocol PO SUMOWETHSA@1800 Nursing Note INR: 2.4- in therapeutic range of 2-3 Medications and supplements reviewed- no changes No changes in health, diet, medications, or supplements, Denies any signs and symptoms of bleeding or bruising or clotting. Bleeding, bruising, clotting discussed Nutritional guidance given Dose: 2.5mg x 2, 5mg x 5 F/U INR: pt req 5 weeks Patient verbalizes understanding of instructions given Anti-Coag Initial Assessment Social Hx Patient Tobacco Use Status: Former Tobacco user Quit Date: 50 years ago Tobacco use type: Cigarette Smoking packs per day: 1 alcohol intake: never Coding Level of Care Code Est Patient Level 1 Diagnoses Current use of anticoagulant therapy Z79.01 Assessment & Plan Assessment & Plan (1) Current use of anticoagulant therapy: Comment: Sent a note to PCP regarding Coumadin-will await advisement patient fully aware Code(s): 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
[2023-08-23 08:12] LABS: Prothrombin Time Whole Bld POC 29.1 sec (11.1-13.5); ~PT, ~INR - Anti Coag Clinic 2.4 (0.9-1.1)
== END 2023-08-23 08:16 | disposition home or self-care (01) ==
LOC: HO.ACS 08:02
PROVIDERS: PCP Nurse Practitioner Family; Visit Provider Internal Medicine
DX: Z79.01 Long term (current) use of anticoagulants (principal)

== ENCOUNTER → 2023-08-23 08:02 | Outpatient (BNVA) | payer MEDICARE, OTHER, SELFPAY | PROVIDERS: PCP Nurse Practitioner Family; Visit Provider Internal Medicine | DX: I48.0 Paroxysmal atrial fibrillation (principal); Z79.01 Long term (current) use of anticoagulants; Z51.81 Encounter for therapeutic drug level monitoring | CPT/HCPCS: 85610; 99211 ==

== ENCOUNTER 2023-08-26 08:27 | Outpatient (AMB) | payer MEDICARE, OTHER, SELFPAY ==
[2023-08-26 08:44] VITALS: BP 134/74; PULSE 68; BMI 43.6
--- NOTE | 2023-08-26 08:44 | A.OFFVIS_ITS ---
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 Patient denies any cardiac symptoms at this point time. He said come winter time he cut down his activity level and he is gained some weight. Does notice some shortness of breath but this is not unusual. Denies any exertional chest pain. Denies any prolonged palpitations. Denies any orthopnea, PND, leg edema. Does not use CPAP. He says may limitations currently are his musculoskeletal issues. Denies any new neurologic events. [facility] Medical History DDD (degenerative disc disease), lumbar Acid reflux Hemorrhoids Lupus anticoagulant syndrome Factor 5 Leiden mutation, heterozygous Paroxysmal atrial fibrillation CAD (coronary artery disease) Paget's disease Rectal bleeding Vitamin deficiency Atrial flutter Osteoarthritis Angina pectoris Sleep apnea GERD (gastroesophageal reflux disease) CVA (cerebral vascular accident) HTN (hypertension) Cerebrovascular disease, acute Surgical History Hx of colonoscopy Hx of hand surgery Hx of appendectomy Hx of hernia repair Family History Father HTN (hypertension) S/P triple vessel bypass Mother Brain tumor Cancer Brother Cancer Brain tumor Social History Household Members: Spouse Housing: House Do you presently have visiting nurse or other home services: No Alcohol intake: never Patient Tobacco Use Status: Former Tobacco user Quit Date: 50 years ago Tobacco use type: Cigarette Cigarette Packs Per Day: 1 Cigarettes Per Day: 20.0 Years Smoked: 3 e-Cigarette/Vaping Use: Never Used Second Hand Smoke Exposure: No service: Yes Current occupational status: retired Cognitive needs: No Hearing needs: No Vision needs: No Review of Systems Const Denies chills, Denies fatigue, Denies fever(s), Denies frequent falls, Denies weakness, Denies weight gain and Denies weight loss ENT Denies dizziness Card Denies chest pain, Denies leg edema, Denies lightheadedness, Denies p alpitations, Denies dyspnea, Denies dyspnea on exertion, Denies orthopnea and Denies other (loss of consciousness) Resp Denies cough, Denies dyspnea and Denies dyspnea on exertion GI Denies hematochezia and Denies change in stool character Musc Denies abnormal gait, Denies muscle weakness, Denies numbness, Denies radiating pain into limb and Denies tingling Neuro Denies abnormal gait, Denies dizziness, Denies frequent falls, Denies numbness, Denies tingling and Denies weakness Endo Denies fatigue and Denies palpitations Physical Exam Vital Signs: Last Vital Signs Pulse 68 08/26/23 08:44 BP 134/74 08/26/23 08:44 BMI result Body Mass Index 43.6 Const General: cooperative, comfortable, no acute distress, alert and awake Nutritional Appearance: obese morbidly obese Orientation/consciousness: patient oriented x3 Limitations: no limitations Neck Neck: Yes trachea midline, Yes supple and Yes no JVD Chest Chest palpation & inspection: normal inspection of the chest Resp Effort & Inspection: normal respiratory effort Auscultation: clear to auscultation bilaterally Cardio Jugular venous distension: no JVD Palpation: normal PMI Rate: regular rate Rhythm: regular rhythm Heart sounds: S1 normal heart sound present and S2 normal heart sound present Skin General skin exam: no rashes or lesions noted Neuro General: patient oriented x3 and no focal motor deficits Extrem General: Yes no clubbing, cyanosis or edema Psych Appearance: grossly normal Office Procedures EKG Details: EKG shows normal sinus rhythm with sinus arrhythmia otherwise normal EKG [id number], Complete Assessment & Plan Assessment & Plan (1) CAD (coronary artery disease): Comment: Denies recent chest pain Code(s): I25.10 - Atherosclerotic heart disease of [place] coronary artery without angina pectoris Plan: CAD with no recurrent symptoms. Prior CVA probably related to AFib/hype rcoagulable state. Currently on warfarin therapy. Continue the same. Avoid aspirin therapy to reduce bleeding risk. Continue high-intensity statin therapy with target goal LDL less than 70 mg/dL. Last LDL is 74 mg/dL. Advised to participate in more weight loss and aerobic activity. Follow-up lipid panel at least on annual basis. Continue aggressive blood pressure control. This is well optimized target goal blood pressure less than 130/84. Continue current therapy. Importance of good blood pressure control was discussed. Encouraged to participate in regular physical activity and weight loss program. (2) Paroxysmal atrial fibrillation: Code(s): I48.0 - Paroxysmal atrial fibrillation Plan: Paroxysmal atrial fibrillation which has remained suppressed. At this point time no further interventions required from this perspective and continue current therapy. Importance of avoidance of stimulants was discussed. Currently on full oral anticoagulation warfarin therapy due to antiphospholipid syndrome. Continue warfarin therapy. Target INR between 2 and 3 being followed by [facility]. Will follow up in the clinic in 1 year's time, sooner p.r.n.. Thank you for allowing me to partake in his care Coding Level of Care Code Est Pt Level 4 (72934) Diagnoses CAD (coronary artery disease) I25.10 Paroxysmal atrial fibrillation I48.0 CPT Codes EKG - CPT: 40403-[id number], Complete ([id number])
== END 2023-08-26 09:17 | disposition home or self-care (01) ==
PROVIDERS: Visit Provider Internal Medicine Cardiovascular Disease
DX: I25.10 Atherosclerotic heart disease of native coronary artery without angina pectoris (principal); I48.0 Paroxysmal atrial fibrillation
CPT/HCPCS: 93010; 99214

== ENCOUNTER → 2023-08-26 08:27 | Outpatient (BNVA) | payer MEDICARE, OTHER, SELFPAY | PROVIDERS: Visit Provider Internal Medicine Cardiovascular Disease | DX: I25.10 Atherosclerotic heart disease of native coronary artery without angina pectoris (principal); I48.0 Paroxysmal atrial fibrillation | CPT/HCPCS: 93005; 99212 ==

== ENCOUNTER 2023-09-27 07:59 | Outpatient (AMB) | payer MEDICARE, OTHER, SELFPAY ==
[2023-09-27 08:07] LABS: ~PT, ~INR - Anti Coag Clinic 2.5 (0.9-1.1)
--- NOTE | 2023-09-27 08:20 | MHC.OFFVISCO ---
Intake Intake Visit Reasons: Anticoagulation Allergies No Known Allergies [No Known Allergies*] Allergy (Verified 09/27/23 08:06) Medication List - Last Reconciled 09/27/23 by Anabel Neal, MARTA aspirin 81 mg PO DAILY atorvastatin 80 mg PO BEDTIME ezetimibe (Zetia) 10 mg PO DAILY 90 days isosorbide mononitrate ER 60 mg PO DAILY lisinopril 10 mg PO DAILY metoprolol succinate ER 25 mg PO DAILY omeprazole 20 mg PO DAILY@0630 warfarin 5 mg See Protocol PO SUMOWETHSA@1800 Nursing Note INR: 2.5 in therapeutic range of 2-3 Medications and supplements reviewed: no changes No changes in health, diet, medications, or supplements, Denies any signs and symptoms of bleeding or bruising or clotting. Bleeding, bruising, clotting discussed Nutritional guidance given Dose: cont usual dose of 2.5mg X2 days and 5mg X5 days F/U INR: 4 weeks Patient verbalizes understanding of instructions given Anti-Coag Initial Assessment Social Hx Patient Tobacco Use Status: Former Tobacco user Quit Date: 50 years ago Tobacco use type: Cigarette Smoking packs per day: 1 alcohol intake: never Coding Level of Care Code Est Patient Level 1 Diagnoses Current use of anticoagulant therapy Z79.01 Assessment & Plan Assessment & Plan (1) Current use of anticoagulant therapy: Comment: Sent a note to PCP regarding Coumadin-will await advisement patient fully aware Code(s): Z79.01 - [facility] (current) use of anticoagulants Category: Medical
== END 2023-09-27 08:29 | disposition home or self-care (01) ==
LOC: HO.ACS 07:59
PROVIDERS: PCP Nurse Practitioner Family; Visit Provider Internal Medicine
DX: Z79.01 Long term (current) use of anticoagulants (principal)

== ENCOUNTER → 2023-09-27 07:59 | Outpatient (BNVA) | payer MEDICARE, OTHER, SELFPAY | PROVIDERS: PCP Nurse Practitioner Family; Visit Provider Internal Medicine | DX: I48.0 Paroxysmal atrial fibrillation (principal); Z79.01 Long term (current) use of anticoagulants; Z51.81 Encounter for therapeutic drug level monitoring | CPT/HCPCS: 85610; 99211 ==

== ENCOUNTER 2023-11-01 08:00 | Outpatient (AMB) | payer MEDICARE, OTHER, SELFPAY ==
[2023-11-01 08:13] LABS: Prothrombin Time Whole Bld POC 27.8 sec (11.1-13.5); ~PT, ~INR - Anti Coag Clinic 2.3 (0.9-1.1)
--- NOTE | 2023-11-01 08:17 | MHC.OFFVISCO ---
Intake Intake Visit Reasons: Anticoagulation Allergies No Known Allergies [No Known Allergies*] Allergy (Verified 11/01/23 08:04) Medication List - Last Reconciled 11/01/23 by Brianne Flores RN aspirin 81 mg PO DAILY atorvastatin 80 mg PO BEDTIME ezetimibe (Zetia) 10 mg PO DAILY 90 days isosorbide mononitrate ER 60 mg PO DAILY lisinopril 10 mg PO DAILY metoprolol succinate ER 25 mg PO DAILY omeprazole 20 mg PO DAILY@0630 warfarin 5 mg See Protocol PO SUMOWETHSA@1800 Nursing Note INR: 2.3 in therapeutic range Medications and supplements reviewed No changes in health, diet, medications, or supplements, Denies any signs and symptoms of bleeding or bruising or clotting. Bleeding, bruising, clotting discussed Nutritional guidance given Dose: 2.5mg x 2days/ 5mg x 5 days F/U INR: 1 month Patient verbalizes understanding of instructions given Anti-Coag Initial Assessment Social Hx Patient Tobacco Use Status: Former Tobacco user Quit Date: 50 years ago Tobacco use type: Cigarette Smoking packs per day: 1 alcohol intake: never Coding Level of Care Code Est Patient Level 1 Diagnoses Current use of anticoagulant therapy Z79.01 Assessment & Plan Assessment & Plan (1) Current use of anticoagulant therapy: Comment: Sent a note to PCP regarding Coumadin-will await advisement patient fully aware Code(s): Z79.01 - group home (current) use of anticoagulants Category: Medical
== END 2023-11-01 08:20 | disposition home or self-care (01) ==
LOC: HO.ACS 08:00
PROVIDERS: PCP Nurse Practitioner Family; Visit Provider Internal Medicine
DX: Z79.01 Long term (current) use of anticoagulants (principal)

== ENCOUNTER → 2023-11-01 08:00 | Outpatient (BNVA) | payer MEDICARE, OTHER, SELFPAY | PROVIDERS: PCP Nurse Practitioner Family; Visit Provider Internal Medicine | DX: I48.0 Paroxysmal atrial fibrillation (principal); Z51.81 Encounter for therapeutic drug level monitoring; Z79.01 Long term (current) use of anticoagulants | CPT/HCPCS: 85610; 99211 ==

== ENCOUNTER 2023-11-20 08:02 | Outpatient (AMB) | payer MEDICARE, OTHER, SELFPAY ==
[2023-11-20 08:04] VITALS: BP 146/70; PULSE 72; O2SAT 94; BMI 44.5
--- NOTE | 2023-11-20 08:04 | MHC.PC.OV ---
Vital Signs 11/20/23 08:04 11/20/23 08:29 Height 5 ft 10 in Weight 310 lb BMI 44.5 BP 146/70 H 138/76 Blood Pressure Location Rt brachial Rt brachial Position Sitting Sitting Pulse 72 Pulse Source Pulse Oximeter Pulse Oximetry (%) 94 Oxygen Delivery Method Room Air Intake Visit Reasons: interested in weight loss medication Intake Note: Pt is here today to discuss wgt loss medication Allergies No Known Allergies [No Known Allergies*] Allergy (Verified 11/01/23 08:04) Tobacco use date assessed: 11/20/23 Fall risk assessment: No Falls in past year Last assessed Fall Risk: 11/20/23 Dental Screening Dental Screen Date: 11/20/23 Did you have a dental visit in the last 12 months?: No Was dental information given to patient?: Patient has dentist HPI interested in weight loss medication HPI Details ongoing morbid obesity. Pt has a Hx of CAD, TIAs, CVA, Afib, MAILE, HTN. These diagnoses, alone, place him at great risk for repeat CVA/tia, or CO, or even . Pt also describes getting winded easier. I do think that this pt should be on wegovy for weight loss. Pt has tried diets with little affect. Exercise is limited, due to pagets, DDD, osteoarthritis. Will send wegovy 0.25mg. Pt c/o left inner elbow pain. ? medial epicondylitis. Recommended wearing a brace. Denies fever, chills, and dizziness. [facility] Medical History (Updated 11/20/23 @ 08:37 by JAMEEL Serrato) Medial epicondylitis DDD (degenerative disc disease), lumbar Acid reflux Hemorrhoids Lupus anticoagulant syndrome Factor 5 Leiden mutation, heterozygous Paroxysmal atrial fibrillation CAD (coronary artery disease) Paget's disease Rectal bleeding Vitamin deficiency Atrial flutter Osteoarthritis Angina pectoris Sleep apnea GERD (gastroesophageal reflux disease) CVA (cerebral vascular accident) HTN (hypertension) Cerebrovascular disease, acute Surgical History Hx of colonoscopy Hx of hand surgery Hx of appendectomy Hx of hernia repair Family History Father HTN (hypertension) S/P triple vessel bypass Mother Brain tumor Cancer Brother Cancer Brain tumor Social History Household Members: Spouse Housing: House Do you presently have visiting nurse or other home services: No Alcohol intake: never Patient Tobacco Use Status: Former Tobacco user Quit Date: 50 years ago Tobacco use type: Cigarette Cigarette Packs Per Day: 1 Cigarettes Per Day: 20.0 Years Smoked: 3 e-Cigarette/Vaping Use: Never Used Second Hand Smoke Exposure: No service: Yes Current occupational status: retired Cognitive needs: No Hearing needs: No Vision needs: No Questionnaire Thrive Questionnaire Date Thrive assessed: 09/14/21 LILLIAN-7 AMB Questionnaire LILLIAN-7 Date LILLIAN - 7 assessed: 09/14/21 Source: Developed by Drs. Brandt Salvador, Katie Gaines, Parish Mae and colleagues, with an educational timmy from [employer]. Review of Systems Const Reports as per HPI Physical exam (Primary Care) Vital Signs: Last Vital Signs Pulse 72 11/20/23 08:04 BP 146/70 H 11/20/23 08:04 Pulse Ox 94 11/20/23 08:04 Oxygen Delivery Method Room Air 11/20/23 08:04 BMI result Body Mass Index 44.5 Tobacco/Smoking Status: Tobacco use Status Tobacco use date assessed 11/20/23 11/20/23 08:09 Patient Tobacco Use Status Former Tobacco user 11/20/23 08:06 Tobacco use type Cigarette 11/20/23 08:06 e-Cigarette/Vaping Use Never Used 11/20/23 08:06 Thrive Assessment: Date of Thrive Assessment Date Thrive assessed 09/14/21 11/20/23 08:06 Const General: cooperative Nutritional Appearance: obese morbidly obese Orientation/consciousness: patient oriented x3 Resp Effort & Inspection: normal respiratory effort Auscultation: clear to auscultation bilaterally Cardio Rate: regular rate Rhythm: regular rhythm Heart sounds: S1 normal heart sound present, S2 normal heart sound present and Murmur heart sound present systolic Neuro General: patient oriented x3 Extrem Other: tenderness to left medial epicondyle region with wrist extension against resistance Psych Appearance: grossly normal Mental Status: mental status grossly normal Speech and movement: Normal speech and movement present Affect: normal affect Attitude: cooperative Thought process: Normal thought process present Thought content: Normal thought content present Insight: Good insight present (Psych) Judgement: Good judgement present (Psych) Assessment and Plan Assessment & Plan (1) Sleep apnea: Code(s): G47.30 - Sleep apnea, unspecified Plan: Will start wegovy (2) Brain TIA: Code(s): G45.9 - Transient cerebral ischemic attack, unspecified Plan: Will start wegovy (3) Paroxysmal atrial fibrillation: Code(s): I48.0 - Paroxysmal atrial fibrillation Plan: Will start wegovy (4) CAD (coronary artery disease): Comment: Denies recent chest pain Code(s): I25.10 - Atherosclerotic heart disease of [place] coronary artery without angina pectoris Plan: Will start wegovy (5) Paget's disease: Plan: Will start wegovy (6) HTN (hypertension): Code(s): I10 - Essential (primary) hypertension Plan: Will start wegovy (7) Morbid obesity: Code(s): E66.01 - Morbid (severe) obesity due to excess calories Plan: Will start wegovy (8) Medial epicondylitis: Code(s): M77.00 - Medial epicondylitis, unspecified elbow Plan: brace Plan The patient agreed to the use of a emergency medical dispatcher for this encounter. Scribed for JAMEEL Curtis by Sonya Bowers emergency medical dispatcher, on 11/20/2023 at 08:15 EST. Medications: New semaglutide (weight loss) (Wegovy) administer weeks 1 through 4 of therapy 0.25 mg (0.5 mL) subcut QWEEK 2 mL 0RF Coding Level of Care Code Est Pt Level 3 (52105) Diagnoses Sleep apnea G47.30 Brain TIA G45.9 Paroxysmal atrial fibrillation I48.0 CAD (coronary artery disease) I25.10 Paget's disease HTN (hypertension) I10 Morbid obesity E66.01 Medial epicondylitis M77.00
[2023-11-20 08:29] VITALS: BP 138/76
== END 2023-11-20 09:22 | disposition home or self-care (01) ==
PROVIDERS: PCP Nurse Practitioner Family; Visit Provider Nurse Practitioner Family
DX: G47.30 Sleep apnea, unspecified (principal); I48.0 Paroxysmal atrial fibrillation; E66.01 Morbid (severe) obesity due to excess calories; Z68.42 Body mass index [BMI] 45.0-49.9, adult; G45.9 Transient cerebral ischemic attack, unspecified; I25.10 Atherosclerotic heart disease of native coronary artery without angina pectoris; I10 Essential (primary) hypertension; M77.02 Medial epicondylitis, left elbow
CPT/HCPCS: 99213

== ENCOUNTER 2023-12-06 08:03 | Outpatient (AMB) | payer MEDICARE, OTHER, SELFPAY ==
--- NOTE | 2023-12-06 08:13 | MHC.OFFVISCO ---
Intake Intake Visit Reasons: Anticoagulation Allergies No Known Allergies [No Known Allergies*] Allergy (Verified 12/06/23 08:04) Medication List - Last Reconciled 12/06/23 by Anabel Montiel RN aspirin 81 mg PO DAILY atorvastatin 80 mg PO BEDTIME ezetimibe (Zetia) 10 mg PO DAILY 90 days isosorbide mononitrate ER 60 mg PO DAILY lisinopril 10 mg PO DAILY metoprolol succinate ER 25 mg PO DAILY omeprazole 20 mg PO DAILY@0630 semaglutide (weight loss) (Wegovy) 0.25 mg (0.5 mL) subcut QWEEK warfarin 5 mg See Protocol PO SUMOWETHSA@1800 Nursing Note Amb to ACS feeling well Medications and supplements reviewed, has not started Wegovy, pt is not going to start Eloquis No changes in health, diet, medications, or supplements, Denies any signs and symptoms of bleeding, bruising, or clotting. Bleeding, bruising, clotting discussed INR 2.7 in therapeutic continue usual dosing 2.5mg x 2 days and 5mg x 5 days Nutritional guidance given balance greens and reds in diet, be consistent F/U INR: 1 month Patient verbalizes understanding of instructions given Anti-Coag Initial Assessment Social Hx Patient Tobacco Use Status: Former Tobacco user Tobacco use type: Cigarette Smoking packs per day: 1 alcohol intake: never Coding Level of Care Code Est Patient Level 1 Diagnoses Current use of anticoagulant therapy Z79.01 Time Spent (min) 15 Results AMB INR Fingerstick AMB INR Fingerstick 2.7 Last Edit by Anabel Montiel RN on 12/06/23 08:11 interface failure Assessment & Plan Assessment & Plan (1) Current use of anticoagulant therapy: Comment: Sent a note to PCP regarding Coumadin-will await advisement patient fully aware Code(s): Z79.01 - assisted (current) use of anticoagulants Category: Medical
[2023-12-06 08:19] LABS: Prothrombin Time Whole Bld POC 32.6 sec (11.1-13.5); ~PT, ~INR - Anti Coag Clinic 2.7 (0.9-1.1)
== END 2023-12-06 08:18 | disposition home or self-care (01) ==
LOC: HO.ACS 08:03
PROVIDERS: PCP Nurse Practitioner Family; Visit Provider Internal Medicine
DX: Z79.01 Long term (current) use of anticoagulants (principal)

== ENCOUNTER → 2023-12-06 08:03 | Outpatient (BNVA) | payer MEDICARE, OTHER, SELFPAY | PROVIDERS: PCP Nurse Practitioner Family; Visit Provider Internal Medicine | DX: I48.0 Paroxysmal atrial fibrillation (principal); Z79.01 Long term (current) use of anticoagulants; Z51.81 Encounter for therapeutic drug level monitoring | CPT/HCPCS: 85610; 99211 ==

== ENCOUNTER 2024-01-06 12:50 | Outpatient (AMB) | payer MEDICARE, OTHER, SELFPAY ==
--- NOTE | 2024-01-06 12:58 | MHC.PC.OV ---
Vital Signs 01/06/24 13:01 Height 5 ft 10 in Weight 309 lb BMI 44.3 BP 110/78 Blood Pressure Location Lt brachial Position Sitting Pulse 70 Pulse Source Pulse Oximeter Pulse Oximetry (%) 94 Oxygen Delivery Method Room Air Intake Visit Reasons: 4M F/U Intake Note: Patient here to f/u Allergies No Known Allergies [No Known Allergies*] Allergy (Verified 01/06/24 13:37) Medication List - Last Reconciled 01/06/24 by JAMEEL Serrato aspirin 81 mg PO DAILY atorvastatin 80 mg PO BEDTIME ezetimibe (Zetia) 10 mg PO DAILY 90 days isosorbide mononitrate ER 60 mg PO DAILY lisinopril 10 mg PO DAILY metoprolol succinate ER 25 mg PO DAILY omeprazole 20 mg PO DAILY@0630 semaglutide (weight loss) (Wegovy) 0.25 mg (0.5 mL) subcut QWEEK warfarin 5 mg See Protocol PO SUMOWETHSA@1800 Tobacco use date assessed: 11/20/23 Fall risk assessment: No Falls in past year Last assessed Fall Risk: 01/06/24 Dental Screening Dental Screen Date: 11/20/23 HPI 4M F/U HPI Details PA needed for Wegovy. pt has not picked this up yet do to insurance reasons. Pt really needs to lose weight. Diet and exercise has minimal effect. Sleep apnea: seeing ENT at the [place]. HTN: stable, denies any CP, SOB, GALLAGHER, dizziness. PFSH Medical History Medial epicondylitis DDD (degenerative disc disease), lumbar Acid reflux Hemorrhoids Lupus anticoagulant syndrome Factor 5 Leiden mutation, heterozygous Paroxysmal atrial fibrillation CAD (coronary artery disease) Paget's disease Rectal bleeding Vitamin deficiency Atrial flutter Osteoarthritis Angina pectoris Sleep apnea GERD (gastroesophageal reflux disease) CVA (cerebral vascular accident) HTN (hypertension) Cerebrovascular disease, acute Surgical History Hx of colonoscopy Hx of hand surgery Hx of appendectomy Hx of hernia repair Family History Father HTN (hypertension) S/P triple vessel bypass Mother Brain tumor Cancer Brother Cancer Brain tumor Social History Household Members: Spouse Housing: House Do you presently have visiting nurse or other home services: No Alcohol intake: never Patient Tobacco Use Status: Former Tobacco user Tobacco use type: Cigarette Cigarette Packs Per Day: 1 Cigarettes Per Day: 20.0 Years Smoked: 3 e-Cigarette/Vaping Use: Never Used Second Hand Smoke Exposure: No service: Yes Current occupational status: retired Cognitive needs: No Hearing needs: No Vision needs: No Questionnaire Thrive Questionnaire Date Thrive assessed: 09/14/21 I am a: Patient What is your living situation today?: I choose not to answer this question Within the past 12 months, did the food you bought not last and you didn't have the money to get more?: I choose not to answer this question Within the past 12 months, did you worry whether your food would run out before you got money to buy more?: I choose not to answer this question Do you have trouble paying for medicines?: I choose not to answer this question Do you have trouble getting transportation to medical appointments?: I choose not to answer this question Do you have trouble paying your heating and electricity bill?: I choose not to answer this question Do you have trouble taking care of your child, family member or friend?: I choose not to answer this question Do you have trouble with day-to-day activities such as bathing, preparing meals, shopping, managing finances, etc.?: I choose not to answer this question Are you currently unemployed and looking for a job?: I choose not to answer this question Are you interested in more education?: I choose not to answer this question Please select the resources that you would like help with: Housing/Skilled Nursing Currently or been in a relationship where the following occur: I choose not to answer THRIVE Score: 0 AUDIT C Alcohol Use Questionnaire (AUDIT-C) 1. How often do you have a drink containing alcohol?: Never Total Score: 0 LILLIAN-7 AMB Questionnaire LILLIAN-7 Date ILLLIAN - 7 assessed: 09/14/21 Feeling nervous, anxious, or on edge: 0 = Not at all Not being able to stop or control worryin = Not at all Worrying too much about different things: 0 = Not at all Source: Developed by Drs. Brandt Salvador, Katie Gaines, Parish Mae and colleagues, with an educational timmy from [employer]. Physical exam (Primary Care) Vital Signs: Last Vital Signs Pulse 70 01/06/24 13:01 BP 110/78 01/06/24 13:01 Pulse Ox 94 01/06/24 13:01 Oxygen Delivery Method Room Air 01/06/24 13:01 BMI result Body Mass Index 44.3 Tobacco/Smoking Status: Tobacco use Status Tobacco use date assessed 11/20/23 01/06/24 13:00 Patient Tobacco Use Status Former Tobacco user 01/06/24 13:00 Tobacco use type Cigarette 01/06/24 13:00 e-Cigarette/Vaping Use Never Used 01/06/24 13:00 Thrive Assessment: Date of Thrive Assessment Date Thrive assessed 09/14/21 01/06/24 13:00 Currently or been in a relationship where the following occur: I choose not to answer Resp Auscultation: clear to auscultation bilaterally Cardio Rate: regular rate Rhythm: regular rhythm Heart sounds: S1 normal heart sound present, S2 normal heart sound present and Murmur heart sound present systolic GI Other: ? left upper inguinal hernia. ? hernia vs fat bad Psych Appearance: grossly normal Mental Status: mental status grossly normal Speech and movement: Normal speech and movement present Attitude: cooperative Thought process: Normal thought process present Assessment and Plan Assessment & Plan (1) HTN (hypertension): Code(s): I10 - Essential (primary) hypertension Plan: stable (2) Morbid obesity: Code(s): E66.01 - Morbid (severe) obesity due to excess calories Plan: recommend a GLP-1 agonist (3) Screening PSA (prostate specific antigen): Code(s): Z12.5 - Encounter for screening for malignant neoplasm of prostate (4) Left inguinal hernia: Code(s): K40.90 - Unilateral inguinal hernia, without obstruction or gangrene, not specified as recurrent Plan: US ordered Orders: Orders TSH reflex Free T4 Today E66.01 - Morbid (severe) obesity due to excess calories, I10 - Essential (primary) hypertension Lipid Panel Today E66.01 - Morbid (severe) obesity due to excess calories, I10 - Essential (primary) hypertension US pelvic limited Today K40.90 - Unilateral inguinal hernia, without obstruction or gangrene, not specified as recurrent Complete Blood Count Auto Diff Today E66.01 - Morbid (severe) obesity due to excess calories, I10 - Essential (primary) hypertension Comprehensive Campbell. Panel Fast Today E66.01 - Morbid (severe) obesity due to excess calories, I10 - Essential (primary) hypertension UA CC w/rflx Micro + Cult Today E66.01 - Morbid (severe) obesity due to excess calories, I10 - Essential (primary) hypertension Prostate Specific Antigen Scr Today Z12.5 - Encounter for screening for malignant neoplasm of prostate Coding Level of Care Code Est Pt Level 3 (40507) Diagnoses HTN (hypertension) I10 Morbid obesity E66.01 Screening PSA (prostate specific antigen) Z12.5 Left inguinal hernia K40.90
[2024-01-06 13:01] VITALS: BP 110/78; PULSE 70; O2SAT 94; BMI 44.3
== END 2024-01-06 13:37 | disposition home or self-care (01) ==
PROVIDERS: PCP Nurse Practitioner Family; Visit Provider Nurse Practitioner Family
DX: I10 Essential (primary) hypertension (principal); E66.01 Morbid (severe) obesity due to excess calories; Z68.41 Body mass index [BMI] 40.0-44.9, adult; Z12.5 Encounter for screening for malignant neoplasm of prostate; K40.90 Unilateral inguinal hernia, without obstruction or gangrene, not specified as recurrent
CPT/HCPCS: 99213

== ENCOUNTER 2024-01-10 08:03 | Outpatient (AMB) | payer MEDICARE, OTHER, SELFPAY ==
[2024-01-10 08:10] LABS: Prothrombin Time Whole Bld POC 41.4 sec (11.1-13.5); ~PT, ~INR - Anti Coag Clinic 3.5 (0.9-1.1)
--- NOTE | 2024-01-10 08:10 | MHC.OFFVISCO ---
Intake Intake Visit Reasons: Anticoagulation Allergies No Known Allergies [No Known Allergies*] Allergy (Verified 01/10/24 08:04) Medication List - Last Reconciled 01/10/24 by Va Tobar RN aspirin 81 mg PO DAILY atorvastatin 80 mg PO BEDTIME ezetimibe (Zetia) 10 mg PO DAILY 90 days isosorbide mononitrate ER 60 mg PO DAILY lisinopril 10 mg PO DAILY metoprolol succinate ER 25 mg PO DAILY omeprazole 20 mg PO DAILY@0630 semaglutide (weight loss) (Wegovy) 0.25 mg (0.5 mL) subcut QWEEK warfarin 5 mg See Protocol PO SUMOWETHSA@1800 Nursing Note INR 3.5-? out of therapeutic range of 2-3 Medications and supplements reviewed Patient status: no c.o Medications or supplements: no changes Diet: good, eating strawberries Denies any signs and symptoms of bleeding or clotting or unusual bruising Bleeding, bruising, clotting discussed Nutritional guidance given: eat greens to lower , no reds Dose: already took warfarin today take 2.5mg tomm then cont reg 2.5mg x 2, 5mg x 5 F/U INR Date : 2 weeks? Patient verbalizing understanding of instructions given. Anti-Coag Initial Assessment Social Hx Patient Tobacco Use Status: Former Tobacco user Tobacco use type: Cigarette Smoking packs per day: 1 alcohol intake: never Coding Level of Care Code Est Patient Level 1 Diagnoses Current use of anticoagulant therapy Z79.01 Assessment & Plan Assessment & Plan (1) Current use of anticoagulant therapy: Comment: Sent a note to PCP regarding Coumadin-will await advisement patient fully aware Code(s): Z79.01 - [facility] (current) use of anticoagulants Category: Medical
== END 2024-01-10 08:45 | disposition home or self-care (01) ==
LOC: HO.ACS 08:03
PROVIDERS: PCP Nurse Practitioner Family; Visit Provider Internal Medicine
DX: Z79.01 Long term (current) use of anticoagulants (principal)

== ENCOUNTER → 2024-01-10 08:03 | Outpatient (BNVA) | payer MEDICARE, OTHER, SELFPAY | PROVIDERS: PCP Nurse Practitioner Family; Visit Provider Internal Medicine | DX: I48.0 Paroxysmal atrial fibrillation (principal); Z79.01 Long term (current) use of anticoagulants; Z51.81 Encounter for therapeutic drug level monitoring | CPT/HCPCS: 85610; 99211 ==

== ENCOUNTER 2024-01-14 12:47 | Outpatient (REF) | payer MEDICARE, OTHER, SELFPAY ==
--- NOTE | ~2024-01-14 | US_ITS ---
EXAMINATION: US PELVIS, LIMITED/FOLLOW UP CLINICAL INFORMATION: Palpable soft tissue mass COMPARISON: None available. TECHNIQUE: Limited ultrasound evaluation of the left lower quadrant/left inguinal area FINDINGS: Fatty appearing mobile structure within the left groin which appears to increase in size on Valsalva maneuver. It measures approximately 2 cm in diameter and likely represents a fat-containing inguinal hernia. US/US pelvic limited IMPRESSION: Findings suggestive of a fat-containing left inguinal hernia.
== END 2024-01-14 12:48 | disposition home or self-care (01) ==
LOC: HO.HMGCX 12:47
PROVIDERS: PCP Nurse Practitioner Family; Visit Provider Nurse Practitioner Family
DX: K40.90 Unilateral inguinal hernia, without obstruction or gangrene, not specified as recurrent (principal)
CPT/HCPCS: 76857

== ENCOUNTER 2024-01-24 07:55 | Outpatient (AMB) | payer MEDICARE, OTHER, SELFPAY ==
[2024-01-24 08:02] LABS: Prothrombin Time Whole Bld POC 32.7 sec (11.1-13.5); ~PT, ~INR - Anti Coag Clinic 2.7 (0.9-1.1)
--- NOTE | 2024-01-24 08:11 | MHC.OFFVISCO ---
Intake Intake Visit Reasons: Anticoagulation Allergies No Known Allergies [No Known Allergies*] Allergy (Verified 01/24/24 07:57) Medication List - Last Reconciled 01/24/24 by Brianne Flores RN aspirin 81 mg PO DAILY atorvastatin 80 mg PO BEDTIME ezetimibe (Zetia) 10 mg PO DAILY 90 days isosorbide mononitrate ER 60 mg PO DAILY lisinopril 10 mg PO DAILY metoprolol succinate ER 25 mg PO DAILY omeprazole 20 mg PO DAILY@0630 semaglutide (weight loss) (Wegovy) 0.25 mg (0.5 mL) subcut QWEEK warfarin 5 mg See Protocol PO SUMOWETHSA@1800 Nursing Note INR: 2.7 in therapeutic range Medications and supplements reviewed starting wygovy tomorrow for weight loss- it can raise the INR will f/u 2 weeks Denies any signs and symptoms of bleeding or bruising or clotting. Bleeding, bruising, clotting discussed - enc to call for sooner f/u INR with any bruising Nutritional guidance given Dose: decrease next week dose 2.5mg mwf/ 5mg x 4 days F/U INR: 2 weeks Patient verbalizes understanding of instructions given Anti-Coag Initial Assessment Social Hx Patient Tobacco Use Status: Former Tobacco user Tobacco use type: Cigarette Smoking packs per day: 1 alcohol intake: never Coding Level of Care Code Est Patient Level 1 Diagnoses Current use of anticoagulant therapy Z79.01 Assessment & Plan Assessment & Plan (1) Current use of anticoagulant therapy: Comment: Sent a note to PCP regarding Coumadin-will await advisement patient fully aware Code(s): Z79.01 - [employer] continuous churn (current) use of anticoagulants Category: Medical
== END 2024-01-24 08:13 | disposition home or self-care (01) ==
LOC: HO.ACS 07:55
PROVIDERS: PCP Nurse Practitioner Family; Visit Provider Internal Medicine
DX: Z79.01 Long term (current) use of anticoagulants (principal)

== ENCOUNTER → 2024-01-24 07:55 | Outpatient (BNVA) | payer MEDICARE, OTHER, SELFPAY | PROVIDERS: PCP Nurse Practitioner Family; Visit Provider Internal Medicine | DX: I48.0 Paroxysmal atrial fibrillation (principal); Z79.01 Long term (current) use of anticoagulants; Z51.81 Encounter for therapeutic drug level monitoring | CPT/HCPCS: 85610; 99211 ==

== ENCOUNTER 2024-02-07 08:01 | Outpatient (AMB) | payer MEDICARE, OTHER, SELFPAY ==
[2024-02-07 08:13] LABS: Prothrombin Time Whole Bld POC 21.9 sec (11.1-13.5); ~PT, ~INR - Anti Coag Clinic 1.8 (0.9-1.1)
--- NOTE | 2024-02-07 08:22 | MHC.OFFVISCO ---
Intake Intake Visit Reasons: Anticoagulation Allergies No Known Allergies [No Known Allergies*] Allergy (Verified 02/07/24 08:08) Medication List - Last Reconciled 02/07/24 by Vicky Quiñones RN aspirin 81 mg PO DAILY atorvastatin 80 mg PO BEDTIME ezetimibe (Zetia) 10 mg PO DAILY 90 days isosorbide mononitrate ER 60 mg PO DAILY lisinopril 10 mg PO DAILY metoprolol succinate ER 25 mg PO DAILY omeprazole 20 mg PO DAILY@0630 semaglutide (weight loss) (Wegovy) 0.25 mg (0.5 mL) subcut QWEEK warfarin 5 mg See Protocol PO SUMOWETHSA@1800 Nursing Note NO CP,SOB,DIET/MED CHANGES,FALLS OR SX OF BLEEDING. BOOST TODAY TO 5MGM THEN RESUME PREVIOUS DOSE OF 5MGM X5 AND 2.5MG X2 AND FOLLOW-UP IN 2 WEEKS. WILL MONITOR CLOSELY DUE TO WEDGOVY. GOOD UNDERSTNDING OF DOSING CHANGE. NO GREENS 1-2 DAYS Anti-Coag Initial Assessment Social Hx Patient Tobacco Use Status: Former Tobacco user Tobacco use type: Cigarette Smoking packs per day: 1 alcohol intake: never Coding Level of Care Code Est Patient Level 1 Diagnoses Current use of anticoagulant therapy Z79.01 Assessment & Plan Assessment & Plan (1) Current use of anticoagulant therapy: Comment: Sent a note to PCP regarding Coumadin-will await advisement patient fully aware Code(s): Z79.01 - assisted (current) use of anticoagulants Category: Medical
== END 2024-02-07 08:28 | disposition home or self-care (01) ==
LOC: HO.ACS 08:01
PROVIDERS: PCP Nurse Practitioner Family; Visit Provider Internal Medicine
DX: Z79.01 Long term (current) use of anticoagulants (principal)

== ENCOUNTER → 2024-02-07 08:01 | Outpatient (BNVA) | payer MEDICARE, OTHER, SELFPAY | PROVIDERS: PCP Nurse Practitioner Family; Visit Provider Internal Medicine | DX: I48.0 Paroxysmal atrial fibrillation (principal); Z79.01 Long term (current) use of anticoagulants; Z51.81 Encounter for therapeutic drug level monitoring | CPT/HCPCS: 85610; 99211 ==

== ENCOUNTER → 2024-02-18 13:45 | Outpatient (RCR) | payer OTHER, MEDICAID, SELFPAY | END | disposition home or self-care (01) | LOC: HO.ONC 03-25 19:46 | PROVIDERS: PCP Nurse Practitioner Family; Visit Provider Internal Medicine Medical Oncology | DX: Z13.89 Encounter for screening for other disorder (principal) ==

== ENCOUNTER 2024-02-20 08:29 | Outpatient (AMB) | payer MEDICARE, OTHER, SELFPAY ==
[2024-02-20 08:44] LABS: Prothrombin Time Whole Bld POC 31.1 sec (11.1-13.5); ~PT, ~INR - Anti Coag Clinic 2.6 (0.9-1.1)
--- NOTE | 2024-02-20 08:55 | MHC.OFFVISCO ---
Intake Intake Visit Reasons: Anticoagulation Allergies No Known Allergies [No Known Allergies*] Allergy (Verified 02/07/24 08:08) Nursing Note INR: 2.6 in therapeutic range of 2-3 Medications and supplements reviewed On Semaglutide for 4 weeks now and has lost 4 lbs. States he feels well and has so much energy No changes in health, diet, medications, or supplements, Denies any signs and symptoms of bleeding or bruising or clotting. Bleeding, bruising, clotting discussed Nutritional guidance given Dose: 5mg X 5 days and 2.5mg X 2 days F/U INR: 3 weeks Patient verbalizes understanding of instructions given Anti-Coag Initial Assessment Social Hx Patient Tobacco Use Status: Former Tobacco user Tobacco use type: Cigarette Smoking packs per day: 1 alcohol intake: never Coding Level of Care Code Est Patient Level 1 Diagnoses Current use of anticoagulant therapy Z79.01 Assessment & Plan Assessment & Plan (1) Current use of anticoagulant therapy: Comment: Sent a note to PCP regarding Coumadin-will await advisement patient fully aware Code(s): Z79.01 - [facility] (current) use of anticoagulants Category: Medical
== END 2024-02-20 09:00 | disposition home or self-care (01) ==
LOC: HO.ACS 08:29
PROVIDERS: PCP Nurse Practitioner Family; Visit Provider Internal Medicine
DX: Z79.01 Long term (current) use of anticoagulants (principal)

== ENCOUNTER → 2024-02-20 08:29 | Outpatient (BNVA) | payer MEDICARE, OTHER, SELFPAY | PROVIDERS: PCP Nurse Practitioner Family; Visit Provider Internal Medicine | DX: I48.0 Paroxysmal atrial fibrillation (principal); Z79.01 Long term (current) use of anticoagulants; Z51.81 Encounter for therapeutic drug level monitoring | CPT/HCPCS: 85610; 99211 ==

== ENCOUNTER 2024-03-13 08:00 | Outpatient (AMB) | payer MEDICARE, OTHER, SELFPAY ==
--- NOTE | 2024-03-13 08:14 | MHC.OFFVISCO ---
Intake Intake Visit Reasons: Anticoagulation Allergies No Known Allergies [No Known Allergies*] Allergy (Verified 03/13/24 08:00) Medication List - Last Reconciled 03/13/24 by Anabel Neal RN aspirin 81 mg PO DAILY atorvastatin 80 mg PO BEDTIME ezetimibe (Zetia) 10 mg PO DAILY 90 days isosorbide mononitrate ER 60 mg PO DAILY lisinopril 10 mg PO DAILY metoprolol succinate ER 25 mg PO DAILY omeprazole 20 mg PO DAILY@0630 semaglutide (weight loss) 0.5 mg (0.5 mL) subcut QWEEK warfarin 5 mg See Protocol PO SUMOWETHSA@1800 Nursing Note INR: 2.1 in therapeutic range of 2-3 Medications and supplements reviewed No changes in health, diet, medications, or supplements, Denies any signs and symptoms of bleeding or bruising or clotting. Bleeding, bruising, clotting discussed Nutritional guidance given Dose: 5mg X 5 days and 2.5mg X 2 days F/U INR: 4 weeks Patient verbalizes understanding of instructions given Anti-Coag Initial Assessment Social Hx Patient Tobacco Use Status: Former Tobacco user Tobacco use type: Cigarette Smoking packs per day: 1 alcohol intake: never Coding Level of Care Code Est Patient Level 1 Diagnoses Current use of anticoagulant therapy Z79.01 Results AMB INR Fingerstick AMB INR Fingerstick 2.1 Last Edit by Anabel Neal RN on 03/13/24 08:06 interface delay Assessment & Plan Assessment & Plan (1) Current use of anticoagulant therapy: Comment: Sent a note to PCP regarding Coumadin-will await advisement patient fully aware Code(s): Z79.01 - [facility] (current) use of anticoagulants Category: Medical
[2024-03-13 08:16] LABS: Prothrombin Time Whole Bld POC 25.5 sec (11.1-13.5); ~PT, ~INR - Anti Coag Clinic 2.1 (0.9-1.1)
== END 2024-03-13 08:17 | disposition home or self-care (01) ==
LOC: HO.ACS 08:00
PROVIDERS: PCP Nurse Practitioner Family; Visit Provider Internal Medicine
DX: Z79.01 Long term (current) use of anticoagulants (principal)

== ENCOUNTER → 2024-03-13 08:00 | Outpatient (BNVA) | payer MEDICARE, OTHER, SELFPAY | PROVIDERS: PCP Nurse Practitioner Family; Visit Provider Internal Medicine | DX: I48.0 Paroxysmal atrial fibrillation (principal); Z79.01 Long term (current) use of anticoagulants; Z51.81 Encounter for therapeutic drug level monitoring | CPT/HCPCS: 85610; 99211 ==

== ENCOUNTER → 2024-04-06 08:11 | Outpatient (BNVA) | payer MEDICARE, OTHER, SELFPAY | PROVIDERS: PCP Nurse Practitioner Family; Visit Provider Nurse Practitioner Family ==

== ENCOUNTER 2024-04-10 07:52 | Outpatient (AMB) | payer MEDICARE, OTHER, SELFPAY ==
[2024-04-10 08:00] LABS: Prothrombin Time Whole Bld POC 32.3 sec (11.1-13.5); ~PT, ~INR - Anti Coag Clinic 2.7 (0.9-1.1)
--- NOTE | 2024-04-10 08:08 | MHC.OFFVISCO ---
Intake Intake Visit Reasons: Anticoagulation Allergies No Known Allergies [No Known Allergies*] Allergy (Verified 04/10/24 07:54) Medication List - Last Reconciled 04/10/24 by Brianne Flores RN aspirin 81 mg PO DAILY atorvastatin 80 mg PO BEDTIME ezetimibe (Zetia) 10 mg PO DAILY 90 days isosorbide mononitrate ER 60 mg PO DAILY lisinopril 10 mg PO DAILY metoprolol succinate ER 25 mg PO DAILY omeprazole 20 mg PO DAILY@0630 semaglutide (weight loss) 1.7 mg (0.75 mL) subcut QWEEK 60 days warfarin 5 mg See Protocol PO SUMOWETHSA@1800 Nursing Note INR: 2.7 in therapeutic range Medications and supplements reviewed No changes in health, diet, medications, or supplements, STILL ON WYGOVY - HAS LOST 22 LBS SO FAR Denies any signs and symptoms of bleeding or bruising or clotting. Bleeding, bruising, clotting discussed Nutritional guidance given Dose: 2.5MG X 2 DAYS/ 5MG X 5 DAYS F/U INR: 1 MONTH Patient verbalizes understanding of instructions given Anti-Coag Initial Assessment Social Hx Patient Tobacco Use Status: Former Tobacco user Tobacco use type: Cigarette Smoking packs per day: 1 alcohol intake: never Coding Level of Care Code Est Patient Level 1 Diagnoses Current use of anticoagulant therapy Z79.01 Assessment & Plan Assessment & Plan (1) Current use of anticoagulant therapy: Comment: Sent a note to PCP regarding Coumadin-will await advisement patient fully aware Code(s): 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
== END 2024-04-10 08:11 | disposition home or self-care (01) ==
LOC: HO.ACS 07:52
PROVIDERS: PCP Nurse Practitioner Family; Visit Provider Internal Medicine
DX: Z79.01 Long term (current) use of anticoagulants (principal)

== ENCOUNTER → 2024-04-10 07:52 | Outpatient (BNVA) | payer MEDICARE, OTHER, SELFPAY | PROVIDERS: PCP Nurse Practitioner Family; Visit Provider Internal Medicine | DX: I48.0 Paroxysmal atrial fibrillation (principal); Z79.01 Long term (current) use of anticoagulants; Z51.81 Encounter for therapeutic drug level monitoring | CPT/HCPCS: 85610; 99211 ==

== ENCOUNTER → 2024-05-12 08:06 | Outpatient (BNVA) | payer MEDICARE, OTHER, SELFPAY | PROVIDERS: PCP Nurse Practitioner Family; Visit Provider Nurse Practitioner Family ==

== ENCOUNTER 2024-05-15 07:59 | Outpatient (AMB) | payer MEDICARE, OTHER, SELFPAY ==
[2024-05-15 08:06] LABS: Prothrombin Time Whole Bld POC 21.3 sec (11.1-13.5); ~PT, ~INR - Anti Coag Clinic 1.8 (0.9-1.1)
--- NOTE | 2024-05-15 08:09 | MHC.OFFVISCO ---
Intake Intake Visit Reasons: Anticoagulation Allergies No Known Allergies [No Known Allergies*] Allergy (Verified 05/15/24 07:59) Medication List - Last Reconciled 05/15/24 by Brianne Flores RN aspirin 81 mg PO DAILY atorvastatin 80 mg PO BEDTIME ezetimibe (Zetia) 10 mg PO DAILY 90 days isosorbide mononitrate ER 60 mg PO DAILY lisinopril 10 mg PO DAILY metoprolol succinate ER 25 mg PO DAILY omeprazole 20 mg PO DAILY@0630 semaglutide (weight loss) 2.4 mg (0.75 mL) subcut QWEEK 60 days warfarin 5 mg See Protocol PO SUMOWETHSA@1800 Nursing Note just returned from road trip - no s/sx of clotting INR 1.8? out of therapeutic range Medications and supplements reviewed Patient status: WYGOVY INCREASED MAY HAVE AFFECTED THE INR OR DIET Medications or supplements: INCREASE IN WYGOY 05/12/24 Diet: GOOD Denies any signs and symptoms of bleeding or clotting or unusual bruising Bleeding, bruising, clotting discussed Nutritional guidance given: 10X10 Room FOOD LIST FOR HOLIDAYS Dose: 5MG X 6 DAYS/ 2.5MG X 1 DAYS F/U INR Date : 2 WEEKS ?? Patient verbalizing understanding of instructions given. Anti-Coag Initial Assessment Social Hx Patient Tobacco Use Status: Former Tobacco user Tobacco use type: Cigarette Smoking packs per day: 1 alcohol intake: never Questionnaires HAS-BLED Does the patient had uncontrolled Hypertension?: No Does the patient have renal disease?: No Does the patient have liver disease?: No Does the patient have a history of stroke?: Yes Has the patient had major bleeding or predisposition to bleeding?: Yes Does the patient have labile INRs?: No Is the patient over 65 years of age?: Yes Is the patient on medications that gives them a predisposition to bleeding?: Yes Does the patient use alcohol?: No HAS-BLED Score: 4 CHADSVASC Age: 66-74 Gender: Male Does the patient have a history of CHF?: No Does the patient have a history of Hypertension?: Yes Does the patient have a history of Stroke/TIA/Thromboembolism?: Yes Does the patient have a history of Vascular Disease (prior GA, PAD or aortic plaque)?: Yes Does the patient have a history of Diabetes?: No CHADS VACS Score: 5 Justen Prediction Score Rsk VTE Active Cancer: No Previous VTE, excluding superficial vein thrombosis: No Reduced mobility: No 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) With-in last month Trauma and/or Surgery: No Elderly 70 year or older: No Heart and/or Respiratory Failure: No Acute Myocardial infarction and/or Ischemic Stroke: Yes Acute Infection and/or Rheumatologic Disorder: No Obesity (BMI 30 or greater): Yes Ongoing Hormonal Treatment: No Score: 5 Justen Score less than 4; Low Risk of VTE Justen Score 4 or greater; High Risk of VTE Coding Level of Care Code Est Patient Level 1 Diagnoses Current use of anticoagulant therapy Z79.01 Results AMB INR Fingerstick AMB INR Fingerstick 1.8 Last Edit by Brianne Flores RN on 05/15/24 08:08 MANUAL ENTRY Assessment & Plan Assessment & Plan (1) Current use of anticoagulant therapy: Comment: Sent a note to PCP regarding Coumadin-will await advisement patient fully aware 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
== END 2024-05-15 08:14 | disposition home or self-care (01) ==
LOC: HO.ACS 07:59
PROVIDERS: PCP Nurse Practitioner Family; Visit Provider Internal Medicine
DX: Z79.01 Long term (current) use of anticoagulants (principal)

== ENCOUNTER → 2024-05-15 07:59 | Outpatient (BNVA) | payer MEDICARE, OTHER, SELFPAY | PROVIDERS: PCP Nurse Practitioner Family; Visit Provider Internal Medicine | DX: I48.0 Paroxysmal atrial fibrillation (principal); Z79.01 Long term (current) use of anticoagulants; Z51.81 Encounter for therapeutic drug level monitoring | CPT/HCPCS: 85610; 99211 ==

== ENCOUNTER 2024-05-18 06:28 | Outpatient (REF) | payer MEDICARE, OTHER, SELFPAY ==
[2024-05-18 10:04] LABS: Appearance Urine Clear; Color Urine Yellow; Glucose Urine UA Negative (Negative); Leukocyte Esterase Urine Negative (Negative); Nitrite Urine Negative (Negative); Specific Gravity - Urine 1.025 (1.005-1.025); Urine Blood Negative (Negative); Urine Ketones Negative (Negative); Urine Protein Negative (Neg-Trace)
[2024-05-18 10:04] LABS: MANUAL DIFF FLAG NO
[2024-05-18 10:10] LABS: Basophils Percent Auto 0.5 % (0-2); Eosinophils Absolute Auto 0.1 X10*3/uL (0.0-0.4); Eosinophils Percent Auto 2.2 % (0-4); Hematocrit 41.4 % (42.0-52.0); Hemoglobin 13.3 g/dl (14.0-18.0); Imm Gran Abs Auto 0.02 X10*3/uL (0.00-0.03); Imm Gran Pct Auto 0.3 % (0.0-0.4); Lymphocytes Absolute Auto 1.7 X10*3/uL (1.2-4.9); Mean Corpuscular HGB Conc 32.1 g/dl (31.0-36.0); Mean Corpuscular Hemoglobin 28.7 pg (27.0-33.0); Mean Corpuscular Volume 89.4 fL (80.0-98.0); Mean Platelet Volume 11.6 fL (9.4-12.4); Monocytes Absolute Auto 0.4 X10*3/uL (0.1-1.2); Monocytes Percent Auto 7.2 % (2-11); Neutrophils Absolute Auto 3.7 x10*3/uL (2.0-8.3); Neutrophils Percent Auto 61.8 % (45-73); Platelet Count 148 X10*3/uL (160-400); Red Blood Count 4.63 X10*6/uL (4.60-5.80); Red Cell Distribution Width 13.5 % (11.0-16.0)
[2024-05-18 10:19] LABS: INTERNATIONAL NORM RATIO 1.8 (0.9-1.1); Prothrombin Time 21.4 SEC (10.9-12.4)
[2024-05-18 10:45] LABS: Prostate Specific Antigen Scr 1.47 ng/mL (<0.05-4.0)
[2024-05-18 10:54] LABS: Alanine Aminotransferase 32 U/L (0-40); Alkaline Phosphatase 77 U/L (39-117); Anion Gap 9 (12-20); Aspartate Amino Transferase 25 U/L (5-37); Bilirubin Total 0.4 mg/dL (0.0-1.0); Blood Urea Nitrogen 13 mg/dL (9-16); Calcium 8.7 mg/dL (8.4-10.2); Carbon Dioxide 28 mmol/L (22-29); Chloride 105 mmol/L (96-108); Cholesterol 95 mg/dL (<200); Estimated Glomerular Filt Rate > 60; Glucose Fasting 99 mg/dL (60-99); HDL Cholesterol 29 mg/dL (>40); LDL Cholesterol Calculated 50 mg/dL (<100); Potassium 4.2 mmol/L (3.3-5.1); Sodium 138 mmol/L (135-145); Total Protein 6.9 g/dL (6.5-8.0); Triglycerides 83 mg/dL (<150)
[2024-05-18 11:12] LABS: TSH reflex Free T4 2.49 uIU/mL (0.32-4.0)
== END 2024-05-18 06:29 | disposition home or self-care (01) ==
LOC: HO.HMGCLDS 06:28
PROVIDERS: Internal Medicine; PCP Nurse Practitioner Family; Visit Provider Nurse Practitioner Family
DX: I10 Essential (primary) hypertension (principal); E66.01 Morbid (severe) obesity due to excess calories; Z12.5 Encounter for screening for malignant neoplasm of prostate; Z79.01 Long term (current) use of anticoagulants
CPT/HCPCS: 36415; 80053; 80061; 81003; 84153; 84443; 85025; 85610

== ENCOUNTER 2024-05-25 08:19 | Outpatient (AMB) | payer MEDICARE, OTHER, SELFPAY ==
--- NOTE | 2024-05-25 08:32 | MHC.OFFVISCO ---
Intake Intake Visit Reasons: Anticoagulation Allergies No Known Allergies [No Known Allergies*] Allergy (Verified 05/25/24 08:19) Medication List - Last Reconciled 05/25/24 by Brianne Flores RN aspirin 81 mg PO DAILY atorvastatin 80 mg PO BEDTIME ezetimibe (Zetia) 10 mg PO DAILY 90 days isosorbide mononitrate ER 60 mg PO DAILY lisinopril 10 mg PO DAILY metoprolol succinate ER 25 mg PO DAILY omeprazole 20 mg PO DAILY@0630 semaglutide (weight loss) 2.4 mg (0.75 mL) subcut QWEEK 60 days warfarin 5 mg See Protocol PO SUMOWETHSA@1800 Nursing Note INR: 2.6 in therapeutic range Medications and supplements reviewed No changes in health, diet, medications, or supplements, - WARFARIN DOSE WAS INCREASED DUE TO POSSIBLE SEMAGLUTIDE AND EXERCISE AND LOOSING WEIGHT denies any signs and symptoms of bleeding or bruising or clotting. Bleeding, bruising, clotting discussed Nutritional guidance given Dose: 2.5MG X 1 DAY/ 5MG X 6 DAYS F/U INR: 1 MONTH Patient verbalizes understanding of instructions given Anti-Coag Initial Assessment Social Hx Patient Tobacco Use Status: Former Tobacco user Tobacco use type: Cigarette Smoking packs per day: 1 alcohol intake: never Coding Level of Care Code Est Patient Level 1 Diagnoses Current use of anticoagulant therapy Z79.01 Results AMB INR Fingerstick AMB INR Fingerstick 2.6 Last Edit by Brianne Flores RN on 05/25/24 08:28 MANUL ENTRY Assessment & Plan Assessment & Plan (1) Current use of anticoagulant therapy: Comment: Sent a note to PCP regarding Coumadin-will await advisement patient fully aware Code(s): Z79.01 - [facility] (current) use of anticoagulants Category: Medical
[2024-05-25 09:57] LABS: Prothrombin Time Whole Bld POC 31.7 sec (11.1-13.5); ~PT, ~INR - Anti Coag Clinic 2.6 (0.9-1.1)
== END 2024-05-25 08:36 | disposition home or self-care (01) ==
LOC: HO.ACS 08:19
PROVIDERS: PCP Nurse Practitioner Family; Visit Provider Internal Medicine
DX: Z79.01 Long term (current) use of anticoagulants (principal)

== ENCOUNTER 2024-05-25 14:11 | Outpatient (AMB) | payer MEDICARE, OTHER, SELFPAY ==
--- NOTE | 2024-05-25 14:18 | A.OFFPC_ITS ---
Vital Signs 05/25/24 14:19 Height 5 ft 10 in Weight 278 lb BMI 39.9 BP 112/72 Blood Pressure Location Lt brachial Position Sitting Pulse 82 Pulse Source Pulse Oximeter Pulse Oximetry (%) 96 Intake Visit Reasons: Follow Up Med/Weight Check Intake Note: pt is here for follow up regarding med, weight check Costume Director Required: No Allergies No Known Allergies [No Known Allergies*] Allergy (Verified 05/25/24 14:19) Tobacco use date assessed: 11/20/23 Fall risk assessment: No Falls in past year Last assessed Fall Risk: 05/25/24 Dental Screening Dental Screen Date: 11/20/23 HPI Follow Up Med/Weight Check HPI Details History of Present Illness The patient is a 68-year-old male presenting with obesity management and musculoskeletal concerns. The patient has been on Wegovy for obesity since October, reporting variable weight loss results. While weight loss was minimal during a vacation in [place], the patient has seen an initial reduction from 310 pounds to 278 pounds. His goal is a further 100-pound weight loss to reach a weight maintained prior to a significant stroke event, following high school graduation. I explained to pt this may be a little much, 'one step at a time . The patient's history includes a stroke resulting in altered vision and taste. There are ongoing challenges with consistent diet management, noting difficulties with hip and back pain limiting physical activity, Hx of pagets disease. Social History - The patient was on vacation with a mot or home in [place], indicating some level of mobility. - Possible challenges in dietary habits, including high intake of high- carbohydrate foods and discussions of leftover [place] and pizza dinners. - Historical stroke affecting lifestyle and weight maintenance. - Reports difficulty being consistent wi th a protein-focused diet leading to weight management challenges. Review of Systems - Musculoskeletal: Reports hip and back pain. - Constitutional: Denies bowel or bladde r incontinence. -no CP, SOB, fevers, chills. Physical Exam - Musculoskeletal- Performed range of mo tion assessments resulting in no noted shooting pain during the exam; no differential leg strength or coordination issues noted during [id number] maneuvers. no exacerbation of pain with heel and toe walking. s1 s2 (systolic murmur, faint) clear lungs A+Ox3 Results Plan - For obesity, continue management with Wegovy and reassess dietary adherence; target significant further weight reduction. - For musculoskeletal complaints, obtain x-rays of the hips and lumbar spine to assess degenerative changes or other pathologies. A bone scan is planned as well to assess pagets. Patient was informed and verbally consented to the use of an ambient scribe for clinic note documentation during this visit. Discussion Notes During the visit, I discussed ongoing challenges with managing obesity, emphasizing dietary adherence and setting weight loss goals. I highlighted the progress seen with Wegovy, noting the need for continued focus despite vacation- associated setbacks. We discussed plans for musculoskeletal complaints, including ordering x-rays to further delineate orthopedic issues and identifying any need for specialist referral. I explained that upcoming bone scans and blood tests would aid further evaluation. The patient expressed understanding and was agreeable to the outlined plans. Patient Instructions - Continue Wegovy as prescribed for weig ht management. - Adhere to protein-focused dietary tate mmendations and limit high-carbohydrate foods. - Prepare for upcoming x-rays and bone s can; monitor for any increase in hip or back pain. - Schedule follow-up appointments to miky itor progress in weight management and musculoskeletal assessment. [facility] Medical History Medial epicondylitis DDD (degenerative disc disease), lumbar Acid reflux Hemorrhoids Lupus anticoagulant syndrome Factor 5 Leiden mutation, heterozygous Paroxysmal atrial fibrillation CAD (coronary artery disease) Paget's disease Rectal bleeding Vitamin deficiency Atrial flutter Osteoarthritis Angina pectoris Sleep apnea GERD (gastroesophageal reflux disease) CVA (cerebral vascular accident) HTN (hypertension) Cerebrovascular disease, acute Surgical History Hx of colonoscopy Hx of hand surgery Hx of appendectomy Hx of hernia repair Family History Father HTN (hypertension) S/P triple vessel bypass Mother Brain tumor Cancer Brother Cancer Brain tumor Social History Household Members: Spouse Housing: House Do you presently have visiting nurse or other home services: No Alcohol intake: never Patient Tobacco Use Status: Former Tobacco user Tobacco use type: Cigarette Cigarette Packs Per Day: 1 Cigarettes Per Day: 20.0 Years Smoked: 3 e-Cigarette/Vaping Use: Never Used Second Hand Smoke Exposure: No service: Yes Current occupational status: retired Cognitive needs: No Hearing needs: No Vision needs: No Questionnaire PHQ-9 Over the last 2 weeks, how often have you been bothered by any of the following problems? 1. Little interest or pleasure in doing things: not at all 2. Feeling down, depressed, or hopeless: not at all 3. Trouble falling or staying asleep, or sleeping too much: not at all 4. Feeling tired or having little energy: not at all 5. Poor appetite or overeating: not at all 6. Feeling bad about yourself - or that you are a failure or have let yourself or your family down: not at all 7. Trouble concentrating on things, such as reading the newspaper or watching television: not at all 8. Moving or speaking so slowly that other people could have noticed. Or the opposite - being so fidgety or restless that you have been moving around a lot more than usual: not at all 9. Thoughts that you would be better off or of hurting yourself in some way: not at all Total score: 0 Depression Screening Interpretation: Negative Depression Screening Done: Yes 19832 - PHQ-9 Billing: Yes Source: Developed by Drs. Brandt Salvador, Katie Gaines, Parish Mae and colleagues, with an educational timmy from [employer] Thrive Questionnaire Date Thrive assessed: 05/25/24 I am a: Patient What is your living situation today?: I choose not to answer this question Within the past 12 months, did the food you bought not last and you didn't have the money to get more?: I choose not to answer this question Within the past 12 months, did you worry whether your food would run out before you got money to buy more?: I choose not to answer this question Do you have trouble paying for medicines?: I choose not to answer this question Do you have trouble getting transportation to medical appointments?: I choose not to answer this question Do you have trouble paying your heating and electricity bill?: I choose not to answer this question Do you have trouble taking care of your child, family member or friend?: I choose not to answer this question Do you have trouble with day-to-day activities such as bathing, preparing meals, shopping, managing finances, etc.?: I choose not to answer this question Are you currently unemployed and looking for a job?: I choose not to answer this question Are you interested in more education?: I choose not to answer this question Please select the resources that you would like help with: None Currently or been in a relationship where the following occur: I choose not to answer THRIVE Score: 0 LILLIAN-7 AMB Questionnaire LILLIAN-7 Date LILLIAN - 7 assessed: 05/25/24 Feeling nervous, anxious, or on edge: 0 = Not at all Not being able to stop or control worryin = Not at all Worrying too much about different things: 0 = Not at all Trouble relaxin = Not at all Being so restless that it is hard to sit still: 0 = Not at all Becoming easily annoyed or irritable: 0 = Not at all Feeling afraid as if something awful might happen: 0 = Not at all Total LILLIAN-7 score (0-4 normal; 5-9 mild; 10-14 moderate; 15-21 severe): 0 Source: Developed by Drs. Brandt Salvador, Katie Gaines, Parish Mae and colleagues, with an educational timmy from [employer] LILLIAN-7 Assessment Billing LILLIAN-7 Assessment Tool: LILLIAN-7 Assessment 56410 Physical exam (Primary Care) Vital Signs: Last Vital Signs Pulse 82 05/25/24 14:19 BP 112/72 05/25/24 14:19 Pulse Ox 96 05/25/24 14:19 BMI result Body Mass Index 39.9 Tobacco/Smoking Status: Tobacco use Status Tobacco use date assessed 11/20/23 05/25/24 14:20 Patient Tobacco Use Status Former Tobacco user 05/25/24 14:20 Tobacco use type Cigarette 05/25/24 14:20 e-Cigarette/Vaping Use Never Used 05/25/24 14:20 PHQ-9: PHQ-9 Score PHQ-9: Total score 0 05/25/24 14:20 Depression Screening Interpretation: Negative Thrive Assessment: Date of Thrive Assessment Date Thrive assessed 05/25/24 05/25/24 14:20 Currently or been in a relationship where the following occur: I choose not to answer Results AMB INR Fingerstick AMB INR Fingerstick 2.6 Last Edit by Brianne Flores RN on 05/25/24 08:28 MANUL ENTRY Coding Level of Care Code Est Pt Level 3 (34503) Diagnoses Paget's disease Osteoarthritis M19.90 Lower back pain M54.50 Anemia D64.9 Additional Codes LILLIAN-7 Assessment Billing - LILLIAN-7 Assessment Tool: LILLIAN-7 Assessment 17001 ([id number]) PHQ-9 - 50971 - PHQ-9 Billing: Yes ([id number]) Assessment & Plan Assessment & Plan (1) Paget's disease: Category: Medical (2) Osteoarthritis: Code(s): M19.90 - Unspecified osteoarthritis, unspecified site Category: Medical (3) Lower back pain: Code(s): M54.50 - Low back pain, unspecified Category: Medical (4) Anemia: Code(s): D64.9 - Anemia, unspecified Category: Medical (5) Osteoarthritis: Code(s): M19.90 - Unspecified osteoarthritis, unspecified site Category: Medical Plan . Orders: Orders Erythrocyte Sedimentation Rate Today M19.90 - Unspecified osteoarthritis, unspecified site C Reactive Protein Today M19.90 - Unspecified osteoarthritis, unspecified site XR hips AKBAR min 3V Today M54.50 - Low back pain, unspecified Ferritin Today D64.9 - Anemia, unspecified Vitamin B12 and Folate Today D64.9 - Anemia, unspecified XR lumbar spine 2-3V Today M54.50 - Low back pain, unspecified IRON PROFILE Today D64.9 - Anemia, unspecified Lactate Dehydrogenase Today D64.9 - Anemia, unspecified Reticulocyte Count Today D64.9 - Anemia, unspecified NM bone scan whole body Today M19.90 - Unspecified osteoarthritis, unspecified site
[2024-05-25 14:19] VITALS: BP 112/72; PULSE 82; O2SAT 96; BMI 39.9
== END 2024-05-25 15:29 | disposition home or self-care (01) ==
PROVIDERS: PCP Nurse Practitioner Family; Visit Provider Nurse Practitioner Family
DX: M19.90 Unspecified osteoarthritis, unspecified site (principal); M54.50 Low back pain, unspecified; D64.9 Anemia, unspecified

== ENCOUNTER 2024-05-25 15:21 | Outpatient (REF) | payer MEDICARE, OTHER, SELFPAY | END 2024-05-25 15:22 | disposition home or self-care (01) | LOC: HO.HMGCX 15:21 | PROVIDERS: PCP Nurse Practitioner Family; Visit Provider Nurse Practitioner Family | DX: M19.90 Unspecified osteoarthritis, unspecified site (principal); M54.50 Low back pain, unspecified; D64.9 Anemia, unspecified; I48.0 Paroxysmal atrial fibrillation; Z51.81 Encounter for therapeutic drug level monitoring; Z79.01 Long term (current) use of anticoagulants | CPT/HCPCS: 72100; 73522; 85610; 96127; 99211; 99212 ==

== ENCOUNTER 2024-06-15 07:58 | Outpatient (AMB) | payer MEDICARE, OTHER, SELFPAY ==
[2024-06-15 08:05] LABS: Prothrombin Time Whole Bld POC 31.2 sec (11.1-13.5); ~PT, ~INR - Anti Coag Clinic 2.6 (0.9-1.1)
--- NOTE | 2024-06-15 08:05 | MHC.OFFVISCO ---
Intake Intake Visit Reasons: Anticoagulation Allergies No Known Allergies [No Known Allergies*] Allergy (Verified 06/15/24 08:00) Medication List - Last Reconciled 06/15/24 by Brianne Flores RN aspirin 81 mg PO DAILY atorvastatin 80 mg PO BEDTIME ezetimibe (Zetia) 10 mg PO DAILY 90 days isosorbide mononitrate ER 60 mg PO DAILY lisinopril 10 mg PO DAILY metoprolol succinate ER 25 mg PO DAILY omeprazole 20 mg PO DAILY@0630 semaglutide (weight loss) 2.4 mg (0.75 mL) subcut QWEEK 60 days warfarin 5 mg See Protocol PO SUMOWETHSA@1800 Nursing Note INR:2.6 in therapeutic range Medications and supplements reviewed No changes in health, diet, medications, or supplements, Denies any signs and symptoms of bleeding or bruising or clotting. Bleeding, bruising, clotting discussed Nutritional guidance given Dose: KEEP SAME DOSE 2.5MG X 1 DAYS/ 5MG X 6 DAYS F/U INR: 1 MONTH Patient verbalizes understanding of instructions given Anti-Coag Initial Assessment Social Hx Patient Tobacco Use Status: Former Tobacco user Tobacco use type: Cigarette Smoking packs per day: 1 alcohol intake: never Coding Level of Care Code Est Patient Level 1 Diagnoses Current use of anticoagulant therapy Z79.01 Results AMB INR Fingerstick AMB INR Fingerstick 2.6 Last Edit by Brianne Flores RN on 06/15/24 08:08 MANUAL ENTRY Assessment & Plan Assessment & Plan (1) Current use of anticoagulant therapy: Comment: Sent a note to PCP regarding Coumadin-will await advisement patient fully aware Code(s): 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
== END 2024-06-15 08:11 | disposition home or self-care (01) ==
LOC: HO.ACS 07:58
PROVIDERS: PCP Nurse Practitioner Family; Visit Provider Internal Medicine
DX: Z79.01 Long term (current) use of anticoagulants (principal)

== ENCOUNTER → 2024-06-15 07:58 | Outpatient (BNVA) | payer MEDICARE, OTHER, SELFPAY | PROVIDERS: PCP Nurse Practitioner Family; Visit Provider Internal Medicine | DX: I48.0 Paroxysmal atrial fibrillation (principal); Z79.01 Long term (current) use of anticoagulants; Z51.81 Encounter for therapeutic drug level monitoring | CPT/HCPCS: 85610; 99211 ==

== ENCOUNTER 2024-07-13 07:44 | Outpatient (AMB) | payer MEDICARE, OTHER, SELFPAY ==
--- NOTE | 2024-07-13 08:00 | MHC.OFFVISCO ---
Intake Intake Visit Reasons: Anticoagulation Allergies No Known Allergies [No Known Allergies*] Allergy (Verified 07/13/24 07:46) Medication List - Last Reconciled 07/13/24 by Brianne Flores RN aspirin 81 mg PO DAILY atorvastatin 80 mg PO BEDTIME ezetimibe (Zetia) 10 mg PO DAILY 90 days isosorbide mononitrate ER 60 mg PO DAILY lisinopril 10 mg PO DAILY metoprolol succinate ER 25 mg PO DAILY 90 days omeprazole 20 mg PO DAILY@0630 semaglutide (weight loss) 2.4 mg (0.75 mL) subcut QWEEK 60 days warfarin 5 mg See Protocol PO SUMOWETHSA@1800 Nursing Note INR: 2.2 in therapeutic range Medications and supplements reviewed No changes in health, diet, medications, or supplements, Denies any signs and symptoms of bleeding or bruising or clotting. Bleeding, bruising, clotting discussed Nutritional guidance given Dose: 2.5MG X 1 DAY/ 5MG X 6 DAYS F/U INR: 1 MONTH Patient verbalizes understanding of instructions given Anti-Coag Initial Assessment Social Hx Patient Tobacco Use Status: Former Tobacco user Tobacco use type: Cigarette Smoking packs per day: 1 alcohol intake: never Coding Level of Care Code Est Patient Level 1 Diagnoses Current use of anticoagulant therapy Z79.01 Results AMB INR Fingerstick AMB INR Fingerstick 2.2 Last Edit by Brianne Flores RN on 07/13/24 07:56 MANUAL ENTRY AMB INR Fingerstick AMB INR Fingerstick 2.2 Last Edit by Brianne Flores RN on 07/13/24 07:57 MANUAL ENTRY Assessment & Plan Assessment & Plan (1) Current use of anticoagulant therapy: Comment: Sent a note to PCP regarding Coumadin-will await advisement patient fully aware Code(s): 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
[2024-07-13 08:13] LABS: Prothrombin Time Whole Bld POC 25.8 sec (11.1-13.5); ~PT, ~INR - Anti Coag Clinic 2.2 (0.9-1.1)
== END 2024-07-13 08:03 | disposition home or self-care (01) ==
LOC: HO.ACS 07:44
PROVIDERS: PCP Nurse Practitioner Family; Visit Provider Internal Medicine
DX: Z79.01 Long term (current) use of anticoagulants (principal)

== ENCOUNTER → 2024-07-13 07:44 | Outpatient (BNVA) | payer MEDICARE, OTHER, SELFPAY | PROVIDERS: PCP Nurse Practitioner Family; Visit Provider Internal Medicine | DX: I48.0 Paroxysmal atrial fibrillation (principal); Z79.01 Long term (current) use of anticoagulants; Z51.81 Encounter for therapeutic drug level monitoring | CPT/HCPCS: 85610; 99211 ==

== ENCOUNTER 2024-08-17 08:00 | Outpatient (AMB) | payer MEDICARE, OTHER, SELFPAY ==
[2024-08-17 08:16] LABS: Prothrombin Time Whole Bld POC 31.5 sec (11.1-13.5); ~PT, ~INR - Anti Coag Clinic 2.6 (0.9-1.1)
--- NOTE | 2024-08-17 08:17 | MHC.OFFVISCO ---
Intake Intake Visit Reasons: Anticoagulation Allergies No Known Allergies [No Known Allergies*] Allergy (Verified 08/17/24 08:06) Medication List - Last Reconciled 08/17/24 by Anabel Neal RN aspirin 81 mg PO DAILY atorvastatin 80 mg PO BEDTIME ezetimibe (Zetia) 10 mg PO DAILY 90 days isosorbide mononitrate ER 60 mg PO DAILY lisinopril 10 mg PO DAILY metoprolol succinate ER 25 mg PO DAILY 90 days omeprazole 20 mg PO DAILY@0630 warfarin 5 mg See Protocol PO SUMOWETHSA@1800 Nursing Note INR: 2.6 in therapeutic range of 2-3 Medications and supplements reviewed No changes in health, diet, medications, or supplements, Denies any signs and symptoms of bleeding or bruising or clotting. Bleeding, bruising, clotting discussed Nutritional guidance given Dose: 5mg X 6 days and 2.5mg X 1 day () F/U INR: pt requests 5 weeks Patient verbalizes understanding of instructions given Anti-Coag Initial Assessment Social Hx Patient Tobacco Use Status: Former Tobacco user Tobacco use type: Cigarette Smoking packs per day: 1 alcohol intake: never Coding Level of Care Code Est Patient Level 1 Diagnoses Current use of anticoagulant therapy Z79.01 Assessment & Plan Assessment & Plan (1) Current use of anticoagulant therapy: Comment: Sent a note to PCP regarding Coumadin-will await advisement patient fully aware 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
== END 2024-08-17 08:20 | disposition home or self-care (01) ==
LOC: HO.ACS 08:00
PROVIDERS: PCP Nurse Practitioner Family; Visit Provider Internal Medicine
DX: Z79.01 Long term (current) use of anticoagulants (principal)

== ENCOUNTER → 2024-08-17 08:00 | Outpatient (BNVA) | payer MEDICARE, OTHER, SELFPAY | PROVIDERS: PCP Nurse Practitioner Family; Visit Provider Internal Medicine | DX: I48.0 Paroxysmal atrial fibrillation (principal); Z79.01 Long term (current) use of anticoagulants; Z51.81 Encounter for therapeutic drug level monitoring | CPT/HCPCS: 85610; 99211 ==

== ENCOUNTER 2024-09-10 09:17 | Outpatient (AMB) | payer MEDICARE, OTHER, SELFPAY ==
[2024-09-10 09:40] VITALS: BP 120/74; PULSE 64; BMI 40.5
--- NOTE | 2024-09-10 09:40 | MHC.OFFVIS ---
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 He has been doing well from cardiac perspective. Denies any current cardiac complaints. Denies any prolonged palpitation irregular heartbeat. Denies any lightheadedness, syncope. No new neurologic symptoms. He remains on warfarin therapy. He says that is because of factor 5 Leiden mutation although I also see in his chart that he was lupus anticoagulant syndrome although I do not find any labs. He denies any exertional chest pain or shortness of breath. He said he was doing extremely well with GLP 1 antagonist Wegovy with significant weight loss and he said he felt a lot more energy. He has not had any exertional chest pain. Taking all his medications. [facility] Medical History Medial epicondylitis DDD (degenerative disc disease), lumbar Acid reflux Hemorrhoids Lupus anticoagulant syndrome Factor 5 Leiden mutation, heterozygous Paroxysmal atrial fibrillation CAD (coronary artery disease) Paget's disease Rectal bleeding Vitamin deficiency Atrial flutter Osteoarthritis Angina pectoris Sleep apnea GERD (gastroesophageal reflux disease) CVA (cerebral vascular accident) HTN (hypertension) Cerebrovascular disease, acute Surgical History Hx of colonoscopy Hx of hand surgery Hx of appendectomy Hx of hernia repair Family History Father HTN (hypertension) S/P triple vessel bypass Mother Brain tumor Cancer Brother Cancer Brain tumor Social History Household Members: Spouse Housing: House Do you presently have visiting nurse or other home services: No Alcohol intake: never Patient Tobacco Use Status: Former Tobacco user Tobacco use type: Cigarette Cigarette Packs Per Day: 1 Cigarettes Per Day: 20.0 Years Smoked: 3 e-Cigarette/Vaping Use: Never Used Second Hand Smoke Exposure: No service: Yes Current occupational status: retired Cognitive needs: No Hearing needs: No Vision needs: No Review of Systems Const Denies chills, Denies fatigue, Denies fever(s), Denies frequent falls, Denies weakness, Denies weight gain and Denies weight loss ENT Denies dizziness Card Denies chest pain, Denies leg edema, Denies lightheadedness, Denies palpitations, Denies dyspnea, Denies dyspnea on exertion, Denies orthopnea and Denies other (loss of consciousness) Resp Denies cough, Denies dyspnea and Denies dyspnea on exertion GI Denies hematochezia and Denies change in stool character Musc Denies abnormal gait, Denies muscle weakness, Denies numbness, Denies radiating pain into limb and Denies tingling Neuro Denies abnormal gait, Denies dizziness, Denies frequent falls, Denies numbness, Denies tingling and Denies weakness Endo Denies fatigue and Denies palpitations Physical Exam Vital Signs: Last Vital Signs Pulse 64 09/10/24 09:40 BP 120/74 09/10/24 09:40 BMI result Body Mass Index 40.5 Const General: cooperative, comfortable, no acute distress, alert and awake Nutritional Appearance: obese morbidly obese Orientation/consciousness: patient oriented x3 Limitations: no limitations Neck Neck: Yes trachea midline, Yes supple and Yes no JVD Chest Chest palpation & inspection: normal inspection of the chest Resp Effort & Inspection: normal respiratory effort Auscultation: clear to auscultation bilaterally Cardio Jugular venous distension: no JVD Palpation: normal PMI Rate: regular rate Rhythm: regular rhythm Heart sounds: S1 normal heart sound present and S2 normal heart sound present Skin General skin exam: no rashes or lesions noted Neuro General: patient oriented x3 and no focal motor deficits Extrem General: Yes no clubbing, cyanosis or edema Psych Appearance: grossly normal Office Procedures EKG Details: EKG shows normal sinus rhythm with sinus arrhythmia [id number], Complete Assessment & Plan Assessment & Plan (1) Paroxysmal atrial fibrillation: Code(s): I48.0 - Paroxysmal atrial fibrillation Category: Medical Plan: Paroxysmal atrial fibrillation without any obvious clinical recurrence. Currently doing well from this perspective. Continue therapy with metoprolol. Avoidance of stimulants was discussed. Advised to call me with any new symptoms. Continue risk factor modification including weight reduction which has shown to reduce recurrence of atrial fibrillation. Continue CPAP therapy. Recommend oral anticoagulation therapy. If he truly has lupus anticoagulant syndrome then he would not be a candidate for direct oral anticoagulant therapy and this will be pursued through your office. Continue warfarin therapy with target INR between 2 and 3 which is tolerating well. (2) CAD (coronary artery disease): Comment: Denies recent chest pain Code(s): I25.10 - Atherosclerotic heart disease of [place] coronary artery without angina pectoris Category: Medical Plan: Diffuse vascular disease with no current anginal symptoms. Continue aggressive risk factor modification. Currently on dual therapy with atorvastatin ezetimibe. Target goal LDL less than 60 mg/dL. Continue participate in weight loss program. Continue aggressive blood pressure control which is currently well optimized. Advised to monitor blood pressure at home maintain a log. Goal blood pressure less than 130/84. Will follow up in the clinic in 1 year's time, sooner p.r.n.. Thank you for allowing me to partake in his care Coding Level of Care Code Est Pt Level 4 (25345) Complex EM visit Add On G2211 Diagnoses Paroxysmal atrial fibrillation I48.0 CAD (coronary artery disease) I25.10 CPT Codes EKG - CPT: 57471-[id number], Complete ([id number])
== END 2024-09-10 10:12 | disposition home or self-care (01) ==
LOC: HO.HCS 09:17
PROVIDERS: PCP Nurse Practitioner Family; Visit Provider Internal Medicine Cardiovascular Disease
DX: I48.0 Paroxysmal atrial fibrillation (principal); I25.10 Atherosclerotic heart disease of native coronary artery without angina pectoris
CPT/HCPCS: 93010; 99214; G2211

== ENCOUNTER → 2024-09-10 09:17 | Outpatient (BNVA) | payer MEDICARE, OTHER, SELFPAY | PROVIDERS: PCP Nurse Practitioner Family; Visit Provider Internal Medicine Cardiovascular Disease | DX: I48.0 Paroxysmal atrial fibrillation (principal); I25.10 Atherosclerotic heart disease of native coronary artery without angina pectoris | CPT/HCPCS: 93005; 99212 ==

== ENCOUNTER → 2024-09-16 09:42 | Outpatient (REF) | payer MEDICARE, OTHER, SELFPAY ==
--- NOTE | ~2024-09-16 | NM_ITS ---
EXAMINATION: NM BONE SCAN WHOLE BODY HISTORY: M19.90 - Unspecified osteoarthritis, unspecified site. TECHNIQUE: A total body bone scan was performed following the intravenous administration of 35 mCi technetium 99m-MDP. Whole body planar images were obtained. COMPARISON: Correlation is made with plain films of the lumbar spine dated 05/25/2024. FINDINGS: There are small foci of increased uptake noted on the right at the L2 vertebral level and on the left at the T11 vertebral level which appear to correspond to degenerative disc disease. There is uptake at both knees, preferentially involving the medial compartments, right greater than left, consistent with osteoarthritis. There is fairly symmetric increased uptake involving the AC joints of both shoulders, also likely degenerative in nature. Degenerative uptake is also noted involving the right foot and both elbows. A focus of uptake involving the right lower sternum is likely degenerative or posttraumatic in nature. There is normal bilateral renal uptake. NM/NM bone scan whole body IMPRESSION: Degenerative uptake as described. Electronically signed by: Brandt Rowland MD 09/16/2024 02:36 PM EDT
== END ==
LOC: HO.NUCMED 09:42
PROVIDERS: PCP Nurse Practitioner Family; Visit Provider Nurse Practitioner Family
DX: M19.90 Unspecified osteoarthritis, unspecified site (principal)
CPT/HCPCS: 78306; A9503

== ENCOUNTER → 2024-09-16 10:07 | Outpatient (BNV) | payer MEDICARE, OTHER, SELFPAY | PROVIDERS: PCP Nurse Practitioner Family; Visit Provider Radiology Diagnostic Radiology | DX: M51.34 Other intervertebral disc degeneration, thoracic region (principal); M19.09 Primary osteoarthritis, other specified site; M17.0 Bilateral primary osteoarthritis of knee | CPT/HCPCS: 78306 ==

== ENCOUNTER 2024-09-21 08:00 | Outpatient (AMB) | payer MEDICARE, OTHER, SELFPAY ==
[2024-09-21 08:11] LABS: Prothrombin Time Whole Bld POC 39.7 sec (11.1-13.5); ~PT, ~INR - Anti Coag Clinic 3.3 (0.9-1.1)
--- NOTE | 2024-09-21 08:25 | MHC.OFFVISCO ---
Intake Intake Visit Reasons: Anticoagulation Allergies No Known Allergies [No Known Allergies*] Allergy (Verified 09/21/24 08:03) Medication List - Last Reconciled 09/21/24 by Brianne Flores RN apixaban (Eliquis) 5 mg PO BID aspirin 81 mg PO DAILY atorvastatin 80 mg PO BEDTIME ezetimibe (Zetia) 10 mg PO DAILY 90 days isosorbide mononitrate ER 60 mg PO DAILY lisinopril 10 mg PO DAILY metoprolol succinate ER 25 mg PO DAILY 90 days omeprazole 20 mg PO DAILY@0630 warfarin 5 mg See Protocol PO SUMOWETHSA@1800 Nursing Note NR: 3.3 in therapeutic range Medications and supplements reviewed No changes in health, diet, medications, or supplements, Denies any signs and symptoms of bleeding or bruising or clotting. Bleeding, bruising, clotting discussed Nutritional guidance given REVIEW FOOD LIST WEEKLY, EAT A MIX OF FRUITS AND VEGETABLES, HAVE AN EXTRA GREEN TO HELP LOWER THE INR IN ORDER TO TRANSITION TO ELIQUIS - IT IS RECOMMENED TO BE 2.0 OR LESS BUT DUE TO YOUR MEDICAL HISTORY IT IS BEST TO BE 2.0 OR A LITTLE OVER. IT MAY BE BEST TO GRADUALLY LOWER (LUDIN DOWN DOSE) WARFARIN WHILE STARTIMG ELIQUIS) Dose: ALREADY TOOK TODAY - DECREASE TO 2.5MG TOMORR AND SAT AND RECHECK SATURDAY MORNING BEFORE TAKING EITHER WARFARIN OR ELIQUIS - F/U INR: Saturday09/24/2024 Patient verbalizes understanding of instructions given Anti-Coag Initial Assessment Social Hx Patient Tobacco Use Status: Former Tobacco user Tobacco use type: Cigarette Smoking packs per day: 1 alcohol intake: never Coding Level of Care Code Est Patient Level 1 Diagnoses Current use of anticoagulant therapy Z79.01 Results AMB INR Fingerstick AMB INR Fingerstick 3.3 Last Edit by Brianne Flores RN on 09/21/24 08:11 manual entry Assessment & Plan Assessment & Plan (1) Current use of anticoagulant therapy: Comment: Sent a note to PCP regarding Coumadin-will await advisement patient fully aware Code(s): Z79.01 - [facility] (current) use of anticoagulants Category: Medical
== END 2024-09-21 08:28 | disposition home or self-care (01) ==
LOC: HO.ACS 08:00
PROVIDERS: PCP Nurse Practitioner Family; Visit Provider Internal Medicine Medical Oncology
DX: Z79.01 Long term (current) use of anticoagulants (principal)

== ENCOUNTER → 2024-09-21 08:00 | Outpatient (BNVA) | payer MEDICARE, OTHER, SELFPAY | PROVIDERS: PCP Nurse Practitioner Family; Visit Provider Internal Medicine Medical Oncology | DX: I48.0 Paroxysmal atrial fibrillation (principal); Z51.81 Encounter for therapeutic drug level monitoring; Z79.01 Long term (current) use of anticoagulants | CPT/HCPCS: 85610; 99211 ==

== ENCOUNTER 2024-09-23 08:14 | Outpatient (AMB) | payer MEDICARE, OTHER, SELFPAY ==
--- NOTE | 2024-09-23 08:16 | A.OFFPC_ITS ---
Vital Signs 09/23/24 08:17 Height 5 ft 10 in Weight 291 lb BMI 41.7 BP 118/72 Blood Pressure Location Lt brachial Position Sitting Pulse 71 Pulse Source Pulse Oximeter Pulse Oximetry (%) 97 Oxygen Delivery Method Room Air Intake Visit Reasons: 4m follow up Senior Analytic Consultant Required: No Accompanied by: Self / Same As Patient Allergies No Known Allergies [No Known Allergies*] Allergy (Verified 09/23/24 08:26) Medication List - Last Reconciled 09/23/24 by HEATH Serrato- apixaban (Eliquis) 5 mg PO BID aspirin 81 mg PO DAILY atorvastatin 80 mg PO BEDTIME ezetimibe (Zetia) 10 mg PO DAILY 90 days isosorbide mononitrate ER 60 mg PO DAILY lisinopril 10 mg PO DAILY metoprolol succinate ER 25 mg PO DAILY 90 days omeprazole 20 mg PO DAILY@0630 warfarin 5 mg See Protocol PO SUMOWETHSA@1800 Tobacco use date assessed: 09/23/24 Fall risk assessment: No Falls in past year Last assessed Fall Risk: 09/23/24 Dental Screening Dental Screen Date: 09/23/24 Did you have a dental visit in the last 12 months?: Yes Did you have a dental problem in the last 6 months where you did not have access to dental care?: No Was dental information given to patient?: Patient has dentist HPI 4m follow up HPI Details Chief Complaint Follow-up for management of morbid obesity and medication evaluation. History of Present Illness The patient is a 69-year-old male presenting with a follow-up for morbid obesity management. Previously, he was on Wegovy, a GLP-1 agonist, which was highly effective in controlling his weight and enhancing his energy, and decreasing his multiple symptoms. The use of Wegovy was recommended by his educational administration teacher, demonstrating marked improvement with less chest discomfort, but insurance issues led to cessation. The patient's medical history is notable for significant lower back pain with radiculopathy, alongside extensive arthritis and degenerative disc disease, which have been substantiated by recent imaging studies. He concurrently experiences hip and pelvic pain, associated with Paget's Disease of Bone, affecting his pelvis primarily. Furthermore, he has a history of hypertension, reiterated episodes of strokes, dyslipidemia, sleep apnea, and coronary artery disease, all influencing his overall health management. Social History Health Maintenance - Highly recommend the initiation of a G LP-1 agonist as part of the weight management strategy. Review of Systems - Musculoskeletal System: Reports ongoin g lower back pain. - Neurological System: Reports history o f strokes. Physical Exam General: Cooperative, healthy appearing, comfortable, no acute distress and well developed, MORBIDLY OBESE Orientation: Patient oriented x3 Limitations: No limitations Head: Normal to inspection Ears: Hearing grossly normal bilaterally Nose: Normal external nose present Face and sinus: Normal facial exam Eyes: Appearance normal, both eyes and all related structures Neck: Normal visual inspection and Yes full ROM Respiratory: Normal respiratory effort and able to speak in complete sentences. Clear to auscultation bilaterally Cardiovascular: Regular rate and rhythm. Normal S1 and S2, systolic murmur GI: Normal to inspection. Soft to palpation and nontender Skin: No rashes or lesions noted Neuro: Patient oriented x3 Extremities: Normal to inspection Results - Imaging of the lower back indicating e xtensive arthritis and degenerative disc disease. Plan Restarting a GLP-1 agonist like Wegovy is essential for the patient's weight management, which had been effective in the past. Addressing insurance issues to facilitate this treatment is necessary. Lower back pain management will take into account recent imaging findings of degenerative disc disease and arthritis, alongside ongoing management of Paget's Disease. Continued attention to hypertension, stroke history, dyslipidemia, sleep apnea, and coronary artery disease management is imperative, using appropriate medications and monitoring to reduce related risks. Pt's educational administration teacher agrees with use of a GLP-1 agonist as well. Discussion Notes I discussed the re-initiation of GLP-1 agonist therapy for weight management, emphasizing its previous success and endorsement by his educational administration teacher. Addressing insurance barriers is required for reestablishment of this effective treatment. We reviewed the impact of his lower back pain, associated conditions such as degenerative disc disease, and arthritis (multiple sites) from recent imaging. I reiterated the need for comprehensive management of his chronic conditions, including his history of strokes, hypertension, dyslipidemia, and coronary artery disease, highlighting the importance of regular monitoring and medication adherence. Consent was obtained for reevaluating the use of GLP-1 agonists upon resolving insurance issues, and follow-ups were suggested for monitoring his comprehensive health plan effectively. Patient Instructions - Resume using GLP-1 agonist therapy as previously successful if insurance issues can be resolved. - Ensure continuous management of lower back pain in conjunction with arthritis care. - Maintain regular follow-ups for hypert ension, stroke, dyslipidemia, and coronary artery disease management. - Monitor symptoms and report any signif icant changes or issues promptly. - Continue seeing the manager pacu for Paget's Disease management. [facility] Medical History (Updated 09/23/24 @ 09:19 by Brian Ward, [facility]) Medial epicondylitis DDD (degenerative disc disease), lumbar Acid reflux Hemorrhoids Lupus anticoagulant syndrome Factor 5 Leiden mutation, heterozygous Paroxysmal atrial fibrillation CAD (coronary artery disease) Paget's disease Rectal bleeding Vitamin deficiency Atrial flutter Osteoarthritis Angina pectoris Sleep apnea GERD (gastroesophageal reflux disease) CVA (cerebral vascular accident) HTN (hypertension) Cerebrovascular disease, acute Surgical History Hx of colonoscopy Hx of hand surgery Hx of appendectomy Hx of hernia repair Family History Father HTN (hypertension) S/P triple vessel bypass Mother Brain tumor Cancer Brother Cancer Brain tumor Social History Household Members: Spouse Housing: House Do you presently have visiting nurse or other home services: No Alcohol intake: never Patient Tobacco Use Status: Former Tobacco user Tobacco use type: Cigarette Cigarette Packs Per Day: 1 Cigarettes Per Day: 20.0 Years Smoked: 3 e-Cigarette/Vaping Use: Never Used Second Hand Smoke Exposure: No service: Yes Current occupational status: retired Cognitive needs: No Hearing needs: No Vision needs: No Questionnaire PHQ-9 Over the last 2 weeks, how often have you been bothered by any of the following problems? 1. Little interest or pleasure in doing things: not at all 2. Feeling down, depressed, or hopeless: not at all 3. Trouble falling or staying asleep, or sleeping too much: not at all 4. Feeling tired or having little energy: not at all 5. Poor appetite or overeating: not at all 6. Feeling bad about yourself - or that you are a failure or have let yourself or your family down: not at all 7. Trouble concentrating on things, such as reading the newspaper or watching television: not at all 8. Moving or speaking so slowly that other people could have noticed. Or the opposite - being so fidgety or restless that you have been moving around a lot more than usual: not at all 9. Thoughts that you would be better off or of hurting yourself in some way: not at all Total score: 0 Depression Screening Interpretation: Negative Depression Screening Done: Yes 16927 - PHQ-9 Billing: Yes Source: Developed by Drs. Brandt Salvador, Katie Gaines, Parish Mae and colleagues, with an educational timmy from [employer]. Thrive Questionnaire Date Thrive assessed: 09/23/24 I am a: Patient What is your living situation today?: I choose not to answer this question Within the past 12 months, did the food you bought not last and you didn't have the money to get more?: I choose not to answer this question Within the past 12 months, did you worry whether your food would run out before you got money to buy more?: I choose not to answer this question Do you have trouble paying for medicines?: I choose not to answer this question Do you have trouble getting transportation to medical appointments?: I choose not to answer this question Do you have trouble paying your heating and electricity bill?: I choose not to answer this question Do you have trouble taking care of your child, family member or friend?: I choose not to answer this question Do you have trouble with day-to-day activities such as bathing, preparing meals, shopping, managing finances, etc.?: I choose not to answer this question Are you currently unemployed and looking for a job?: I choose not to answer this question Are you interested in more education?: I choose not to answer this question Please select the resources that you would like help with: None Currently or been in a relationship where the following occur: I choose not to answer THRIVE Score: 0 AUDIT C Alcohol Use Questionnaire (AUDIT-C) 1. How often do you have a drink containing alcohol?: Never 3. How often do you have six or more drinks on one occasion?: Never Total Score: 0 Score Reviewed/Action Taken: Yes LILLIAN-7 AMB Questionnaire LILLIAN-7 Date LILLIAN - 7 assessed: 09/23/24 Feeling nervous, anxious, or on edge: 0 = Not at all Not being able to stop or control worryin = Not at all Worrying too much about different things: 0 = Not at all Trouble relaxin = Not at all Being so restless that it is hard to sit still: 0 = Not at all Becoming easily annoyed or irritable: 0 = Not at all Feeling afraid as if something awful might happen: 0 = Not at all Total LILLIAN-7 score (0-4 normal; 5-9 mild; 10-14 moderate; 15-21 severe): 0 Source: Developed by Drs. Brandt Salvador, Katie Gaines, Parish Mae and colleagues, with an educational timmy from [employer]. LILLIAN-7 Assessment Billing LILLIAN-7 Assessment Tool: LILLIAN-7 Assessment 42708 Physical exam (Primary Care) Vital Signs: Last Vital Signs Pulse 71 09/23/24 08:17 BP 118/72 09/23/24 08:17 Pulse Ox 97 09/23/24 08:17 Oxygen Delivery Method Room Air 09/23/24 08:17 BMI result Body Mass Index 41.7 Tobacco/Smoking Status: Tobacco use Status Tobacco use date assessed 09/23/24 09/23/24 08:18 Patient Tobacco Use Status Former Tobacco user 09/23/24 08:18 Tobacco use type Cigarette 09/23/24 08:18 e-Cigarette/Vaping Use Never Used 09/23/24 08:18 PHQ-9: PHQ-9 Score PHQ-9: Total score 0 09/23/24 08:23 Depression Screening Interpretation: Negative Thrive Assessment: Date of Thrive Assessment Date Thrive assessed 09/23/24 09/23/24 08:18 Currently or been in a relationship where the following occur: I choose not to answer Coding Level of Care Code Est Pt Level 3 (91655) Diagnoses Morbid obesity E66.01 Osteoarthritis M19.90 Hip pain M25.559 CVA (cerebral vascular accident) I63.9 Fibromyalgia M79.7 CAD (coronary artery disease) I25.10 Paget's disease DDD (degenerative disc disease), lumbar M51.36 Sleep apnea G47.30 Additional Codes LILLIAN-7 Assessment Billing - LILLIAN-7 Assessment Tool: LILLIAN-7 Assessment 56012 ([id number]) PHQ-9 - 61072 - PHQ-9 Billing: Yes ([id number]) Assessment & Plan Assessment & Plan (1) Morbid obesity: Code(s): E66.01 - Morbid (severe) obesity due to excess calories Category: Medical (2) Osteoarthritis: Code(s): M19.90 - Unspecified osteoarthritis, unspecified site Category: Medical (3) Hip pain: Code(s): M25.559 - Pain in unspecified hip Category: Medical (4) CVA (cerebral vascular accident): Comment: 2004. Loss of temperature sensation right side of body, hypersensitivity left face Code(s): I63.9 - Cerebral infarction, unspecified Category: Medical (5) Fibromyalgia: Code(s): M79.7 - Fibromyalgia Category: Medical (6) CAD (coronary artery disease): Comment: Denies recent chest pain Code(s): I25.10 - Atherosclerotic heart disease of rincon coronary artery without angina pectoris Category: Medical (7) Paget's disease: Category: Medical (8) DDD (degenerative disc disease), lumbar: Code(s): M51.36 - Other intervertebral disc degeneration, lumbar region Category: Medical (9) Sleep apnea: Code(s): G47.30 - Sleep apnea, unspecified Category: Medical Plan . Medications: New semaglutide (weight loss) (Artem) administer weeks 1 through 4 of therapy 0.25 mg (0.5 mL) subcut QWEEK 2 mL 0RF
[2024-09-23 08:17] VITALS: BP 118/72; PULSE 71; O2SAT 97; BMI 41.7
== END 2024-09-23 09:15 | disposition home or self-care (01) ==
LOC: HO.HMCC 08:15
PROVIDERS: PCP Nurse Practitioner Family; Visit Provider Nurse Practitioner Family
DX: M19.90 Unspecified osteoarthritis, unspecified site (principal); E66.01 Morbid (severe) obesity due to excess calories; I63.9 Cerebral infarction, unspecified; Z68.41 Body mass index [BMI] 40.0-44.9, adult; M79.7 Fibromyalgia; M25.551 Pain in right hip; I25.10 Atherosclerotic heart disease of native coronary artery without angina pectoris; M51.369 Other intervertebral disc degeneration, lumbar region without mention of lumbar back pain or lower extremity pain; G47.30 Sleep apnea, unspecified; M25.552 Pain in left hip

== ENCOUNTER → 2024-09-23 08:14 | Outpatient (BNVA) | payer MEDICARE, OTHER, SELFPAY | PROVIDERS: PCP Nurse Practitioner Family; Visit Provider Nurse Practitioner Family | DX: E66.01 Morbid (severe) obesity due to excess calories (principal); M19.90 Unspecified osteoarthritis, unspecified site; I63.9 Cerebral infarction, unspecified; M79.7 Fibromyalgia; I25.10 Atherosclerotic heart disease of native coronary artery without angina pectoris; G47.30 Sleep apnea, unspecified; M51.369 Other intervertebral disc degeneration, lumbar region without mention of lumbar back pain or lower extremity pain | CPT/HCPCS: 96127; 99212 ==

== ENCOUNTER 2024-09-24 08:04 | Outpatient (AMB) | payer MEDICARE, OTHER, SELFPAY ==
[2024-09-24 08:28] LABS: Prothrombin Time Whole Bld POC 17.7 sec (11.1-13.5); ~PT, ~INR - Anti Coag Clinic 1.5 (0.9-1.1)
--- NOTE | 2024-09-24 08:31 | MHC.OFFVISCO ---
Intake Intake Visit Reasons: Anticoagulation Allergies No Known Allergies [No Known Allergies*] Allergy (Verified 09/24/24 08:22) Medication List - Last Reconciled 09/24/24 by Brianne Flores RN apixaban (Eliquis) 5 mg PO BID aspirin 81 mg PO DAILY atorvastatin 80 mg PO BEDTIME ezetimibe (Zetia) 10 mg PO DAILY 90 days isosorbide mononitrate ER 60 mg PO DAILY lisinopril 10 mg PO DAILY metoprolol succinate ER 25 mg PO DAILY 90 days omeprazole 20 mg PO DAILY@0630 semaglutide (weight loss) (Wegovy) 0.25 mg (0.5 mL) subcut QWEEK warfarin 5 mg See Protocol PO SUMOWETHSA@1800 Nursing Note INR: 1.5 OUT OF therapeutic range FOR TRANSITION TO ELIQUIS Medications and supplements reviewed- off wygovy due to insurance/costs No changes in health, diet, supplements, Denies any signs and symptoms of bleeding or bruising or clotting. Bleeding, bruising, clotting discussed Nutritional guidance given Dose: off warfarin per repairer sash and door - start Eliquis per MD F/U DOAC Protocol per your Health Care providers Eliquis education given with print out- explained there will be a blood test soon in the future that measures Eliquis . Patient verbalizes understanding of instructions given Anti-Coag Initial Assessment Social Hx Patient Tobacco Use Status: Former Tobacco user Tobacco use type: Cigarette Smoking packs per day: 1 alcohol intake: never Coding Level of Care Code Est Patient Level 1 Diagnoses Current use of anticoagulant therapy Z79.01 Assessment & Plan Assessment & Plan (1) Current use of anticoagulant therapy: Comment: Sent a note to PCP regarding Coumadin-will await advisement patient fully aware Code(s): Z79.01 - intermediate (current) use of anticoagulants Category: Medical Medications: On Hold semaglutide (weight loss) (Wegovy) Hold Comment: INSURANCE /COST 0.25 mg (0.5 mL) subcut QWEEK 2 mL 0RF
== END 2024-09-24 08:44 | disposition home or self-care (01) ==
LOC: HO.ACS 08:04
PROVIDERS: PCP Nurse Practitioner Family; Visit Provider Internal Medicine Medical Oncology
DX: Z79.01 Long term (current) use of anticoagulants (principal)

== ENCOUNTER → 2024-09-24 08:04 | Outpatient (BNVA) | payer MEDICARE, OTHER, SELFPAY | PROVIDERS: PCP Nurse Practitioner Family; Visit Provider Internal Medicine Medical Oncology | DX: I48.0 Paroxysmal atrial fibrillation (principal); Z51.81 Encounter for therapeutic drug level monitoring; Z79.01 Long term (current) use of anticoagulants | CPT/HCPCS: 85610; 99211 ==

== ENCOUNTER 2025-02-15 07:14 | Outpatient (REF) | payer MEDICARE, OTHER, SELFPAY ==
--- OUTSIDE RECORDS SUMMARY | 2025-02-15 07:17 | XMS_ITS | Patient Health Record ---
Author Organization [facility] Address [address] [place] [address] Care Team Providers Care 2Nd Grade Teacher Name Role Phone Brian Bosch Primary Care Provider Unav ailable Sandra Newton Unavailable [phone] Reason For Referral No Information Medications Medication SIG (Take, Route, Frequency, Duration) Notes Start Date End Date Status Toprol XL 25 MG 1 tablet Orally Once a day Active Zetia 10 MG 1 tablet Orally Once a day Active Lisinopril 10 MG 1 tablet Orally Once a day Active Ketoconazole 2 % Externally Ac tive Atorvastatin Calcium 80 MG 1 tablet Oral ly Once a day Active Isosorbide Mononitrate ER 60 MG 1 tablet in the morning Orally Once a day Active Coumadin 5 MG 1 tablet Orally Once a day Active Omeprazole 20 MG 1 capsule Orally Onc e a day Active Social History Tobacco Use: Social History Observation Description Date Details (start date - stop date) Never Smoker NA - NA Tobacco Use/Smoking Question Answer Notes Are you a: nonsmoker Alcohol Screen Question Answer Notes Did you have a drink containing alcohol in the p ast year? No Points 0 Interpretation Negative Problems No Known Problems Plan Of Treatment No Information Insurance Providers Payer Name Payer Address Payer Phone Subscriber Number Group Number Insured Name Patient Relationship to Insured Coverage Start Date Coverage End Date [facility] [address] [place] [address] [phone] [id number] Sourav Lizama Self - patient is the insured Medical (General) History Medical History History ICD Code Hypertension CVA Hypercholesterolemia GERD Sleep Apnea Osteoarthritis Angina Pectoris Obesity Impaired Fasting Glucose Nonintractable headache Factor 5 Leiden mutation Heyerozygous Vitamin D defeiciency H/O Atrial Flutter Autoimmune disease Ostitis deformans Diastolic dysfuntion Arthritis Back,Hip,and Knee pain Cholesterol Headaches/Migraines Numbness Reflux ( GERD) Stroke Measles Chicken pox Transfusions Surgical History Surgery Date(Month/Year) Orthoscopic right knee ventral and umbilical hernia cellulitis left Thigh Cardiac Cath Hospitalization History Reason Date(Month/Year) orthoscopic right knee inguinal Hernia
[2025-02-15 07:54] LABS: Baso%MD 0.4 %; Eos%MD 3.2 %; Hematocrit 40.1 % (42.0-52.0); Hemoglobin 13.0 g/dl (14.0-18.0); IG%MD 0.2 %; Lymph%MD 30.3 %; Mean Corpuscular HGB Conc 32.4 g/dl (31.0-36.0); Mean Corpuscular Hemoglobin 28.6 pg (27.0-33.0); Mean Corpuscular Volume 88.1 fL (80.0-98.0); Mono%MD 8.0 %; NRBC Abs Auto 0.000 X10*3/uL (0.0-0.012); NRBC Pct Auto 0.0 /100WBC (0.0-0.2); Neut%MD 57.9 %; Platelet Count 147 X10*3/uL (160-400); Red Blood Count 4.55 X10*6/uL (4.60-5.80); White Blood Count 5.6 X10*3/uL (4.8-10.8)
[2025-02-15 08:22] LABS: Atypical Lymph Absolute Manual 0.1 x10*3/uL; Atypical Lymphs Percent Manual 1 % (0-6); Eosinophils Absolute Manual 0.1 X10*3/uL (0.0-0.4); Eosinophils Percent Manual 1 % (0-4); Lymphocytes Absolute Manual 1.8 X10*3/uL (1.2-4.9); Lymphocytes Percent Manual 32 % (20-40); Monocytes Absolute Manual 0.2 X10*3/uL (0.1-1.2); Monocytes Percent Manual 4 % (2-11); Neutrophils Percent Manual 62 % (45-73)
[2025-02-15 08:23] LABS: Large Platelet PRESENT; Ovalocytes 1+ (5-14) /OIF; RBC Morphology NOTED
[2025-02-15 08:24] LABS: Band Neutrophils Percent 0 % (3-5); Neutrophils Absolute Manual 3.5 X10*3/uL (2.0-8.3)
[2025-02-15 08:29] LABS: Alanine Aminotransferase 29 U/L (0-40); Albumin Level 4.2 g/dL (3.5-5.0); Alkaline Phosphatase 89 U/L (39-117); Anion Gap 11 (12-20); Aspartate Amino Transferase 22 U/L (5-37); Blood Urea Nitrogen 14 mg/dL (9-16); Calcium 9.0 mg/dL (8.4-10.2); Carbon Dioxide 30 mmol/L (22-29); Chloride 105 mmol/L (96-108); Estimated Glomerular Filt Rate > 60; Potassium 4.9 mmol/L (3.3-5.1); Sodium 141 mmol/L (135-145); Total Protein 7.0 g/dL (6.5-8.0)
== END 2025-02-15 07:15 | disposition home or self-care (01) ==
LOC: HO.LAB 07:14
PROVIDERS: PCP Internal Medicine; Visit Provider Internal Medicine Medical Oncology
DX: D68.51 Activated protein C resistance (principal)
CPT/HCPCS: 36415; 80053; 83615; 85007; 85027

== ENCOUNTER 2025-02-18 08:58 | Emergency (ER) | payer MEDICARE, OTHER, SELFPAY ==
--- NOTE | 2025-02-18 | ECG_ITS ---
Test Reason : CP Blood Pressure : */* mmHG Vent. Rate : 61 BPM Atrial Rate : 61 BPM P-R Int : 168 ms QRS Dur : 96 ms QT Int : 444 ms P-R-T Axes : 3 21 55 degrees QTcB Int : 446 ms Normal sinus rhythm with sinus arrhythmia Normal ECG When compared with ECG of 02-Aug-2022 18:43, No significant change was found Referred By: Generic ED Physician Electronically Signed By: CHRISTOPHER VELAZQUEZ
--- NOTE | ~2025-02-18 | XR_ITS ---
EXAMINATION: XR CHEST 2 VIEWS HISTORY: CP COMPARISON: Comparison is made with the prior examination dated 08/03/2022. FINDINGS: PA and lateral views of the chest are submitted. The lungs are expanded and clear. There is no pleural effusion, pneumothorax, or pulmonary vascular congestion. The heart is mildly enlarged. There is degenerative disc disease of the spine. XR/XR chest 2V IMPRESSION: Mild cardiomegaly. No acute cardiopulmonary abnormality. Electronically signed by: Brandt Rowland MD 02/18/2025 02:27 PM EDT
--- NOTE | 2025-02-18 09:29 | ED.CHESTPAIN ---
HPI - Chest Pain General Chief Complaint: Chest Pain Stated Complaint: Chest pain Time Seen by Provider: 02/18/25 10:36 History of Present Illness ED Provider: Dr. Mcghee HPI narrative: 69 y/o M patient; PMH MAILE, obesity, factor 5 leiden on Eliquis, vertebral artery stenosis, hx CVA, HTN, fibromyalgia, CAD, pAF: presents from home with a few hours of right-sided chest pain associated with deep breathing. He states the pain is primarily in his right sided chest. It is worse with pressing on his right sided chest wall. He otherwise denies: fever or chills, nausea/vomiting, abdominal pain, SOB, cough/congestion, syncope. Related Data Previous Rx's ?Medication ?Instructions ?Recorded aspirin 81 mg tablet,delayed 81 mg PO DAILY #90 tabs 08/03/22 release ezetimibe 10 mg tablet (Zetia) 10 mg PO DAILY 90 days #90 tabs 12/16/23 isosorbide mononitrate 60 mg 60 mg PO DAILY #90 tabs 03/23/24 tablet,extended release 24 hr metoprolol succinate 25 mg 25 mg PO DAILY 90 days #90 tabs 06/19/24 tablet,extended release 24 hr omeprazole 20 mg capsule,delayed 20 mg PO DAILY@0630 #90 caps 09/08/24 release atorvastatin 80 mg tablet 80 mg PO BEDTIME #90 tabs 09/14/24 lisinopril 10 mg tablet 10 mg PO DAILY #90 tabs 09/14/24 apixaban 5 mg tablet (Eliquis) 5 mg PO BID #60 tabs 09/16/24 semaglutide (weight loss) 0.25 0.25 mg (0.5 mL) subcut QWEEK #2 mL 09/23/24 mg/0.5 mL subcutaneous pen injector (Wegovy) Held on 09/24/24. Instructions: INSURANCE /COST Allergies Allergy/AdvReac Type Severity Reaction Status Date / Time No Known Allergies (No Known Allergy Verified 02/18/25 09:34 Allergies*) Review of Systems Review of Systems: Yes all other systems are reviewed and are negative PMFSH Past Medical History Attestation statement: The following information was validated with the patient. Source: old records reviewed Medical History Medial epicondylitis DDD (degenerative disc disease), lumbar Acid reflux Hemorrhoids Lupus anticoagulant syndrome Factor 5 Leiden mutation, heterozygous Paroxysmal atrial fibrillation CAD (coronary artery disease) Paget's disease Rectal bleeding Vitamin deficiency Atrial flutter Osteoarthritis Angina pectoris Sleep apnea GERD (gastroesophageal reflux disease) CVA (cerebral vascular accident) HTN (hypertension) Cerebrovascular disease, acute Surgical History Hx of colonoscopy Hx of hand surgery Hx of appendectomy Hx of hernia repair Family History Family History Father HTN (hypertension) S/P triple vessel bypass Mother Brain tumor Cancer Brother Cancer Brain tumor Social History Social History Household Members: Spouse Housing: House Do you presently have visiting nurse or other home services: No Alcohol intake: never Patient Tobacco Use Status: Former Tobacco user Tobacco use type: Cigarette Cigarette Packs Per Day: 1 Cigarettes Per Day: 20.0 Years Smoked: 3 Smoked in Last 30 Days: No e-Cigarette/Vaping Use: Never Used Second Hand Smoke Exposure: No Use of substances other than those prescribed or required for medical reasons: No Advance Directives: No Advance Directives Information Provided: Yes service: Yes Current occupational status: retired Cognitive needs: No Hearing needs: No Vision needs: No Physical Exam Vital Signs: Vital Signs: Last Vital Signs Temp 98.4 F 02/18/25 12:00 Pulse 84 02/18/25 12:00 Resp 18 02/18/25 12:00 BP 144/82 H 02/18/25 12:00 Pulse Ox 99 02/18/25 12:00 O2 Del Method Room Air 02/18/25 12:00 BMI result Body Mass Index 42.4 Patient is afebrile and hemodynamically stable. Const: General: cooperative and no acute distress HEENT: Head: Yes normal to inspection and Yes atraumatic Eyes: General: appearance normal, both eyes and all related structures Conjunctivae: conjunctivae normal Pupils: Equal, round and reactive pupils present EOM: EOMs intact bilaterally Neck: Neck: Yes normal visual inspection, Yes supple and No tender Chest: Other: + discomfort with palpation of right sided chest wall Chest palpation & inspection: normal inspection of the chest Resp: Effort & Inspection: normal respiratory effort, able to speak in complete sentences and no cough Auscultation: clear to auscultation bilaterally Cardio: Rate: regular rate Rhythm: regular rhythm Peripheral pulses: Peripheral pulses 2+ throughout GI: Inspection: Yes normal to inspection, No Abdominal wall edema and No distended Palpation (GI): Soft to palpation, not firm, nontender, no guarding and not rigid Auscultation: normal bowel sounds Back/Spine/Pelvis: Back: No back tenderness Neuro: Cranial nerves: Yes Equal, round and reactive pupils present Course Course Course Narrative: 69 yo male with PMH of obesity, anemia, MAILE, factor V leiden on eliquis, CVA, HLD, HTN, GIB, CAD, paget's disease here with c/o chest pain at 730am while at rest. Chest pain has resolved as of this time. Pain was aching across R chest and hurts to move and touch. No associated nausea or dizziness. He notes it gets worse with breathing. No recent travel or procedures. Will obtain CXR, labs, EKG, CTA likely given pleuritic R sided chest pain. He admits to missing doses of his eliquis as he has a hard time remembering. this is a RAPID medical screening exam the rest of the history and physical exam is to be done by the main provider. SACHA 02/18/25 930am Reevaluation(s) Reevaluation #1: Patient is afebrile and hemodynamically stable. Reviewed triage labs, EKG, and CXR. Patient did clarify he is approx 90 - 95% compliant with his eliquis, he just forgets the evening dose occasionally. He is currently trying to switch to Xarelto so he can take it once a day as he is better with taking his AM medications. EKG independently interpreted by myself as NSR 61BPM with normal intervals. Labs reviewed. No significant leukocytosis. No significant anemia. Mild baseline thrombocytopenia. D-dimer is unremarkable. Less likely pulmonary emboli especially concerning the patient is 90 - 95% compliant with his anticoagulation. I discussed with the patient and at bedside that without hypoxia, tachycardia, with 90% compliance with eliquis, and with a negative d-dimer I think his likelihood of a PE is quite low. I did offer the patient a CTA Chest if he would like one but he was agreeable to defer at this time. He will follow up closely with his PCP and Patch Driller for a re-evaluation. Troponin 9.9, repeat 2hr troponin ordered. CXR with mild cardiomyopathy, otherwise unremarkable. 2nd troponin flat. Less likely ACS. Possible right sided muscle spasm. Patient and feel comfortable with plan for discharge to home and out-patient follow up. Plan: Discharge to home with close PCP and Cardiology follow up Return precautions given Medical Decision Making Lab Data 02/18/25 09:44 02/18/25 09:44 Labs: Lab Results 02/18/25 02/18/25 02/18/25 Range/Units 09:44 12:00 14:28 WBC 5.5 (4.8-10.8) X10*3/uL RBC 4.63 (4.60-5.80) X10*6/uL Hgb 13.0 L (14.0-18.0) g/dl Hct 41.0 L (42.0-52.0) % MCV 88.6 (80.0-98.0) fL MCH 28.1 (27.0-33.0) pg MCHC 31.7 (31.0-36.0) g/dl RDW 13.4 (11.0-16.0) % Plt Count 143 L (160-400) X10*3/uL MPV 11.2 (9.4-12.4) fL Immature Gran % (Auto) 0.2 (0.0-0.4) % Neut % (Auto) 59.8 (45-73) % Lymph % (Auto) 28.4 (20-40) % Blaine % (Auto) 8.3 (2-11) % Eos % (Auto) 2.9 (0-4) % Baso % (Auto) 0.4 (0-2) % Lymph # (Auto) 1.6 (1.2-4.9) X10*3/uL Blaine # (Auto) 0.5 (0.1-1.2) X10*3/uL Eos # (Auto) 0.2 (0.0-0.4) X10*3/uL Baso # (Auto) 0.0 (0.0-0.2) X10*3/uL Abs Immat Gran (auto) 0.01 (0.00-0.03) X10*3/uL Absolute Neuts (auto) 3.3 (2.0-8.3) x10*3/uL Absolute Nucleated RBC 0.000 (0.0-0.012) X10*3/uL Nucleated RBC % (auto) 0.0 (0.0-0.2) /100WBC D-Dimer High Sensitivty < 150 NG/ML Sodium 138 (135-145) mmol/L Potassium 4.5 (3.3-5.1) mmol/L Chloride 105 (96-108) mmol/L Carbon Dioxide 30 H (22-29) mmol/L Anion Gap 8 L (12-20) BUN 14 (9-16) mg/dL Creatinine 0.92 (0.5-1.4) mg/dL Estim Creat Clear Calc 104.4 Estimated GFR > 60 Random Glucose 94 (60-115) mg/dL Calcium 8.8 (8.4-10.2) mg/dL Magnesium 2.2 (1.6-2.6) mg/dL Total Bilirubin 0.5 (0.0-1.0) mg/dL Direct Bilirubin 0.2 (0.0-0.5) mg/dL AST 24 (5-37) U/L ALT 31 (0-40) U/L Alkaline Phosphatase 94 (39-117) U/L Troponin I High Sens 9.9 9.4 (<3.5-35.0) ng/L B-Natriuretic Peptide 178 H (<100) pg/mL Total Protein 7.1 (6.5-8.0) g/dL Albumin 4.2 (3.5-5.0) g/dL Radiology Impression Discussion of test interpretation with radiology: I have reviewed the radiologist's reading. Radiologist Impression: EXAMINATION: XR CHEST 2 VIEWS HISTORY: CP COMPARISON: Comparison is made with the prior examination dated 08/03/2022. FINDINGS: PA and lateral views of the chest are submitted. The lungs are expanded and clear. There is no pleural effusion, pneumothorax, or pulmonary vascular congestion. The heart is mildly enlarged. There is degenerative disc disease of the spine. XR/XR chest 2V IMPRESSION: Mild cardiomegaly. No acute cardiopulmonary abnormality. Electronically signed by: Brandt Rowland MD 02/18/2025 02:27 PM EDT RP Discharge Plan Discharge Clinical Impression: Chest pain Patient Disposition: Home, Self-Care Instructions: Chest Pain (DC) Additional Instructions: As we discussed you were seen today for chest pain. You had two enzymes of your heart where were negative. You had a blood clot test (d-dimer) which was negative. Your EKG of your heart and chest XR were also reassuring. Please tomorrow morning call your primary doctor and marshmallow machine worker to make them aware of your recent emergency department visit and to plan a close re-evaluation. If your pain gets worse or changes please return immediately to the emergency department for a re-evaluation. Prescriptions: No Action ezetimibe [Zetia] 10 mg tablet 10 mg PO DAILY 90 Days Qty: 90 3RF isosorbide mononitrate 60 mg tablet extended release 24 hr 60 mg PO DAILY Qty: 90 3RF metoprolol succinate 25 mg tablet extended release 24 hr 25 mg PO DAILY 90 Days Qty: 90 2RF omeprazole 20 mg capsule,delayed release(DR/EC) 20 mg PO DAILY@0630 Qty: 90 1RF lisinopril 10 mg tablet 10 mg PO DAILY Qty: 90 3RF atorvastatin 80 mg tablet 80 mg PO BEDTIME Qty: 90 3RF Eliquis 5 mg tablet 5 mg PO BID Qty: 60 3RF aspirin 81 mg tablet,delayed release (DR/EC) 81 mg PO DAILY Qty: 90 0RF Rx Instructions: over the counter baby aspirin is fine Wegovy 0.25 mg/0.5 mL pen injector 0.25 mg subcut QWEEK Qty: 2 0RF Rx Instructions: administer weeks 1 through 4 of therapy Print Language: Honduran
[2025-02-18 09:30] VITALS: BP 169/78; PULSE 60; RESP 18; TEMP 36.6; O2SAT 97; BMI 42.4
[2025-02-18 10:01] LABS: MANUAL DIFF FLAG NO
[2025-02-18 10:04] LABS: Hematocrit 41.0 % (42.0-52.0); Hemoglobin 13.0 g/dl (14.0-18.0); Imm Gran Abs Auto 0.01 X10*3/uL (0.00-0.03); Imm Gran Pct Auto 0.2 % (0.0-0.4); Lymphocytes Absolute Auto 1.6 X10*3/uL (1.2-4.9); Mean Corpuscular HGB Conc 31.7 g/dl (31.0-36.0); Mean Corpuscular Hemoglobin 28.1 pg (27.0-33.0); Mean Corpuscular Volume 88.6 fL (80.0-98.0); NRBC Abs Auto 0.000 X10*3/uL (0.0-0.012); NRBC Pct Auto 0.0 /100WBC (0.0-0.2); Platelet Count 143 X10*3/uL (160-400); Red Blood Count 4.63 X10*6/uL (4.60-5.80); White Blood Count 5.5 X10*3/uL (4.8-10.8)
[2025-02-18 10:21] LABS: Alanine Aminotransferase 31 U/L (0-40); Albumin Level 4.2 g/dL (3.5-5.0); Alkaline Phosphatase 94 U/L (39-117); Anion Gap 8 (12-20); Aspartate Amino Transferase 24 U/L (5-37); Blood Urea Nitrogen 14 mg/dL (9-16); Calcium 8.8 mg/dL (8.4-10.2); Carbon Dioxide 30 mmol/L (22-29); Chloride 105 mmol/L (96-108); Creatinine Clr Calc Pharmacy 104.4; Estimated Glomerular Filt Rate > 60; Magnesium 2.2 mg/dL (1.6-2.6); Potassium 4.5 mmol/L (3.3-5.1); Sodium 138 mmol/L (135-145); Total Protein 7.1 g/dL (6.5-8.0)
[2025-02-18 10:25] LABS: B Type Natriuretic Peptide 178 pg/mL (<100)
[2025-02-18 10:33] VITALS: BP 152/73; PULSE 56; RESP 20; O2SAT 94
--- NOTE | 2025-02-18 11:20 | PC.NURSE ---
Addendum entered by Bridgette Rhodes RN 02/18/25 11:21: Patient is a 69 yo male with PMH of obesity, anemia, MAILE, factor V leiden on eliquis, CVA, HLD, HTN, GIB, CAD, paget's disease here with c/o constant chest pain which started last night while at rest. Pain was aching across R chest and hurts to move, palpation and inspiration. Patient alert and oriented. Lungs clear bilat. Respirations even and non-labored. Abdomen large, soft, non-tender with positive bowel sounds. Positive pedal pulses with trace edema. Original Note: Medical History Medial epicondylitis DDD (degenerative disc disease), lumbar Acid reflux Hemorrhoids Lupus anticoagulant syndrome Factor 5 Leiden mutation, heterozygous Paroxysmal atrial fibrillation CAD (coronary artery disease) Paget's disease Rectal bleeding Vitamin deficiency Atrial flutter Osteoarthritis Angina pectoris Sleep apnea GERD (gastroesophageal reflux disease) CVA (cerebral vascular accident) HTN (hypertension) Cerebrovascular disease, acute
[2025-02-18 12:00] VITALS: BP 144/82; PULSE 84; RESP 18; TEMP 36.9; O2SAT 99
[2025-02-18 12:15] LABS: D Dimer High Sensitivity < 150 NG/ML
--- OUTSIDE RECORDS SUMMARY | 2025-02-18 12:21 | XMS_ITS | Patient Health Record ---
Author Organization [facility] Address [address] [place] [address] Care Team Providers Care Anvil Worker Name Role Phone Brian Bosch Primary Care Provider Unav ailable Sandra Newton Unavailable [phone] Reason For Referral No Information Medications Medication [...] Insured Coverage Start Date Coverage End Date [facility] [address] [place] [id number] Sourav Lizama Self - patient is the [...]
[2025-02-18 12:25] LABS: Troponin-I High Sensitivity 9.9 ng/L (<3.5-35.0)
[2025-02-18 15:03] LABS: Troponin-I High Sensitivity 9.4 ng/L (<3.5-35.0)
[2025-02-18 15:32] VITALS: BP 144/82; PULSE 84; RESP 18; TEMP 36.9; O2SAT 99
== END 2025-02-18 15:34 | disposition home or self-care (01) ==
PROVIDERS: Emergency Medicine; Emergency Provider Emergency Medicine; PCP Internal Medicine
DX: R07.9 Chest pain, unspecified (principal); I10 Essential (primary) hypertension; I42.9 Cardiomyopathy, unspecified; I48.0 Paroxysmal atrial fibrillation; E66.9 Obesity, unspecified; Z68.41 Body mass index [BMI] 40.0-44.9, adult; Z86.73 Personal history of transient ischemic attack (TIA), and cerebral infarction without residual deficits; Z79.01 Long term (current) use of anticoagulants; Z79.899 Other long term (current) drug therapy
CPT/HCPCS: 36415; 71046; 80048; 80076; 83735; 83880; 84484; 85025; 85379; 93005; 99283; 99285

== ENCOUNTER → 2025-02-18 09:07 | Outpatient (BNV) | payer MEDICARE, OTHER, SELFPAY | PROVIDERS: Emergency Provider Emergency Medicine; PCP Internal Medicine; Visit Provider Internal Medicine | DX: R07.9 Chest pain, unspecified (principal) | CPT/HCPCS: 93010 ==

== ENCOUNTER → 2025-02-18 13:39 | Outpatient (BNV) | payer MEDICARE, OTHER, SELFPAY | PROVIDERS: Emergency Provider Emergency Medicine; PCP Internal Medicine; Visit Provider Radiology Diagnostic Radiology | DX: R07.9 Chest pain, unspecified (principal) | CPT/HCPCS: 71046 ==